=== PATIENT | female | born 1995 | race Caucasian/White ===

== ENCOUNTER → 2022-10-20 | Outpatient (CLI) | payer OTHER, SELFPAY ==
--- NOTE | 2022-10-20 07:47 | MRI_ITS ---
STUDY: EXAMINATION - MRV BRAIN WITHOUT CONTRAST REASON FOR EXAM: Female, 27 years old. VISUAL FIELD DEFECT TECHNIQUE: 3D uwzk-to-unevwz (TOF) imaging was performed in a sonny MRI scanner. COMPARISON: None. FINDINGS: Normal flow within the superior sagittal sinus. Normal flow within the superficial cortical veins. Normal flow within the paired internal cerebral veins, vein of [place] and straight sinus. Normal flow within the bilateral transverse and sigmoid sinuses. The left transverse sinus is markedly hypoplastic. Normal flow within the bilateral jugular bulbs. MRI/MRV Head Without Contrast IMPRESSION: Normal unenhanced MRV of the brain with a markedly hypoplastic left transverse sinus. Electronically Signed: Anthony Zaidi MD at 14:01 EDT ,
--- NOTE | 2022-10-20 07:47 | MRI_ITS ---
EXAM: MR HEAD WITHOUT AND WITH INTRAVENOUS CONTRAST CLINICAL INDICATION: VISUAL FIELD LOSS TECHNIQUE: Multiplanar and multisequence MR images of the brain were obtained without and with intravenous contrast. CONTRAST: 20 mL of IV Clariscan. COMPARISON: No relevant prior studies available. FINDINGS: BRAIN AND EXTRA-AXIAL SPACES: Unremarkable. No intra- or extra-axial hemorrhage. No evidence of acute infarct. No intracranial mass or mass effect. There is preservation of the gómez/white matter interface. Posterior fossa structures are unremarkable. Ventricles are appropriate for age. No hydrocephalus. Basal cisterns are patent. ORBITS: Normal orbital globes, extraocular muscles, intraconal fat, bilateral optic nerve sheath complexes and lacrimal glands. SELLA: Unremarkable. Normal sella turcica, pituitary gland, infundibular stalk, optic chiasm and hypothalamus. AUDITORY SYSTEM: Unremarkable. The internal auditory canals are patent. BONES/JOINTS: Unremarkable. No discrete lytic or blastic abnormalities. SINUSES: Unremarkable as visualized. Clear. MASTOID AIR CELLS: Unremarkable as visualized. Clear. ORBITS: Unremarkable as visualized. Both globes, extraocular muscles, optic nerves and retrobulbar fat appear unremarkable. VASCULATURE: Unremarkable as visualized. Normal flow voids in the major intracranial circulation. MRI/Brain W/WO Contrast IMPRESSION: Negative MRI brain and orbits without and with intravenous contrast. Electronically Signed: Anthony Zaidi MD at 11:11 EDT ,
== END | disposition home or self-care (01) ==
PROVIDERS: Referring Provider Ophthalmology; Visit Provider Ophthalmology
DX: H47.10 Unspecified papilledema (principal); R51.9 Headache, unspecified; H54.7 Unspecified visual loss
CPT/HCPCS: 70544; 70553; A9575

== ENCOUNTER 2022-10-26 11:13 | Outpatient (CLI) | payer OTHER, SELFPAY ==
[2022-10-26 11:33] VITALS: BP 141/88; PULSE 89; RESP 18; TEMP 36.7; O2SAT 100; BMI 38.2
--- NOTE | 2022-10-26 11:45 | RAD_ITS ---
PROCEDURE: Fluoroscopic guided Lumbar Puncture. DATE: October 26, 2022. CLINICAL INDICATION: Papilledema. PHYSICIAN: Khang Hough M.D. MEDICATIONS: 1% lidocaine administered subcutaneously for local anesthesia. ACCESS SITE: Lower posterior back. NEEDLE: 22-gauge spinal needle. SPECIMEN: Approximately 14 mL clear]CSF fluid. FLUOROSCOPY TIME (if supplied): (1:08) minutes/seconds. 41.28 mGy COMPLICATIONS: None immediate. The risks, benefits, and alternatives to the procedure were explained to the patient. The specific risks of bleeding, infection, and neurovascular injury were detailed and accepted. Witnessed informed consent was obtained. The patient was placed on the fluoroscopic table in the prone position. The level for needle entry was determined and marked. The overlying skin was cleaned and prepped in the usual sterile fashion. 2% lidocaine was administered subcutaneously for local anesthesia. Under fluoroscopic guidance a 22-gauge spinal needle was advanced. The thecal sac was entered at the L2-L3 vertebral level. The inner stylet was removed. There was spontaneous flow of clear CSF fluid. Opening pressure was 15 mm of water. The patient was placed in a reversed Trendelenburg position. Approximately 14 mL of cerebrospinal fluid was collected using gravity. The specimen was collected and submitted to the laboratory for further evaluation. The needle was withdrawn,. Hemostasis was achieved and a sterile dressing placed. The patient tolerated the procedure well without any immediate complications. The patient was placed supine with head elevated and returned to the floor in stable condition. RAD/Dx Lumbar Puncture w/IMG Guide IMPRESSION: Successful fluoroscopic-guided lumbar puncture. Electronically Signed: Khang Hough MD at 12:50 EDT ,
[2022-10-26 12:24] VITALS: BP 119/43; PULSE 76; RESP 18; O2SAT 100
[2022-10-26] MEDS: Lidocaine 2% (5ml sdv) 5 ML VIAL.MPF INFILT (12:30)
[2022-10-26 13:22] LABS: Appearance CSF (character) CLEAR (Clear); CSF Color COLORLESS (Colorless); Tested Tube # 3
[2022-10-26 13:23] LABS: Body Fluid QC Type(s) BF2Q,BF3Q; RBC Count, Spinal Fluid 0 /mm-3 (None seen); White Count, CSF 0 /mm-3 (0 - 5)
[2022-10-26 13:40] VITALS: BP 136/84; PULSE 64; RESP 14; O2SAT 100
[2022-10-27 12:10] LABS: Pathologist Review Reviewed
== END 2022-10-26 23:59 | disposition home or self-care (01) ==
PROVIDERS: Referring Provider Ophthalmology; Visit Provider Ophthalmology
DX: H47.10 Unspecified papilledema (principal)
CPT/HCPCS: 62328; 87070; 87205; 89050; 89051

== ENCOUNTER 2022-10-29 06:42 | Emergency (ER) | payer OTHER, SELFPAY ==
[2022-10-29 06:43] VITALS: BP 132/109; PULSE 81; RESP 16; TEMP 36.2; O2SAT 99; BMI 39.2
--- NOTE | 2022-10-29 07:28 | EX.ED.VIS.HA ---
HPI History of Present Illness Chief Complaint: Headache Narrative Narrative: 27-year-old female presenting with headache. Patient states that she recently has been being worked up by her cake press operator because she has a loss of her peripheral vision. She states she had MRI and MRV performed of her brain which were normal. Patient states that on she had a diagnostic LP done by Dr. Hough. She states that she has been having mild headaches that she feels around her eyes bilaterally. She had this kind of headache on Sunday but this morning she woke up with a different headache which is more in the back of her head and radiates down her neck. She states he is not really lightheaded. She is been trying to drink caffeine but this is not helping. No fevers or chills. No nausea or vomiting. PFSH PFSH Home Medications ferrous sulfate 325 mg (65 mg iron) tablet (Iron (ferrous sulfate)) 325 mg PO QODAY 10/26/22 [History Last Taken Unknown] xipzdejxzb-jgvpldhfbyrzl-xmkzyiff 50 mg-300 mg-40 mg capsule (Fioricet) 1 cap PO Q8H PRN pain #12 caps 10/29/22 [Rx Last Taken Unknown] ondansetron 4 mg disintegrating tablet 4 mg PO Q8H PRN PRN Nausea #10 tabs 10/29/22 [Rx Last Taken Unknown] Allergy/AdvReac Type Severity Reaction Status Date / Time No Known Allergies Allergy Verified 10/29/22 06:46 Social History Smoking Status: Never smoker ROS ROS ED Constitutional Constitutional ED: Denies chills or fever(s) Eyes Eyes: Denies change in vision or diplopia ENT ENT ED: Denies rhinorrhea or sore throat Cardiovascular Cardiovascular: Denies chest pain or palpitations Respiratory/Chest Respiratory/Chest: Denies cough, dyspnea or dyspnea on exertion Gastrointestinal Gastrointestinal: Denies abdominal pain or constipation Genitourinary Genitourinary ED: Denies dysuria or hematuria Musculoskeletal Musculoskeletal: Denies arthralgias Integumentary Denies rash Neurologic Neurologic: Reports headache(s); Denies paresthesias or weakness Psychiatric Psychiatric: Denies anxiety or depression EXAM Physical Exam Const Vital Signs: 10/29/22 06:43 10/29/22 06:43 10/29/22 09:16 Temperature 97.1 F L 97.1 F L Temperature Source Temporal Temporal Pulse Rate 81 81 91 Respiratory Rate 16 16 14 Blood Pressure 132/109 H 132/109 H 106/62 Blood Pressure Mean 116 116 Pulse Ox 99 99 99 Oxygen Delivery Method Room Air Room Air Positive well nourished General Appearance ED: NAD CARLINE Reports normocephalic atraumatic Eyes PERRL and EOMs intact bilaterally Resp normal respiratory effort Effort and Inspection: Negative for retractions Cardio regular rate and regular rhythm Extremity normal to inspection Neuro oriented x3, CN's II-XII intact bilaterally and no sensory deficits noted Sensorium / Orientation: awake and alert Psych mental status grossly normal Skin Skin Narrative: LP site shows no erythema, tenderness, warmth. MDM MDM MDM Narrative Medical decision making narrative: 27-year-old female presenting with headache. I believe this is a spinal headache. She had a diagnostic LP performed by Dr. Hough on . IV line was established and she was given Reglan, Benadryl, Toradol a liter normal saline. I discussed the case with Dr. Naun Rawls who is the anesthesiologist on-call at 7:15 in the morning and she states she is going to be in cases all day and will not be able to perform blood patch at any time today. She also stated that since Dr. Hough did the LP he can do a blood patch tomorrow because he is not in house today due to it being a Sunday. I do not have a way to get a hold of Dr. Hough to set this up. I did discuss with the patient that they can try to return tomorrow to have this done. Impression: 1. Spinal headache Discharge Plan Triage Chief Complaint: Headache ED Provider: Armen Vargas Dx/Rx/DC Orders Instructions: ED Headache After Spinal Tap ... Prescriptions: New qnzjfwwmmf-sdqnvloulwcqi-hetf [Fioricet] 50-300-40 mg capsule 1 cap PO Q8H PRN (Reason: pain) Qty: 12 0RF ondansetron 4 mg tablet,disintegrating 4 mg PO Q8H PRN PRN (Reason: Nausea) Qty: 10 0RF No Action ferrous sulfate [Iron (ferrous sulfate)] 325 mg (65 mg iron) tablet 325 mg PO QODAY Primary Care Provider: Krysten Barrera Referrals: Krysten Barrera DO [Primary Care Provider] - Disposition Disposition: Home, Self Care Discharge Date/Time: 10/29/22 09:18
[2022-10-29] MEDS: DiphenhydrAMINE 50 MG/ML Syringe 25 MG IV (07:30)
[2022-10-29] MEDS: 0.9% Normal Saline 1,000 ML 999 ML IV (07:30)
[2022-10-29] MEDS: Metoclopramide 10 MG/2 ML Vial IV (07:32)
[2022-10-29] MEDS: Ketorolac 15 MG/ML Vial IV (07:32)
[2022-10-29 09:16] VITALS: BP 106/62; PULSE 91; RESP 14; O2SAT 99
== END 2022-10-29 09:18 | disposition home or self-care (01) ==
PROVIDERS: Emergency Provider Student in an Organized Health Care Education/Training Program; Visit Provider Student in an Organized Health Care Education/Training Program
DX: G97.1 Other reaction to spinal and lumbar puncture (principal)
CPT/HCPCS: 96361; 96374; 96375; 99283; J7030; A4216

== ENCOUNTER 2022-10-30 06:46 | Emergency (ER) | payer OTHER, SELFPAY ==
[2022-10-30 06:46] VITALS: BP 145/94; PULSE 75; RESP 14; TEMP 36.3; O2SAT 98; BMI 38.2
--- NOTE | 2022-10-30 08:25 | EX.ED.VIS.HA ---
HPI History of Present Illness Chief Complaint: Headache Informant: patient Narrative Narrative: Presenting with persistent post lumbar headache. Diagnostic LP 4 days ago in radiology department Dr. Hough, symptomatic the following day. Symptoms worse with sitting or standing. She is being worked up for idiopathic intracranial hypertension. Initially seen by ophthalmology. She had MRI studies 2 weeks ago. She was sent for diagnostic evaluation. She reported her pressures were normal. She was prescribed Diamox by her director inpatient headache program however has not started taking it. She was seen yesterday in the ED over the weekend. She is given migraine cocktail. She was given prescription for Fioricet. She took it yesterday 5 PM had transient relief. She returns for persistent symptoms. This was her first lumbar puncture. Denies fevers. Denies photophobia or phonophobia. PFSH PFSH Home Medications ferrous sulfate 325 mg (65 mg iron) tablet (Iron (ferrous sulfate)) 325 mg PO QODAY 10/26/22 [History Last Taken Unknown] kfoftfnpmf-kjfvgoypsmefn-nonkhssn 50 mg-300 mg-40 mg capsule (Fioricet) 1 cap PO Q8H PRN pain #12 caps 10/29/22 [Rx Last Taken Unknown] ondansetron 4 mg disintegrating tablet 4 mg PO Q8H PRN PRN Nausea #10 tabs 10/29/22 [Rx Last Taken Unknown] Allergy/AdvReac Type Severity Reaction Status Date / Time No Known Allergies Allergy Verified 10/30/22 06:53 Social History Smoking Status: Never smoker ROS ROS ED Constitutional Constitutional ED: Denies chills, fever(s) or sweats Eyes Eyes: Denies change in vision ENT ENT ED: Denies dysphagia or sore throat Cardiovascular Cardiovascular: Denies chest pain, leg edema, palpitations or racing heartbeat Respiratory/Chest Respiratory/Chest: Denies cough, dyspnea or dyspnea on exertion Gastrointestinal Gastrointestinal: Denies abdominal pain, diarrhea, nausea or vomiting Genitourinary Genitourinary ED: Denies dysuria, hematuria or urinary frequency Musculoskeletal Musculoskeletal: Denies back pain, extremity pain or neck pain Integumentary Denies rash or wounds Neurologic Neurologic: Reports headache(s); Denies paresthesias or weakness EXAM Physical Exam Const Vital Signs: 10/30/22 06:46 Temperature 97.3 F L Temperature Source Temporal Pulse Rate 75 Respiratory Rate 14 Blood Pressure 145/94 H Blood Pressure Mean 111 Pulse Ox 98 Oxygen Delivery Method Room Air Positive well nourished and well developed General Appearance ED: well developed and NAD HEENT Reports moist mucous membranes normocephalic and atraumatic Eyes PERRL, EOMs intact bilaterally and conjunctivae normal General Eye ED: Yes normal appearance of both eyes Neck no lymphadenopathy, supple and no meningeal signs General: Negative for tenderness Chest Wall Chest: Negative for tenderness Resp normal respiratory effort and normal air movement Effort and Inspection: symmetric chest movement; Negative for respiratory distress Cardio regular rate, regular rhythm and no murmurs Peripheral Pulses: pulses 2+ throughout GI normal to inspection, nondistended, normoactive bowel sounds and non-tender Palpation: Negative for guarding or rebound tenderness present Back/Spine no CVA tenderness and no thoracic nor lumbar tenderness Back/Spine Narrative: Previous marking L2-L3 region from lumbar puncture site. There is no erythema or drainage. Extremity normal to inspection General Extremety ED: Negative for edema or tenderness General Extremity: Negative for edema Neuro oriented x3, CN's II-XII intact bilaterally and no sensory deficits noted Sensorium / Orientation: awake and alert Skin no rashes or lesions noted and no wounds MDM MDM MDM Narrative Medical decision making narrative: Interventions / MDM: Differential diagnosis: Post lumbar headache Diagnosis considered but do not suspect: Meningitis, no clinical presentation of this. My EKG interpretation: N/A Imaging independently reviewed and interpreted by myself: N/A External documents reviewed: N/A Test considered but not ordered:N/A ED course: Patient vital stable nontoxic. Presenting post lumbar headache with classic symptoms. I did reach out to anesthesia, however reported radiology department is contracted with pain management group. I reached out spoke with Dr. Maria, states this can be performed directly in his office. Therefore patient will be discharged to go to his office for the procedure. This was discussed with patient and mother who understands and agrees with plan. She is able to ambulate in the department in no distress. Re-evaluation: stable Disposition discussed with patient/family/significant other: Case discussed with consulting clinician: Anesthesia Dr. Lopez, pain managment Dr. Maria This note was generated with [employer] dictation software. It may contain incorrect words, spelling, and punctuation that were not noted in checking the note before signing. Discharge Plan Triage Chief Complaint: Headache ED Provider: Fausto Alfaro Dx/Rx/DC Orders Clinical Impression: Headache, post-lumbar puncture Instructions: ED Headache After Spinal Tap ... Prescriptions: No Action ferrous sulfate [Iron (ferrous sulfate)] 325 mg (65 mg iron) tablet 325 mg PO QODAY gbgbygrimu-utnxnolcjcsud-ovgo [Fioricet] 50-300-40 mg capsule 1 cap PO Q8H PRN (Reason: pain) Qty: 12 0RF ondansetron 4 mg tablet,disintegrating 4 mg PO Q8H PRN PRN (Reason: Nausea) Qty: 10 0RF Primary Care Provider: Krysten Barrera Referrals: Vera Maria MD [Med Staff - Active Staff] - As soon as possible Krysten Barrera, [Primary Care Provider] - Activity Restrictions/Additional Instructions: Discussed with Dr. Maria, go to his office 9 AM for planned blood patch in the office. Disposition Disposition: Home, Self Care
== END 2022-10-30 08:47 | disposition home or self-care (01) ==
PROVIDERS: Emergency Provider Emergency Medicine; Visit Provider Emergency Medicine
DX: G97.1 Other reaction to spinal and lumbar puncture (principal)
CPT/HCPCS: 99282

== ENCOUNTER 2023-11-22 06:55 | Day surgery (SDC) | payer OTHER, SELFPAY ==
--- NOTE | 2023-11-14 13:12 | PCM.HP.BLA ---
History and Physical Date of Admission: 11/22/23 HPI: The patient is a 28 year old female presenting for pre-operative visit. She is scheduled for hsyteroscopy D&C with polyp resection, for AUB on 11/22/23. Procedure discussed along with risks, benefits and complications. Other alternatives discussed for management. Consent form signed? No. PAST MEDICAL HISTORY PAST MEDICAL HISTORY No date: IIH (idiopathic intracranial hypertension) No date: Iron deficiency anemia PAST SURGICAL HISTORY PAST SURGICAL HISTORY 10/2022: BLOOD PATCH 10/2022: SPINAL TAP PROCEDURE 2012: TONSILLECTOMY & ADENOIDECTOMY <AGE 10 CURRENT MEDICATIONS Current Outpatient Medications Medication Sig Dispense Refill ? acetaZOLAMIDE (DIAMOX) 250 mg tablet ? ferrous sulfate (IRON ORAL) Take by mouth. No current facility-administered medications for this visit. ALLERGIES: Patient has no known allergies. PERSONAL HISTORY: SOCIAL HISTORY Social History Tobacco Use ? Smoking status: Never ? Smokeless tobacco: Never Vaping Use ? Vaping status: Never Used Substance Use Topics ? Alcohol use: Yes Comment: seldom ? Drug use: Never FAMILY HISTORY: FAMILY HISTORY FAMILY HISTORY Problem Relation Age of Onset ? Diabetes Mother borderline ? Diabetes Father ? Hypertension Father ? Colon Cancer Father over 45 ? Breast Cancer Paternal Grandmother REVIEW OF SYMPTOMS: GENERAL: denies fevers or chills ENDOCRINOLOGY: has not been on steroids Cardiology : denies palpitations or chest pain Respiratory: denies SOB or cough Hematology: denies history of prolonged bleeding or easy bruising or VTE Allergy: Denies history of personal or family history of allergy to anesthesia PHYSICAL EXAMINATION: VITALS: Last menstrual period 09/01/2023. GENERAL: The patient is well nourished, well hydrated in no acute distress. , The patient is oriented to time, place, and person. PELVIC US 10/23/23: Indication Abnormal uterine bleeding, spotting between cycles Impression The uterus is anteverted and measures 80 mm x 44 mm x 46 mm. The myometrium is heterogenous. The endometrium is heterogenous, contains small cystic areas and measures 16 mm. There are two echogenic areas within the endometrial cavity that are suspicious for endometrial polyps. 1. 12 mm x 16 mm x 11 mm. Anterior 2. 20 mm x 14 mm x 6 mm. Posterior The right ovary measures 45 mm x 24 mm x 22 mm and contains a corpus luteum cyst. The left ovary measures 30 mm x 29 mm x 17 mm. There is a small amount of free fluid visualized. Technique: Three dimensional imaging was created on a dedicated stand-alone 3D workstation with images created and archived, and supervised and reviewed by the interpreting physician utilizing images from a US Scan performed on 10/23/23. Recommendations Consider SIS for further evaluation of endometrial cavity if clinically indicated. Menstrual History LMP on 09/30/2023 IMPRESSION: AUB, endometrial polyps PLAN: The risks/benefits/alternatives and personal involved for the planned hysteroscopy D&C with polyp resection were reviewed with the patient. Her questions were answered to her satisfaction and she desires to proceed. I reviewed with her postop instructions and expectations. I have reviewed and updated past medical and surgical history, medications and allergies Assessment & Plan Assessment/Plan (1) Abnormal uterine bleeding (AUB): (2) Endometrial polyp:
[2023-11-22] MEDS: Lidocaine 1% /Epi 1:100 (20ml) 20 ML Vial (06:55)
--- NOTE | 2023-11-22 07:07 | PRE.ANES_ITS ---
ASA Classification* ASA Classification ASA Classification: 2 Assessment & Plan Anesthesia* Anesthesia Assessment Anesthesia Assessment: Discussed sedation and/or anesthesia options, risks, benefits, and alternatives with patient/parents/legal guardian/POA. Questions invited. The patient/parents/legal guardian/POA seems to understand and agrees to proceed with anesthesia plan. Reviewed the physical assessment, medical history, allergy history and patient home medications list prior to surgery/procedure/anesthetic and documented any changes. Performed airway and anesthesia risk assessments. Anesthesia Type Anesthesia Type: MAC Anesthesia Focused Assessment* Airway Assessment Mouth opens: >3 cm Mallampati Score: II Focused Labs Anesthesia Preop lab: CBC CHEMISTRY COAG Pre-Assessment Diagnosis/Proposed Procedure Planned Operative Procedure(s): HYSTEROSCOPY D&C Anesthesia History Anesthesia History - advanced manufacturing associate: Anesthesia History - advanced manufacturing associate Hx Hospitalization No 11/12/23 11:10 Any Problems With Anesthesia No 11/12/23 11:10 Cholinesterase deficiency No 11/12/23 11:10 You/Your Family Experience No 11/12/23 11:10 fever (hyperthermia) with Relationship Recent Exposure to Contagious Disease Does patient have nerve No 11/12/23 11:10 stimulator Patient instructed to have device shut off --Does patient have Pacemaker or ICD? When Was Last Pacemaker Check QUESTION #4 FULL TEXT: You/Your Family Experience fever (hyperthermia) with Anesthesia Last Oral Intake Last Oral intake: Last Oral Intake NPO since Meds taken in AM with sips of water? Meds patient instructed to take am of surgery PONV PONV - advanced manufacturing associate: PONV - advanced manufacturing associate Female Yes 11/12/23 11:10 HX of Motion Sickness No 11/12/23 11:10 HX of N/V After Surgery No 11/12/23 11:10 Non-Smoker Yes 11/12/23 11:10 Duration of Surgery greater No 11/12/23 11:10 than 60 minutes Number of Risk Factors 2 11/12/23 11:10 PONV Score Moderate Risk 11/12/23 11:10 Height & Weight Height & Weight: Anesthesia: Height & Weight Height 5 ft 5 in 10/30/22 06:46 Respiratory Assessment Respiratory Assessment - advanced manufacturing associate: Respiratory Tract Infection Hx - advanced manufacturing associate Hx Respiratory Tract Infection No 11/12/23 11:10 STOP Sleep Apnea STOP Sleep Apnea - advanced manufacturing associate: STOP Sleep Apnea - advanced manufacturing associate Hx Hypertension No 11/12/23 11:10 Hx Sleep Apnea No 11/12/23 11:10 CPAP No 11/12/23 11:10 BIPAP Do you snore loudly (louder No 11/12/23 11:10 than talking or can be heard Do you often feel tired/ No 11/12/23 11:10 fatigued/ sleepy during daytime? Has anyone observed you stop No 11/12/23 11:10 breathing during sleep? STOP Results Negative 11/12/23 11:10 QUESTION #5 FULL TEXT : Do you snore loudly (louder than talking or can be heard through closed doors)? Tobacco Use History Tobacco Use History - advanced manufacturing associate: Tobacco Use History - advanced manufacturing associate Tobacco Use Smoking Status Never smoker 11/12/23 11:10 Hx Tobacco Use No 11/12/23 11:10 Years Smoking Packs Smoked per Day Smoking Cessation Date was within the last 15 years Hx Smoking Cessation Date Hx Smoking Cessation Counseling Hematologic Medial History Hematologic Hx - advanced manufacturing associate: Hematologic Medical Hx - cray fishing hand Hx of Blood Transfusion No 11/12/23 11:10 Hx of Transfusion in last 3 No 11/12/23 11:10 Months Date of Last Transfusion (if within last 3 months) Ever experience any problems No 11/12/23 11:10 with transfusion(s)? Specify any problems Hx of Preganancy in last 3 No 11/12/23 11:10 Months Nurse Filling Out Transfusion DSCHRIBER 11/12/23 11:10 & Questions: Date: 11/12/23 11/12/23 11:10 Time: 11:11 11/12/23 11:10 Patient unable to answer at this time (ie. confused, unrespo /Reproduction History /Reproductive History - advanced manufacturing associate: /Reproductive Hx- advanced manufacturing associate Hx Now No 11/12/23 11:10 Gestational Age (in weeks): EDC: Hx Hx Para Hx Section SAB No 11/12/23 11:10 Active Medications Active Medications: Current Medications Generic Name Dose Route Start Last Admin Trade Name Freq PRN Reason Stop Dose Admin Acetaminophen 1,000 mg 11/22/23 08:30 Acetaminophen 500 Mg Tablet PO 11/22/23 08:31 PREOP ONE Lactated Ringer's 1,000 mls @ 15 mls/hr 11/22/23 07:15 IV .Q48H BENNY Ketorolac Tromethamine 30 mg 11/22/23 08:30 Ketorolac 30 Mg/Ml Syringe IV 11/22/23 08:31 PREOP ONE PFSH Medical History Diabetes Low iron Back pain Migraine headache Non-smoker Home Medications ?Medication ?Instructions ?Recorded ?Last Taken ?Type ferrous sulfate 325 mg (65 mg 325 mg PO MOWEFR 10/26/22 Unknown History iron) tablet (Iron (ferrous sulfate)) acetazolamide 250 mg tablet 250 mg PO DAILY 11/12/23 Unknown History vits,calcium no.78-iron 1 tab PO DAILY 11/12/23 Unknown History fumarate-folic acid 29 mg-1 mg tablet (Prenatabs FA) Allergy/AdvReac Type Severity Reaction Status Date / Time No Known Allergies Allergy Verified 11/12/23 11:08 Surgical History Hx of tonsillectomy Social History Smoking Status: Never smoker Review of Systems (Anesthesia) ROS Narrative System reviewed and no additional complaints, except as documented.
[2023-11-22 07:19] VITALS: BP 136/87; PULSE 90; RESP 16; TEMP 36.2; O2SAT 100; BMI 35.7
[2023-11-22] MEDS: Ketorolac 30 MG/ML Syringe IV (07:33)
[2023-11-22] MEDS: Lactated Ringers 1,000 ML 15 ML IV (07:33)
[2023-11-22] MEDS: Acetaminophen 500 MG Tablet 1000 MG PO (07:33)
[2023-11-22 07:38] LABS: Internal QC Validated? YES +Cl - CLEAR BKGD; Pregnancy, Urine Negative Negative
[2023-11-22 07:54] LABS: Hematocrit 45.3 % (37-47); Hemoglobin 15.2 g/dL (12.0-15.0); Mean Corp Hgb Conc 33.6 g/dL (32-36); Mean Corpuscular Hgb 29.4 pg (27.0-32.0); Mean Corpuscular Volume 87.6 fL (81-99); Mean Platelet Vol. 9.9 fl (6.2-12.0); Platelet Count 313 K/mm3 (150-450); RBC Distribution Width CV 12.1 % (11.6-14.6); Red Blood Count 5.17 M/mm3 (4.2-5.4); White Blood Count 8.7 K/mm3 (4.4-11.0)
--- NOTE | 2023-11-22 08:30 | EMB_PTH ---
PATIENT: FERNANDO POLK LOC: [facility] [place] U#:[id number] AGE/SX: 28/F ROOM: RE11/22/[address]: Dr. Rima Whitaker MD : 1995 BED: DIS: 11/22/2023 SPEC #: [id number] RECD: 11/22/23 14:26 STATUS: OZZY SARAH #: [id number] TODD: 11/22/23 08:[address]: Rima Whitaker DEPT: SURGICAL PATHOLOGY RECD BY: Eloisa Padgett Tissues: Endometrium, NOS Procedures: Surgery Specimen Level IV HEADER OPERATION: Hysteroscopy, D&C, polyp resection PRE-OP DIAGNOSIS: Abnormal uterine bleeding, endometrial polyp TISSUE SUBMITTED: Endometrial curettings and polyp MICROSCOPIC DIAGNOSIS Endometrial curettings and polyp: Polypoid fragments of secretory endometrium. AM. 11/27/2023 MICROSCOPIC DESCRIPTION Slides are reviewed. GROSS DESCRIPTION Received in fixative is one container labeled with the patient's name and designated Endometrial curettings and polyp. The specimen consists of multiple irregular fragments of jenkins soft tissue that in aggregate measure 7.5 x 3.0 x 0.3 cm. The specimen is totally submitted in three cassettes. 11/23/2023 TC:5 CPT:84310
--- NOTE | 2023-11-22 08:40 | PCM.DC ---
Discharge Instructions Diet Discharge Diet: No restrictions Activity Return to work on:: 11/23/23 May shower in (days): 1 May resume sexual activity in: 1 week Lifting Restrictions: none Dressing / Incision Call your doctor if your incision/area has: Sudden Increased Bleeding and Foul Smelling Discharge Call your doctor if you observe: Fever of 101 or Higher and Using more than 1 pad per hour (for 2 hrs in a row) Follow Up Care Please Follow Up With: Rima Whitaker MD When: You do not need a postoperative appointment. Dr. Whitaker will contact you by [employer] with your pathology results. Call [phone] send a [employer] message with any concerns or questions. Test Results: Test results from this visit will be discussed in further detail at your follow-up appointment, if applicable. Discharge Plan Admission Primary Reason for Your Visit: hysteroscopy D&C with polyp resection Attending Provider: Rmia Whitaker Primary Care Provider: LANE YOU Instructions Print Language: Romansh Discharge Orders/Prescriptions Prescriptions: No Action ferrous sulfate [Iron (ferrous sulfate)] 325 mg (65 mg iron) tablet 325 mg PO MOWEFR acetazolamide 250 mg tablet 250 mg PO DAILY Prenatabs FA 29-1 mg tablet 1 tab PO DAILY Referrals / Follow Up: Krysten Barrera DO [Non-Staff] - Disposition Disposition (needs filled in before D/C Order can be placed): Home, Self Care
--- NOTE | 2023-11-22 08:41 | OP.PCM_ITS ---
Problems Associated Problem List Diagnoses (1) Endometrial polyp: (2) Abnormal uterine bleeding (AUB): Report of Operation Date of Procedure: 11/22/23 Pre-Operative Diagnosis: aub, endometrial polyp Post-Operative Diagnosis: same Surgery/Procedure Performed:: Hysteroscopy D&C with polyp resection Description of Surgical Findings:: Normal cervix and vagina, lush endometrium, polypoid lesion off the mid anterior uterine wall and off the right fundal area Surgeon: Rima Whitaker outdoor advertising leasing agent: Manuela Bal Type of Anesthesia: MAC/Supplemental/Local Anesthesiologist: eNry Barone Special Medications: none Specimen's removed: endometrial curettings Drains: none Estimated Blood Loss (mL): 10 Fluids Replaced: 700 Description of Procedure: The patient was taken to the OR where she was prepped and draped in dorsal lithotomy position. The weighted speculum was placed in the vagina and the anterior lip of the cervix was grasped with a single-tooth tenaculum. A paracervical block was administered with [1% lidocaine with 1-100,000 epinephrine solution]. The cervix was dilated serially with Hegar dilators. The [5mm] hysteroscope was placed into the uterine cavity and the above findings were noted. Bilateral tubal ostia [were] identified. The symphion resector was inserted and a visual polyp resection was performed of the 2 polyps and then a gentle curettage of the anterior and posterior endometrial cavity.. The instruments were removed from the vagina. The specimen was handed off and sent to pathology. All sponge and needle counts were correct. Vaginal sweep was performed by me. The patient was awakened and taken to the recovery room in stable condition. Hysteroscopic fluid deficit calculated to be 550 cc of normal saline Grafts/Implants Used: none Procedure Start Time: 08:48 Procedure Stop Time: 08:58 Complications none Admit VTE Documentation VTE Present on Admission: No VTE Mechan Device Prophylaxis: SCD's VTE Pharm Prophylaxis ordered?: No Reason prophylaxis not ordered:: Procedure Not Indicated
[2023-11-22 09:10] VITALS: BP 105/76; BP 136/87; PULSE 114; RESP 16; TEMP 36.6; O2SAT 97
--- NOTE | 2023-11-22 09:14 | PCM.POST.ANE ---
Anesthesia: Postop Eval I Current Vital Signs Temperature: 97.9 F Pulse Rate: 113 Blood Pressure: 105/76 Respiratory Rate: 18 Pulse Ox: 97 Oxygen Delivery Method: Room Air Assessment Airway patent: Yes Spontaneous unlabored respirations: Yes Mental status: Awake and Calm nausea: No Vomiting: No Anesthesia Complication: No Fluid Hydration Crystalloid volume administer (ml): 700 Total IV fluid infused: 700 Progress Note Anesthesia document: Postop Eval 1 completed: Yes
[2023-11-22 09:15] VITALS: BP 105/76; BP 118/64; BP 136/87; PULSE 102; PULSE 113; RESP 16; RESP 18; TEMP 36.6; O2SAT 97; O2SAT 98
[2023-11-22 09:20] VITALS: BP 118/69; BP 136/87; PULSE 104; RESP 16; O2SAT 97
[2023-11-22 09:25] VITALS: BP 122/56; BP 136/87; PULSE 81; RESP 16; TEMP 36.2; O2SAT 97
[2023-11-22 09:50] VITALS: BP 136/87
--- NOTE | 2023-11-22 14:03 | POSTOPAN2_ITS ---
Anesthesia Postop Eval I Sum Postop Eval Completion status Anesthesia document: Postop Eval 1 completed: Yes Anesthesia Postop Eval I Summary Anesthesia Postop Eval I Summary: Anesthesia Postop Eval I: Assessment Summary Airway patent Yes 11/22/23 09:15 CLINICAL RN [email or web address] Spontaneous unlabored Yes 11/22/23 09:15 CLINICAL RN [email or web address] respirations Mental status Awake,Calm 11/22/23 09:15 CLINICAL RN [email or web address] nausea No 11/22/23 09:15 CLINICAL RN [email or web address] Vomiting No 11/22/23 09:15 [email or web address] Anesthesia Postop Eval I: Fluid Summary Crystalloid volume administer 700 11/22/23 09:15 CLINICAL RN [email or web address] (ml) Colloids volume administered ( ml) Blood Product volume administered (ml) Total IV fluid infused 700 11/22/23 09:15 CLINICAL RN [email or web address] Anesthesia Postop Eval I: Summary Notes Anesthesia Complication No 11/22/23 09:15 CLINICAL RN [email or web address] Anesthesia Complication Comment: Post-operative progress note Anesthesia: Postop Eval II Evaluation Mental status: Awake and Calm Pain Level: 1 nausea: No Vomiting: No Complications Anesthesia Complication: No
--- NOTE | 2023-11-22 14:03 | PCM.POSTANE2 ---
Anesthesia Postop Eval I Sum Postop Eval Completion status Anesthesia document: Postop Eval 1 completed: Yes Anesthesia Postop Eval I Summary Anesthesia Postop Eval I Summary: Anesthesia Postop Eval I: Assessment Summary Airway patent Yes 11/22/23 09:15 [email or web address] [email or web address] Spontaneous unlabored Yes 11/22/23 09:15 TELEPHONE [email or web address] respirations Mental status Awake,Calm 11/22/23 09:15 [email or web address] [email or web address] nausea No 11/22/23 09:15 TELEPHONE [email or web address] Vomiting No 11/22/23 09:15 [facility] [email or web address] Anesthesia Postop Eval I: Fluid Summary Crystalloid volume administer 700 11/22/23 09:15 [email or web address] [email or web address] (ml) Colloids volume administered ( ml) Blood Product volume administered (ml) Total IV fluid infused 700 11/22/23 09:15 TELEPHONE [email or web address] Anesthesia Postop Eval I: Summary Notes Anesthesia Complication No 11/22/23 09:15 TELEPHONE [email or web address].[email or web address] Anesthesia Complication Comment: Post-operative progress note Anesthesia: Postop Eval II Evaluation Mental status: Awake and Calm Pain Level: 1 nausea: No Vomiting: No Complications Anesthesia Complication: No
== END 2023-11-22 10:07 | disposition home or self-care (01) ==
LOC: SDC 07:04 → AC 07:04
PROVIDERS: Anesthesiology; Referring Provider Obstetrics & Gynecology; Visit Provider Obstetrics & Gynecology
PROC: 0UB98ZZ Excision of Uterus, Via Natural or Artificial Opening Endoscopic (ICD-10-PCS; CPT 58558; principal; 2023-11-22 08:15)
DX: N93.9 Abnormal uterine and vaginal bleeding, unspecified (principal); N83.11 Corpus luteum cyst of right ovary; N84.0 Polyp of corpus uteri; E61.1 Iron deficiency
CPT/HCPCS: 58558; 00952; 81025; 85027; 88305; J7120; J2405

== ENCOUNTER 2024-11-20 11:33 | Inpatient (IN) | payer OTHER, SELFPAY ==
[2024-11-20] VITALS (86 sets, daily range): BP systolic 109–166; BP diastolic 56–116; PULSE 65–93; RESP 16–18; TEMP 36.3–37.5; O2SAT 89–100; BMI 39.1
--- NOTE | 2024-11-20 09:33 | PCM.HP.OB ---
HPI - General General Date of Admission: 11/20/24 Date of Service: 11/20/24 Chief Complaint: Possible ROM HPI Narrative FERNANDO POLK, is a 29 F who presents with possible ROM and contractions. Not SROM. But 5 cm with mild range pressures. Admitted for labor Maternal Data Information Final RED: 11/26/24 Gestational age: 39+1 PFSH PFS Medical History Diabetes Low iron Back pain Migraine headache Non-smoker Home Medications ?Medication ?Instructions ?Recorded ?Last Taken ?Type ferrous sulfate 325 mg (65 mg 325 mg PO MOWEFR 10/26/22 11/17/24 History iron) tablet (Iron (ferrous sulfate)) vits,calcium no.78-iron 1 tab PO DAILY 11/12/23 11/20/24 History fumarate-folic acid 29 mg-1 mg tablet (Prenatabs FA) aspirin 81 mg capsule 81 mg PO DAILY 11/20/24 Unknown History Allergy/AdvReac Type Severity Reaction Status Date / Time No Known Allergies Allergy Verified 11/20/24 09:16 Surgical History Hx of tonsillectomy Social History Smoking Status: Never smoker History 1 Elective abortions Hx Para 0 Spontaneous abortions Hx # Term Pregnancies Ectopic pregnancies Hx # Pregnancies Multiple births # of living children NST FHR Rate Baby A Variability:: Moderate Decelerations:: None NST Reactive:: Yes Vital Signs Vital Signs Vital Signs: 11/20/24 09:23 11/20/24 09:23 Pulse Rate 83 Blood Pressure 144/88 H BP Systolic 144 BP Diastolic 88 Weight Weight: 106.7 kg Body Mass Index (BMI) 39.1 Labs Labs Labs: Blood Type A POSITIVE Antibody Screen NEGATIVE Hct 39.9 % (37-47) Hgb 13.8 g/dL (12.0-15.0) Syphilis Total Ab Nonreactive (Nonreactive)
[2024-11-20 09:52] LABS: ROM Internal Control Test YES-OK TO RESULT pt. (Internal QC); ROM Patient Test Negative (Negative); Record Kit Lot#, ROM+ K3358
[2024-11-20] MEDS: 0.9% Saline Lock 10 ML Syringe IV (10:47)
[2024-11-20 10:56] LABS: Hematocrit 39.9 % (37-47); Hemoglobin 13.8 g/dL (12.0-15.0); Mean Corp Hgb Conc 34.6 g/dL (32-36); Mean Corpuscular Volume 87.9 fL (81-99); Mean Platelet Vol. 10.6 fl (6.2-12.0); Platelet Count 249 K/mm3 (150-450); RBC Distribution Width CV 13.6 % (11.6-14.6); RBC Distribution Width SD 43.9 fl (35.1-43.9); Red Blood Count 4.54 M/mm3 (4.2-5.4); White Blood Count 10.7 K/mm3 (4.4-11.0)
[2024-11-20 11:42] LABS: Creatinine, Urine (random) 104.00 mg/dL (28.00-217.00); Protein, Urine (Random) 16.0 mg/dL (0.0-12.0); Protein:Creat Ratio 154 mg/g CRE (0-200)
[2024-11-20 11:45] LABS: AST(SGOT) 25 U/L (<=31); Alanine Aminotransfer ALT/SGPT 17 U/L (<=34); Estimated Creatinine Clearance 201.90 ml/min (50-250)
[2024-11-20 11:50] LABS: Syphilis Antibodies Nonreactive (Nonreactive)
[2024-11-20 12:09] LABS: Uric Acid 4.6 mg/dL (2.6-6.0)
[2024-11-20] MEDS: Lactated Ringers 1,000 ML 999 ML IV (12:25)
[2024-11-20] MEDS: fentaNYL-bupivacaine (epidural) 100 ML BAG EPIDURAL ×2 (13:17→17:31)
[2024-11-20] MEDS: Lactated Ringers 1,000 ML 200 ML IV ×2 (13:26→18:24)
[2024-11-20] MEDS: LACTATED RINGERS 500 ML 999 ML IV (16:30)
--- OUTSIDE RECORDS SUMMARY | 2024-11-20 17:44 | XMS RPT_ITS | CCD ---
Author Organization [facility] Care Team Providers Care Knowledge Management Advisor Name Role Phone GREGORY BARRERA Unavailable Unavailable GREGORY BARRERA Unavailable Unavailable GREGORY BARRERA Unavailable Unavailable MARIUSZ SUPPLY CHAIN COORDINATORCEDRICK, LANE Primary Care Physician BALSAVANA SUPPLY CHAIN COORDINATOR-CINDY, LANE Attending Unavailabl e BALTES SUPPLY CHAIN COORDINATOR-GAME TRAPPER, LANE Primary Care Unavailabl e BALTES SUPPLY CHAIN COORDINATOR-GAME TRAPPER, LANE Attending Unavailabl e BALTES SUPPLY CHAIN COORDINATOR-GAME TRAPPER, LANE Primary Care Unavailabl e BALTES SUPPLY CHAIN COORDINATOR-GAME TRAPPER, LANE Attending Unavailabl e BALTES SUPPLY CHAIN COORDINATOR-GAME TRAPPER, LANE Primary Care Unavailabl e Unavailable Primary Care Provider Unavailcarlos e Clint Vasques Referring Unavailable Clint Vasques Attending Unavailable OFELIA JEAN BAPTISTE Primary Care Unavailable BALTES SUPPLY CHAIN COORDINATOR-GAME TRAPPER, LANE Attending Unavailabl e BALTES SUPPLY CHAIN COORDINATOR-GAME TRAPPER, LANE Primary Care Unavailabl e BALTES SUPPLY CHAIN COORDINATOR-GAME TRAPPER, LANE Attending Unavailabl e BALTES SUPPLY CHAIN COORDINATOR-GAME TRAPPER, LANE Primary Care Unavailabl e NICHOLE CORTES Attending Unavailable ZULLY, MELISSA Referring Unavailable ZULLY, MELISSA Referring Unavailable CLINT VASQUES Attending Unavailable BENITA CONN Referring Unavailable ZULLYMELISSA Ortega Attending Unavailable ZULLY, MELISSA Referring Unavailable DENICE SALES Attending Unavail able CLINT VASQUES Attending Unavailable BENITA CONN Referring Unavailable CLINT VASQUES Attending Unavailable CLINT VASQUES Referring Unavailable CLINT VASQUES Referring Unavailable BENITA CONN Attending Unavailable GISELL HOPE Attending Unavailable NICHOLE CORTES Referring Unavailable NICHOLE CORTES Attending Unavailable NICHOLE CORTES Referring Unavailable CLINT VASQUES Attending Unavailable CLINT VASQUES Attending Unavailable CLINT VASQUES Attending Unavailable CLINT VASQUES Attending Unavailable Medications Current Medications Medication Drug Class(es) Dates Sig (Normalized) Sig (Original) acetaminophen 300 mg / butalbital 50 mg / caffeine 40 mg oral capsule (1 source) Barbiturate, Central Nervous System Stimulant, Methylxanthine Start: 10-29-2022 take 1 capsule by mouth every eight hours Butalbital-Aceta minophen-Caff (Fioricet) 50-300-40 mg capsule Active 1 CAP PO Q8H October 29, 2022 12:00am aspirin 81 mg delayed release oral tablet (20 sources) Platelet Aggregation Inhibitor, Nonsteroidal Anti-inflammatory Drug Start: 04-18-2024 take 1 tablet by mouth once daily aspirin, enteric coated (ECOTRIN LOW STRENGTH) 81 mg EC tablet Take 1 tablet by mouth once daily. 90 tablet 3 04/18/2024 Active ferrous sulfate 325 mg oral tablet (16 sources) Start: 01-17-2023 IRON (ferrous sulfate 325 mg) 65 mg oral tablet Dose : 325 mg = 1 tab(s), Oral, Mon/Wed/Fri, Take with food., 3 Refill(s) Start Date: 01/17/23 Status: Ordered Repeat number: 1 Start: 10-26-2022 take 1 tablet by rusty th every other day Ferrous Sulfate (Iron (Ferrous Sulfate)) 325 mg (65 mg iron) tablet Active 325 MG PO EVERY OTHER DAY October 26, 2022 12:00am End: 10-08-2024 ferrous sulfate (IRON ORAL) Take by mouth. 10/08/2024 Discontinued End: 04-18-2024 ferrous sulfate (IRON ORAL) Take by mouth. 04/18/2024 Discontinued ferrous sulfate (IRON ORAL) Take by mouth. Active ferrous sulfate (IRON ORAL) Take by mouth. 0 Active ibuprofen 200 mg oral tablet (4 sources) Nonsteroidal Anti-inflammatory Drug Start: 10-11-2022 ibuprofen 200 mg oral tablet Dose : 400 mg = 2 tab(s), Oral, q6hr, PRN pain or fever, 0 Refill(s) Start Date: 10/11/22 Status: Ordered Repeat number: 1 Multivitamin preparation (4 sources) Start: 10-11-2022 take 1 tablet by mouth once daily Multivitamin Dose = 1 tab(s), Oral, Daily, 0 Refill(s) Start Date: 10/11/22 Status: Ordered Repeat number: 1 Start: 10-11-2022 take 1 tablet by [facility] once daily Multivitamin Dose = 1 tab(s), Oral, Daily, 0 Refill(s) Start Date: 10/11/22 Status: Ordered ondansetron 4 mg disintegrating oral tablet (1 source) Serotonin-3 Receptor Antagonist Start: 10-29-2022 take 4 mg by mouth every eight hours as needed Ondansetron Active 4 MG PO EVERY 8 HOURS NEEDED October 29, 2022 12:00am vits62/FA/om3/dha/epa ( GUMMY ORAL) (20 sources) vits62/FA/om3/dha /epa ( GUMMY ORAL) Take 2 Pieces by mouth once daily. Active Completed/Discontinued Medications Medication Drug Class(es) Dates Sig (Normalized) Sig (Original) acetaZOLAMIDE 250 mg oral tablet (11 sources) Carbonic Anhydrase Inhibitor Start: 08-18-2023 End: 04-18-2024 acetaZOLAMIDE (DIAMOX) 250 mg tablet 08/18/2023 04/18/2024 Discontinued Start: 11-15-2022 take 1 dose by mouth twice ava ly Diamox Dose : 500 mg =, Oral, BID, 0 Refill(s) Start Date: 11/15/22 Status: Ordered Problems Active Problems Problem Classification Problem Date Documented Date Episodic/Chronic Blindness and vision defects (4 sources) Blurring of visual image 10-11-2022 Episodic Complications of surgical procedures or medical care (1 source) Headache following lumbar puncture; Translations: [Other reaction to spinal and lumbar puncture] 10-30-2022 Episodic Diabetes mellitus without complication (9 sources) Hyperglycemia; Translations: [Prediabetes] 10-11-2022 Episodic Immunizations and screening for infectious disease (4 sources) Patient encounter status; Translations: [Encounter for screening for human papillomavirus (HPV)] 09-10-2023 Episodic Nutritional deficiencies (3 sources) Iron deficiency 11-15-2022 Episodic Other complications of (20 sources) Obesity; Translations: [Obesity complicating , unspecified trimester] Onset: 05-20-2024 05-20-2024 Chronic Other complications of (3 sources) Anemia of ; Translations: [Anemia complicating , third trimester] 09-24-2024 Chronic Other complications of (1 source) Obesity complicating , unspecified trimester; Translations: [Obesity in (HCC)] Onset: 05-20-2024 Chronic Other complications of (1 source) Anemia complicating , third trimester; Translations: [Anemia during in third trimester (HCC)] Onset: 11-11-2024 Chronic Other complications of (20 sources) High risk ; Translations: [Supervision of other high risk pregnancies, second trimester] Onset: 04-18-2024 05-20-2024 Episodic Other complications of (8 sources) Suspected macroscopic fetus; Translations: [Maternal care for excessive growth, third trimester, not applicable or unspecified] Onset: 11-07-2024 11-07-2024 Episodic Other complications of (1 source) Supervision of high risk , unspecified, third trimester; Translations: [Supervision of high risk in third trimester ([facility])] Onset: 10-08-2024 Episodic Other complications of (1 source) Supervision of other high risk pregnancies, second trimester; Translations: [Supervision of other high risk pregnancies, second trimester ([facility])] Onset: 10-08-2024 Episodic Other female genital disorders (4 sources) Abnormal uterine bleeding; Translations: [Abnormal uterine and vaginal bleeding, unspecified] 10-17-2023 Chronic Other female genital disorders (1 source) Abnormal uterine and vaginal bleeding, unspecified; Translations: [Abnormal uterine and vaginal bleeding, unspecified] Onset: 12-18-2023 Chronic Other nervous system disorders (20 sources) Benign intracranial hypertension; Translations: [Benign intracranial hypertension] 11-15-2022 Chronic Other nervous system disorders (1 source) Benign intracranial hypertension; Translations: [IIH (idiopathic intracranial hypertension)] Onset: 07-15-2024 Chronic Other nutritional; endocrine; and metabolic disorders (1 source) Severe obesity; Translations: [Morbid (severe) obesity due to excess calories] 09-10-2023 Chronic Residual codes; unclassified (4 sources) Family history of diabetes mellitus 10-11-2022 Episodic Residual codes; unclassified (1 source) Gestation period, 8 weeks; Translations: [8 weeks gestation of ] 04-18-2024 Episodic Residual codes; unclassified (1 source) Gestation period, 12 weeks; Translations: [12 weeks gestation of ] 05-20-2024 Episodic Residual codes; unclassified (1 source) Gestation period, 16 weeks; Translations: [16 weeks gestation of ] 06-17-2024 Episodic Residual codes; unclassified (1 source) Gestation period, 20 weeks; Translations: [20 weeks gestation of ] 07-15-2024 Episodic Residual codes; unclassified (1 source) Gestation period, 28 weeks; Translations: [28 weeks gestation of ] 09-03-2024 Episodic Residual codes; unclassified (2 sources) Gestation period, 33 weeks; Translations: [33 weeks gestation of ] 10-08-2024 Episodic Residual codes; unclassified (1 source) Gestation period, 35 weeks; Translations: [35 weeks gestation of ] 10-22-2024 Episodic Residual codes; unclassified (3 sources) Gestation period, 37 weeks; Translations: [37 weeks gestation of ] 11-05-2024 Episodic Residual codes; unclassified (1 source) Gestation period, 38 weeks; Translations: [38 weeks gestation of ] 11-14-2024 Episodic Residual codes; unclassified (1 source) 38 weeks gestation of ; Translations: [38 weeks gestation of (HCC)] Onset: 11-14-2024 Episodic Residual codes; unclassified (1 source) 37 weeks gestation of ; Translations: [37 weeks gestation of (HCC)] Onset: 11-11-2024 Episodic Residual codes; unclassified (1 source) 33 weeks gestation of ; Translations: [33 weeks gestation of (HCC)] Onset: 11-05-2024 Episodic Residual codes; unclassified (1 source) 35 weeks gestation of ; Translations: [35 weeks gestation of (HCC)] Onset: 10-22-2024 Episodic Residual codes; unclassified (1 source) 28 weeks gestation of ; Translations: [28 weeks gestation of (HCC)] Onset: 09-03-2024 Episodic Residual codes; unclassified (1 source) Gestation period, 39 weeks; Translations: [39 weeks gestation of ] 11-19-2024 Episodic Unclassified (1 source) Unknown / UNK(Unknown) Onset: 09-22-2016 Unclassified (20 sources) [facility] Education - COMMON Onset: 04-18-2024 04-18-2024 Unclassified (20 sources) Education - [place] Onset: 04-18-2024 5 Past or Other Problems Problem Classification Problem Date Documented Da te Episodic/Chronic Deficiency and other anemia (20 sources) Iron deficiency anemia; Translations: [Iron deficiency anemia, unspecified] Resolved: 10-08-2024 04-18-2024 Episodic Other complications of (1 source) Supervision of high risk , unspecified, second trimester; Translations: [Supervision of high risk in second trimester] Onset: 05-20-2024 Episodic Other female genital disorders (20 sources) Polyp of corpus uteri; Translations: [Polyp of corpus uteri] Onset: 10-23-2023 Resolved: 11-27-2023 10-23-2023 Episodic Other nutritional; endocrine; and metabolic disorders (20 sources) Body mass index 30+ - obesity; Translations: [Body mass index (BMI) 38.0-38.9, adult] Onset: 04-18-2024 Resolved: 05-20-2024 04-18-2024 Chronic Other and delivery including normal (6 sources) with uncertain dates; Translations: [Encounter for supervision of normal , unspecified, unspecified trimester] Onset: 04-18-2024 04-18-2024 Episodic Other screening for suspected conditions (not mental disorders or infectious disease) (20 sources) Cancer cervix screening status; Translations: [Encounter for screening for malignant neoplasm of cervix] Onset: 10-23-2023 Resolved: 11-27-2023 09-10-2023 Episodic Residual codes; unclassified (1 source) 25 weeks gestation of ; Translations: [25 weeks gestation of (HCC)] Onset: 08-13-2024 Episodic Residual codes; unclassified (1 source) 20 weeks gestation of ; Translations: [20 weeks gestation of (HCC)] Onset: 07-15-2024 Episodic Residual codes; unclassified (1 source) 8 weeks gestation of ; Translations: [8 weeks gestation of ] Onset: 05-20-2024 Episodic Unclassified (1 source) PIRIFORMIS SYNDROME RIGHT Onset: 09-22-2016 Results Test Name Value Interpretation Reference Range Facility URINE OB DIP B/Oon 5 Glucose Ql (U) Negative Neg mg/dL [facility] Protein.monoclonal (U) [Mass/Vol] trace Neg mg/dL [facility] URINE OB DIP B/Oon 08-22-202 5 Glucose Ql (U) Negative Neg mg/dL [facility] Protein.monoclonal (U) [Mass/Vol] Negative Neg mg/dL [facility] Examination level ultrasound on 11-07-2024 [facility] Examination level ultrasound on 11-05-2024 Radiology Study observation (narrative) [facility] ROUTINE, GROUP B ST REPTOCOCCUS BY PCRon 11-05-2024 ROUTINE, GROUP B STREPTOCOCCUS BY PCR Not detected Normal [facility] Comment on above: Performed By: #### G BPCR ####[facility] LABCLIA [id number] [place] [address] [place] URINE OB DIP B/Oon 5 Glucose Ql (U) Negative Neg mg/dL [facility] Interpretation and review of laboratory results Normal [facility] Protein.monoclonal (U) [Mass/Vol] Negative Neg mg/dL [facility] URINE OB DIP B/Oon 5 Glucose Ql (U) Negative Neg mg/dL [facility] Interpretation and review of laboratory results Normal [facility] Protein.monoclonal (U) [Mass/Vol] Negative Neg mg/dL [facility] Examination level ultrasound on 10-09-2024 [facility] Examination level ultrasound on 10-08-2024 Radiology Study observation (narrative) [facility] CBC W Auto Differential pane l (Bld)on 09-03-2024 Basophils (Bld) [#/Vol] 10*3/uL Normal <0.11 C [facility] Comment on above: Order Comment: Speci men Type: BLOOD SPECIMENOrdering Facility: [facility] Address: [address] [place] [address] Performed By: #### 5 7021-8 ####[facility] [id number] [address] [place] Basophils/100 WBC (Bld) 0.2 % Normal C [facility] Comment on above: Order Comment: Speci men Type: BLOOD SPECIMENOrdering Facility: [facility] Address: [address] [place] [address] Performed By: #### 5 7021-8 ####[facility] MILLWNCLIA [id number] [place] [address] [place] Differential cell count method Nom (Bld) Auto Normal [facility] Comment on above: Order Comment: Speci men Type: BLOOD SPECIMENOrdering Facility: [facility] Address: [address] [place] [address] Performed By: #### 5 7021-8 ####[facility] HOSPITALOSBALDOLIA [id number] [place] [address] [place] Eosinophils (Bld) [#/Vol] 0.05 10*3/uL Normal <0.46 [facility] Comment on above: Order Comment: Speci men Type: BLOOD SPECIMENOrdering Facility: [facility] Address: [address] [place] [address] Performed By: #### 5 7021-8 ####[facility] HOSPITALOSBALDOLIA [id number] [place] [address] [place] Eosinophils/100 WBC (Bld) 0.4 % Normal [facility] Comment on above: Order Comment: Speci men Type: BLOOD SPECIMENOrdering Facility: [facility] Address: [address] [place] [address] Performed By: #### 5 7021-8 ####[facility] HOSPITALOSBALDOLIA [id number] [place] [address] [place] Erythrocyte distribution width (RBC) [Ratio] 13.7 % Normal 11.5-15.0 [facility] Comment on above: Order Comment: Speci men Type: BLOOD SPECIMENOrdering Facility: [facility] Address: [address] [place] [address] Performed By: #### 5 7021-8 ####[facility] HOSPITALNCLIA [id number] [place] [address] [place] Hematocrit (Bld) [Volume fraction] 35.3 % Low 36.0-46.0 [facility] Comment on above: Order Comment: Speci men Type: BLOOD SPECIMENOrdering Facility: [facility] Address: [address] [place] [address] Performed By: #### 5 7021-8 ####[facility] HOSPITALNCJORDAN [facility] [id number] [place] [address] [place] Hemoglobin (Bld) [Mass/Vol] 12.0 g/dL Normal 11.5-15.5 [facility] Comment on above: Order Comment: Speci men Type: BLOOD SPECIMENOrdering Facility: [facility] Address: [address] [place] [address] Performed By: #### 5 7021-8 ####[facility] HOSPITALNCJORDAN [facility] [id number] [place] [address] [place] Immature granulocytes (Bld) [#/Vol] 0.04 10*3/uL Normal <0.10 [facility] Comment on above: Order Comment: Speci men Type: BLOOD SPECIMENOrdering Facility: [facility] Address: [address] [place] [address] Performed By: #### 5 7021-8 ####[facility] HOSPITALNCLIA [id number] [place] [address] [place] Immature granulocytes/100 WBC (Bld) 0.4 % Normal [facility] Comment on above: Order Comment: Speci men Type: BLOOD SPECIMENOrdering Facility: [facility] Address: [address] [place] [address] Performed By: #### 5 7021-8 ####[facility] HOSPITALNCLIA [id number] [place] [address] [place] Lymphocytes (Bld) [#/Vol] 1.14 10*3/uL Normal 1.00-4.00 [facility] Comment on above: Order Comment: Speci men Type: BLOOD SPECIMENOrdering Facility: [facility] Address: [address] [place] [address] Performed By: #### 5 7021-8 ####[facility] MAURIDENIA [id number] [place] [address] [place] Lymphocytes/100 WBC (Bld) 10.2 % Normal [facility] Comment on above: Order Comment: Speci men Type: BLOOD SPECIMENOrdering Facility: [facility] Address: [address] [place] [address] Performed By: #### 5 7021-8 ####[facility] HOSPITALNCARTI [id number] [place] [address] [place] MCH (RBC) [Entitic mass] 30.3 pg Normal 26.0-34.0 [facility] Comment on above: Order Comment: Speci men Type: BLOOD SPECIMENOrdering Facility: [facility] Address: [address] [place] [address] Performed By: #### 5 7021-8 ####[facility] HOSPITALManuela [id number] [place] [address] [place] MCHC (RBC) [Mass/Vol] 34.0 g/dL Normal 30.5-36.0 [facility] Comment on above: Order Comment: Speci men Type: BLOOD SPECIMENOrdering Facility: [facility] Address: [address] [place] [address] Performed By: #### 5 7021-8 ####[facility] HOSPITALNCLIA [id number] [place] [address] [place] MCV (RBC) [Entitic vol] 89.1 fL Normal 80.0-100.0 C [facility] Comment on above: Order Comment: Speci men Type: BLOOD SPECIMENOrdering Facility: [facility] Address: [address] [place] [address] Performed By: #### 5 7021-8 ####[facility] MILLTOWNCLIA [id number] [place] [address] [place] Monocytes (Bld) [#/Vol] 0.56 10*3/uL Normal <0.87 [facility] Comment on above: Order Comment: Speci men Type: BLOOD SPECIMENOrdering Facility: [facility] Address: [address] [place] [address] Performed By: #### 5 7021-8 ####[facility] CR[facility] HOSPITALLIA [id number] [place] [address] [place] Monocytes/100 WBC (Bld) 5.0 % Normal [facility] Comment on above: Order Comment: Speci men Type: BLOOD SPECIMENOrdering Facility: [facility] Address: [address] [place] [address] Performed By: #### 5 7021-8 ####[facility] CRIL[facility] HOSPITALLIA [id number] [place] [address] [place] Neutrophils (Bld) [#/Vol] 9.39 10*3/uL High 1.45-7.50 [facility] Comment on above: Order Comment: Speci men Type: BLOOD SPECIMENOrdering Facility: [facility] Address: [address] [place] [address] Performed By: #### 5 7021-8 ####[facility] GARDENWNCLIA [id number] [place] [address] [place] Neutrophils/100 WBC (Bld) 83.8 % Normal [facility] Comment on above: Order Comment: Speci men Type: BLOOD SPECIMENOrdering Facility: [facility] Address: [address] [place] [address] Performed By: #### 5 7021-8 ####[facility] HOSPITALNCLIA [id number] [place] [address] [place] Nucleated RBC (Bld) [#/Vol] 10*3/uL Normal <0.01 [facility] Comment on above: Order Comment: Speci men Type: BLOOD SPECIMENOrdering Facility: [facility] Address: [address] [place] [address] Performed By: #### 5 7021-8 ####[facility] HOSPITALNCA [id number] [place] [address] [place] Nucleated RBC/100 WBC (Bld) [Ratio] 0.0 /100 WBC Normal [facility] Comment on above: Order Comment: Speci men Type: BLOOD SPECIMENOrdering Facility: [facility] Address: [address] [place] [address] Performed By: #### 5 7021-8 ####[facility] HOSPITALNCJORDAN [facility] [id number] [place] [address] [place] Platelet mean volume (Bld) [Entitic vol] 10.0 fL Normal 9.0-12.7 [facility] Comment on above: Order Comment: Speci men Type: BLOOD SPECIMENOrdering Facility: [facility] Address: [address] [place] [address] Performed By: #### 5 7021-8 ####[facility] HOSPITALNCLIA [id number] [place] [address] [place] Platelets (Bld) [#/Vol] 236 10*3/uL Normal 150-400 [facility] Comment on above: Order Comment: Speci men Type: BLOOD SPECIMENOrdering Facility: [facility] Address: [address] [place] [address] Performed By: #### 5 7021-8 ####[facility] HOSPITALNCLIA [id number] [place] [address] [place] RBC (Bld) [#/Vol] 3.96 10*6/uL Normal 3.90-5.20 [facility] Comment on above: Order Comment: Speci men Type: BLOOD SPECIMENOrdering Facility: [facility] Address: [address] [place] [address] Performed By: #### 5 7021-8 ####[facility] HOSPITALNCLIA [id number] [place] [address] [place] WBC (Bld) [#/Vol] 11.20 10*3/uL High 3.70-11.00 [facility] Comment on above: Order Comment: Speci men Type: BLOOD SPECIMENOrdering Facility: [facility] Address: [address] [place] [address] Performed By: #### 5 7021-8 ####[facility] HOSPITALNCJORDAN [facility] [id number] [place] [address] [place] GESTATIONAL GLUCOSE SCREEN, 1-HOUR, 50 GRAM, NON-FASTINGon 09-03-2024 Glucose [Mass/Vol] 122 mg/dL Normal 74-134 [facility] Comment on above: Order Comment: Speci men Type: BLOOD SPECIMENOrdering Facility: [facility] Address: [address] [place] [address] Result Comment: [facility] Congress of Obstetricians and Gynecologists (Satnam/Michael) guidelines state a gestational diabetes mellitus positive screen is made, in women not previously diagnosed with overt diabetes, when the 1 hr plasma glucose level is equal to or above 140 mg/dL. The [facility] Community Health Educator and [facility] recommends a 135 mg/dL cutoff. Performed By: #### G LTGST ####[facility] HOSPITALNCA [id number] [place] [address] [place] Reagin and Treponema pallidu m IgG and IgM [Interp]on 09-03-2024 T. pallidum IgG+IgM IA Ql (S) Non-Reactive Normal Nonreactive [facility] Comment on above: Order Comment: Speci men Type: BLOOD SPECIMENOrdering Facility: [facility] Address: [address] [place], [place] [address] [id number] Performed By: #### 7 3752-8 ####[facility] LABCLIA [id number] [place] [address] [place] Reagin+T pallidum IgG+IgM Se rPl-Impon 09-03-2024 Reagin and Treponema pallidum IgG and IgM [Interp] Cannot exclude recent Treponemal infection if specimen collected within 7-10 days after appearance of suspect lesions or 2-3 weeks after an exposure. Clinical correlation is required. Normal [facility] Comment on above: Order Comment: Speci men Type: BLOOD SPECIMENOrdering Facility: [facility] Address: [address] [place] [address] Performed By: #### 7 3752-8 ####[facility] LABCLIA [id number] [place] [id number] [place] CNPTita 08-04-2024 CNPN Telephone (OBGYWM) ---- SOHEILA POLK ([id number]) 1995 F Date Time Provider Department 08/04/24 [facility] OBGYWM During your visit today, we recorded the following information about you: Halima Burt, NICANOR 08/04/2024 10:35 AM Signed Written order received from [facility] for breast pump. Placed in RR inbox for signature. NICANOR Meza Trisha, RN 08/04/2024 3:26 PM Signed Order signed and faxed. Aury Castillo RN Allergies As of Date: 08/04/2024 (No Known Allergies) Date Reviewed: 07/15/2024 Reviewed by: Junie Kowalski LPN - Fully Assessed Reason for Visit: breast pump [Other] Prescriptions as of 08/04/2024 - aspirin, enteric coated (ECOTRIN LOW STRENGTH) 81 mg EC tablet Take 1 tablet by mouth once daily. - vits62/FA/om3/dha/e pa ( GUMMY ORAL) Take 2 Pieces by mouth once daily. Problem List As Of Date 08/04/2024 Noted Resolved Abnormal endometrial ultrasound [R93.5] 10/23/2023 11/27/2023 Endometrial polyp [N84.0] 10/23/2023 11/27/2023 Supervision of other high risk pregnancies, sec*04/18/2024 BMI 38.0-38.9,adult [Z68.38] 04/18/2024 05/20/2024 IIH (idiopathic intracranial hypertension) [G93* Iron deficiency anemia [D50.9] Obesity in [O99.210] 05/20/2024 Encounter Status:Closed by AURY CASTILLO on 08/04/24 Normal [facility] .Auto Diffon 07-22-2024 Basophil, Absolute 0.0 10 3/mcL Normal 0.0-0.3 [facility] Comment on above: Performed By: #### C BC, A1C, ADIFF, FERR, ANEU #### [address] [address] Basophils/100 WBC (Bld) 0.2 % Normal 0.0-2.5 A [facility] Comment on above: Performed By: #### C BC, A1C, ADIFF, FERR, ANEU #### [place] [id number] [place], [place] [address] Eosinophil, Absolute 0.1 10 3/mcL Normal 0.0-0.7 [facility] Comment on above: Performed By: #### C BC, A1C, ADIFF, FERR, ANEU #### [address] [address] Eosinophils/100 WBC (Bld) 1.1 % Normal 0.0-6.0 [facility] Comment on above: Performed By: #### C BC, A1C, ADIFF, FERR, ANEU #### [place] [id number] [place], [place] [address] Lymphocyte, Absolute 1.6 10 3/mcL Normal 0.9-4.3 [facility] Comment on above: Performed By: #### C BC, A1C, ADIFF, FERR, ANEU #### [address] [address] Lymphocytes/100 WBC (Bld) 13.3 % Low 20.0-40.0 [facility] Comment on above: Performed By: #### C BC, A1C, ADIFF, FERR, ANEU #### [address] [address] Monocyte, Absolute 0.6 10 3/mcL Normal 0.1-1.4 [facility] Comment on above: Performed By: #### C BC, A1C, ADIFF, FERR, ANEU #### [address] [address] Monocytes/100 WBC (Bld) 4.7 % Normal 2.0-13.0 [facility] Comment on above: Performed By: #### C BC, A1C, ADIFF, FERR, ANEU #### [address] [address] Neutrophils/100 WBC (Bld) 80.7 % High 50.0-75.0 [facility] Comment on above: Performed By: #### C BC, A1C, ADIFF, FERR, ANEU #### [address] [address] .NEUABSon 07-22-2024 Neutrophil, Absolute 9.5 10 3/mcL High 2.3-8.1 [facility] Comment on above: Performed By: #### C BC, A1C, ADIFF, FERR, ANEU #### [address] [address] A1Con 07-22-2024 Glucose [Mass/Vol] 103 mg/dL Normal [facility] Comment on above: Result Comment: Amie mated Average Glucose calculated by equation ((28.7xA1C)-46.7) Estimated average glucose (eAG) is a calculated value from Hemoglobin A1C and is franchise sales representative of the average blood glucose level in the last 2-3 month period. Normal range: less than 114 mg/dL Performed By: #### C BC, A1C, ADIFF, FERR, ANEU #### [place] [address] HbA1c (Bld) [Mass fraction] 5.2 % Normal 4.3-6.4 [facility] Comment on above: Performed By: #### C BC, A1C, ADIFF, FERR, ANEU #### [place] [id number] CBCon 07-22-2024 Erythrocyte distribution width (RBC) [Ratio] 13.2 % Normal 11.5-15.5 [facility] Comment on above: Performed By: #### C BC, A1C, ADIFF, FERR, ANEU #### [place] [address] Hematocrit (Bld) [Volume fraction] 38.7 % Normal 34.0-46.0 [facility] Comment on above: Performed By: #### C BC, A1C, ADIFF, FERR, ANEU #### [place] [address] Hgb 13.0 G/dL Normal 12.0-16.0 [facility] Comment on above: Performed By: #### C BC, A1C, ADIFF, FERR, ANEU #### [place] [address] MCH (RBC) [Entitic mass] 30.2 pg Normal 27.0-33.0 [facility] Comment on above: Performed By: #### C BC, A1C, ADIFF, FERR, ANEU #### [place] [address] MCHC 33.7 G/dL Normal 32.0-36.0 [facility] Comment on above: Performed By: #### C BC, A1C, ADIFF, FERR, ANEU #### [place] [address] MCV (RBC) [Entitic vol] 89.5 fL Normal 80.0-99.0 [facility] Comment on above: Performed By: #### C BC, A1C, ADIFF, FERR, ANEU #### [address] [address] Platelet 269 10 3/mcL Normal 150-450 [facility] Comment on above: Performed By: #### C BC, A1C, ADIFF, FERR, ANEU #### [place] [address] Platelet mean volume (Bld) [Entitic vol] 8.6 fL Normal 6.6-10.5 [facility] Comment on above: Performed By: #### C BC, A1C, ADIFF, FERR, ANEU #### [place] [address] RBC 4.32 10 6/mcL Normal 4.10-5.30 [facility] Comment on above: Performed By: #### C BC, A1C, ADIFF, FERR, ANEU #### [place] [address] WBC 11.8 10 3/mcL High 4.5-10.8 [facility] Comment on above: Performed By: #### C BC, A1C, ADIFF, FERR, ANEU #### [place] [address] Brigid 07-22-2024 Ferritin [Mass/Vol] 10.0 ng/mL Normal 8.0-252.0 [facility] Comment on above: Performed By: #### C BC, A1C, ADIFF, FERR, ANEU #### [place] [address] LABORATORYOrdered By: SYSTEM SYSTEM on 07-22-2024 Basophils (Bld) [#/Vol] 0.0 103/mcL Normal 0.0 - 0.3 10^3/mcL AO Workflow SS Basophils/100 WBC (Bld) 0.2 % Normal 0.0 - 2.5 % AO Workflow SS Eosinophil, Absolute 0.1 103/mcL Normal 0.0 - 0 .7 10^3/mcL AO Workflow SS Eosinophils/100 WBC (Bld) 1.1 % Normal 0.0 - 6.0 % AO Workflow SS Erythrocyte distribution width (RBC) [Ratio] 13.2 % Normal 11.5 - 15.5 % AO Workflow SS Ferritin [Mass/Vol] 10.0 ng/mL Normal 8.0 - 25 2.0 ng/mL AO ADM SS Glucose [Mass/Vol] 103 mg/dL Invalid Interpretation Code AO Chemistry S Comment on above: Interpretive Data: E stimated average glucose (eAG) is a calculated value from Hemoglobin A1C and is franchise sales representative of the average blood glucose level in the last 2-3 month period. Normal range: less than 114 mg/dL HbA1c (Bld) [Mass fraction] 5.2 % Normal 4.3 - 6.4 % AO ADM SS Hematocrit (Bld) [Volume fraction] 38.7 % Normal 34.0 - 46.0 % AO Workflow SS Hemoglobin (Bld) [Mass/Vol] 13.0 G/dL Normal 12.0 - 16.0 G/dL AO Workflow SS Lymphocytes (Bld) [#/Vol] 1.6 103/mcL Normal 0.9 - 4.3 10^3/mcL AO Workflow SS Lymphocytes/100 WBC (Bld) 13.3 % Low 20.0 - 40.0 % AO Workflow SS MCH (RBC) [Entitic mass] 30.2 pg Normal 27. 0 - 33.0 pg AO Workflow SS MCHC 33.7 G/dL Normal 32.0 - 36.0 G/dL AO Workflow SS MCV (RBC) [Entitic vol] 89.5 fL Normal 80.0 - 99.0 fL AO Workflow SS Monocytes (Bld) [#/Vol] 0.6 103/mcL Normal 0.1 - 1.4 10^3/mcL AO Workflow SS Monocytes/100 WBC (Bld) 4.7 % Normal 2.0 - 13.0 % AO Workflow SS Neutrophils (Bld) [#/Vol] 9.5 103/mcL High 2.3 - 8.1 10^3/mcL AO Workflow SS Neutrophils/100 WBC (Bld) 80.7 % High 50.0 - 75.0 % AO Workflow SS Platelet mean volume (Bld) [Entitic vol] 8.6 fL Normal 6.6 - 10.5 fL AO Workflow SS Platelets (Bld) [#/Vol] 269 103/mcL Normal 150 - 450 10^3/mcL AO Workflow SS RBC (Bld) [#/Vol] 4.32 106/mcL Normal 4.10 - 5.3 0 10^6/mcL AO Workflow SS WBC (Bld) [#/Vol] 11.8 103/mcL High 4.5 - 10.8 10^3/mcL AO Workflow SS Examination level ultrasound on 07-15-2024 Indication Detailed anatomic survey Maternal obesity, BMI >35 Impression The patient is referred for a detailed anatomic survey. - Single, live, intrauterine . - biometry is consistent with the established gestational age. - No malformations were visualized on a complete detailed anatomic survey. - The amniotic fluid volume is normal amount. - The placenta is anterior, fundal. - The Transabdominal cervical length measures 32.2 mm with no evidence of funneling or other dynamic changes. - Not all structural malformations can be detected by ultrasound examination. Recommendations Additional follow-up as clinically indicated. Maternal Assessment Height 165 cm Height (ft) 5 ft Height (in) 5 in Physical Exam Initial weight (lb) 230 lb Initial BMI 38.27 kg/m Maternal assessment other: 1 Para 0 REMOTE READ Method Transabdominal ultrasound examination. View: Suboptimal view: limited by position Leon . Number of fetuses: 1 Dating LMP on: 02/20/2024 GA by LMP 20 w + 6 d RED by LMP: 11/26/2024 GA by prior assessment 20 w + 6 d RED by prior assessment: 11/26/2024 Ultrasound examination on: 07/15/2024 GA by U/S based upon: AC, BPD, Femur, HC GA by U/S 21 w + 4 d RED by U/S: 11/21/2024 Assigned: based on the LMP, selected on 04/18/2024 Assigned GA 20 w + 6 d Assigned RED: 11/26/2024 General Evaluation Cardiac activity present. FHR 146 bpm. movements: present. Presentation: cephalic Placenta: Placental site: anterior, fundal Umbilical cord: Cord vessels: 3 vessel cord Amniotic fluid: Amount of AF: normal amount. MVP 5.6 cm Growth Overview Exam date GA BPD (mm) HC (mm) AC (mm) FL (mm) HL (mm) EFW (g) 07/15/2024 20w 6d 50.5 67% 191.6 67% 171.6 82% 35 71% 31.3 30% 436 82% Biometry Standard BPD 50.5 mm 21w 2d 67% Hadlock OFD 68.8 mm 21w 3d 93% Nicolaides HC 191.6 mm 21w 3d 67% Gucci Cerebellum tr 22.5 mm 21w 0d 70% Hill Nuchal fold 5.4 mm AC 171.6 mm 22w 1d 82% Hadlock Femur 35.0 mm 21w 2d 71% Gucci Humerus 31.3 mm 20w 3d 30% Gucci EFW 436 g 21w 3d 82% Hadlock EFW (lb) 0 lb EFW (oz) 15 oz EFW by: Hadlock (HC-AC-FL) Extended Fisher Trot Line 6.6 mm CM 4.5 mm 29% Nicolaides Extremities / Bony Struc FL / HC 0.18 13% Hadlock Other Structures FHR 146 bpm Anatomy Cranium: normal Lateral ventricles: normal Choroid plexus: normal Midline falx: normal Cavum septi pellucidi: normal Cerebellum: normal Cisterna magna: normal Head / Neck Vermis: normal Neck: normal Nuchal fold: normal Lips: normal Profile: normal Nose: normal Face Maxilla: normal Mandible: normal Orbits: normal Lens: normal 4-chamber view: normal RVOT view: normal LVOT view: normal 3-vessel view: normal [id number] view: normal Heart / Thorax Situs: situs solitus (normal) Aortic arch view: normal SVC: normal IVC: normal Cardiac axis: normal Rt lung: normal Lt lung: normal Diaphragm: normal Cord insertion: normal Stomach: normal Kidneys: normal Bladder: normal Genitals: normal Abdomen Abdom. wall: normal Cervical spine: normal Thoracic spine: normal Lumbar spine: normal Sacral spine: normal Arms: normal Legs: normal Rt upper arm: normal Rt forearm: normal Rt hand: normal Rt fingers: normal Lt upper arm: normal Lt forearm: normal Lt hand: normal Lt fingers: normal Rt upper leg: normal Rt lower leg: normal Rt foot: normal Lt upper leg: normal Lt lower leg: normal Lt foot: normal sex: male Wants to know sex: yes Maternal Structures Uterus / Cervix Uterus: Visualized Cervix: Visualized Approach: Transabdominal Cervical length 32.2 mm Other: Patient declined transvaginal ultrasound for cervical length. Ovaries / Tubes / Adnexa Rt ovary: Visualized Lt ovary: Visualized Performed By: Adela Larson RDMS, RVT Read By: Arelis Kebede M.D. MATERNAL MEDICINE [facility] Radiology Study observation (narrative) Michel gal[facility] CBC W Auto Differential pane l (Bld)on 05-20-2024 Basophils (Bld) [#/Vol] 10*3/uL Normal <0.11 C [facility] Comment on above: Order Comment: Speci men Type: BLOOD SPECIMENOrdering Facility: [facility] Address: [address] [place] [address] Performed By: #### 5 7021-8 ####[facility] MILLWNCLIA [id number] [place] [address] [place] Basophils/100 WBC (Bld) 0.2 % Normal C [facility] Comment on above: Order Comment: Speci men Type: BLOOD SPECIMENOrdering Facility: [facility] Address: [address] [place] [address] Performed By: #### 5 7021-8 ####[facility]ITALLIA [id number] [place] [address] [place] Differential cell count method Nom (Bld) Auto Normal [facility] Comment on above: Order Comment: Speci men Type: BLOOD SPECIMENOrdering Facility: [facility] Address: [address] [place] [address] Performed By: #### 5 7021-8 ####[facility] MILLTOWNCLIA [id number] [place] [address] [place] Eosinophils (Bld) [#/Vol] 0.03 10*3/uL Normal <0.46 [facility] Comment on above: Order Comment: Speci men Type: BLOOD SPECIMENOrdering Facility: [facility] Address: [address] [place] [address] Performed By: #### 5 7021-8 ####[facility] MILLWNCLIA [id number] [place] [address] [place] Eosinophils/100 WBC (Bld) 0.3 % Normal [facility] Comment on above: Order Comment: Speci men Type: BLOOD SPECIMENOrdering Facility: [facility] Address: [address] [place] [address] Performed By: #### 5 7021-8 ####[facility]ITALNCJORD[facility] [id number] [place] [address] [place] Hematocrit (Bld) [Volume fraction] 39.7 % Normal 36.0-46.0 [facility] Comment on above: Order Comment: Speci men Type: BLOOD SPECIMENOrdering Facility: [facility] Address: [address] [place] [address] Performed By: #### 5 7021-8 ####[facility]ITALNCJORD[facility] [id number] [place] [address] [place] Hemoglobin (Bld) [Mass/Vol] 13.9 g/dL Normal 11.5-15.5 [facility] Comment on above: Order Comment: Speci men Type: BLOOD SPECIMENOrdering Facility: [facility] Address: [address] [place] [address] Performed By: #### 5 7021-8 ####[facility] HOSPITALNCLIA [id number] [place] [address] [place] Immature granulocytes (Bld) [#/Vol] 0.04 10*3/uL Normal <0.10 [facility] Comment on above: Order Comment: Speci men Type: BLOOD SPECIMENOrdering Facility: [facility] Address: [address] [place] [address] Performed By: #### 5 7021-8 ####[facility] HOSPITALNCLIA [id number] [place] [address] [place] Immature granulocytes/100 WBC (Bld) 0.4 % Normal [facility] Comment on above: Order Comment: Speci men Type: BLOOD SPECIMENOrdering Facility: [facility] Address: [address] [place] [address] Performed By: #### 5 7021-8 ####[facility] MAURIBLACKSTONEHESHAMA [id number] [place] [address] [place] Lymphocytes (Bld) [#/Vol] 1.36 10*3/uL Normal 1.00-4.00 [facility] Comment on above: Order Comment: Speci men Type: BLOOD SPECIMENOrdering Facility: [facility] Address: [address] [place] [address] Performed By: #### 5 7021-8 ####[facility] HOSPITALOSBALDOA [id number] [place] [address] [place] Lymphocytes/100 WBC (Bld) 13.1 % Normal [facility] Comment on above: Order Comment: Speci men Type: BLOOD SPECIMENOrdering Facility: [facility] Address: [address] [place] [address] Performed By: #### 5 7021-8 ####[facility] HOSPITALA [id number] [place] [address] [place] MCH (RBC) [Entitic mass] 30.2 pg Normal 26.0-34.0 [facility] Comment on above: Order Comment: Speci men Type: BLOOD SPECIMENOrdering Facility: [facility] Address: [address] [place] [address] Performed By: #### 5 7021-8 ####[facility] HOSPITALNCLIA [id number] [place] [address] [place] MCHC (RBC) [Mass/Vol] 35.0 g/dL Normal 30.5-36.0 [facility] Comment on above: Order Comment: Speci men Type: BLOOD SPECIMENOrdering Facility: [facility] Address: [address] [place] [address] Performed By: #### 5 7021-8 ####[facility] MAURIWNCLIA [id number] [place] [address] [place] MCV (RBC) [Entitic vol] 86.1 fL Normal 80.0-100.0 C [facility] Comment on above: Order Comment: Speci men Type: BLOOD SPECIMENOrdering Facility: [facility] Address: [address] [place] [address] Performed By: #### 5 7021-8 ####[facility]OSPITALLIA [id number] [place] [address] [place] Monocytes (Bld) [#/Vol] 0.52 10*3/uL Normal <0.87 [facility] Comment on above: Order Comment: Speci men Type: BLOOD SPECIMENOrdering Facility: [facility] Address: [address] [place] [address] Performed By: #### 5 7021-8 ####[facility] HOSPITALA [id number] [place] [address] [place] Monocytes/100 WBC (Bld) 5.0 % Normal C [facility] Comment on above: Order Comment: Speci men Type: BLOOD SPECIMENOrdering Facility: [facility] Address: [address] [place] [address] Performed By: #### 5 7021-8 ####[facility] HOSPITALOSBALDOLIA [id number] [place] [address] [place] Neutrophils (Bld) [#/Vol] 8.45 10*3/uL High 1.45-7.50 [facility] Comment on above: Order Comment: Speci men Type: BLOOD SPECIMENOrdering Facility: [facility] Address: [address] [place] [address] Performed By: #### 5 7021-8 ####[facility] HOSPITALLIA [id number] [place] [address] [place] Neutrophils/100 WBC (Bld) 81.0 % Normal [facility] Comment on above: Order Comment: Speci men Type: BLOOD SPECIMENOrdering Facility: [facility] Address: [address] [place] [address] Performed By: #### 5 7021-8 ####[facility] [id number] [place] [address] [place] Nucleated RBC (Bld) [#/Vol] 10*3/uL Normal <0.01 [facility] Comment on above: Order Comment: Speci men Type: BLOOD SPECIMENOrdering Facility: [facility] Address: [address] [place] [address] Performed By: #### 5 7021-8 ####[facility]OSPITALNCJORDAN [facility] [id number] [place] [address] [place] Nucleated RBC/100 WBC (Bld) [Ratio] 0.0 /100 WBC Normal [facility] Comment on above: Order Comment: Speci men Type: BLOOD SPECIMENOrdering Facility: [facility] Address: [address] [place] [address] Performed By: #### 5 7021-8 ####[facility]ITALNCJORD[facility] [id number] [place] [address] [place] Platelet mean volume (Bld) [Entitic vol] 9.6 fL Normal 9.0-12.7 [facility] Comment on above: Order Comment: Speci men Type: BLOOD SPECIMENOrdering Facility: [facility] Address: [address] [place] [address] Performed By: #### 5 7021-8 ####[facility]ITALNCJORD[facility] [id number] [place] [address] [place] Platelets (Bld) [#/Vol] 262 10*3/uL Normal 150-400 [facility] Comment on above: Order Comment: Speci men Type: BLOOD SPECIMENOrdering Facility: [facility] Address: [address] [place] [address] Performed By: #### 5 7021-8 ####[facility] FRANSICO MENDIOLA [id number] [place] [address] [place] RBC (Bld) [#/Vol] 4.61 10*6/uL Normal 3.90-5.20 [facility] Comment on above: Order Comment: Speci men Type: BLOOD SPECIMENOrdering Facility: [facility] Address: [address] [place], [place] [id number] Performed By: #### 5 7021-8 ####[facility] ISACCNCLIManuela [id number] [place] [address] [place] WBC (Bld) [#/Vol] 10.42 10*3/uL Normal 3.70-11.00 [facility] Comment on above: Order Comment: Speci men Type: BLOOD SPECIMENOrdering Facility: [facility] Address: [address] [place], [place] [id number] Performed By: #### 5 7021-8 ####[facility] FRANSICO ISACCOSBALDOLIA [id number] [place] [address] [place] [facility] Examination level ultrasound on 05-20-2024 Indication First trimester anatomic survey. Maternal obesity, BMI >30 Impression REMOTE READ The patient is referred for a first trimester anatomy scan including nuchal translucency measurement as clinically indicated. - Single, live, intrauterine . - [place] rump length measurement is consistent with the established gestational age. - No malformations visualized on a complete first trimester anatomic assessment. - The nuchal translucency measurement is 2.4 mm. - Not all structural malformations can be detected by ultrasound examination. Recommendations - A standard anatomic survey at 16 weeks and a detailed exam at 20 weeks is recommended for increased risk. Maternal Assessment Height 165 cm Height (ft) 5 ft Height (in) 5 in Physical Exam Initial weight (lb) 230 lb Initial BMI 38.27 kg/m Method Transabdominal ultrasound examination Leon . Number of fetuses: 1 Dating LMP on: 02/20/2024 GA by LMP 12 w + 6 d RED by LMP: 11/26/2024 Ultrasound examination on: 05/20/2024 GA by U/S based upon: CRL GA by U/S 13 w + 1 d RED by U/S: 11/24/2024 Assigned: based on the LMP, selected on 04/18/2024 Assigned GA 12 w + 6 d Assigned RED: 11/26/2024 General Evaluation Cardiac activity present Placenta: anterior Cord vessels: 3 vessel cord Amniotic fluid: normal amount Biometry Standard FHR 157 bpm CRL 68.8 mm 13w 1d 62% Hadlock NT 2.40 mm First Trimester Anatomy Calvarium: normal Falx cerebri: normal Choroid plexus: normal Profile: normal Nasal bone: normal Retronasal triangle: normal Maxilla: normal Mandible: normal Nuchal translucency: Unremarkable Situs: normal Cardiac position: normal Cardiac axis: normal 4-chamber view: normal 4-chamber view with color: normal 3-qnsyse-nqyurzl view: normal Abdominal cord insertion: normal Stomach: normal Kidneys: normal Color doppler of renal vessels: normal Bladder: normal Color doppler of perivesical umbilical arteries: normal Vertebral alignment: normal Arms: normal Hands: normal Legs: normal Feet: normal Maternal Structures Uterus / Cervix Uterus: Visualized Ovaries / Tubes / Adnexa Rt ovary: Visualized Lt ovary: Visualized Lt ovarian corpus luteum: hemorrhagic Lt ovarian corpus luteum D1 29.0 mm Lt ovarian corpus luteum D2 27.0 mm Lt ovarian corpus luteum D3 25.0 mm Performed By: Marla Billingsley RDMS Read By: Arelis Kebede M.D. MATERNAL MEDICINE [facility] Radiology Study observation (narrative) [facility] HBV surface Ag Ser Qlon 04-27 HBV surface Ag Ql (S) Negative Normal Negative [facility] Comment on above: Order Comment: Speci men Type: BLOOD SPECIMENOrdering Facility: [facility] Address: [address] [place] [address] Performed By: #### 3 1201-7, 02723-1, 5195-3 ####[facility] LABCLIA [id number] [address] [place] HCV Ab Ser Qlon 05-20-2024 HCV Ab Ql (S) Negative Normal Negative [facility] Comment on above: Order Comment: Speci men Type: BLOOD SPECIMENOrdering Facility: [facility] Address: [address] [place] [address] Result Comment: The result suggests no evidence of active infection with Hepatitis C virus. Should recent infection be suspected, repeat testing may be considered 4-6 weeks after this draw. Performed By: #### 1 6128-1 ####[facility] LABCLIA [id number] [place] [address] [place] HGB ELECTROPHORESIS FOR EVAL (LAB ORDER)on 05-20-2024 Hemoglobin A (Bld) [Mass fraction] 97.2 % Normal 96.2-98.0 [facility] Comment on above: Order Comment: Speci men Type: BLOOD SPECIMENOrdering Facility: [facility] Address: [address] [place] [address] Performed By: #### L [id number], HGBELEV ####[facility] LABCLIA [id number] [place] [address] [place] Hemoglobin A2 (Bld) [Mass fraction] 2.8 % Normal 2.0-3.1 [facility] Comment on above: Order Comment: Speci men Type: BLOOD SPECIMENOrdering Facility: [facility] Address: [address] [place] [address] Performed By: #### L [id number], HGBELEV ####[facility] LABCLIA [id number] [place] [id number] [place] Hemoglobin Unsp Elph (Bld) [Mass fraction] No abnormal hemoglobin identified. Normal No abnormal hemoglobin identified. [facility] Comment on above: Order Comment: Preciousi men Type: BLOOD SPECIMENOrdering Facility: [facility] Address: [address] [place] [address] Performed By: #### L [id number], HGBELEV ####[facility] LABCLIA [id number] [place] [address] [place] HGB EVALUATION CASCADE INTER Jose 05-20-2024 Hemoglobin pattern (Bld) [Interp] Reviewed by Reji Juarez MD Normal [facility] Comment on above: Order Comment: Speci men Type: BLOOD SPECIMENOrdering Facility: [facility] Address: [address] [place] [address] Performed By: #### L [id number], HGBELEV ####[facility] LABIA [id number] [place] [address] [place] INTERPRETATION (HGB EVAL) Normal [facility] Comment on above: Order Comment: Speci men Type: BLOOD SPECIMENOrdering Facility: [facility] Address: [address] [place] [address] Result Comment: Hemo globins were analyzed by capillary electrophoresis and CBC red cell parameters were reviewed. No abnormal hemoglobin is identified. There is a normal hemoglobin capillary electrophoresis pattern. Performed By: #### L [id number], HGBELEV ####[facility] [id number] [place] [address] [place] HIV 1+2 Ab IA Qlon HIV 1 and 2 Ab IA.rapid Nom (S/P/Bld) Normal [facility] Comment on above: Order Comment: Speci men Type: BLOOD SPECIMENOrdering Facility: [facility] Address: [address] [place] [address] Result Comment: Test not indicated. Performed By: #### 3 1201-7, 31327-6, 5195-3 ####[facility] LABIA [id number] [place] [address] [place] HIV 1+2 Ab+HIV1 p24 Ag IA Ql Non-Reactive Normal Nonreactive [facility] Comment on above: Order Comment: Speci men Type: BLOOD SPECIMENOrdering Facility: [facility] Address: [address] [place] [address] Performed By: #### 3 1201-7, 44604-7, 5195-3 ####[facility] LABIA [id number] [place] [address] [place] HIV immunoassay testing algorithm interpretation (S/P/Bld) [Interp] Normal [facility] Comment on above: Order Comment: Speci men Type: BLOOD SPECIMENOrdering Facility: [facility] Address: [address] [place] [address] Result Comment: No e vidence of HIV-1 or HIV-2 infection. Should recent infection be suspected, repeat testing may be considered 2-3 weeks after this draw. [place] Rev. Code 3701.243(E): This information has been disclosed to you from confidential records protected from disclosure by state law. ???You shall make no further disclosure of this information without the specific, written, and informed release of the individual to whom it pertains or as otherwise permitted by state law. A general authorization for the release of medical or other information is not sufficient for the purpose of the release of HIV test results or diagnoses. Performed By: #### 3 1201-7, 71612-9, 5195-3 ####[facility] [id number] [place] [address] [place] HbA1c (Bld)on 05-20-2024 Average glucose Estimated from glycated hemoglobin (Bld) [Mass/Vol] 97 mg/dL Normal [facility] Comment on above: Order Comment: Speci men Type: BLOOD SPECIMENOrdering Facility: [facility] Address: [address] [place] [address] Result Comment: eAG: (Estimated average glucose) is a calculated value from HgbA1c and is franchise sales representative of the average blood glucose level in the last 2-3 month period. Performed By: #### 5 5454-3 ####[facility] LABIA [id number] [place] [address] [place] HbA1c (Bld) [Mass fraction] 5.0 % Normal 4.3-5.6 [facility] Comment on above: Order Comment: Speci men Type: BLOOD SPECIMENOrdering Facility: [facility] Address: [address] [place] [address] Result Comment: Amer ican Diabetes Association guidelines indicate that patients with HgbA1c in the range 5.7-6.4% are at increased risk for development of diabetes, and intervention by lifestyle modification may be beneficial. HgbA1c greater or equal to 6.5% is considered diagnostic of diabetes. Performed By: #### 5 5454-3 ####[facility] LABCLIA [id number] [place] [address] [place] RBC PARAMETERS FOR HB IDon 0 05-20-2024 Erythrocyte distribution width (RBC) [Ratio] 12.7 % Normal 11.5-15.0 [facility] Comment on above: Order Comment: Tam men Type: BLOOD SPECIMENOrdering Facility: [facility] Address: [address] [place] [address] Performed By: #### L [id number] ####[facility] LABCLIA [id number] [address] [place] Performed By: #### 5 7021-8 ####[facility] [id number] [place], [place] [id number] [place] [address] [place] Hematocrit (Bld) [Volume fraction] 40.1 % Normal 36.0-46.0 [facility] Comment on above: Order Comment: Preciousi men Type: BLOOD SPECIMENOrdering Facility: [facility] Address: [address] [place] [address] Performed By: #### L [id number] ####[facility] LABIA [id number] [place] [address] [place] Hemoglobin (Bld) [Mass/Vol] 13.6 g/dL Normal 11.5-15.5 [facility] Comment on above: Order Comment: Speci men Type: BLOOD SPECIMENOrdering Facility: [facility] Address: [address] [place] [address] Performed By: #### L [id number] ####[facility] LABIA [id number] [place] [address] [place] MCH (RBC) [Entitic mass] 30.0 pg Normal 26.0-34.0 [facility] Comment on above: Order Comment: Speci men Type: BLOOD SPECIMENOrdering Facility: [facility] Address: [address] [place] [address] Performed By: #### L [id number] ####[facility] LABIA [id number] [place] [address] [place] MCHC (RBC) [Mass/Vol] 33.9 g/dL Normal 30.5-36.0 [facility] Comment on above: Order Comment: Speci men Type: BLOOD SPECIMENOrdering Facility: [facility] Address: [address] [place] [address] Performed By: #### L [id number] ####[facility] [id number] [place] [address] [place] MCV (RBC) [Entitic vol] 88.3 fL Normal 80.0-100.0 [facility] Comment on above: Order Comment: Speci men Type: BLOOD SPECIMENOrdering Facility: [facility] Address: [address] [place] [address] Performed By: #### L [id number] ####[facility] LABIA [id number] [place] [address] [place] RBC (Bld) [#/Vol] 4.54 10*6/uL Normal 3.90-5.20 [facility] Comment on above: Order Comment: Speci men Type: BLOOD SPECIMENOrdering Facility: [facility] Address: [address] [place] [address] Performed By: #### L [id number] ####[facility] [id number] [address] [place] RUBELLA IGG ANTIBODYon 05-20 RUBELLA IGG AB, QUAL Positive Normal Positive [facility] Comment on above: Order Comment: Speci men Type: BLOOD SPECIMENOrdering Facility: [facility] Address: [address] [place] [address] Result Comment: The result suggests recent or past exposure to Rubella virus or history of Rubella vaccination. Positive result may also be seen due to presence of passively-transferred antibodies. Please correlate with patient's history. Performed By: #### R [id number] ####[facility] LABCLIA [id number] [place] [address] [place] Reagin and Treponema pallidu m IgG and IgM [Interp]on 05-20-2024 T. pallidum IgG+IgM IA Ql (S) Non-Reactive Normal Nonreactive [facility] Comment on above: Order Comment: Speci men Type: BLOOD SPECIMENOrdering Facility: [facility] Address: [address] [place] [address] Performed By: #### 3 1201-7, 57237-6, 5195-3 ####[facility] LABIA [id number] [place] [address] [place] Reagin+T pallidum IgG+IgM Se rPl-Impon 05-20-2024 Reagin and Treponema pallidum IgG and IgM [Interp] Cannot exclude recent Treponemal infection if specimen collected within 7-10 days after appearance of suspect lesions or 2-3 weeks after an exposure. Clinical correlation is required. Normal [facility] Comment on above: Order Comment: Speci men Type: BLOOD SPECIMENOrdering Facility: [facility] Address: [address] [place] [address] Performed By: #### 3 1201-7, 76709-0, 5195-3 ####[facility] LABIA [id number] [place] [id number] [place] TYPE + SCREEN PRENATALon ABO A Normal [facility] Comment on above: Order Comment: Speci men Type: BLOOD SPECIMENOrdering Facility: [facility] Address: [address] [place] [address] Performed By: #### T SPN ####[facility] BLOOD BANKCLIA [id number] [place] [address] [place] Rh Nom (Bld) Positive Normal [facility] Comment on above: Order Comment: Speci men Type: BLOOD SPECIMENOrdering Facility: [facility] Address: [address] [place] [address] Performed By: #### T SPN ####[facility] BLOOD BANKIA [id number] [address] OF [facility] TYPE AND SCREEN EXPIRATION 05/23/2024 23:59 Normal [facility] Comment on above: Order Comment: Speci men Type: BLOOD SPECIMENOrdering Facility: [facility] Address: [address] [place] [address] Performed By: #### T SPN ####[facility] BLOOD BANKCLIA [id number] [place] [address] [place] Bacteria Ur Culton Bacteria identified Cx Nom (U) ORGANISM ID: 1 10,000 -<50,000 CFU/ml Normal urogenital everette Normal [facility] Comment on above: Performed By: #### 6 30-4 ####[facility] LABCLIA [id number] [address] [place] C. trachomatis+N. gonorrhoea e DNA CULLEN+probe Ql (Unsp spec)on 04-18-2024 C. trachomatis rRNA CULLEN+probe Ql (Unsp spec) Not detected Normal Not detected [facility] Comment on above: Order Comment: Speci men Type: SWABOrdering Facility: [facility] Address: [address] [place] [address] Performed By: #### 3 6902-5 ####[facility] LABCLIA [id number] [address] [place] N. 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 Confirmation of cardiac activity. Estimation of gestational age Impression cardiac activity is visualized, CRL is appropriate for clinical dates, corresponding to RED 11/26/24 Recommendations Additional follow-up as clinically indicated. Method Transvaginal ultrasound examination. View: Adequate visualization Leon . Number of embryos: 1 Dating LMP on: 02/20/2024 GA by LMP 8 w + 2 d RED by LMP: 11/26/2024 Ultrasound examination on: 04/18/2024 GA by U/S based upon: CRL GA by U/S 8 w + 4 d RED by U/S: 11/24/2024 Assigned: based on the LMP, selected on 04/18/2024 Assigned GA 8 w + 2 d Assigned RED: 11/26/2024 Biometry Standard FHR 169 bpm CRL 20.4 mm 8w 4d 99% [place] Assessment Gestational sac: visualized Location: intrauterine Yolk sac: visualized Embryo: visualized CRL 20.4 mm 8w 4d 99% [place] Cardiac activity: present FHR 169 bpm Maternal Structures BMI 38 General Evaluation Cardiac activity present. FHR 169 bpm Performed By: Melissa Andrea CNP Read By: Melissa Andrea CNP MATERNAL MEDICINE [facility] Radiology Study observation (narrative) Michel [facility] .Auto Diffon 01-15-2024 Basophil, Absolute 0.0 10 3/mcL Normal 0.0-0.2 [facility] Comment on above: Performed By: #### A SISSY, LIPID, ADIFF, TSH, GFR, CBC, CMP #### [address] [address] Basophils/100 WBC (Bld) 0.3 % Normal 0.0-2.5 [facility] Comment on above: Performed By: #### A SISSY, LIPID, ADIFF, TSH, GFR, CBC, CMP #### [address] [address] Eosinophil, Absolute 0.1 10 3/mcL Normal 0.0-0.7 [facility] Comment on above: Performed By: #### A SISSY, LIPID, ADIFF, TSH, GFR, CBC, CMP #### [address] [address] Eosinophils/100 WBC (Bld) 1.3 % Normal 0.0-7.0 [facility] Comment on above: Performed By: #### A SISSY, LIPID, ADIFF, TSH, GFR, CBC, CMP #### [address] [address] Lymphocyte, Absolute 2.0 10 3/mcL Normal 0.9-4.3 [facility] Comment on above: Performed By: #### A SISSY, LIPID, ADIFF, TSH, GFR, CBC, CMP #### [address] [address] Lymphocytes/100 WBC (Bld) 25.7 % Normal 20.0-40.0 [facility] Comment on above: Performed By: #### A SISSY, LIPID, ADIFF, TSH, GFR, CBC, CMP #### [address] [address] Monocyte, Absolute 0.5 10 3/mcL Normal 0.1-1.4 [facility] Comment on above: Performed By: #### A SISSY, LIPID, ADIFF, TSH, GFR, CBC, CMP #### [address] [address] Monocytes/100 WBC (Bld) 6.9 % Normal 2.0-13.0 [facility] Comment on above: Performed By: #### A SISSY, LIPID, ADIFF, TSH, GFR, CBC, CMP #### [address] [address] Neutrophils/100 WBC (Bld) 65.8 % Normal 50.0-75.0 [facility] Comment on above: Performed By: #### A SISSY, LIPID, ADIFF, TSH, GFR, CBC, CMP #### [address] [address] .GFRon 01-15-2024 GFR 94 ml/min/1.73sqm Normal [facility] Comment on above: Result Comment: GFR Population mean for , Non- Americans Ages 20-29 = 116 mL/min/1.73 sq.m. Ages 30-39 = 107 mL/min/1.73 sq.m. Ages 40-49 = 99 mL/min/1.73 sq.m. Ages 50-59 = 93 mL/min/1.73 sq.m. Ages 60-69 = 85 mL/min/1.73 sq.m. Ages 70+ = 75 mL/min/1.73 sq.m. Chronic Kidney Disease: Less than 60 mL/min/1.73 square meters End Stage Renal Disease: Less than 15 mL/min/1.73 square meters Performed By: #### C BC, A1C, ADIFF, FERR, ANEU #### [address] [address] GFR Non- 77 ml/min/1.73sqm Normal [facility] Comment on above: Result Comment: GFR Population mean for , Non- Americans Ages 20-29 = 116 mL/min/1.73 sq.m. Ages 30-39 = 107 mL/min/1.73 sq.m. Ages 40-49 = 99 mL/min/1.73 sq.m. Ages 50-59 = 93 mL/min/1.73 sq.m. Ages 60-69 = 85 mL/min/1.73 sq.m. Ages 70+ = 75 mL/min/1.73 sq.m. Chronic Kidney Disease: Less than 60 mL/min/1.73 square meters End Stage Renal Disease: Less than 15 mL/min/1.73 square meters Performed By: #### C BC, A1C, ADIFF, FERR, ANEU #### [address] [address] .NEUABSon 01-15-2024 Neutrophil, Absolute 5.2 10 3/mcL Normal 2.3-8.1 [facility] Comment on above: Performed By: #### A SISSY, LIPID, ADIFF, TSH, GFR, CBC, CMP #### [address] [address] CBCon 01-15-2024 Erythrocyte distribution width (RBC) [Ratio] 12.5 % Normal 11.5-15.5 [facility] Comment on above: Performed By: #### A SISSY, LIPID, ADIFF, TSH, GFR, CBC, CMP #### [place] [address] Hematocrit (Bld) [Volume fraction] 44.8 % Normal 34.0-46.0 [facility] Comment on above: Performed By: #### A SISSY, LIPID, ADIFF, TSH, GFR, CBC, CMP #### [place] [address] Hgb 15.2 G/dL Normal 12.0-16.0 [facility] Comment on above: Performed By: #### A SISSY, LIPID, ADIFF, TSH, GFR, CBC, CMP #### [place] [address] MCH (RBC) [Entitic mass] 30.7 pg Normal 27.0-33.0 [facility] Comment on above: Performed By: #### A SISSY, LIPID, ADIFF, TSH, GFR, CBC, CMP #### [address] [address] MCHC 33.9 G/dL Normal 32.0-36.0 [facility] Comment on above: Performed By: #### A SISSY, LIPID, ADIFF, TSH, GFR, CBC, CMP #### [place] [id number] MCV (RBC) [Entitic vol] 90.5 fL Normal 80.0-99.0 [facility] Comment on above: Performed By: #### A SISSY, LIPID, ADIFF, TSH, GFR, CBC, CMP #### [address] [address] Platelet 267 10 3/mcL Normal 150-450 [facility] Comment on above: Performed By: #### A SISSY, LIPID, ADIFF, TSH, GFR, CBC, CMP #### [address] [address] Platelet mean volume (Bld) [Entitic vol] 8.5 fL Normal 6.6-10.5 [facility] Comment on above: Performed By: #### A SISSY, LIPID, ADIFF, TSH, GFR, CBC, CMP #### [address] [address] RBC 4.95 10 6/mcL Normal 4.10-5.30 [facility] Comment on above: Performed By: #### A SISSY, LIPID, ADIFF, TSH, GFR, CBC, CMP #### [address] [address] WBC 8.0 10 3/mcL Normal 4.5-10.8 [facility] Comment on above: Performed By: #### A SISSY, LIPID, ADIFF, TSH, GFR, CBC, CMP #### [address] [address] CMPon 01-15-2024 Albumin Level 3.8 G/dL Normal 3.5-5.0 [facility] Comment on above: Performed By: #### A SISSY, LIPID, ADIFF, TSH, GFR, CBC, CMP #### [address] [address] Albumin/Globulin [Mass ratio] 1.2 {ratio} Normal 1.1-2.5 [facility] Comment on above: Performed By: #### A SISSY, LIPID, ADIFF, TSH, GFR, CBC, CMP #### [address] [address] ALP [Catalytic activity/Vol] 84 U/L Normal 40-135 [facility] Comment on above: Performed By: #### A SISSY, LIPID, ADIFF, TSH, GFR, CBC, CMP #### [address] [address] ALT [Catalytic activity/Vol] 25 U/L Normal 14-59 [facility] Comment on above: Performed By: #### A SISSY, LIPID, ADIFF, TSH, GFR, CBC, CMP #### [address] [address] AST [Catalytic activity/Vol] 16 U/L Normal 10-40 [facility] Comment on above: Performed By: #### A SISSY, LIPID, ADIFF, TSH, GFR, CBC, CMP #### [address] [address] Bili Total 0.6 mg/dL Normal 0.2-1.0 [facility] Comment on above: Result Comment: Use of this assay is not recommended for patients undergoing treatment with eltrombopag due to the potential for falsely elevated results. Performed By: #### A SISSY, LIPID, ADIFF, TSH, GFR, CBC, CMP #### [address] [address] BUN/Creatinine Ratio 12 ratio Normal 7-27 [facility] Comment on above: Performed By: #### A SISSY, LIPID, ADIFF, TSH, GFR, CBC, CMP #### [address] [address] Calcium [Mass/Vol] 8.8 mg/dL Normal 8.4-10.2 [facility] Comment on above: Performed By: #### A SISSY, LIPID, ADIFF, TSH, GFR, CBC, CMP #### [address] [address] Chloride [Moles/Vol] 103 mmol/L Normal 98-107 [facility] Comment on above: Performed By: #### A SISSY, LIPID, ADIFF, TSH, GFR, CBC, CMP #### [address] [address] CO2 [Moles/Vol] 28 mmol/L Normal 22-29 [facility] Comment on above: Performed By: #### A SISSY, LIPID, ADIFF, TSH, GFR, CBC, CMP #### [address] [address] Creatinine [Mass/Vol] 0.86 mg/dL Normal 0.55-1.02 [facility] Comment on above: Result Comment: Test ing performed on Siemens Dimension EXL analyzer using a modified kinetic Sb technique. Performed By: #### A SISSY, LIPID, ADIFF, TSH, GFR, CBC, CMP #### [address] [address] Electrolyte Balance 8.0 mEq/L Normal 4.0-15.0 [facility] Comment on above: Performed By: #### A SISSY, LIPID, ADIFF, TSH, GFR, CBC, CMP #### [address] [address] Globulin 3.3 G/dL Normal [facility] Comment on above: Performed By: #### A SISSY, LIPID, ADIFF, TSH, GFR, CBC, CMP #### [address] [address] Glucose [Mass/Vol] 102 mg/dL Normal 70-105 [facility] Comment on above: Performed By: #### A SISSY, LIPID, ADIFF, TSH, GFR, CBC, CMP #### [address] [address] Potassium [Moles/Vol] 4.5 mmol/L Normal 3.5-5.1 [facility] Comment on above: Performed By: #### A SISSY, LIPID, ADIFF, TSH, GFR, CBC, CMP #### [address] [address] Sodium [Moles/Vol] 139 mmol/L Normal 136-145 [facility] Comment on above: Performed By: #### A SISSY, LIPID, ADIFF, TSH, GFR, CBC, CMP #### [address] [address] Total Protein 7.1 G/dL Normal 6.4-8.2 [facility] Comment on above: Performed By: #### A SISSY, LIPID, ADIFF, TSH, GFR, CBC, CMP #### [place] [id number] [place], [place] [address] Urea nitrogen [Mass/Vol] 10 mg/dL Normal 7-18 [facility] Comment on above: Performed By: #### A SISSY, LIPID, ADIFF, TSH, GFR, CBC, CMP #### [place] [id number] [place], [place] [address] LABORATORYOrdered By: SYSTEM SYSTEM on 01-15-2024 Albumin BCP dye [Mass/Vol] 3.8 G/dL Normal 3.5 - 5.0 G/dL AO ADM SS Albumin/Globulin [Mass ratio] 1.2 {ratio} Normal 1.1 - 2.5 ratio AO ADM SS ALP [Catalytic activity/Vol] 84 U/L Normal 40 - 135 U/L AO ADM SS ALT With P-5'-P [Catalytic activity/Vol] 25 U/L Normal 14 - 59 U/L AO ADM SS AST With P-5'-P [Catalytic activity/Vol] 16 U/L Normal 10 - 40 U/L AO ADM SS Basophils (Bld) [#/Vol] 0.0 103/mcL Normal 0.0 - 0.2 10^3/mcL AO Workflow SS Basophils/100 WBC (Bld) 0.3 % Normal 0.0 - 2.5 % AO Workflow SS Bilirubin [Mass/Vol] 0.6 mg/dL Normal 0.2 - 1 .0 mg/dL AO ADM SS Comment on above: Interpretive Data: U se of this assay is not recommended for patients undergoing treatment with eltrombopag due to the potential for falsely elevated results. Calcium [Mass/Vol] 8.8 mg/dL Normal 8.4 - 10. 2 mg/dL AO ADM SS Chloride [Moles/Vol] 103 mmol/L Normal 98 - 10 7 mmol/L AO ADM SS CO2 [Moles/Vol] 28 mmol/L Normal 22 - 29 mmol/L AO ADM SS Creatinine [Mass/Vol] 0.86 mg/dL Normal 0.55 - 1.02 mg/dL AO ADM SS Comment on above: Interpretive Data: T esting performed on Siemens Dimension EXL analyzer using a modified kinetic Sb technique. Electrolyte Balance 8.0 mEq/L Normal 4.0 - 15 .0 mEq/L AO ADM SS Eosinophil, Absolute 0.1 103/mcL Normal 0.0 - 0 .7 10^3/mcL AO Workflow SS Eosinophils/100 WBC (Bld) 1.3 % Normal 0.0 - 7.0 % AO Workflow SS Erythrocyte distribution width (RBC) [Ratio] 12.5 % Normal 11.5 - 15.5 % AO Workflow SS GFR/1.73 sq M.predicted among blacks MDRD (S/P/Bld) [Vol rate/Area] 94 ml/min/1.73sqm Invalid Interpretation Code AO Chemistry S Comment on above: Interpretive Data: GFR Population mean for , Non- Americans Ages 20-29 = 116 mL/min/1.73 sq.m. Ages 30-39 = 107 mL/min/1.73 sq.m. Ages 40-49 = 99 mL/min/1.73 sq.m. Ages 50-59 = 93 mL/min/1.73 sq.m. Ages 60-69 = 85 mL/min/1.73 sq.m. Ages 70+ = 75 mL/min/1.73 sq.m. Chronic Kidney Disease: Less than 60 mL/min/1.73 square meters End Stage Renal Disease: Less than 15 mL/min/1.73 square meters GFR/1.73 sq M.predicted among non-blacks MDRD (S/P/Bld) [Vol rate/Area] 77 ml/min/1.73sqm Invalid Interpretation Code AO Chemistry S Comment on above: Interpretive Data: GFR Population mean for , Non- Americans Ages 20-29 = 116 mL/min/1.73 sq.m. Ages 30-39 = 107 mL/min/1.73 sq.m. Ages 40-49 = 99 mL/min/1.73 sq.m. Ages 50-59 = 93 mL/min/1.73 sq.m. Ages 60-69 = 85 mL/min/1.73 sq.m. Ages 70+ = 75 mL/min/1.73 sq.m. Chronic Kidney Disease: Less than 60 mL/min/1.73 square meters End Stage Renal Disease: Less than 15 mL/min/1.73 square meters Globulin 3.3 G/dL Invalid Interpretation Code AO ADM SS Glucose [Mass/Vol] 102 mg/dL Normal 70 - 105 mg/dL AO ADM SS Hematocrit (Bld) [Volume fraction] 44.8 % Normal 34.0 - 46.0 % AO Workflow SS Hemoglobin (Bld) [Mass/Vol] 15.2 G/dL Normal 12.0 - 16.0 G/dL AO Workflow SS Lymphocytes (Bld) [#/Vol] 2.0 103/mcL Normal 0.9 - 4.3 10^3/mcL AO Workflow SS Lymphocytes/100 WBC (Bld) 25.7 % Normal 20.0 - 40.0 % AO Workflow SS MCH (RBC) [Entitic mass] 30.7 pg Normal 27. 0 - 33.0 pg AO Workflow SS MCHC 33.9 G/dL Normal 32.0 - 36.0 G/dL AO Workflow SS MCV (RBC) [Entitic vol] 90.5 fL Normal 80.0 - 99.0 fL AO Workflow SS Monocytes (Bld) [#/Vol] 0.5 103/mcL Normal 0.1 - 1.4 10^3/mcL AO Workflow SS Monocytes/100 WBC (Bld) 6.9 % Normal 2.0 - 13.0 % AO Workflow SS Neutrophils (Bld) [#/Vol] 5.2 103/mcL Normal 2.3 - 8.1 10^3/mcL AO Workflow SS Neutrophils/100 WBC (Bld) 65.8 % Normal 50.0 - 75.0 % AO Workflow SS Platelet mean volume (Bld) [Entitic vol] 8.5 fL Normal 6.6 - 10.5 fL AO Workflow SS Platelets (Bld) [#/Vol] 267 103/mcL Normal 150 - 450 10^3/mcL AO Workflow SS Potassium [Moles/Vol] 4.5 mmol/L Normal 3.5 - 5.1 mmol/L AO ADM SS Protein [Mass/Vol] 7.1 G/dL Normal 6.4 - 8.2 G/dL AO ADM SS RBC (Bld) [#/Vol] 4.95 106/mcL Normal 4.10 - 5.3 0 10^6/mcL AO Workflow SS Sodium [Moles/Vol] 139 mmol/L Normal 136 - 145 mmol/L AO ADM SS TSH Qn 1.80 m[IU]/L Normal 0.36 - 3.74 mcIU/mL AO ADM SS Urea nitrogen [Mass/Vol] 10 mg/dL Normal 7 - 18 mg/d L AO ADM SS Urea nitrogen/Creatinine [Mass ratio] 12 ratio Normal 7 - 27 ratio AO ADM SS WBC (Bld) [#/Vol] 8.0 103/mcL Normal 4.5 - 10.8 10^3/mcL AO Workflow SS LABORATORYOrdered By: Bernard Guallpa on 01-15-2024 Cholesterol [Mass/Vol] 169 mg/dL Normal 0 - 200 mg/dL AO ADM SS Comment on above: Interpretive Data: C holesterol Reference Interval: Less than 200 Desirable 200-239 Borderline high risk 240 and above High risk Cholesterol in HDL [Mass/Vol] 38 mg/dL Low 40 - 60 mg/dL AO ADM SS Cholesterol in LDL [Mass/Vol] 111 mg/dL Normal 0 - 130 mg/dL AO ADM SS Triglyceride [Mass/Vol] 101 mg/dL Normal 0 - 150 mg/d L AO ADM SS Comment on above: Interpretive Data: T riglyceride Reference Interval: Less than 150 Normal 150-199 Borderline high risk 200-499 High risk 500 or higher Very high risk LIPIDon 01-15-2024 Cholesterol [Mass/Vol] 169 mg/dL Normal 0-200 [facility] Comment on above: Result Comment: Chol esterol Reference Interval: Less than 200 Desirable 200-239 Borderline high risk 240 and above High risk Performed By: #### C BC, A1C, ADIFF, FERR, ANEU #### [address] [address] Cholesterol in HDL [Mass/Vol] 38 mg/dL Low 40-60 [facility] Comment on above: Performed By: #### C BC, A1C, ADIFF, FERR, ANEU #### [address] [address] Cholesterol in LDL [Mass/Vol] 111 mg/dL Normal 0-130 [facility] Comment on above: Performed By: #### C BC, A1C, ADIFF, FERR, ANEU #### [address] [address] Triglyceride [Mass/Vol] 101 mg/dL Normal 0-150 [facility] Comment on above: Result Comment: Trig lyceride Reference Interval: Less than 150 Normal 150-199 Borderline high risk 200-499 High risk 500 or higher Very high risk Performed By: #### C BC, A1C, ADIFF, FERR, ANEU #### [id number] [place], [place] [address] TSHon 01-15-2024 TSH Qn 1.80 m[IU]/L Normal 0.36-3.74 [facility] Comment on above: Performed By: #### A SISSY, LIPID, ADIFF, TSH, GFR, CBC, CMP #### [id number] [place], [place] [address] CBC-Complete Blood Cnt No Di ffon 11-22-2023 Erythrocyte distribution width (RBC) [Ratio] 12.1 % Normal 11.6-14.6 [facility] Comment on above: Performed By: #### L 100.0500 #### [facility] [address] [place], [address] Hematocrit (Bld) [Volume fraction] 45.3 % Normal 37-47 [facility] Comment on above: Performed By: #### L 100.0500 #### [facility] [address] [place], [address] Hemoglobin (Bld) [Mass/Vol] 15.2 g/dL High 12.0-15.0 [facility] Comment on above: Performed By: #### L 100.0500 #### [facility] [address] [place], [address] MCH (RBC) [Entitic mass] 29.4 pg Normal 27.0-32.0 [facility] Comment on above: Performed By: #### L 100.0500 #### [facility] [address] [place], [address] MCHC (RBC) [Mass/Vol] 33.6 g/dL Normal 32-36 [facility] Comment on above: Performed By: #### L 100.0500 #### [facility] [address] [place], [address] MCV (RBC) [Entitic vol] 87.6 fL Normal 81-99 [facility] Comment on above: Performed By: #### L 100.0500 #### [facility] [address] [place], [address] Platelet mean volume (Bld) [Entitic vol] 9.9 fL Normal 6.2-12.0 [facility] Comment on above: Performed By: #### L 100.0500 #### [facility] [address] [place], [address] Platelets (Bld) [#/Vol] 313 10*3/uL Normal 150-450 [facility] Comment on above: Performed By: #### L 100.0500 #### [facility] [address] [place], [address] RBC (Bld) [#/Vol] 5.17 10*6/uL Normal 4.2-5.4 [facility] Comment on above: Performed By: #### L 100.0500 #### [facility] [address] [place], [address] RDW SD 39.0 fl Normal 35.1-43.9 [facility] Comment on above: Performed By: #### L 100.0500 #### [facility] [address] [place], [address] WBC (Bld) [#/Vol] 8.7 10*3/uL Normal 4.4-11.0 [facility] Comment on above: Performed By: #### L 100.0500 #### [facility] [address] [place], [address] CNOPon 11-22-2023 CNOP Operative Note (Enc) (OBGYWM) ---- Encounter Status:Closed by CLINT VASQUES on 11/22/23 Normal [facility] Discharge Instructionon 10-25 Discharge Instruction [facility] Medical Records Department [address] [place] [address] Instructions for Home/Discharge Instructions 11/22/23 0840 MR#: [id number] Acct: [id number] Name: SOHEILA POLK Rep #: [id number] : 1995 28 From: Clint Vasques MD PCP: LANE YOU [place] Discharge Instructions Diet Discharge Diet: No restrictions Activity Return to work on:: 11/23/23July shower in (days): 24 July resume sexual activity in: 1 week Lifting Restrictions: none Dressing / Incision Call your doctor if your incision/area has: Sudden Increased Bleeding and Foul Smelling Discharge Call your doctor if you observe: Fever of 101 or Higher and Using more than 1 pad per hour (for 2 hrs in a row) Follow Up Care Please Follow Up With: Clint Vasques MD When: You do not need a postoperative appointment. Dr. Vasques will contact you by [employer] with your pathology results. Call [phone] send a [employer] message with any concerns or questions. Test Results: Test results from this visit will be discussed in further detail at your follow-up appointment, if applicable. Discharge Plan Admission Primary Reason for Your Visit: hysteroscopy D C with polyp resection Attending Provider: Clint Vasques Primary Care Provider: LANE YOU Instructions Print Language: Georgian Discharge Orders/Prescription s Prescriptions: No Action ferrous sulfate [Iron (ferrous sulfate)] 325 mg (65 mg iron) tablet 325 mg PO MOWEFR acetazolamide 250 mg tablet 250 mg PO DAILY Prenatabs FA 29-1 mg tablet 1 tab PO DAILY Referrals / Follow Up: Gregory Barrera DO [Non-Staff] - Disposition Disposition (needs filled in before D/C Order can be placed): Home, Self Care 11/22/23920 Clint Vasques MD CC: LANE YOU Signed [facility] MR/POSTOP.ANEon 11-22-2023 MR/POSTOP.[facility] Medical Records Department [address] [place] [address] Anesthesia Postop Eval I 11/22/23 0914 MR#: [id number] Acct: [id number] Name: SOHEILA POLKE Rep #: [id number] : 1995 28 From: Lakisha Chau CRNA PCP: LANE YOU Status:[facility] Y Race: C Location: [place] [address] Anesthesia: Postop Eval I Current Vital Signs Temperature: 97.9 F Pulse Rate: 113 Blood Pressure: 105/76 Respiratory Rate: 18 Pulse Ox: 97 Oxygen Delivery Method: Room Air Assessment Airway patent: Yes Spontaneous unlabored respirations: Yes Mental status: Awake and Calm nausea: No Vomiting: No Anesthesia Complication: No Fluid Hydration Crystalloid volume administer (ml): 700 Total IV fluid infused: 700 Progress Note Anesthesia document: Postop Eval 1 completed: Yes 11/22/23914 Date Lakisha Chau CRNA Cosigner Signature: Date CC: Signed [facility] MR/[id number] 11-22-2023 MR/POSTOPAN2 [facility] Medical Records Department [address] [place] [address] Anesthesia Postop Eval II 11/22/23 1403 MR#: [id number] Acct: [id number] Name: LYNDADANASOHEILA Rep #: [id number] : 1995 28 From: Fidel Yusuf MD PCP: LANE YOU Status:DEP KALIE Y Race: C [place] [facility] [place]esthesia Postop Eval I Sum Postop Eval Completion status Anesthesia document: Postop Eval 1 completed: Yes Anesthesia Postop Eval I Summary Anesthesia Postop Eval I Summary: Anesthesia Postop Eval I: Assessment Summary Airway patent Yes 11/22/23 09:15 ACADEMIC [email or web address] Spontaneous unlabored Yes 11/22/23 09:15 ACADEMIC [email or web address].SCHR respirations Mental status Awake,Calm 11/22/23 09:15 ACADEMIC [email or web address].SCHR nausea No 11/22/23 09:15 ACADEMIC PHYSICIAN.SCHR Vomiting No 11/22/23 09:15 ACADEMIC PHYSICIAN.SCHR Anesthesia Postop Eval I: Fluid Summary Crystalloid volume administer 700 11/22/23 09:15 ACADEMIC [email or web address].SCHR (ml) Colloids volume administered ( ml) Blood Product volume administered (ml) Total IV fluid infused 700 11/22/23 09:15 ACADEMIC PHYSICIAN.SCHR Anesthesia Postop Eval I: Summary Notes Anesthesia Complication No 11/22/23 09:15 ACADEMIC [email or web address].SCHR Anesthesia Complication Comment: Post-operative progress note Anesthesia: Postop Eval II Evaluation Mental status: Awake and Calm Pain Level: 1 nausea: No Vomiting: No Complications Anesthesia Complication: No 11/22/23 1404 Date Fidel Gordonignbilly Signature: Date CC: Signed Normal [facility] Operative Reporton 4 Operative Report [facility] Medical Records Department [address] [place] [address] Operative Report 11/22/23 0841 MR#: [id number] Acct: [id number] Name: SOHEILA POLK Rep #: [id number] : 1995 28 From: Clint Vasques MD PCP: LANE YOU Status:[facility] Location: [place] [address] Problems Associated Problem List Diagnoses (1) Endometrial polyp: (2) Abnormal uterine bleeding (AUB): Report of Operation Date of Procedure: 11/22/23 Pre-Operative Diagnosis: aub, endometrial polyp Post-Operative Diagnosis: same Surgery/Procedure Performed:: Hysteroscopy D C with polyp resection Description of Surgical Findings:: Normal cervix and vagina, lush endometrium, polypoid lesion off the mid anterior uterine wall and off the right fundal area Surgeon: Clint Vasques grease renderer: Manuela Bal MS3 Type of Anesthesia: MAC/Supplemental/Lo nhan Anesthesiologist: Nery Barone Special Medications: none Specimen's removed: endometrial curettings Drains: none Estimated Blood Loss (mL): 10 Fluids Replaced: 700 Description of Procedure: The patient was taken to the OR where she was prepped and draped in dorsal lithotomy position. The weighted speculum was placed in the vagina and the anterior lip of the cervix was grasped with a single-tooth tenaculum. A paracervical block was administered with [1% lidocaine with 1-100,000 epinephrine solution]. The cervix was dilated serially with Hegar dilators. The [5mm] hysteroscope was placed into the uterine cavity and the above findings were noted. Bilateral tubal ostia [were] identified. The symphion resector was inserted and a visual polyp resection was performed of the 2 polyps and then a gentle curettage of the anterior and posterior endometrial cavity.. The instruments were removed from the vagina. The specimen was handed off and sent to pathology. All sponge and needle counts were correct. Vaginal sweep was performed by me. The patient was awakened and taken to the recovery room in stable condition. Hysteroscopic fluid deficit calculated to be 550 cc of normal saline Grafts/Implants Used: none Procedure Start Time: 08:48 Procedure Stop Time: 08:58 Complications none Admit VTE Documentation VTE Present on Admission: No VTE Mechan Device Prophylaxis: SCD's VTE Pharm Prophylaxis ordered?: No Reason prophylaxis not ordered:: Procedure Not Indicated 11/22/23 0930 Cosigner Signature (if applicable): CC: Dr. Clint Vasques MD; LANE YOU Signed Normal [facility] ,Urineon 11-22-2023 Beta HCG ( test) Ql (U) Negative [facility] Comment on above: Result Comment: Very dilute urine specimens, as indicated by a low specific gravity, may not contain franchise sales representative levels of hCG. If is still suspected, a first morning urine specimen should be collected 48 hours later and tested. Performed By: #### L 400.7600 #### [facility] [place], [address] Surgery Specimen Level Scott 11-22-2023 Surgery Specimen Level IV Patient Age/Sex Location Account Attending Physician SOHEILA POLK 28/ [facility] [id number] Dr. Clint Vasques MD Specimen: [id number] Received: 11/22/23 Status: OZZY Fallon Num: [id number] Spec Type: LUIS BX/C Rigo Dr: Dr. Clint Vasques MD HEADER OPERATION: Hysteroscopy, D C, polyp resection PRE-OP DIAGNOSIS: Abnormal uterine bleeding, endometrial polyp TISSUE SUBMITTED: Endometrial curettings and polyp MICROSCOPIC DIAGNOSIS Endometrial curettings and polyp: Polypoid fragments of secretory endometrium. AM. 11/27/2023 MICROSCOPIC DESCRIPTION Slides are reviewed. GROSS DESCRIPTION Received in fixative is one container labeled with the patient's name and designated Endometrial curettings and polyp. The specimen consists of multiple irregular fragments of jenkins soft tissue that in aggregate measure 7.5 x 3.0 x 0.3 cm. The specimen is totally submitted in three cassettes. SJ. 11/23/2023 TC:5 CPT:30660 Patient Age/Sex Location Account Attending Physician SOHEILA POLK / [facility] [id number] Dr. Clint Vasques MD Signed (signatur e on file) Dr. Ty Mcmillan DO 11/27/23 1127 Normal [facility] Comment on above: Performed By: #### P SUACACIA #### [facility] [address] [place], [address] US Pelvison 10-23-2023 Indication Abnormal uterine bleeding, spotting between cycles Impression The uterus is anteverted and measures 80 mm x 44 mm x 46 mm. The myometrium is heterogenous. The endometrium is heterogenous, contains small cystic areas and measures 16 mm. There are two echogenic areas within the endometrial cavity that are suspicious for endometrial polyps. 1. 12 mm x 16 mm x 11 mm. Anterior 2. 20 mm x 14 mm x 6 mm. Posterior The right ovary measures 45 mm x 24 mm x 22 mm and contains a corpus luteum cyst. The left ovary measures 30 mm x 29 mm x 17 mm. There is a small amount of free fluid visualized. Technique: Three dimensional imaging was created on a dedicated stand-alone 3D workstation with images created and archived, and supervised and reviewed by the interpreting physician utilizing images from a US Scan performed on 10/23/23. Recommendations Consider SIS for further evaluation of endometrial cavity if clinically indicated. Menstrual History LMP on 09/30/2023 Method Transabdominal, transvaginal, 3D ultrasound examination, Color Doppler examination. View: Adequate visualization Uterus Uterus: Visualized Uterus position: anteverted Description of uterine malformations: none Myometrium: heterogeneous Endometrium: inhomogeneous, prominent slightly echogenic area- possible polyps vs thickened endometrial tissue noted Cervix details: normal Uterus length 80 mm Uterus width 46 mm Uterus height 44 mm Uterus Vol 84.6 cm Endometrial thickness, total 16.0 mm Fibroids: No fibroids identified Polyps: Polyps identified Uterine polyp D1 12 mm Uterine polyp D2 16 mm Uterine polyp D3 11 mm Uterine polyp mean 13.0 mm Uterine polyp findings: Anterior Uterine polyp D1 20 mm Uterine polyp D2 14 mm Uterine polyp D3 6 mm Uterine polyp mean 13.3 mm Uterine polyp findings: Posterior Right Ovary Rt ovary: Visualized Rt ovary D1 45 mm Rt ovary D2 24 mm Rt ovary D3 22 mm Rt ovary Vol 12.4 cm Rt ovarian corpus luteum: cystic with fine diffuse internal echoes Rt ovarian corpus luteum D1 23.0 mm Rt ovarian corpus luteum D2 14.7 mm Rt ovarian corpus luteum D3 18.2 mm Left Ovary Lt ovary: Visualized Lt ovary morphology: premenopausal with dominant follicle Lt ovary D1 30 mm Lt ovary D2 29 mm Lt ovary D3 17 mm Lt ovary Vol 7.7 cm Lt ovarian follicle(s): Follicles identified Lt ovarian follicle D1 15.1 mm Lt ovarian follicle D2 17.2 mm Lt ovarian follicle mean 16.2 mm Lt ovarian follicle vol 2.064 cm Cul de Sac Visualized. free fluid visualized: small amount trace free fluid within the left adnexa Procedure To characterize the endometrial polyps and endometrium, three dimensional imaging was created on a dedicated stand-alone 3D workstation with images created and archived, and supervised and reviewed by the interpreting physician utilizing images from an ultrasound scan performed today. Performed By: Arianna Mishra RDMS Read By: Jud Santacruz M.D. MATERNAL MEDICINE [facility] Radiology Study observation (narrative) [facility] .Auto Diffon 07-25-2023 Basophil, Absolute 0.0 10 3/mcL Normal 0.0-0.2 [facility] ([place]) Comment on above: Performed By: #### A VESNA SHEEHAN ADIFF, CBC #### [address] [address] Basophils/100 WBC (Bld) 0.4 % Normal 0.0-2.5 [facility] ([place]) Comment on above: Performed By: #### A SISSY FERR ADIFF, CBC #### [address] [address] Eosinophil, Absolute 0.1 10 3/mcL Normal 0.0-0.4 [facility] ([place]) Comment on above: Performed By: #### A SISSY FERR ADIFF, CBC #### [place] [id number] [place], [place] [address] Eosinophils/100 WBC (Bld) 1.1 % Normal 0.0-7.0 [facility] ([place]) Comment on above: Performed By: #### A SISSYVESNA, ADIFF, CBC #### [address] [address] Lymphocyte, Absolute 1.6 10 3/mcL Normal 0.8-3.9 [facility] ([place]) Comment on above: Performed By: #### A SISSY FERR, ADIFF, CBC #### [address] [address] Lymphocytes/100 WBC (Bld) 21.6 % Normal 10.0-50.0 [facility] ([place]) Comment on above: Performed By: #### A SISSY FERR ADIFF, CBC #### [address] [address] Monocyte, Absolute 0.6 10 3/mcL Normal 0.2-1.0 [facility] ([place]) Comment on above: Performed By: #### A SISSY FERR, ADIFF, CBC #### [address] [address] Monocytes/100 WBC (Bld) 8.1 % Normal 1.7-13.0 [facility] ([place]) Comment on above: Performed By: #### A SISSY FERR, ADIFF, CBC #### [address] [address] Neutrophils/100 WBC (Bld) 68.8 % Normal 37.0-80.0 [facility] ([place]) Comment on above: Performed By: #### A SISSY FERR, ADIFF, CBC #### [address] [address] .NEUABSon 07-25-2023 Neutrophil, Absolute 5.2 10 3/mcL Normal 2.9-6.2 [facility] ([place]) Comment on above: Performed By: #### A SISSY, FERR, ADIFF, CBC #### [address] [address] CBCon 07-25-2023 Erythrocyte distribution width (RBC) [Ratio] 13.0 % Normal 11.5-14.5 [facility] ([place]) Comment on above: Performed By: #### A VESNA SHEEHAN ADIFF, CBC #### [address] [address] Hematocrit (Bld) [Volume fraction] 41.6 % Normal 37.0-47.0 [facility] ([place]) Comment on above: Performed By: #### A VESNA SHEEHAN ADIFF, CBC #### [address] [address] Hgb 14.4 G/dL Normal 12.0-16.0 [facility] ([place]) Comment on above: Performed By: #### A VESNA SHEEHAN ADIFF, CBC #### [address] [address] MCH (RBC) [Entitic mass] 30.8 pg Normal 27.0-31.2 [facility] ([place]) Comment on above: Performed By: #### A VESNA SHEEHAN ADIFF, CBC #### [address] [address] MCHC 34.7 G/dL Normal 33.0-37.0 [facility] ([place]) Comment on above: Performed By: #### A VESNA SHEEHAN ADIFF, CBC #### [address] [address] MCV (RBC) [Entitic vol] 88.8 fL Normal 80.0-94.0 [facility] ([place]) Comment on above: Performed By: #### A VESNA SHEEHAN ADIFF, CBC #### [address] [address] Platelet 304 10 3/mcL Normal 130-400 [facility] ([place]) Comment on above: Performed By: #### A VESNA SHEEHAN ADIFF, CBC #### [address] [address] Platelet mean volume (Bld) [Entitic vol] 8.4 fL Normal 7.4-10.4 [facility] ([place]) Comment on above: Performed By: #### A VESNA SHEEHAN ADIFF, CBC #### [address] [address] RBC 4.69 10 6/mcL Normal 4.20-5.40 [facility] ([place]) Comment on above: Performed By: #### A VESNA SHEEHAN ADIFF, CBC #### [address] [address] WBC 7.6 10 3/mcL Normal 4.6-10.8 [facility] ([place]) Comment on above: Performed By: #### A SISSY FERR ADIFF, CBC #### [address] [address] Brigid 07-25-2023 Ferritin [Mass/Vol] 30.0 ng/mL Normal 8.0-252.0 [facility] ([place]) Comment on above: Performed By: #### A VESNA SHEEHAN ADIFF, CBC #### [address] [address] LABORATORYOrdered By: SYSTEM SYSTEM on 07-25-2023 Basophil, Absolute 0.0 103/mcL Normal 0.0 - 0.2 10^3/mcL AO Workflow SS Basophils/100 WBC (Bld) 0.4 % Normal 0.0 - 2.5 % AO Workflow SS Eosinophil, Absolute 0.1 103/mcL Normal 0.0 - 0 .4 10^3/mcL AO Workflow SS Eosinophils/100 WBC (Bld) 1.1 % Normal 0.0 - 7.0 % AO Workflow SS Erythrocyte distribution width (RBC) [Ratio] 13.0 % Normal 11.5 - 14.5 % AO Workflow SS Ferritin [Mass/Vol] 30.0 ng/mL Normal 8.0 - 25 2.0 ng/mL AO ADM SS Hematocrit (Bld) [Volume fraction] 41.6 % Normal 37.0 - 47.0 % AO Workflow SS Hemoglobin (Bld) [Mass/Vol] 14.4 G/dL Normal 12.0 - 16.0 G/dL AO Workflow SS Lymphocyte, Absolute 1.6 103/mcL Normal 0.8 - 3 .9 10^3/mcL AO Workflow SS Lymphocytes/100 WBC (Bld) 21.6 % Normal 10.0 - 50.0 % AO Workflow SS MCH (RBC) [Entitic mass] 30.8 pg Normal 27. 0 - 31.2 pg AO Workflow SS MCHC 34.7 G/dL Normal 33.0 - 37.0 G/dL AO Workflow SS MCV (RBC) [Entitic vol] 88.8 fL Normal 80.0 - 94.0 fL AO Workflow SS Monocyte, Absolute 0.6 103/mcL Normal 0.2 - 1.0 10^3/mcL AO Workflow SS Monocytes/100 WBC (Bld) 8.1 % Normal 1.7 - 13.0 % AO Workflow SS Neutrophil, Absolute 5.2 103/mcL Normal 2.9 - 6 .2 10^3/mcL AO Workflow SS Neutrophils/100 WBC (Bld) 68.8 % Normal 37.0 - 80.0 % AO Workflow SS Platelet mean volume (Bld) [Entitic vol] 8.4 fL Normal 7.4 - 10.4 fL AO Workflow SS Platelets (Bld) [#/Vol] 304 103/mcL Normal 130 - 400 10^3/mcL AO Workflow SS RBC (Bld) [#/Vol] 4.69 106/mcL Normal 4.20 - 5.4 0 10^6/mcL AO Workflow SS WBC (Bld) [#/Vol] 7.6 103/mcL Normal 4.6 - 10.8 10^3/mcL AO Workflow SS .Auto Diffon 01-17-2023 Basophil, Absolute 0.0 10 3/mcL Normal 0.0-0.2 [facility] ([place]) Comment on above: Performed By: #### A VESNA SHEEHAN ADIFF, CBC #### [address] [address] Basophils/100 WBC (Bld) 0.3 % Normal 0.0-2.5 [facility] ([place]) Comment on above: Performed By: #### A VESNA SHEEHAN ADIFF, CBC #### [address] [address] Eosinophil, Absolute 0.1 10 3/mcL Normal 0.0-0.4 [facility] ([place]) Comment on above: Performed By: #### A VESNA SHEEHAN ADIFF, CBC #### [address] [address] Eosinophils/100 WBC (Bld) 1.5 % Normal 0.0-7.0 [facility] ([place]) Comment on above: Performed By: #### A SISSY FERR, ADIFF, CBC #### [address] [address] Lymphocyte, Absolute 1.7 10 3/mcL Normal 0.8-3.9 [facility] ([place]) Comment on above: Performed By: #### A SISSY, FERR, ADIFF, CBC #### [address] [address] Lymphocytes/100 WBC (Bld) 22.1 % Normal 10.0-50.0 [facility] ([place]) Comment on above: Performed By: #### A SISSY FERR, ADIFF, CBC #### [address] [address] Monocyte, Absolute 0.5 10 3/mcL Normal 0.2-1.0 [facility] ([place]) Comment on above: Performed By: #### A SISSY, FERR, ADIFF, CBC #### [address] [address] Monocytes/100 WBC (Bld) 6.9 % Normal 1.7-13.0 [facility] ([place]) Comment on above: Performed By: #### A SISSY, FERR, ADIFF, CBC #### [address] [address] Neutrophils/100 WBC (Bld) 69.2 % Normal 37.0-80.0 [facility] ([place]) Comment on above: Performed By: #### A SISSY, FERR, ADIFF, CBC #### [address] [address] .NEUABSon 01-17-2023 Neutrophil, Absolute 5.4 10 3/mcL Normal 2.9-6.2 [facility] ([place]) Comment on above: Performed By: #### A SISSY, FERR, ADIFF, CBC #### [address] [address] CBCon 01-17-2023 Erythrocyte distribution width (RBC) [Ratio] 17.6 % High 11.5-14.5 [facility] ([place]) Comment on above: Performed By: #### A VESNA SHEEHAN ADIFF, CBC #### [address] [address] Hematocrit (Bld) [Volume fraction] 43.7 % Normal 37.0-47.0 [facility] ([place]) Comment on above: Performed By: #### A VESNA SHEEHAN ADIFF, CBC #### [address] [address] Hgb 14.0 G/dL Normal 12.0-16.0 [facility] ([place]) Comment on above: Performed By: #### A VESNA SHEEHAN ADIFF, CBC #### [address] [address] MCH (RBC) [Entitic mass] 26.5 pg Low 27.0-31.2 [facility] ([place]) Comment on above: Performed By: #### A VESNA SHEEHAN ADIFF, CBC #### [address] [address] MCHC 32.0 G/dL Low 33.0-37.0 [facility] ([place]) Comment on above: Performed By: #### A VESNA SHEEHAN ADIFF, CBC #### [address] [address] MCV (RBC) [Entitic vol] 82.8 fL Normal 80.0-94.0 [facility] ([place] Comment on above: Performed By: #### A VESNA SHEEHAN ADIFF, CBC #### [address] [address] Platelet 319 10 3/mcL Normal 130-400 [facility] ([place]) Comment on above: Performed By: #### A VESNA SHEEHAN ADIFF, CBC #### [address] [address] Platelet mean volume (Bld) [Entitic vol] 8.4 fL Normal 7.4-10.4 [facility] ([place]) Comment on above: Performed By: #### A VESNA SHEEHAN ADIFF, CBC #### [place] [address] RBC 5.27 10 6/mcL Normal 4.20-5.40 [facility] ([place]) Comment on above: Performed By: #### A VESNA SHEEHAN ADIFF, CBC #### [place] [address] WBC 7.8 10 3/mcL Normal 4.6-10.8 [facility] ([place]) Comment on above: Performed By: #### A VESNA SHEEHAN ADIFF, CBC #### [place] [address] FEon 01-17-2023 Iron [Mass/Vol] 95 ug/dL Normal 50-170 [facility] ([place]) Comment on above: Performed By: #### A VESNA SHEEHAN ADIFF, CBC #### [place] [address] Brigid 01-17-2023 Ferritin [Mass/Vol] 16.0 ng/mL Normal 8.0-252.0 [facility] ([place]) Comment on above: Performed By: #### A VESNA SHEEHAN ADIFF, CBC #### [address] [address] Bacterial cerebrospinal flui d cultureOrdered By: Parker Andrade on 10-26-2022 Bacteria identified Cx Nom (CSF) No growth in 72 hours. [facility] Cerebrospinal fluid appearan ce descriptionOrdered By: Parker Andrade on 10-26-2022 Appearance (CSF) CLEAR Clear [facility] Cerebrospinal fluid cell cou ntOrdered By: Parker Andrade on 10-26-2022 Cell count panel (CSF) TNP [facility] Comment on above: Test not performed Cerebrospinal fluid color id entificationOrdered By: Parker Andrade on 10-26-2022 Color (CSF) COLORLESS Colorless [facility] Cerebrospinal fluid white bl ood cell countOrdered By: Parker Andrade on 10-26-2022 WBC (CSF) [#/Vol] 0 /mm-3 0-5 [facility] Gram stain for investigation of transfusion reactionOrdered By: Parker Andrade on 10-26-2022 Microscopic observation Gram stain Nom (Unsp spec) [facility] Laboratory - Specimen inform ationOrdered By: Parker Andrade on 10-26-2022 Tube number Nom (CSF) [ID] 3 [facility] No Panel InformationOrdered By: Parker Andrade on 10-26-2022 CSF RBC 0 /mm-3 None seen [facility] Review by pathologistOrdered By: Parker Andrade on 10-26-2022 Pathologist review Francis (Unsp spec) [Interp] Reviewed [facility] Comment on above: Previous reported re sult: May follow Edited by: RGOKARMEN on 10/27/22:1209Negative for malignant cells.Rare lymphocytes and RBCs are noted.Piter Cortez M.D. 10/27/22 AMENDED REPORT 10/27/22 1209 PATH REV previously reported as: May follow .Auto DiffOrdered By: SYSTEM SYSTEM on 10-12-2022 Basophil, Absolute 0.0 103/mcL Normal 0.0-0.2 AO Wo rkflow SS Comment on above: Performed By: #### A DIFF, CMP, CBC, ANEU, LIPID, TSH, GFR #### [place] [address] [address] Basophils/100 WBC (Bld) 0.3 % Normal 0.0-2.5 A O Workflow SS Comment on above: Performed By: #### A DIFF, CMP, CBC, ANEU, LIPID, TSH, GFR #### Tam[address] [address] Eosinophil, Absolute 0.0 103/mcL Normal 0.0-0.4 AO Workflow SS Comment on above: Performed By: #### A DIFF, CMP, CBC, ANEU, LIPID, TSH, GFR #### Tam[place] [address] [address] Eosinophils/100 WBC (Bld) 0.4 % Normal 0.0-7.0 AO Workflow SS Comment on above: Performed By: #### A DIFF, CMP, CBC, ANEU, LIPID, TSH, GFR #### [address] [address] Lymphocyte, Absolute 1.8 103/mcL Normal 0.8-3.9 AO Workflow SS Comment on above: Performed By: #### A DIFF, CMP, CBC, ANEU, LIPID, TSH, GFR #### [address] [address] Lymphocytes/100 WBC (Bld) 20.4 % Normal 10.0-50.0 AO Workflow SS Comment on above: Performed By: #### A DIFF, CMP, CBC, ANEU, LIPID, TSH, GFR #### [address] [address] Monocyte, Absolute 0.4 103/mcL Normal 0.2-1.0 AO Wo rkflow SS Comment on above: Performed By: #### A DIFF, CMP, CBC, ANEU, LIPID, TSH, GFR #### [address] [address] Monocytes/100 WBC (Bld) 5.0 % Normal 1.7-13.0 A O Workflow SS Comment on above: Performed By: #### A DIFF, CMP, CBC, ANEU, LIPID, TSH, GFR #### [address] [address] Neutrophils/100 WBC (Bld) 73.9 % Normal 37.0-80.0 AO Workflow SS Comment on above: Performed By: #### A DIFF, CMP, CBC, ANEU, LIPID, TSH, GFR #### [address] [address] .GFRon 10-12-2022 GFR 89 ml/min/1.73sqm Normal [facility] ([place]) Comment on above: Result Comment: GFR Population mean for , Non- Americans Ages 20-29 = 116 mL/min/1.73 sq.m. Ages 30-39 = 107 mL/min/1.73 sq.m. Ages 40-49 = 99 mL/min/1.73 sq.m. Ages 50-59 = 93 mL/min/1.73 sq.m. Ages 60-69 = 85 mL/min/1.73 sq.m. Ages 70+ = 75 mL/min/1.73 sq.m. Chronic Kidney Disease: Less than 60 mL/min/1.73 square meters End Stage Renal Disease: Less than 15 mL/min/1.73 square meters Performed By: #### A DIFF, CMP, CBC, ANEU, LIPID, TSH, GFR #### [address] [address] GFR Non- 73 ml/min/1.73sqm Normal [facility] ([place]) Comment on above: Result Comment: GFR Population mean for , Non- Americans Ages 20-29 = 116 mL/min/1.73 sq.m. Ages 30-39 = 107 mL/min/1.73 sq.m. Ages 40-49 = 99 mL/min/1.73 sq.m. Ages 50-59 = 93 mL/min/1.73 sq.m. Ages 60-69 = 85 mL/min/1.73 sq.m. Ages 70+ = 75 mL/min/1.73 sq.m. Chronic Kidney Disease: Less than 60 mL/min/1.73 square meters End Stage Renal Disease: Less than 15 mL/min/1.73 square meters Performed By: #### A DIFF, CMP, CBC, ANEU, LIPID, TSH, GFR #### [address] [address] .NEUABSOrdered By: SYSTEM SY STEM on 10-12-2022 Neutrophil, Absolute 6.4 103/mcL High 2.9-6.2 AO Workflow SS Comment on above: Performed By: #### A DIFF, CMP, CBC, ANEU, LIPID, TSH, GFR #### [address] [address] CBCOrdered By: SYSTEM SYSTEM on 10-12-2022 Erythrocyte distribution width (RBC) [Ratio] 16.4 % High 11.5-14.5 AO Workflow SS Comment on above: Performed By: #### A DIFF, CMP, CBC, ANEU, LIPID, TSH, GFR #### [address] [address] Hematocrit (Bld) [Volume fraction] 37.1 % Normal 37.0-47.0 AO Workflow SS Comment on above: Performed By: #### A DIFF, CMP, CBC, ANEU, LIPID, TSH, GFR #### [address] [address] MCH (RBC) [Entitic mass] 23.8 pg Low 27.0-31.2 AO Workflow SS Comment on above: Performed By: #### A DIFF, CMP, CBC, ANEU, LIPID, TSH, GFR #### [address] [address] MCHC 32.4 G/dL Low 33.0-37.0 AO Workflow SS Comment on above: Performed By: #### A DIFF, CMP, CBC, ANEU, LIPID, TSH, GFR #### [address] [address] MCV (RBC) [Entitic vol] 73.6 fL Low 80.0-94.0 A O Workflow SS Comment on above: Performed By: #### A DIFF, CMP, CBC, ANEU, LIPID, TSH, GFR #### [address] [address] Platelet mean volume (Bld) [Entitic vol] 8.0 fL Normal 7.4-10.4 AO Workflow SS Comment on above: Performed By: #### A DIFF, CMP, CBC, ANEU, LIPID, TSH, GFR #### [address] [address] CBCon 10-12-2022 Hgb 12.0 G/dL Normal 12.0-16.0 [facility] ([place]) Comment on above: Performed By: #### A DIFF, CMP, CBC, ANEU, LIPID, TSH, GFR #### [address] [address] Platelet 355 10 3/mcL Normal 130-400 [facility] ([place]) Comment on above: Performed By: #### A DIFF, CMP, CBC, ANEU, LIPID, TSH, GFR #### [address] [address] RBC 5.04 10 6/mcL Normal 4.20-5.40 [facility] ([place]) Comment on above: Performed By: #### A DIFF, CMP, CBC, ANEU, LIPID, TSH, GFR #### [address] [address] WBC 8.6 10 3/mcL Normal 4.6-10.8 [facility] ([place]) Comment on above: Performed By: #### A DIFF, CMP, CBC, ANEU, LIPID, TSH, GFR #### [address] [address] CMPon 10-12-2022 Albumin Level 3.8 G/dL Normal 3.5-5.0 [facility] ([place]) Comment on above: Performed By: #### A DIFF, CMP, CBC, ANEU, LIPID, TSH, GFR #### [address] [address] ALT [Catalytic activity/Vol] 14 U/L Normal 14-59 [facility] ([place]) Comment on above: Performed By: #### A DIFF, CMP, CBC, ANEU, LIPID, TSH, GFR #### [address] [address] AST [Catalytic activity/Vol] 11 U/L Normal 10-40 [facility] ([place]) Comment on above: Performed By: #### A DIFF, CMP, CBC, ANEU, LIPID, TSH, GFR #### [address] [address] Bili Total 0.4 mg/dL Normal 0.2-1.0 [facility] ([place]) Comment on above: Result Comment: Use of this assay is not recommended for patients undergoing treatment with eltrombopag due to the potential for falsely elevated results. Performed By: #### A DIFF, CMP, CBC, ANEU, LIPID, TSH, GFR #### [address] [address] BUN/Creatinine Ratio 12 ratio Normal 7-27 [facility] ([place]) Comment on above: Performed By: #### A DIFF, CMP, CBC, ANEU, LIPID, TSH, GFR #### [address] [address] Total Protein 7.7 G/dL Normal 6.4-8.2 [facility] ([place]) Comment on above: Performed By: #### A DIFF, CMP, CBC, ANEU, LIPID, TSH, GFR #### [address] [address] CMPOrdered By: SYSTEM SYSTEM on 10-12-2022 Albumin/Globulin [Mass ratio] 1.0 {ratio} Low 1.1-2.5 AO ADM SS Comment on above: Performed By: #### A DIFF, CMP, CBC, ANEU, LIPID, TSH, GFR #### [address] [address] ALP [Catalytic activity/Vol] 81 U/L Normal 40-135 AO ADM SS Comment on above: Performed By: #### A DIFF, CMP, CBC, ANEU, LIPID, TSH, GFR #### [address] [address] Calcium [Mass/Vol] 9.1 mg/dL Normal 8.4-10.2 AO ADM SS Comment on above: Performed By: #### A DIFF, CMP, CBC, ANEU, LIPID, TSH, GFR #### [address] [address] Chloride [Moles/Vol] 103 mmol/L Normal 98-107 AO A DM SS Comment on above: Performed By: #### A DIFF, CMP, CBC, ANEU, LIPID, TSH, GFR #### [address] [address] CO2 [Moles/Vol] 26 mmol/L Normal 22-29 AO ADM SS Comment on above: Performed By: #### A DIFF, CMP, CBC, ANEU, LIPID, TSH, GFR #### [address] [address] Creatinine [Mass/Vol] 0.91 mg/dL Normal 0.55-1.02 AO ADM SS Comment on above: Performed By: #### A DIFF, CMP, CBC, ANEU, LIPID, TSH, GFR #### [address] [address] Electrolyte Balance 11.0 mEq/L Normal 4.0-15.0 AO AD M SS Comment on above: Performed By: #### A DIFF, CMP, CBC, ANEU, LIPID, TSH, GFR #### [place] [address] Globulin 3.9 G/dL Normal AO ADM SS Comment on above: Performed By: #### A DIFF, CMP, CBC, ANEU, LIPID, TSH, GFR #### [address] [place] [address] Glucose [Mass/Vol] 106 mg/dL High 70-105 AO ADM SS Comment on above: Performed By: #### A DIFF, CMP, CBC, ANEU, LIPID, TSH, GFR #### [place] [address] Potassium [Moles/Vol] 4.2 mmol/L Normal 3.5-5.1 AO ADM SS Comment on above: Performed By: #### A DIFF, CMP, CBC, ANEU, LIPID, TSH, GFR #### [place] [address] Sodium [Moles/Vol] 140 mmol/L Normal 136-145 AO ADM SS Comment on above: Performed By: #### A DIFF, CMP, CBC, ANEU, LIPID, TSH, GFR #### [place] [address] Urea nitrogen [Mass/Vol] 11 mg/dL Normal 7-18 AO ADM SS Comment on above: Performed By: #### A DIFF, CMP, CBC, ANEU, LIPID, TSH, GFR #### [place] [address] FEOrdered By: SYSTEM SYSTEM on 10-12-2022 Iron [Mass/Vol] 21 ug/dL Low 50-170 AO ADM SS Comment on above: Performed By: #### A SISSY, FERR, ADIFF, CBC #### [place] [address] FERROrdered By: SYSTEM SYSTE M on 10-12-2022 Ferritin [Mass/Vol] 7.0 ng/mL Low 8.0-252.0 AO AD M SS Comment on above: Performed By: #### A SISSY, FERR, ADIFF, CBC #### [place] [id number] LABORATORYOrdered By: SYSTEM SYSTEM on 10-12-2022 Albumin BCP dye [Mass/Vol] 3.8 G/dL Invalid Interpretation Code 3.5 - 5.0 G/dL AO ADM SS ALT With P-5'-P [Catalytic activity/Vol] 14 U/L Invalid Interpretation Code 14 - 59 U/L AO ADM SS AST With P-5'-P [Catalytic activity/Vol] 11 U/L Invalid Interpretation Code 10 - 40 U/L AO ADM SS Bilirubin [Mass/Vol] 0.4 mg/dL Invalid Interpretation Code 0.2 - 1.0 mg/dL AO ADM SS Comment on above: Interpretive Data: U se of this assay is not recommended for patients undergoing treatment with eltrombopag due to the potential for falsely elevated results. GFR/1.73 sq M.predicted among blacks MDRD (S/P/Bld) [Vol rate/Area] 89 ml/min/1.73sqm Invalid Interpretation Code AO Chemistry S Comment on above: Interpretive Data: GFR Population mean for , Non- Americans Ages 20-29 = 116 mL/min/1.73 sq.m. Ages 30-39 = 107 mL/min/1.73 sq.m. Ages 40-49 = 99 mL/min/1.73 sq.m. Ages 50-59 = 93 mL/min/1.73 sq.m. Ages 60-69 = 85 mL/min/1.73 sq.m. Ages 70+ = 75 mL/min/1.73 sq.m. Chronic Kidney Disease: Less than 60 mL/min/1.73 square meters End Stage Renal Disease: Less than 15 mL/min/1.73 square meters GFR/1.73 sq M.predicted among non-blacks MDRD (S/P/Bld) [Vol rate/Area] 73 ml/min/1.73sqm Invalid Interpretation Code AO Chemistry S Comment on above: Interpretive Data: GFR Population mean for , Non- Americans Ages 20-29 = 116 mL/min/1.73 sq.m. Ages 30-39 = 107 mL/min/1.73 sq.m. Ages 40-49 = 99 mL/min/1.73 sq.m. Ages 50-59 = 93 mL/min/1.73 sq.m. Ages 60-69 = 85 mL/min/1.73 sq.m. Ages 70+ = 75 mL/min/1.73 sq.m. Chronic Kidney Disease: Less than 60 mL/min/1.73 square meters End Stage Renal Disease: Less than 15 mL/min/1.73 square meters Hemoglobin (Bld) [Mass/Vol] 12.0 G/dL Invalid Interpretation Code 12.0 - 16.0 G/dL AO Workflow SS Platelets (Bld) [#/Vol] 355 103/mcL Invalid Interpretation Code 130 - 400 10^3/mcL AO Workflow SS Protein [Mass/Vol] 7.7 G/dL Invalid Interpretation Code 6.4 - 8.2 G/dL AO ADM SS RBC (Bld) [#/Vol] 5.04 106/mcL Invalid Interpretation Code 4.20 - 5.40 10^6/mcL AO Workflow SS Urea nitrogen/Creatinine [Mass ratio] 12 ratio Invalid Interpretation Code 7 - 27 ratio AO ADM SS WBC (Bld) [#/Vol] 8.6 103/mcL Invalid Interpretation Code 4.6 - 10.8 10^3/mcL AO Workflow SS LIPIDOrdered By: Edie devine on 10-12-2022 Cholesterol [Mass/Vol] 161 mg/dL Normal 0-200 AO ADM SS Comment on above: Interpretive Data: C holesterol Reference Interval: Less than 200 Desirable 200-239 Borderline high risk 240 and above High risk Result Comment: Chol esterol Reference Interval: Less than 200 Desirable 200-239 Borderline high risk 240 and above High risk Performed By: #### A VESNA SHEEHAN ADIFF, CBC #### [place] [address] Cholesterol in HDL [Mass/Vol] 33 mg/dL Low 40-60 AO ADM SS Comment on above: Performed By: #### A VESNA SHEEHAN ADIFF, CBC #### [address] [place] [id number] [place], [place] [address] Cholesterol in LDL [Mass/Vol] 112 mg/dL Normal 0-130 AO ADM SS Comment on above: Performed By: #### A VESNA SHEEHAN ADIFF, CBC #### [place] [address] Triglyceride [Mass/Vol] 78 mg/dL Normal 0-150 A O ADM SS Comment on above: Interpretive Data: T riglyceride Reference Interval: Less than 150 Normal 150-199 Borderline high risk 200-499 High risk 500 or higher Very high risk Result Comment: Trig lyceride Reference Interval: Less than 150 Normal 150-199 Borderline high risk 200-499 High risk 500 or higher Very high risk Performed By: #### A SISSY, FERR, ADIFF, CBC #### [address] [place], [place] [address] TSHOrdered By: SYSTEM SYSTEM on 10-12-2022 TSH Qn 1.88 m[IU]/L Normal 0.36-3.74 AO ADM SS Comment on above: Performed By: #### A DIFF, CMP, CBC, ANEU, LIPID, TSH, GFR #### [place] [id number] [place], [place] [address] Vital Signs Date Time Vital Sign Value Performing Clinician Facility 11-19-2024 14:19-0400 Body mass index (BMI) [Ratio] 39.11 kg/m2 Clint Vasques MD Work Phone: [facility] 11-19-2024 14:19-0400 Body weight 106.59 kg Clint Vasques MD Work Phone: [facility] 11-19-2024 14:19-0400 Diastolic blood pressure 90 mm[Hg] Clint Vasques MD Work Phone: [facility] Comment on above: 138/85: 139/85: 129/85: 125/87: 135/88 11-19-2024 14:19-0400 Systolic blood pressure 133 mm[Hg] Clint Vasques MD Work Phone: [facility] Comment on above: 138/85: 139/85: 129/85: 125/87: 135/88 11-14-2024 14:48-0400 Body mass index (BMI) [Ratio] 38.44 kg/m2 Denice Dash MD Work Phone: [facility] 11-14-2024 14:48-0400 Body weight 104.78 kg Denice Dash MD Work Phone: [facility] 11-14-2024 14:48-0400 Diastolic blood pressure 76 mm[Hg] Denice Dash MD Work Phone: [facility] 11-14-2024 14:48-0400 Systolic blood pressure 122 mm[Hg] Denice Dash MD Work Phone: [facility] 11-11-2024 14:31-0400 Body mass index (BMI) [Ratio] 39.27 kg/m2 Clint Vasques MD Work Phone: [facility] 11-11-2024 14:31-0400 Body weight 107.05 kg Clint Vasques MD Work Phone: [facility] 11-11-2024 14:31-0400 Diastolic blood pressure 85 mm[Hg] Clint Vasques MD Work Phone: [facility] 11-11-2024 14:31-0400 Systolic blood pressure 129 mm[Hg] Clint Vasques MD Work Phone: [facility] 11-05-2024 15:01-0400 Body mass index (BMI) [Ratio] 39.17 kg/m2 Clint Vasques MD Work Phone: [facility] 11-05-2024 15:01-0400 Body weight 106.78 kg Clint Vasques MD Work Phone: [facility] 11-05-2024 15:01-0400 Diastolic blood pressure 68 mm[Hg] Clint Vasques MD Work Phone: [facility] 11-05-2024 15:01-0400 Systolic blood pressure 124 mm[Hg] Clint Vasques MD Work Phone: [facility] 10-22-2024 14:30-0400 Body mass index (BMI) [Ratio] 38.64 kg/m2 Clint Vasques MD Work Phone: [facility] 10-22-2024 14:30-0400 Body weight 105.33 kg Clint Vasques MD Work Phone: [facility] 10-22-2024 14:30-0400 Diastolic blood pressure 83 mm[Hg] Clint Vasques MD Work Phone: [facility] 10-22-2024 14:30-0400 Systolic blood pressure 126 mm[Hg] Clint Vasques MD Work Phone: [facility] 10-08-2024 15:02-0400 Body mass index (BMI) [Ratio] 39.11 kg/m2 Benita Haury SUPPLY CHAIN COORDINATOR.GAME TRAPPER Work Phone: [facility] 10-08-2024 15:02-0400 Body weight 106.59 kg Benita Haury SUPPLY CHAIN COORDINATOR.GAME TRAPPER Work Phone: [facility] 10-08-2024 15:02-0400 Diastolic blood pressure 70 mm[Hg] Benita Haury SUPPLY CHAIN COORDINATOR.GAME TRAPPER Work Phone: [facility] 10-08-2024 15:02-0400 Systolic blood pressure 124 mm[Hg] Bneita Haury SUPPLY CHAIN COORDINATOR.GAME TRAPPER Work Phone: [facility] 09-24-2024 16:01-0400 Body mass index (BMI) [Ratio] 38.77 kg/m2 Clint Vasques MD Work Phone: [facility] 09-24-2024 16:01-0400 Body weight 105.69 kg Clint Vasques MD Work Phone: [facility] 09-24-2024 16:01-0400 Diastolic blood pressure 74 mm[Hg] Clint Vasques MD Work Phone: [facility] 09-24-2024 16:01-0400 Systolic blood pressure 122 mm[Hg] Clint Vasques MD Work Phone: [facility] 09-03-2024 13:50-0400 Body mass index (BMI) [Ratio] 39.27 kg/m2 Gisell Hope MD Work Phone: [facility] 09-03-2024 13:50-0400 Body weight 107.05 kg Gisell Hope MD Work Phone: [facility] 09-03-2024 13:50-0400 Diastolic blood pressure 84 mm[Hg] Gisell Hope MD Work Phone: [facility] 09-03-2024 13:50-0400 Systolic blood pressure 132 mm[Hg] Gisell Hope MD Work Phone: [facility] 06-17-2024 15:33-0400 Body mass index (BMI) [Ratio] 38.31 kg/m2 Clint Vasques MD Work Phone: [facility] 06-17-2024 15:33-0400 Body weight 104.42 kg Clint Vasques MD Work Phone: [facility] 06-17-2024 15:33-0400 Diastolic blood pressure 84 mm[Hg] Clint Vasques MD Work Phone: [facility] 06-17-2024 15:33-0400 Systolic blood pressure 128 mm[Hg] Clint Vasques MD Work Phone: [facility] 05-20-2024 10:07-0500 Body mass index (BMI) [Ratio] 38.27 kg/m2 Nichole Sebastian SUPPLY CHAIN COORDINATOR.CNM Work Phone: [facility] 05-20-2024 10:07-0500 Body weight 104.33 kg Nichole Cortes SUPPLY CHAIN COORDINATOR.CNM Work Phone: [facility] 05-20-2024 10:07-0500 Diastolic blood pressure 74 mm[Hg] Nichole Cortes SUPPLY CHAIN COORDINATOR.CNM Work Phone: [facility] 05-20-2024 10:07-0500 Systolic blood pressure 124 mm[Hg] Nichole Cortes SUPPLY CHAIN COORDINATOR.CNM Work Phone: [facility] 04-18-2024 08:19-0500 Body height 165.1 cm Melissa Blum SUPPLY CHAIN COORDINATOR.GAME TRAPPER Work Phone: [facility] 04-18-2024 08:19-0500 Body mass index (BMI) [Ratio] 38.27 kg/m2 Melissa Zully SUPPLY CHAIN COORDINATOR.GAME TRAPPER Work Phone: [facility] 04-18-2024 08:19-0500 Body weight 104.33 kg Melissa Zully SUPPLY CHAIN COORDINATOR.GAME TRAPPER Work Phone: [facility] 04-18-2024 08:19-0500 Diastolic blood pressure 76 mm[Hg] Melissa Zully SUPPLY CHAIN COORDINATOR.GAME TRAPPER Work Phone: [facility] 04-18-2024 08:19-0500 Systolic blood pressure 122 mm[Hg] Melissa Blum SUPPLY CHAIN COORDINATOR.GAME TRAPPER Work Phone: [facility] 09-10-2023 09:47-0400 Body height 165.7 cm Clint Vasques MD Work Phone: [facility] 09-10-2023 09:47-0400 Body mass index (BMI) [Ratio] 35.83 kg/m2 Clint Vasques MD Work Phone: [facility] 09-10-2023 09:47-0400 Body weight 98.43 kg Clint Vasques MD Work Phone: [facility] 09-10-2023 09:47-0400 Diastolic blood pressure 82 mm[Hg] Clint Vasques MD Work Phone: [facility] 09-10-2023 09:47-0400 Systolic blood pressure 124 mm[Hg] Clint Vasques MD Work Phone: [facility] 10-30-2022 06:46-0400 Body height 165.1 cm [facility] 10-30-2022 06:46-0400 Body mass index (BMI) [Ratio] 38.2 kg/m2 [facility] 10-30-2022 06:46-0400 Body temperature 97.3 [degF] [facility] 10-30-2022 06:46-0400 Body weight 104.32 kg [facility] 10-30-2022 06:46-0400 Diastolic blood pressure 94 mm[Hg] [facility] 10-30-2022 06:46-0400 Heart rate 75 /min [facility] 10-30-2022 06:46-0400 Respiratory rate 14 /min [facility] 10-30-2022 06:46-0400 SaO2% (BldA) [Mass fraction] 98 % [facility] 10-30-2022 06:46-0400 Systolic blood pressure 145 mm[Hg] [facility] 10-29-2022 09:16-0400 Diastolic blood pressure 62 mm[Hg] [facility] 10-29-2022 09:16-0400 Heart rate 91 /min [facility] 10-29-2022 09:16-0400 Respiratory rate 14 /min [facility] 10-29-2022 09:16-0400 SaO2% (BldA) [Mass fraction] 99 % [facility] 10-29-2022 09:16-0400 Systolic blood pressure 106 mm[Hg] [facility] 10-29-2022 06:43-0400 Body mass index (BMI) [Ratio] 39.2 kg/m2 [facility] 10-29-2022 06:43-0400 Body temperature 97.1 [degF] [facility] 10-29-2022 06:43-0400 Body weight 107 kg [facility] 10-26-2022 13:40-0400 Diastolic blood pressure 84 mm[Hg] [facility] 10-26-2022 13:40-0400 Heart rate 64 /min [facility] 10-26-2022 13:40-0400 Respiratory rate 14 /min [facility] 10-26-2022 13:40-0400 SaO2% (BldA) [Mass fraction] 100 % [facility] 10-26-2022 13:40-0400 Systolic blood pressure 136 mm[Hg] [facility] 10-26-2022 11:33-0400 Body mass index (BMI) [Ratio] 38.2 kg/m2 [facility] 10-26-2022 11:33-0400 Body temperature 98.1 [degF] [facility] 10-26-2022 11:33-0400 Body weight 104.32 kg [facility] Encounters Encounter Date Encounter Type Care Provider Facility Start: 11-19-2024 End: 11-19-2024 Patient encounter procedure Clint Vasques MD Work Phone: OB/Gynecology Comment on above: Supervision of high risk in third trimester (HCC) (Primary Dx); Obesity in (HCC); 39 weeks gestation of (HCC) Start: 11-14-2024 End: 11-14-2024 Patient encounter procedure Denice Dash MD Work Phone: OB/Gynecology Comment on above: Supervision of high risk in third trimester (HCC) (Primary Dx); Obesity in (HCC); IIH (idiopathic intracranial hypertension); Anemia during in third trimester (HCC); 38 weeks gestation of (HCC) Start: 11-14-2024 End: 11-14-2024 ambulatory DENICE DASH Facility:[facility] Start: 11-13-2024 End: 11-13-[facility] [place] Start: 11-13-2024 End: 11-13-2024 Patient encounter procedure Marissa Sanjay [facility] Comment on above: Population Health Na vigation Outreach (Ob/peds) Start: 11-11-2024 End: 11-11-2024 Patient encounter procedure Clint Vasques MD Work Phone: OB/Gynecology Comment on above: Supervision of high risk in third trimester (HCC) (Primary Dx); 37 weeks gestation of (HCC); Obesity in (HCC); IIH (idiopathic intracranial hypertension); Anemia during in third trimester (HCC) Start: 11-11-2024 End: 11-11-2024 ambulatory CLINT VASQUES Facility:[facility] Start: 11-06-2024 End: 11-07-2024 ambulatory Clint Vasques MD Work Phone: OB/Gynecology Comment on above: Asprin Start: 11-05-2024 End: 11-05-2024 Patient encounter procedure Clint Vasques MD Work Phone: OB/Gynecology Comment on above: 37 weeks gestation o f (HCC) (Primary Dx); Supervision of high risk in third trimester (HCC) macrosomia dur ing in third trimester, single or unspecified fetus (HCC) (Primary Dx); Supervision of high risk in third trimester (HCC); 37 weeks gestation of (HCC); Obesity in (HCC) Start: 11-05-2024 End: 11-05-2024 ambulatory CLINT VASQUES Facility:[facility] Start: 10-28-2024 End: 10-28-2024 ambulatory CLINT VASQUES Facility:[facility] Start: 10-22-2024 End: 10-22-2024 Patient encounter procedure Clint Vasques MD Work Phone: OB/Gynecology Comment on above: 35 weeks gestation o f (HCC) (Primary Dx); Supervision of high risk in third trimester (HCC); Obesity in (HCC); IIH (idiopathic intracranial hypertension) Start: 10-22-2024 End: 10-22-2024 ambulatory CLINT VASQUES Facility:[facility] Start: 10-08-2024 End: 10-08-2024 Patient encounter procedure Benita Conn APRN.CNP Work Phone: OB/Gynecology Comment on above: Supervision of high risk in third trimester (HCC) (Primary Dx); 33 weeks gestation of (HCC); Obesity in (HCC); IIH (idiopathic intracranial hypertension) Supervision of other high risk pregnancies, second trimester (HCC); Obesity in (HCC) Start: 10-08-2024 End: 10-08-2024 ambulatory CLINT VASQUES Facility:[facility] Start: 09-24-2024 End: 09-24-2024 Patient encounter procedure Clint Vasques MD Work Phone: OB/Gynecology Comment on above: Obesity in (HCC) (Primary Dx); Supervision of high risk in third trimester (HCC); IIH (idiopathic intracranial hypertension); Anemia during in third trimester (HCC) Start: 09-24-2024 End: 09-24-2024 ambulatory CLINT VASQUES Facility:[facility] Start: 09-08-2024 End: 11-08-2024 Follow-up encounter Clint Vasques MD Work Phone: [place] Provider Adult Start: 09-03-2024 End: 09-03-2024 Patient encounter procedure Gisell Hope MD Work Phone: OB/Gynecology Comment on above: Obesity in (HCC) (Primary Dx); Supervision of high risk in third trimester (HCC); 28 weeks gestation of (HCC) Start: 09-03-2024 End: 09-03-2024 ambulatory GISELL HOPE Facility:[facility] Start: 08-13-2024 End: 08-13-2024 ambulatory CLINT VASQUES Facility:[facility] Start: 08-04-2024 End: 08-04-2024 Telephone encounter Clint Vasques MD Work Phone: OB/Gynecology Comment on above: breast pump Start: 07-25-2024 End: 07-25-2024 ambulatory Clint Vasques MD Work Phone: OB/Gynecology Comment on above: Iron Start: 07-22-2024 End: 07-22-[address] VEE SUPPLY CHAIN COORDINATOR-GAME TRAPPER Facility:[facility] Start: 07-22-2024 End: 07-22-[address] VEE SUPPLY CHAIN COORDINATOR-GAME TRAPPER [facility] Start: 07-16-2024 End: 09-15-2024 Follow-up encounter Nichole Cortes APRN.CNM Work Phone: OB/Gynecology Start: 07-15-2024 End: 07-15-2024 Patient encounter procedure Whi Tech 1 Film Projector Operator [employer] Maternal Medicine Comment on above: Encounter for anatomic survey (HCC) (Primary Dx); Obesity in (HCC); 20 weeks gestation of (HCC) Start: 07-15-2024 End: 07-15-2024 ambulatory NICHOLE CORTES Facility:[facility] Start: 06-17-2024 End: 06-17-2024 ambulatory CLINT VASQUES Facility:[facility] Start: 06-17-2024 End: 06-17-2024 Patient encounter procedure Clint Vasques MD Work Phone: OB/Gynecology Comment on above: 16 weeks gestation o f (Primary Dx); Supervision of high risk in second trimester; Obesity in Start: 05-20-2024 End: 05-20-2024 ambulatory [facility] Facility:[facility] Start: 05-20-2024 End: 05-20-2024 Patient encounter procedure 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 Tech 1 Film Projector Operator [facility] [facility] Maternal Medicine Comment on above: Encounter for antena dwayne screening for malformation using ultrasound (Primary Dx); 12 weeks gestation of Supervision of high risk in second trimester (Primary Dx); Obesity in ; IIH (idiopathic intracranial hypertension) Start: 04-22-2024 End: 04-22-2024 ambulatory Melissa Blum SUPPLY CHAIN COORDINATOR.GAME TRAPPER Work Phone: OB/Gynecology Comment on above: Asprin Start: 04-18-2024 End: 04-18-2024 ambulatory MELISSA ZULLY Facility:[facility] Start: 04-18-2024 End: 04-18-2024 Patient encounter procedure Melissa Zully SUPPLY CHAIN COORDINATOR.GAME TRAPPER Work Phone: OB/Gynecology Comment on above: with uncer tain dates, unspecified trimester (Primary Dx); 8 weeks gestation of ; Encounter for supervision of normal in multigravida; BMI 38.0-38.9,adult; IIH (idiopathic intracranial hypertension) Start: 01-15-2024 End: 01-15-[address] VEE SUPPLY CHAIN COORDINATOR-GAME TRAPPER Facility:[facility] Start: 01-15-2024 End: 01-15-[address] VEE APRN-GAME TRAPPER [facility] Start: 11-27-2023 End: 11-27-2023 ambulatory Clint Vasques MD Work Phone: OB/Gynecology Comment on above: Pathology Start: 11-27-2023 End: 11-27-2023 E-mail encounter from caregiver Clint Vasques MD Work Phone: OB/Gynecology Start: 11-22-2023 End: 11-22-2023 Patient encounter procedure Clint Vasques MD Work Phone: OB/Gynecology Start: 11-22-2023 End: 11-22-2023 ambulatory Clint Vasques MD Work Phone: OB/Gynecology Comment on above: Endometrial polyp (P rimary Dx); Abnormal uterine bleeding (AUB) Start: 11-14-2023 End: 11-14-2023 ambulatory Clint Vasques MD Work Phone: OB/Gynecology Comment on above: Abnormal uterine ble eding (AUB) (Primary Dx); Endometrial polyp Start: 11-14-2023 End: 11-14-2023 Telemedicine consultation with patient Clint Vasques MD Work Phone: OB/Gynecology Start: 10-24-2023 ambulatory Clint fink MD Work Phone: OB/Gynecology Comment on above: Test result Start: 10-24-2023 Telephone encounter Clint Vasques MD Work Phone: OB/Gynecology Comment on above: Appointment Start: 10-23-2023 End: 10-23-2023 ambulatory Whi Mob OB/Gynecology Start: 10-23-2023 End: 10-23-2023 Patient encounter procedure Whi Tech 1 Film Projector Operator Wstr Mob OB/Gynecology Start: 10-17-2023 ambulatory Clint fink MD Work Phone: OB/Gynecology Comment on above: Period Start: 09-10-2023 End: 09-10-2023 Patient encounter procedure Clint Vasques MD Work Phone: OB/Gynecology Comment on above: Encounter for gyneco logical examination (general) (routine) without abnormal findings (Primary Dx); Screening for cervical cancer; Encounter for screening for human papillomavirus (HPV); IIH (idiopathic intracranial hypertension); Class 2 severe obesity due to excess calories with serious comorbidity and body mass index (BMI) of 35.0 to 35.9 in adult (HCC); Encounter for preconception consultation Start: 09-10-2023 End: 09-10-2023 Patient encounter status Clint Vasques MD Work Phone: [facility] Start: 07-25-2023 End: 07-26-[address] VEE APRN-GAME TRAPPER Facility:[facility] Start: 07-25-2023 End: 07-25-[address] VEE SUPPLY CHAIN COORDINATOR-GAME TRAPPER [facility] Start: 01-17-2023 End: 01-18-[address] VEE SUPPLY CHAIN COORDINATOR-GAME TRAPPER Facility:[facility] Start: 10-30-2022 End: 10-30-2022 Emergency department patient visit [facility] Work Phone: Start: 10-29-2022 End: 10-29-2022 Emergency department patient visit [facility] Work Phone: Start: 10-26-2022 Patient encounter procedure [facility]-Radiology, [facility] Work Phone: Start: 10-20-2022 End: 10-20-2022 ambulatory [facility] Work Phone: Start: 10-20-2022 End: 10-20-2022 Patient encounter procedure [facility]-MRI - [facility] Work Phone: Start: 10-12-2022 End: 10-13-[address] VEE SUPPLY CHAIN COORDINATOR-GAME TRAPPER Facility:[facility] Start: 10-12-2022 End: 10-12-[address] VEE SUPPLY CHAIN COORDINATOR-GAME TRAPPER [facility] Start: 09-22-2016 Ambulatory GREGORY BARRERA Facility: [facility] Procedures Date Procedure Procedure Detail Performing Clinician Start: 11-19-2024 Urnls dip stick/tabl et rgnt non-auto w/o micrscp Clint Vasques MD Work Phone: Start: 11-14-2024 Urnls dip stick/tabl et rgnt non-auto w/o micrscp Denice Dash MD Work Phone: Start: 11-05-2024 Urnls dip stick/tabl et rgnt non-auto w/o micrscp Clint Vasques MD Work Phone: Start: 11-05-2024 Us preg uterus after 1st trimest 03/26 gestation Benita Conn SUPPLY CHAIN COORDINATOR.GAME TRAPPER Work Phone: Start: 10-22-2024 Urnls dip stick/tabl et rgnt non-auto w/o micrscp Clint Vasques MD Work Phone: Start: 10-08-2024 Us preg uterus after 1st trimest 03/26 gestation Clint Vasques MD Work Phone: Start: 07-15-2024 Us preg uterus after 1st trimest 03/26 gestation Nichole Cortes SUPPLY CHAIN COORDINATOR.CNM Work Phone: Start: 05-20-2024 Antibody screen NICHOLE CORTES Comment on above: Order Comment: Speci men Type: BLOOD SPECIMENOrdering Facility: [facility] Address: [address] [place] [address] Performed By: #### T SPN ####CC [facility] BLOOD BANKCLDC [id number] [place] [address] [place] Start: 05-20-2024 Us preg uterus after 1st trimest 03/26 gestation Melissa Andrea SUPPLY CHAIN COORDINATOR.GAME TRAPPER Work Phone: Start: 04-18-2024 Us uterus l imited fetuses Melissa Andrea SUPPLY CHAIN COORDINATOR.GAME TRAPPER Work Phone: Start: 10-25-[address] L[address] VEE SUPPLY CHAIN COORDINATOR-GAME TRAPPER Start: 10-23-2023 Us pelvic nonobstetr ic real-time image complete Clint Vasques MD Work Phone: Start: 10-26-2022 Bacterial culture Start: 10-26-2022 Investigation of tra nsfusion reaction Start: 10-26-2022 Diagnostic lumbar puncture Start: 10-20-2022 MRI of brain with contrast Start: 10-20-2022 MRI of head Structure of wisdom tooth (body structure) LANE VEE SUPPLY CHAIN COORDINATOR-GAME TRAPPER Tonsillectomy LANE VEE AP RN-GAME TRAPPER Plan of Treatment Date Care Activity Detail Author Start: 09-09-2028 Screening for malign ant neoplasm of cervix Cervical Cancer Screening [facility] Start: 06-09-2027 Urine microalbumin profile DTaP,Tdap,Td Vaccine (8 - Td or Tdap) [facility] Start: 01-05-2025 End: 01-05-2025 Patient encounter procedure 01/05/2025 10:10 AM EDT Office Visit OB/Gynecology [address] [place], [place] [id number] Clint Vasques MD [address] [place], [place] [id number] Post 6 week OB/Gynecology Comment on above: Post 6 week Start: 12-01-2024 End: 12-01-2024 Patient encounter procedure 12/01/2024 10:50 AM EDT Office Visit OB/Gynecology [address] [place] [address] Clint Vasques MD [address] [place] [id number] 1 week post OB/Gynecology Comment on above: 1 week post Start: 11-24-2024 Influenza vaccination [facility] Start: 11-19-2024 End: 11-19-2024 Patient encounter procedure OB/Gynecology Comment on above: OB NST Start: 11-11-2024 End: 11-11-2024 Patient encounter procedure OB/Gynecology Comment on above: OB NST Start: 11-05-2024 End: 11-05-2024 Patient encounter procedure 11/05/2024 2:30 PM EDT Routine Office Visit OB/Gynecology [address] [place] [address] Clint Vasques MD [address] [place], [place] [id number] OB OB/Gynecology Comment on above: OB Start: 11-05-2024 End: 11-05-2024 Patient encounter procedure OB/Gynecology Comment on above: OB Growth Start: 10-28-2024 End: 10-28-2024 Patient encounter procedure OB/Gynecology Comment on above: NSt/OB Start: 10-22-2024 End: 10-22-2024 Patient encounter procedure OB/Gynecology Comment on above: OB NST/OB Start: 10-08-2024 End: 10-08-2024 Patient encounter procedure Maternal Medicine Comment on above: Growth Ob Start: 10-08-2024 End: 10-08-2025 OBSTETRIC ULTRASOUND WHI OBSTETRIC ULTRASOUND [facility]I Anc Imaging Routine Supervision of high risk in third trimester (HCC) 33 weeks gestation of (HCC) Obesity in (HCC) Expected: 10/08/2024, Expires: 10/08/2025 [facility] Comment on above: Expected: 10/08/2024 , Expires: 10/08/2025 Start: 09-24-2024 End: 09-24-2024 Patient encounter procedure 09/24/2024 3:50 PM EDT Routine Office Visit OB/Gynecology [address] [place] [address] Clint Vasques MD [address] [place], [place] [id number] Ob OB/Gynecology Comment on above: Ob Start: 09-09-2024 End: 09-09-2024 Patient encounter procedure 09/09/2024 9:00 AM EDT Office Visit OB/Gynecology [address] [place] [address] Clint Vasques MD [address] [place] [address] Annual OB/Gynecology Comment on above: Annual Start: 08-13-2024 End: 08-13-2024 Patient encounter procedure 08/13/2024 3:10 PM EDT Routine Office Visit OB/Gynecology [address] [place] [address] Clint Vasques MD [address] [place] [address] OB OB/Gynecology Comment on above: OB Start: 07-15-2024 End: 07-15-2024 Patient encounter procedure Maternal Medicine Comment on above: Anatomy/OB Start: 06-17-2024 End: 06-17-2024 Patient encounter procedure 06/17/2024 3:40 PM EDT Routine Office Visit OB/Gynecology [address] [place] [address] Clint Vasques MD [address] [place] [address] OB OB/Gynecology Comment on above: OB Start: 05-20-2024 End: 08-19-2024 HEMOGLOBIN EVALUATION CASCADE [facility] Comment on above: Expected: 05/20/2024 , Expires: 08/19/2024 Start: 05-20-2024 End: 05-20-2024 Patient encounter procedure Maternal Medicine Comment on above: Nuchal Nuchal / Est New OB Start: 04-18-2024 End: 07-18-2024 ANEMIA REFLEX PANEL ANEMIA REFLEX PANEL Lab Routine with uncertain dates, unspecified trimester 8 weeks gestation of Encounter for supervision of normal in multigravida Expected: 04/18/2024, Expires: 07/18/2024 [facility] [employer] Work Phone: Comment on above: Expected: 04/18/2024 , Expires: 07/18/2024 Start: 04-18-2024 End: 07-18-2024 Hemoglobin A1c in Blood HEMOGLOBIN A1C Lab Routine with uncertain dates, unspecified trimester 8 weeks gestation of Encounter for supervision of normal in multigravida Expected: 04/18/2024, Expires: 07/18/2024 [facility] Comment on above: Expected: 04/18/2024 , Expires: 07/18/2024 Start: 04-18-2024 End: 07-18-2024 Hepatitis B virus surface Ag [Presence] in Serum HEPATITIS B SURFACE ANTIGEN Lab Routine with uncertain dates, unspecified trimester 8 weeks gestation of Encounter for supervision of normal in multigravida Expected: 04/18/2024, Expires: 07/18/2024 [facility] Comment on above: Expected: 04/18/2024 , Expires: 07/18/2024 Start: 04-18-2024 End: 07-18-2024 Hepatitis C virus Ab [Presence] in Serum HEPATITIS C ANTIBODY IA WITH CONFIRMATION Lab Routine with uncertain dates, unspecified trimester Encounter for supervision of normal in multigravida Expected: 04/18/2024, Expires: 07/18/2024 [facility] Comment on above: Expected: 04/18/2024 , Expires: 07/18/2024 Start: 04-18-2024 End: 07-18-2024 HIV 1+2 Ab [Presence] in Serum or Plasma by Immunoassay HIV 1/2 COMBO WITH REFLEX TO DIFFERENTIATION Lab Routine with uncertain dates, unspecified trimester 8 weeks gestation of Encounter for supervision of normal in multigravida Expected: 04/18/2024, Expires: 07/18/2024 [facility] Comment on above: Expected: 04/18/2024 , Expires: 07/18/2024 Start: 04-18-2024 End: 04-18-2025 OBSTETRIC ULTRASOUND WHI OBSTETRIC ULTRASOUND [facility]I Anc Imaging Routine with uncertain dates, unspecified trimester 8 weeks gestation of Encounter for supervision of normal in multigravida Expected: 04/18/2024, Expires: 04/18/2025 [facility] Comment on above: Expected: 04/18/2024 , Expires: 04/18/2025 Start: 04-18-2024 End: 07-18-2024 RUBELLA IGG ANTIBODY RUBELLA IGG ANTIBODY Lab Routine with uncertain dates, unspecified trimester 8 weeks gestation of Encounter for supervision of normal in multigravida Expected: 04/18/2024, Expires: 07/18/2024 [facility] Comment on above: Expected: 04/18/2024 , Expires: 07/18/2024 Start: 04-18-2024 End: 07-18-2024 SYPHILIS TREPONEMAL W/REFLEX SYPHILIS TREPONEMAL W/REFLEX Lab Routine with uncertain dates, unspecified trimester 8 weeks gestation of Encounter for supervision of normal in multigravida Expected: 04/18/2024, Expires: 07/18/2024 [facility] Comment on above: Expected: 04/18/2024 , Expires: 07/18/2024 Start: 04-18-2024 End: 07-18-2024 TYPE + SCREEN TYPE + SCREEN Blood Bank Routine 8 weeks gestation of Expected: 04/18/2024, Expires: 07/18/2024 [facility] Comment on above: Expected: 04/18/2024 , Expires: 07/18/2024 Start: 11-25-2023 Covid-19 Vaccine ( season) Covid-19 Vaccine () [facility] Start: 11-25-2023 Covid-19 Vaccine () Covid-19 Vaccine () [facility] Start: 11-25-2023 Influenza vaccination [facility] Start: 11-14-2023 End: 11-14-2023 ambulatory 11/14/2023 1:00 PM EDT [facility] OB/Gynecology [address] [place], [place] [id number] Clint Vasques MD [address] [place], [place] [id number] Pre op for 11/22/23 OB/Gynecology Comment on above: Pre op for 11/22/23 Start: 10-17-2023 End: 10-16-2024 US Pelvis PELVIC US WHI Anc Imaging Routine Abnormal uterine bleeding (AUB) Expected: 10/17/2023, Expires: 10/16/[address] [facility] Work Phone: Comment on above: Expected: 10/17/2023 , Expires: 10/16/2024 Start: 09-10-2023 End: 12-10-2023 CARRIER SCREEN, STANDARD CARRIER SCREEN, STANDARD Lab Routine Encounter for preconception consultation Expected: 09/10/2023, Expires: 12/10/2023 [facility] Comment on above: Expected: 09/10/2023 , Expires: 12/10/2023 Start: 09-10-2023 End: 12-10-2023 RUBELLA IGG ANTIBODY RUBELLA IGG ANTIBODY Lab Routine Encounter for preconception consultation Expected: 09/10/2023, Expires: 12/10/[address] [facility] Work Phone: Comment on above: Expected: 09/10/2023 , Expires: 12/10/2023 Start: 03-26-2023 Behavioral Health Screening Behavioral Health Screening [facility] Start: 11-24-2022 Covid-19 Vaccine () Covid-19 Vaccine () [facility] Start: 2020 HPV Vaccine (1 - 3-d ose SCDM series) HPV Vaccine (1 - 3-dose SCDM series) [facility] Start: 2014 Screening for malign ant neoplasm of cervix Cervical Cancer Screening [facility] Start: 2011 Anxiety Screening Anxiety Screening [facility] Start: 2011 Depression Screening Depression Scre ening [facility] Start: 2011 Hepatitis C screening Hepatitis C Sc reening [facility] Start: 2011 HIV screening HIV Screening [facility] Bacteria identified in Urine by Culture BACTERIAL CULTURE, URINE Microbiology Routine with uncertain dates, unspecified trimester 8 weeks gestation of Encounter for supervision of normal in multigravida 04/18/2024 9:38 AM [facility] Chlamydia trachomatis+Neisseria gonorrhoeae DNA [Presence] in Unspecified specimen by CULLEN with probe detection GONORRHEA/CHLAMYDIA NAAT Lab Routine with uncertain dates, unspecified trimester 8 weeks gestation of Encounter for supervision of normal in multigravida 04/18/2024 9:38 AM [facility] nonstress test NON-S TRESS TEST Procedures Routine Obesity in (HCC) Ordered: 10/08/[address] [facility] Work Phone: Comment on above: Ordered: 10/08/2024 OBSTETRIC ULTRASOUND WHI OBSTETRIC ULTRASOUND [facility] Anc Imaging Routine Obesity in 1 Occurrences starting 05/20/[address] [facility] Work Phone: Comment on above: 1 Occurrences starti ng 05/20/2024 PAP TEST PAP TEST Lab Chana childers Encounter for gynecological examination (general) (routine) without abnormal findings Screening for cervical cancer Encounter for screening for human papillomavirus (HPV) 09/10/2023 10:36 AM EDT [facility] Patient Education [facility] Work Phone: Patient referral [facility] Work Phone: ROUTINE, GR OUP B STREPTOCOCCUS BY PCR ROUTINE, GROUP B STREPTOCOCCUS BY PCR Microbiology Routine 37 weeks gestation of ([facility]) Supervision of high risk in third trimester ([facility]) 11/05/2024 3:23 PM EDT [facility] Work Phone: URINE OB DIP B/O URINE OB DIP B/ O Lab Routine 37 weeks gestation of ([facility]) Supervision of high risk in third trimester ([facility]) Obesity in ([facility]) IIH (idiopathic intracranial hypertension) Anemia during in third trimester ([facility]) Ordered: 11/11/[address] [facility] Work Phone: Comment on above: Ordered: 11/11/2024 Immunizations Immunization Date Immunization Notes Care Provider Sary bullock 06-08-2017 tetanus toxoid, redu becky diphtheria toxoid, and acellular pertussis vaccine, adsorbed LANE VEE SUPPLY CHAIN COORDINATOR-GAME TRAPPER [facility] 01-05-2006 meningococcal polysaccharide (groups A, C, Y and W-135) diphtheria toxoid conjugate vaccine (MCV4P) LANE VEE SUPPLY CHAIN COORDINATOR-GAME TRAPPER [facility] 01-05-2006 tetanus toxoid, redu becky diphtheria toxoid, and acellular pertussis vaccine, adsorbed LANE VEE SUPPLY CHAIN COORDINATOR-GAME TRAPPER [facility] 07-13-1998 diphtheria, tetanus toxoids and acellular pertussis vaccine, unspecified formulation Clint Vasques MD Work Phone: [facility] 07-13-1998 measles, mumps and rubella virus vaccine Clint Vasques MD Work Phone: [facility] 07-13-1998 measles/mumps/rubell a virus vaccine LANE VEE SUPPLY CHAIN COORDINATOR-GAME TRAPPER [facility] 07-13-1998 poliovirus vaccine, unspecified formulation Clint Vasques MD Work Phone: [facility] 06-15-1994 diphtheria, tetanus toxoids and acellular pertussis vaccine, unspecified formulation Clint Vasques MD Work Phone: [facility] 06-15-1994 haemophilus influenz ae type b vaccine, conjugate unspecified formulation Clint Vasques MD Work Phone: [facility] 04-06-1994 measles, mumps and rubella virus vaccine Clint Vasques MD Work Phone: [facility] 04-06-1994 measles/mumps/rubell a virus vaccine LANE VEE SUPPLY CHAIN COORDINATOR-GAME TRAPPER [facility] 1993 hepatitis B pediatri c vaccine L[address] VEE SUPPLY CHAIN COORDINATOR-GAME TRAPPER [facility] 1993 hepatitis B vaccine, pediatric or pediatric/adolescent dosage Clint Vasques MD Work Phone: [facility] 1993 diphtheria, tetanus toxoids and acellular pertussis vaccine, unspecified formulation Clint Vasques MD Work Phone: [facility] 1993 haemophilus influenz ae type b vaccine, conjugate unspecified formulation Clint Vasques MD Work Phone: [facility] 1993 poliovirus vaccine, unspecified formulation Clint Vasques MD Work Phone: [facility] 1993 diphtheria, tetanus toxoids and acellular pertussis vaccine, unspecified formulation Clint Vasques MD Work Phone: [facility] 1993 haemophilus influenz ae type b vaccine, conjugate unspecified formulation Clint Vasques MD Work Phone: [facility] 1993 poliovirus vaccine, unspecified formulation Clint Vasques MD Work Phone: [facility] 1993 hepatitis B pediatri c vaccine L[address] VEE SUPPLY CHAIN COORDINATOR-GAME TRAPPER [facility] 1993 hepatitis B vaccine, pediatric or pediatric/adolescent dosage Clint Vasques MD Work Phone: [facility] 1993 diphtheria, tetanus toxoids and acellular pertussis vaccine, unspecified formulation Clint Vasques MD Work Phone: [facility] 1993 haemophilus influenz ae type b vaccine, conjugate unspecified formulation Clint Vasques MD Work Phone: [facility] 1993 hepatitis B pediatri c vaccine L[address] VEE SUPPLY CHAIN COORDINATOR-GAME TRAPPER [facility] 1993 hepatitis B vaccine, pediatric or pediatric/adolescent dosage Clint Vasques MD Work Phone: [facility] 1993 poliovirus vaccine, unspecified formulation Clint Vasques MD Work Phone: [facility] Payers Date Payer Category Payer Self-pay 2023 Private Health Insurance [id number] 2022 Private Health Insurance [id number] 2016 Unknown [id number] 1993 Unknown [id number] 1993 Unknown [id number] 1993 Unknown [id number] 1993 Unknown [id number] 1993 Unknown [id number] Unknown [facility] P[facility]AGE PLAN [id number] Unknown [id number] Social History Date Type Detail Facility Start: 10-11-2022 End: 09-10-2023 Tobacco smoking status Never smoked tobacco (finding) [facility] Start: 1995 Sex Assigned At Female [facility] Start: 10-30-2022 Tobacco smoking stat [facility] Unknown if ever smoked [facility] Start: 09-10-2023 Tobacco use and exposure Smokeless tobacco non-user [facility] Start: 09-10-2023 End: 11-27-2023 Alcohol intake Current drinker of alcohol (finding) [facility] Start: 09-10-2023 End: 09-03-2024 History of Social function [facility] Start: 09-10-2023 End: 09-03-2024 Tobacco use panel [facility] Start: 02-11-2021 National Score (1-100), lower number is lower risk 48 [facility] Start: 09-10-2023 Alcohol Comment seldom [facility] Start: 1995 Sex Assigned At Not on file [facility] Start: 04-18-2024 End: 11-19-2024 Alcoholic beverage intake Ex-drinker (finding) [facility] Start: 04-14-2024 Education 13 [facility] Start: 03-05-2024 [facility] Start: 04-14-2024 Gender identity Identifies as female gender (finding) [facility] Sexual Orientation Tamiko meyers [facility] Start: 09-18-2018 Sex Female (finding) [facility] NEGATED: Highlighted row [facility] Goals Date Patient Goal Desired Activity /State Personal health goal Mental Status Date Assessment Result Facility 10-30-2022 Cognitive function Level Of Cons ciousness Awake;Alert;Appropriate;Follow s Commands [facility] Work Phone: 10-29-2022 Cognitive function Level Of Cons ciousness Awake;Alert;Appropriate [facility] Work Phone: 10-26-2022 Cognitive function Awake;Alert;Appropriat e [facility] Work Phone: Clinical Notes 09-10-2023 to 11-19-2024 Clint Vasques MD - 11/19/2024 2:35 PM EDTPrenatal Quick Notes - Clint Vasques MD - 11/19/2024 2:34 PM EDTPrenatal Quick Notes - Clint Vasques MD - 11/19/2024 2:34 PM EDT Note Date & Type Note Facility 11-19-2024 History of Presen t illness Narrative NST SUMMARY PROVIDER ASSESSMENT AND INTERPRETATION Soheila Polk is a 29 year old female, , who is at 39w0d with an RED of 11/26/2024, by Last Menstrual Period dating method. Indications for NST: Obesity Baseline: 140 Variability: Moderate Accelerations: Present 15 X 15 Decelerations: None Contractions: TOCO: None Interpretation: Reactive SIGNATURE: Clint Vasques MD documented in this encounter [facility] 11-19-2024 Progress note Formatting of t his note might be different from the original. RR- VB No. LOF No. CTXS few, irreg. Movement: present. Other c/o: denies FOREMAN or visual changes Medication list reviewed. SENSITIVE EXAM: Sensitive exam not performed. Physical Exam See Flow Sheet Abd: soft, nontender, gravid Ext: edema: Trace, symetrical: Yes, DTRS: 2+, clonus: Absent A/P 39w0d Estimated Date of Delivery: 11/26/24 ASSESSMENT/PLAN: 1. Supervision of high risk in third trimester ([facility]) - ICD9: V23.9, ICD10: O09.93 (primary diagnosis) - URINE OB DIP B/O 2. Obesity in ([facility]) - ICD9: 649.10, ICD10: O99.210 nsttoday recommend induction at 39 weeks, scheduled 11/21 kick counts - URINE OB DIP B/O 3. 39 weeks gestation of ([facility]) - ICD9: V22.2, ICD10: Z3A.39 call/return for signs/symptoms of preeclampsia - URINE OB DIP B/O Clint Vasques MD [facility] 11-19-2024 Miscellaneous Notes Formattin g of this note might be different from the original. RR- VB No. LOF No. CTXS few, irreg. Movement: present. Other c/o: denies FOREMAN or visual changes Medication list reviewed. SENSITIVE EXAM: Sensitive exam not performed. Physical Exam See Flow Sheet Abd: soft, nontender, gravid Ext: edema: Trace, symetrical: Yes, DTRS: 2+, clonus: Absent A/P 39w0d Estimated Date of Delivery: 11/26/24 ASSESSMENT/PLAN: 1. Supervision of high risk in third trimester ([facility]) - ICD9: V23.9, ICD10: O09.93 (primary diagnosis) - URINE OB DIP B/O 2. Obesity in ([facility]) - ICD9: 649.10, ICD10: O99.210 nsttodaalona recommend induction at 39 weeks, scheduled 11/21 kick counts - URINE OB DIP B/O 3. 39 weeks gestation of ([facility]) - ICD9: V22.2, ICD10: Z3A.39 call/return for signs/symptoms of preeclampsia - URINE OB DIP B/O Clint Vasques MD documented in this encounter [facility] 11-19-2024 Instructions Daphne Angel MA - 11/19/2024 2:18 PM EDT SEQUENTIAL SCREENINGS The [facility] offers sequential screenings for women who are interested in screenings for chromosomal abnormalities and certain defects during a . The sequential screen combines ultrasound and blood tests to determine the risk of chromosomal abnormalities, including Down's Syndrome (Trisomy 21) and Trisomy 18, as well as open neural tube defects including spina bifida. Ultrasound examination is performed between 11 weeks and 13 weeks gestational age. Blood tests are drawn after the ultrasound and again later in the between 15 and 21 weeks gestational age. Please let your physician know if you are interested in this testing. It will require an appointment with our boiler/chiller technician. This is not an ultrasound performed by a physician in our office during a routine visit. SIGNS AND SYMPTOMS OF LABOR 1. Contractions every 10 minutes or more often 2. Clear, pink, or brownish fluid (water) leaking from vagina 3. Feeling that baby is pushing down, pressure 4. Low, dull backache 5. Cramps that feel like a period 6. Cramps with or without diarrhea If you notice any of the above symptoms, contact our office at [phone] and ask to speak with a nurse. After hours, you can call doctors registry at [phone] OR call [facility] at [phone] and ask to have the doctor partition assembler paged. If you consider this an emergency, dial 2-8-8 or go to your nearest emergency department. NEED HELP? Are you dealing with a violent or abusive relationship? Are you a victim of rape or sexual assult? Call [facility] ([place]) 24 hour Crisis Hotline: 271.815.9416 or 848-301-1748. MANUAL Your Guide to a Healthy manual is now on-line. Visit [email or web address] to download your free copy documented in this encounter [facility] 11-14-2024 Note HNO ID: [id number] Author: DENICE SALES MD Service: ? Author Type: Physician Type: Progress Notes Filed: 11/14/2024 15:00 Note Text: DM-Pt doing well. Denies vaginal Bleeding, Leaking fluid, or regular Contractions. Pt reports good movement Physical Exam: Gen: female in no apparent distress Abd: soft, Gravid. Non tender to palpation. See flow sheet Participation of a fellow, resident, medical student, or advanced practice provider student in performing the sensitive examination was discussed with the patient or authorized franchise sales representative. The patient or authorized franchise sales representative has agreed to proceed with the sensitive examination. @ 38.2 weeks Assessment AND Plan Supervision of high risk in third trimester (HCC) Orders: URINE OB DIP B/O Obesity in (HCC) Orders: URINE OB DIP B/O IIH (idiopathic intracranial hypertension) Orders: URINE OB DIP B/O Anemia during in third trimester ([facility]) Orders: URINE OB DIP B/O 38 weeks gestation of ([facility]) Kick counts and labor reviewed Membranes swept per patient request RTO one week Orders: URINE OB DIP B/O Denice Bethea MD [facility] 11-14-2024 History of Presen t illness Narrative DM-Pt doing well. Denies vaginal Bleeding, Leaking fluid, or regular Contractions. Pt reports good movement Physical Exam: Gen: female in no apparent distress Abd: soft, Gravid. Non tender to palpation. See flow sheet Participation of a fellow, resident, medical student, or advanced practice provider student in performing the sensitive examination was discussed with the patient or authorized franchise sales representative. The patient or authorized franchise sales representative has agreed to proceed with the sensitive examination. @ 38.2 weeks Assessment & Plan Supervision of high risk in third trimester ([facility]) Orders: URINE OB DIP B/O Obesity in ([facility]) Orders: URINE OB DIP B/O IIH (idiopathic intracranial hypertension) Orders: URINE OB DIP B/O Anemia during in third trimester ([facility]) Orders: URINE OB DIP B/O 38 weeks gestation of ([facility]) Kick counts and labor reviewed Membranes swept per patient request RTO one week Orders: URINE OB DIP B/O Denice Bethea MD documented in this encounter [facility] 11-14-2024 Instructions Daphne Angel MA - 11/14/2024 2:42 PM EDT SEQUENTIAL SCREENINGS The [facility] offers sequential screenings for women who are interested in screenings for chromosomal abnormalities and certain defects during a . The sequential screen combines ultrasound and blood tests to determine the risk of chromosomal abnormalities, including Down's Syndrome (Trisomy 21) and Trisomy 18, as well as open neural tube defects including spina bifida. Ultrasound examination is performed between 11 weeks and 13 weeks gestational age. Blood tests are drawn after the ultrasound and again later in the between 15 and 21 weeks gestational age. Please let your physician know if you are interested in this testing. It will require an appointment with our boiler/chiller technician. This is not an ultrasound performed by a physician in our office during a routine visit. SIGNS AND SYMPTOMS OF LABOR 1. Contractions every 10 minutes or more often 2. Clear, pink, or brownish fluid (water) leaking from vagina 3. Feeling that baby is pushing down, pressure 4. Low, dull backache 5. Cramps that feel like a period 6. Cramps with or without diarrhea If you notice any of the above symptoms, contact our office at [phone] and ask to speak with a nurse. After hours, you can call doctors registry at [phone] OR call [facility] at [phone] and ask to have the doctor partition assembler paged. If you consider this an emergency, dial 9-1-7 or go to your nearest emergency department. NEED HELP? Are you dealing with a violent or abusive relationship? Are you a victim of rape or sexual assult? Call [facility] ([place]) 24 hour Crisis Hotline: 608.355.1599 or 639-828-7935. MANUAL Your Guide to a Healthy manual is now on-line. Visit [email or web address] to download your free copy documented in this encounter [facility] 11-14-2024 Note HNO ID: [id number] Author: MEENA HENDRICKS MA Service: ? Author Type: Cleaning Professional Type: Progress Notes Filed: 11/14/2024 08:43 Note Text: POPULATION HEALTH NAVIGATION OUTREACH Action/FYI Called and spoke with pt and states she will outreach back via . Reason for Outreach Medicaid OB/Peds Care Gaps due: N/A Patient Contacted: Spoke to patient/parent/or legal guardian Patient identified by name and : No Navigation Signature: Meena Ayala MA November 14, 2024 8:42 AM [facility] 11-13-2024 Note HNO ID: [id number] Author: MEENA HENDRICKS MA Service: ? Author Type: Cleaning Professional Type: Progress Notes Filed: 11/13/2024 13:07 Note Text: POPULATION HEALTH NAVIGATION OUTREACH Action/ attempt: 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 MC message sent. 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 MC message sent. Reason for Outreach Medicaid OB/Peds Care Gaps due: N/A Patient Contacted: Unable or unnecessary to reach patient: Unable to reach patient Left message [employer] message sent Navigation Signature: Meena Ayala MA November 13, 2024 1:07 PM documented in this encounter [facility] 11-13-2024 Note Patient Outreach (NE TNAV) SOHEILA POLK ([id number]) 1995 F Date Time Provider Department 11/13/24 MEENA HENDRICKS During your visit today, we recorded the following information about you: Meena Hendricks MA 11/13/2024 1:07 PM Signed POPULATION HEALTH NAVIGATION OUTREACH Action/ attempt: 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 MC message sent. Reason for Outreach Medicaid OB/Peds Care Gaps due: N/A Patient Contacted: Unable or unnecessary to reach patient: Unable to reach patient Left message [employer] message sent Navigation Signature: Meena Ayala MA November 13, 2024 1:07 PM Meena Hendricks MA 11/14/2024 8:43 AM Signed POPULATION HEALTH NAVIGATION OUTREACH Action/FYI Called and spoke with pt and states she will outreach back via . Reason for Outreach Medicaid OB/Peds Care Gaps due: N/A Patient Contacted: Spoke to patient/parent/or legal guardian Patient identified by name and : No Navigation Signature: Meena Ayala MA November 14, 2024 8:42 AM Allergies As of Date: 11/13/2024 (No Known Allergies) Date Reviewed: 11/11/2024 Reviewed by: Clint Vasques MD - Fully Assessed Reason for Visit: Population Health Navigation Outreach [3910] Cmt: Ob/peds Prescriptions as of 11/14/2024 - aspirin, enteric coated (ECOTRIN LOW STRENGTH) 81 mg EC tablet Take 1 tablet by mouth once daily. - vits62/FA/om3/dha/epa ( GUMMY ORAL) Take 2 Pieces by mouth once daily. Problem List As Of Date 11/13/2024 Noted Resolved Abnormal endometrial ultrasound [R93.5] 10/23/2023 11/27/2023 Endometrial polyp [N84.0] 10/23/2023 11/27/2023 Supervision of high risk in third tri*04/18/2024 BMI 38.0-38.9,adult [Z68.38] 04/18/2024 05/20/2024 IIH (idiopathic intracranial hypertension) [G93* Iron deficiency anemia [D50.9] 10/08/2024 Obesity in [O99.210] 05/20/2024 macrosomia during in third trim*11/07/2024 Encounter Status:Closed by MEENA HENDRICKS on 11/13/24 [facility] 11-11-2024 Progress note Formatting of t his note might be different from the original. RR- VB No. LOF No. CTXS No. Movement: present. Other c/o: No. Denies FOREMAN or visual changes Medication list reviewed. SENSITIVE EXAM: The sensitive examination was discussed with the Patient or Patient's Authorized Print Journalist. As applicable, any other physician, advance practice provider, medical student, or other health professional student that will be observing or involved in the sensitive examination for educational or training purposes was discussed with the Patient or Authorized Print Journalist. The Patient or Authorized Print Journalist has agreed to proceed with the sensitive examination. (Sensitive examination includes inspection and/or palpation of the breasts, pelvis, prostate and anorectal regions). Physical Exam See Flow Sheet Abd: soft, nontender, gravid Ext: edema: 1+ , 2+ Dtrs, no clonus A/P 37w6d Estimated Date of Delivery: 11/26/24 ASSESSMENT/PLAN: 1. Supervision of high risk in third trimester ([facility]) - ICD9: V23.9, ICD10: O09.93 (primary diagnosis) - URINE OB DIP B/O 2. 37 weeks gestation of ([facility]) - ICD9: V22.2, ICD10: Z3A.37 - URINE OB DIP B/O 3. Obesity in ([facility]) - ICD9: 649.10, ICD10: O99.210 NST today r/b/a to induction at 39 weeks reviewed, desires to proceed. Membrane sweep after verbal consent today - URINE OB DIP B/O 4. IIH (idiopathic intracranial hypertension) - ICD9: 348.2, ICD10: G93.2 - URINE OB DIP B/O 5. Anemia during in third trimester ([facility]) - ICD9: 648.23, ICD10: O99.013 cont. PNV and fe - URINE OB DIP B/O Clint Vasques MD [facility] 11-11-2024 Miscellaneous Notes Formattin g of this note might be different from the original. RR- VB No. LOF No. CTXS No. Movement: present. Other c/o: No. Denies FOREMAN or visual changes Medication list reviewed. SENSITIVE EXAM: The sensitive examination was discussed with the Patient or Patient's Authorized Print Journalist. As applicable, any other physician, advance practice provider, medical student, or other health professional student that will be observing or involved in the sensitive examination for educational or training purposes was discussed with the Patient or Authorized Print Journalist. The Patient or Authorized Print Journalist has agreed to proceed with the sensitive examination. (Sensitive examination includes inspection and/or palpation of the breasts, pelvis, prostate and anorectal regions). Physical Exam See Flow Sheet Abd: soft, nontender, gravid Ext: edema: 1+ , 2+ Dtrs, no clonus A/P 37w6d Estimated Date of Delivery: 11/26/24 ASSESSMENT/PLAN: 1. Supervision of high risk in third trimester ([facility]) - ICD9: V23.9, ICD10: O09.93 (primary diagnosis) - URINE OB DIP B/O 2. 37 weeks gestation of ([facility]) - ICD9: V22.2, ICD10: Z3A.37 - URINE OB DIP B/O 3. Obesity in ([facility]) - ICD9: 649.10, ICD10: O99.210 NST today r/b/a to induction at 39 weeks reviewed, desires to proceed. Membrane sweep after verbal consent today - URINE OB DIP B/O 4. IIH (idiopathic intracranial hypertension) - ICD9: 348.2, ICD10: G93.2 - URINE OB DIP B/O 5. Anemia during in third trimester ([facility]) - ICD9: 648.23, ICD10: O99.013 cont. PNV and fe - URINE OB DIP B/O Clint Vasques MD documented in this encounter [facility] 11-11-2024 Note HNO ID: [id number] Author: CLINT VASQUES MD Service: ? Author Type: Physician Type: Progress Notes Filed: 11/11/2024 15:24 Note Text: NST SUMMARY PROVIDER ASSESSMENT AND INTERPRETATION Soheila Polk is a 29 year old female, , who is at 37w6d with an RED of 11/26/2024, by Last Menstrual Period dating method. Indications for NST: Obesity Baseline: 140 Variability: Moderate Accelerations: Present 15 X 15 Decelerations: None Contractions: TOCO: None Interpretation: Reactive SIGNATURE: Clint Vasques MD [facility] 11-11-2024 History of Presen t illness Narrative NST SUMMARY PROVIDER ASSESSMENT AND INTERPRETATION Soheila Polk is a 29 year old female, , who is at 37w6d with an RED of 11/26/2024, by Last Menstrual Period dating method. Indications for NST: Obesity Baseline: 140 Variability: Moderate Accelerations: Present 15 X 15 Decelerations: None Contractions: TOCO: None Interpretation: Reactive SIGNATURE: Clint Vasques MD documented in this encounter [facility] 11-11-2024 Instructions Meera Linton MA - 11/11/2024 2:33 PM EDT SEQUENTIAL SCREENINGS The [facility] offers sequential screenings for women who are interested in screenings for chromosomal abnormalities and certain defects during a . The sequential screen combines ultrasound and blood tests to determine the risk of chromosomal abnormalities, including Down's Syndrome (Trisomy 21) and Trisomy 18, as well as open neural tube defects including spina bifida. Ultrasound examination is performed between 11 weeks and 13 weeks gestational age. Blood tests are drawn after the ultrasound and again later in the between 15 and 21 weeks gestational age. Please let your physician know if you are interested in this testing. It will require an appointment with our boiler/chiller technician. This is not an ultrasound performed by a physician in our office during a routine visit. SIGNS AND SYMPTOMS OF LABOR 1. Contractions every 10 minutes or more often 2. Clear, pink, or brownish fluid (water) leaking from vagina 3. Feeling that baby is pushing down, pressure 4. Low, dull backache 5. Cramps that feel like a period 6. Cramps with or without diarrhea If you notice any of the above symptoms, contact our office at [phone] and ask to speak with a nurse. After hours, you can call doctors registry at [phone] OR call [facility] at [phone] and ask to have the doctor partition assembler paged. If you consider this an emergency, dial [phone] or go to your nearest emergency department. NEED HELP? Are you dealing with a violent or abusive relationship? Are you a victim of rape or sexual assult? Call [facility] ([facility] 24 hour Crisis Hotline: 405.504.8130 or 357-434-4439. MANUAL Your Guide to a Healthy manual is now on-line. Visit the [email or web address] to download your free copy documented in this encounter [facility] 11-07-2024 Note Indication Evaluation of growth, Evaluation of well-being Maternal obesity, BMI >35 Impression - Single, live, intrauterine . - presentation is cephalic. - The biometry is consistent with the assigned gestational dating. - The EFW is 3575 g, at the 91%. AC is at the >99%. This is consistent with macrosomia. She had a normal glucose test. - Amniotic fluid volume is normal amount with an MVP of 7.4 cm and KELLEN of 17.2 cm. - The placenta is anterior, fundal. - No malformations visualized on a limited survey as detailed below. - BPP 10/31 Recommendations Weekly testing. Additional follow-up as clinically indicated. Maternal Assessment Height 165 cm Height (ft) 5 ft Height (in) 5 in Physical Exam Initial weight (lb) 230 lb Initial BMI 38.27 kg/m Maternal assessment other: 1 Para 0 REMOTE READ Method Transabdominal ultrasound examination Leon . Number of fetuses: 1 Dating LMP on: 02/20/2024 GA by LMP 37 w + 0 d RED by LMP: 11/26/2024 GA by prior assessment 37 w + 0 d RED by prior assessment: 11/26/2024 Ultrasound examination on: 11/05/2024 GA by U/S based upon: AC, BPD, Femur GA by U/S 37 w + 5 d RED by U/S: 11/21/2024 Assigned: based on stated RED, selected on 11/05/2024 Assigned GA 37 w + 0 d Assigned RED: 11/26/2024 General Evaluation Cardiac activity present. FHR 138 bpm. movements: present. Presentation: cephalic Placenta: Placental site: anterior, fundal Umbilical cord: Cord vessels: 3 vessel cord Amniotic fluid: Amount of AF: normal amount. MVP 7.4 cm. KELLEN 17.2 cm. Q1 3.8 cm, Q2 7.4 cm, Q3 3.1 cm, Q4 2.9 cm Biophysical Profile 2: breathing movements 2: Gross body movements 2: tone 2: Amniotic fluid volume 10/31 Biophysical profile score Growth Overview Exam date GA BPD (mm) HC (mm) AC (mm) FL (mm) HL (mm) EFW (g) 07/15/2024 20w 6d 50.5 67% 191.6 67% 171.6 82% 35 71% 31.3 30% 436 82% 10/08/2024 33w 0d 89.9 >99% 327.5 94% 312 95% 61.2 28% 2440 83% 11/05/2024 37w 0d 95.9 98% 345.4 84% 366.2 >99% 65.7 8% 3575 91% Biometry Standard BPD 95.9 mm 39w 1d 98% Hadlock OFD 121.1 mm -/- 85% Nicolaides HC 345.4 mm -/- 84% Gucci AC 366.2 mm 40w 4d >99% Hadlock Femur 65.7 mm 33w 4d 8% Gucci EFW 3,575 g 39w 5d 91% Hadlock EFW (lb) 7 lb EFW (oz) 14 oz EFW by: Hadlock (HC-AC-FL) Extended Fisher Trot Line 6.3 mm Extremities / Bony Struc FL / HC 0.19 Other Structures FHR 138 bpm Anatomy Lateral ventricles: normal Cavum septi pellucidi: normal Cerebellum: normal Cisterna magna: normal 4-chamber view: normal RVOT view: normal LVOT view: normal 3-vessel view: normal Heart / Thorax Situs: situs solitus (normal) Diaphragm: normal Stomach: normal Kidneys: normal Bladder: normal sex: male Wants to know sex: yes Performed By: Adela Larson RDMS, RVT Read By: Alejandra Ballesteros M.D. [facility] 11-05-2024 Progress note Formatting of t his note might be different from the original. RR- VB No. LOF No. CTXS No. Movement: present. Other c/o: denies FOREMAN or visual changes Medication list reviewed. SENSITIVE EXAM: The sensitive examination was discussed with the Patient or Patient's Authorized Print Journalist. As applicable, any other physician, advance practice provider, medical student, or other health professional student that will be observing or involved in the sensitive examination for educational or training purposes was discussed with the Patient or Authorized Print Journalist. The Patient or Authorized Print Journalist has agreed to proceed with the sensitive examination. (Sensitive examination includes inspection and/or palpation of the breasts, pelvis, prostate and anorectal regions). Physical Exam See Flow Sheet Abd: soft, nontender, gravid Ext: edema: Trace A/P 37w0d Estimated Date of Delivery: 11/26/24 ASSESSMENT/PLAN: 1. 37 weeks gestation of ([facility]) - ICD9: V22.2, ICD10: Z3A.37 (primary diagnosis) - URINE OB DIP B/O - ROUTINE, GROUP B STREPTOCOCCUS BY PCR 2. Supervision of high risk in third trimester ([facility]) - ICD9: V23.9, ICD10: O09.93 d/w her and partner r/b/a to induction at 39 + weeks and she would like to consider. Schedule next week. - URINE OB DIP B/O - ROUTINE, GROUP B STREPTOCOCCUS BY PCR Clint Vasques MD [facility] 11-05-2024 Miscellaneous Notes Formattin g of this note might be different from the original. RR- VB No. LOF No. CTXS No. Movement: present. Other c/o: denies FOREMAN or visual changes Medication list reviewed. SENSITIVE EXAM: The sensitive examination was discussed with the Patient or Patient's Authorized Print Journalist. As applicable, any other physician, advance practice provider, medical student, or other health professional student that will be observing or involved in the sensitive examination for educational or training purposes was discussed with the Patient or Authorized Print Journalist. The Patient or Authorized Print Journalist has agreed to proceed with the sensitive examination. (Sensitive examination includes inspection and/or palpation of the breasts, pelvis, prostate and anorectal regions). Physical Exam See Flow Sheet Abd: soft, nontender, gravid Ext: edema: Trace A/P 37w0d Estimated Date of Delivery: 11/26/24 ASSESSMENT/PLAN: 1. 37 weeks gestation of ([facility]) - ICD9: V22.2, ICD10: Z3A.37 (primary diagnosis) - URINE OB DIP B/O - ROUTINE, GROUP B STREPTOCOCCUS BY PCR 2. Supervision of high risk in third trimester ([facility]) - ICD9: V23.9, ICD10: O09.93 d/w her and partner r/b/a to induction at 39 + weeks and she would like to consider. Schedule next week. - URINE OB DIP B/O - ROUTINE, GROUP B STREPTOCOCCUS BY PCR Clint Vasques MD documented in this encounter [facility] 11-05-2024 Instructions Junie Kowalski LPN - 11/05/2024 2:55 PM EDT SEQUENTIAL SCREENINGS The [facility] offers sequential screenings for women who are interested in screenings for chromosomal abnormalities and certain defects during a . The sequential screen combines ultrasound and blood tests to determine the risk of chromosomal abnormalities, including Down's Syndrome (Trisomy 21) and Trisomy 18, as well as open neural tube defects including spina bifida. Ultrasound examination is performed between 11 weeks and 13 weeks gestational age. Blood tests are drawn after the ultrasound and again later in the between 15 and 21 weeks gestational age. Please let your physician know if you are interested in this testing. It will require an appointment with our boiler/chiller technician. This is not an ultrasound performed by a physician in our office during a routine visit. SIGNS AND SYMPTOMS OF LABOR 1. Contractions every 10 minutes or more often 2. Clear, pink, or brownish fluid (water) leaking from vagina 3. Feeling that baby is pushing down, pressure 4. Low, dull backache 5. Cramps that feel like a period 6. Cramps with or without diarrhea If you notice any of the above symptoms, contact our office at [phone] and ask to speak with a nurse. After hours, you can call doctors registry at [phone] OR call [facility] at [phone] and ask to have the doctor partition assembler paged. If you consider this an emergency, dial 9-1-1 or go to your nearest emergency department. NEED HELP? Are you dealing with a violent or abusive relationship? Are you a victim of rape or sexual assult? Call [facility] ([place]) 24 hour Crisis Hotline: 964.608.3458 or 183-025-7047. MANUAL Your Guide to a Healthy manual is now on-line. Visit the [email or web address] to download your free copy documented in this encounter [facility] 10-28-2024 Note HNO ID: [id number] Author: CLINT VASQUES MD Service: ? Author Type: Physician Type: Progress Notes Filed: 10/28/2024 15:06 Note Text: NST SUMMARY PROVIDER ASSESSMENT AND INTERPRETATION Soheila Polk is a 29 year old female, , who is at 35w6d with an RED of 11/26/2024, by Last Menstrual Period dating method. Indications for NST: Obesity Baseline: 140 Variability: Moderate Accelerations: Present 15 X 15 Decelerations: None Contractions: TOCO: Irregular Interpretation: Reactive SIGNATURE: Clint Vasques MD [facility] 10-22-2024 Note HNO ID: [id number] Author: CLINT VASQUES MD Service: ? Author Type: Physician Type: Progress Notes Filed: 10/22/2024 15:01 Note Text: NST SUMMARY PROVIDER ASSESSMENT AND INTERPRETATION Soheila Polk is a 29 year old female, , who is at 35w0d with an RED of 11/26/2024, by Last Menstrual Period dating method. Indications for NST: Obesity Baseline: 130 Variability: Moderate Accelerations: Present 15 X 15 Decelerations: None Contractions: TOCO: None Interpretation: Reactive SIGNATURE: Clint Vasques MD [facility] 10-22-2024 Progress note Formatting of t his note might be different from the original. RR- VB No. LOF No. CTXS No. Movement: present. Other c/o: No. Medication list reviewed. SENSITIVE EXAM: Sensitive exam not performed. Physical Exam See Flow Sheet Abd: soft, nontender, gravid Ext: edema: Trace A/P 35w0d Estimated Date of Delivery: 11/26/24 Assessment & Plan 35 weeks gestation of ([facility]) Orders: URINE OB DIP B/O Supervision of high risk in third trimester ([facility]) Orders: URINE OB DIP B/O Obesity in (HCC) Orders: URINE OB DIP B/O IIH (idiopathic intracranial hypertension) Orders: URINE OB DIP B/O NST reactive today kick counts f/u in 1 week or prn Clint Vasques M.D. [facility] 10-22-2024 History of Presen t illness Narrative NST SUMMARY PROVIDER ASSESSMENT AND INTERPRETATION Soheila Polk is a 29 year old female, , who is at 35w0d with an RED of 11/26/2024, by Last Menstrual Period dating method. Indications for NST: Obesity Baseline: 130 Variability: Moderate Accelerations: Present 15 X 15 Decelerations: None Contractions: TOCO: None Interpretation: Reactive SIGNATURE: Clint Vasques MD documented in this encounter [facility] 10-22-2024 Miscellaneous Notes Formattin g of this note might be different from the original. RR- VB No. LOF No. CTXS No. Movement: present. Other c/o: No. Medication list reviewed. SENSITIVE EXAM: Sensitive exam not performed. Physical Exam See Flow Sheet Abd: soft, nontender, gravid Ext: edema: Trace A/P 35w0d Estimated Date of Delivery: 11/26/24 Assessment & Plan 35 weeks gestation of ([facility]) Orders: URINE OB DIP B/O Supervision of high risk in third trimester ([facility]CC) Orders: URINE OB DIP B/O Obesity in (HCC) Orders: URINE OB DIP B/O IIH (idiopathic intracranial hypertension) Orders: URINE OB DIP B/O NST reactive today kick counts f/u in 1 week or prn Clint Vasques M.D. documented in this encounter [facility] 10-22-2024 Instructions Meena Willson MA - 10/22/2024 2:30 PM EDT SEQUENTIAL SCREENINGS The [facility] offers sequential screenings for women who are interested in screenings for chromosomal abnormalities and certain defects during a . The sequential screen combines ultrasound and blood tests to determine the risk of chromosomal abnormalities, including Down's Syndrome (Trisomy 21) and Trisomy 18, as well as open neural tube defects including spina bifida. Ultrasound examination is performed between 11 weeks and 13 weeks gestational age. Blood tests are drawn after the ultrasound and again later in the between 15 and 21 weeks gestational age. Please let your physician know if you are interested in this testing. It will require an appointment with our boiler/chiller technician. This is not an ultrasound performed by a physician in our office during a routine visit. SIGNS AND SYMPTOMS OF LABOR 1. Contractions every 10 minutes or more often 2. Clear, pink, or brownish fluid (water) leaking from vagina 3. Feeling that baby is pushing down, pressure 4. Low, dull backache 5. Cramps that feel like a period 6. Cramps with or without diarrhea If you notice any of the above symptoms, contact our office at [phone] and ask to speak with a nurse. After hours, you can call doctors registry at [phone] OR call [facility] at [phone] and ask to have the doctor partition assembler paged. If you consider this an emergency, dial 9-2-5 or go to your nearest emergency department. NEED HELP? Are you dealing with a violent or abusive relationship? Are you a victim of rape or sexual assult? Call [facility] ([place]) 24 hour Crisis Hotline: 714.392.6195 or 277-124-4683. MANUAL Your Guide to a Healthy manual is now on-line. Visit [email or web address] to download your free copy documented in this encounter [facility] 10-09-2024 Note Indication Evaluation of growth Maternal obesity, BMI >30 Impression - Single, live, intrauterine . - presentation is cephalic. - The biometry is consistent with the assigned gestational dating. - The EFW is 2440 g, at the 83%. AC is at the 95%. - Amniotic fluid volume is normal amount with an MVP of 5.7 cm and KELLEN of 21 cm. - The placenta is anterior, fundal. - No malformations visualized on a limited survey as detailed below. Recommendations - growth scan every 4 weeks - Additional follow up as clinically indicated. Maternal Assessment Height 165 cm Height (ft) 5 ft Height (in) 5 in Physical Exam Initial weight (lb) 230 lb Initial BMI 38.27 kg/m Maternal assessment other: 1 Para 0 REMOTE READ Method Transabdominal ultrasound examination. View: Suboptimal view: limited by position Leon . Number of fetuses: 1 Dating LMP on: 02/20/2024 GA by LMP 33 w + 0 d RED by LMP: 11/26/2024 GA by prior assessment 33 w + 0 d RED by prior assessment: 11/26/2024 Ultrasound examination on: 10/08/2024 GA by U/S based upon: AC, BPD, Femur, HC GA by U/S 35 w + 0 d RED by U/S: 11/12/2024 Assigned: based on stated RED, selected on 10/08/2024 Assigned GA 33 w + 0 d Assigned RED: 11/26/2024 General Evaluation Cardiac activity present. FHR 150 bpm. movements: present. Presentation: cephalic Placenta: Placental site: anterior, fundal Umbilical cord: Cord vessels: 3 vessel cord Amniotic fluid: Amount of AF: normal amount. MVP 5.7 cm. KELLEN 21.0 cm. Q1 5.7 cm, Q2 5.4 cm, Q3 5.1 cm, Q4 4.8 cm Growth Overview Exam date GA BPD (mm) HC (mm) AC (mm) FL (mm) HL (mm) EFW (g) 07/15/2024 20w 6d 50.5 67% 191.6 67% 171.6 82% 35 71% 31.3 30% 436 82% 10/08/2024 33w 0d 89.9 >99% 327.5 94% 312 95% 61.2 28% 2440 83% Biometry Standard BPD 89.9 mm 36w 3d >99% Hadlock OFD 115.9 mm 36w 6d 91% Nicolaides HC 327.5 mm 36w 4d 94% Gucci AC 312.0 mm 35w 1d 95% Hadlock Femur 61.2 mm 31w 5d 28% Gucci EFW 2,440 g 34w 2d 83% Hadlock EFW (lb) 5 lb EFW (oz) 6 oz EFW by: Hadlock (HC-AC-FL) Extended Fisher Trot Line 5.2 mm Extremities / Bony Struc FL / HC 0.19 Other Structures FHR 150 bpm Anatomy Lateral ventricles: normal Cavum septi pellucidi: normal Cerebellum: normal Cisterna magna: normal 4-chamber view: normal RVOT view: suboptimally visualized LVOT view: suboptimally visualized 3-vessel view: suboptimally visualized Heart / Thorax Situs: situs solitus (normal) Diaphragm: normal Stomach: normal Kidneys: normal Bladder: normal sex: male Wants to know sex: yes Performed By: Adela Larson RDMS, RVT Read By: Patience Nelson M.D. [facility] 10-08-2024 Note HNO ID: [id number] Author: BENITA CONN APRN.GAME TRAPPER Service: ? Author Type: Nurse Practitioner Type: Progress Notes Filed: 10/08/2024 15:16 Note Text: EH - S: Soheila is a 29 year old female who presents at 33w0d for a routine visit. Feeling movement. Denies headache, visual changes, chest pain, shortness of breath, vaginal bleeding, leakage of fluid, or dysuria. Feeling well, no complaints. O: See flow sheet Gen: No apparent distress Abd: Gravid, nontender 5 lb TWG ASSESSMENT/PLAN: 1. Supervision of high risk in third trimester ([facility]) - ICD9: V23.9, ICD10: O09.93 (primary diagnosis) - Continue PNV and LDA 2. 33 weeks gestation of ([facility]) - ICD9: V22.2, ICD10: Z3A.33 - Planning to breastfeed and has pump 3. Obesity in ([facility]) - ICD9: 649.10, ICD10: O99.210 - Growth today, report pending. Plan for q 4 weeks. -Pre BMI 38 - Weekly NSTs at 36 weeks. 4. IIH (idiopathic intracranial hypertension) - ICD9: 348.2, ICD10: G93.2 - Denies headaches or pain, not on any meds - Following with Dr. Castanon out of [facility] PTL precautions and kick counts reviewed. RTO in 2 weeks or sooner as needed. Benita Conn APRN.GAME TRAPPER [facility] 10-08-2024 History of Presen t illness Narrative EH - S: Soheila is a 29 year old female who presents at 33w0d for a routine visit. Feeling movement. Denies headache, visual changes, chest pain, shortness of breath, vaginal bleeding, leakage of fluid, or dysuria. Feeling well, no complaints. O: See flow sheet Gen: No apparent distress Abd: Gravid, nontender 5 lb TWG ASSESSMENT/PLAN: 1. Supervision of high risk in third trimester ([facility]) - ICD9: V23.9, ICD10: O09.93 (primary diagnosis) - Continue PNV and LDA 2. 33 weeks gestation of ([facility]) - ICD9: V22.2, ICD10: Z3A.33 - Planning to breastfeed and has pump 3. Obesity in ([facility]) - ICD9: 649.10, ICD10: O99.210 - Growth today, report pending. Plan for q 4 weeks. -Pre BMI 38 - Weekly NSTs at 36 weeks. 4. IIH (idiopathic intracranial hypertension) - ICD9: 348.2, ICD10: G93.2 - Denies headaches or pain, not on any meds - Following with Dr. Castanon out of [facility] PTL precautions and kick counts reviewed. RTO in 2 weeks or sooner as needed. Benita Conn APRN.GAME TRAPPER documented in this encounter [facility] 10-08-2024 Instructions Tala Mendoza MA - 10/08/2024 2:58 PM EDT SEQUENTIAL SCREENINGS The [facility] offers sequential screenings for women who are interested in screenings for chromosomal abnormalities and certain defects during a . The sequential screen combines ultrasound and blood tests to determine the risk of chromosomal abnormalities, including Down's Syndrome (Trisomy 21) and Trisomy 18, as well as open neural tube defects including spina bifida. Ultrasound examination is performed between 11 weeks and 13 weeks gestational age. Blood tests are drawn after the ultrasound and again later in the between 15 and 21 weeks gestational age. Please let your physician know if you are interested in this testing. It will require an appointment with our boiler/chiller technician. This is not an ultrasound performed by a physician in our office during a routine visit. SIGNS AND SYMPTOMS OF LABOR 1. Contractions every 10 minutes or more often 2. Clear, pink, or brownish fluid (water) leaking from vagina 3. Feeling that baby is pushing down, pressure 4. Low, dull backache 5. Cramps that feel like a period 6. Cramps with or without diarrhea If you notice any of the above symptoms, contact our office at [phone] and ask to speak with a nurse. After hours, you can call doctors registry at [phone] OR call [facility] at [phone] and ask to have the doctor partition assembler paged. If you consider this an emergency, dial 7-3-3 or go to your nearest emergency department. NEED HELP? Are you dealing with a violent or abusive relationship? Are you a victim of rape or sexual assult? Call [facility] ([place]) 24 hour Crisis Hotline: 111.864.3530 or 333-216-3234. MANUAL Your Guide to a Healthy manual is now on-line. Visit the [email or web address] to download your free copy documented in this encounter [facility] 09-24-2024 Progress note Formatting of t his note might be different from the original. S: Soheila denies LOF, contractions or vaginal bleeding O: 31w0d, see flow sheet +FM SENSITIVE EXAM: Sensitive exam not performed. A/P: Assessment & Plan Obesity in (HCC) -next US on 10/08/24 -BMI 38 Supervision of high risk in third trimester ([facility]) IIH (idiopathic intracranial hypertension) -no headaches for the past several months -no meds Anemia during in third trimester ([facility]) -Resolved, last Hgb 12.0 (09/03/24) Jennifer Tay, MS4 TEACHING PHYSICIAN NOTE OF PERSONAL INVOLVEMENT IN CARE: I have personally seen and examined the patient and performed the medical decision-making components. I have reviewed the medical student documentation and verified the findings in the note as written. Any additions or changes are noted in bold/italics. abd- soft, gravid fundal ht 31 US for growth scheduled Signature: Clint Vasques Date: 09/24/2024 Time: 4:44 PM [facility] 09-24-2024 Miscellaneous Notes Formattin g of this note might be different from the original. S: Soheila denies LOF, contractions or vaginal bleeding O: 31w0d, see flow sheet +FM SENSITIVE EXAM: Sensitive exam not performed. A/P: Assessment & Plan Obesity in (HCC) -next US on 10/08/24 -BMI 38 Supervision of high risk in third trimester ([facility]) IIH (idiopathic intracranial hypertension) -no headaches for the past several months -no meds Anemia during in third trimester ([facility]) -Resolved, last Hgb 12.0 (09/03/24) Jennifer Tay, MS4 TEACHING PHYSICIAN NOTE OF PERSONAL INVOLVEMENT IN CARE: I have personally seen and examined the patient and performed the medical decision-making components. I have reviewed the medical student documentation and verified the findings in the note as written. Any additions or changes are noted in bold/italics. abd- soft, gravid fundal ht 31 US for growth scheduled Signature: Clint Vasques Date: 09/24/2024 Time: 4:44 PM documented in this encounter [facility] 09-24-2024 Instructions Meera Linton MA - 09/24/2024 4:01 PM EDT SEQUENTIAL SCREENINGS The [facility] offers sequential screenings for women who are interested in screenings for chromosomal abnormalities and certain defects during a . The sequential screen combines ultrasound and blood tests to determine the risk of chromosomal abnormalities, including Down's Syndrome (Trisomy 21) and Trisomy 18, as well as open neural tube defects including spina bifida. Ultrasound examination is performed between 11 weeks and 13 weeks gestational age. Blood tests are drawn after the ultrasound and again later in the between 15 and 21 weeks gestational age. Please let your physician know if you are interested in this testing. It will require an appointment with our boiler/chiller technician. This is not an ultrasound performed by a physician in our office during a routine visit. SIGNS AND SYMPTOMS OF LABOR 1. Contractions every 10 minutes or more often 2. Clear, pink, or brownish fluid (water) leaking from vagina 3. Feeling that baby is pushing down, pressure 4. Low, dull backache 5. Cramps that feel like a period 6. Cramps with or without diarrhea If you notice any of the above symptoms, contact our office at [phone] and ask to speak with a nurse. After hours, you can call doctors registry at [phone] OR call [facility] at [phone] and ask to have the doctor partition assembler paged. If you consider this an emergency, dial or go to your nearest emergency department. NEED HELP? Are you dealing with a violent or abusive relationship? Are you a victim of rape or sexual assult? Call [facility] ([place]) 24 hour Crisis Hotline: 155.656.7785 or 463-550-8734. MANUAL Your Guide to a Healthy manual is now on-line. Visit the [email or web address] to download your free copy documented in this encounter [facility] 09-03-2024 Progress note Formatting of t his note might be different from the original. S: Soheila Polk is a 29 year old female who presents at 11/26/2024, by Last Menstrual Period for a routine visit. Denies headache, visual changes, chest pain, shortness of breath, vaginal bleeding, leakage of fluid, or dysuria. Feeling well, no complaints. Good movement, No contractions O: See flow sheet Gen: No apparent distress Abd: Gravid, nontender GCT today TDAP declined LARC declined plan reviewed ASSESSMENT/PLAN: 1. Obesity in ([facility]) - ICD9: 649.10, ICD10: O99.210 (primary diagnosis) Growth q 4 weeks 2. Supervision of high risk in third trimester ([facility]) - ICD9: V23.9, ICD10: O09.93 3. 28 weeks gestation of ([facility]) - ICD9: V22.2, ICD10: Z3A.28 PTL precautions Gisell Hope MD [facility] 09-03-2024 Miscellaneous Notes Formattin g of this note might be different from the original. S: Soheila Polk is a 29 year old female who presents at 11/26/2024, by Last Menstrual Period for a routine visit. Denies headache, visual changes, chest pain, shortness of breath, vaginal bleeding, leakage of fluid, or dysuria. Feeling well, no complaints. Good movement, No contractions O: See flow sheet Gen: No apparent distress Abd: Gravid, nontender GCT today TDAP declined LARC declined plan reviewed ASSESSMENT/PLAN: 1. Obesity in ([facility]) - ICD9: 649.10, ICD10: O99.210 (primary diagnosis) Growth q 4 weeks 2. Supervision of high risk in third trimester ([facility]) - ICD9: V23.9, ICD10: O09.93 3. 28 weeks gestation of ([facility]) - ICD9: V22.2, ICD10: Z3A.28 PTL precautions Gisell Hope MD documented in this encounter [facility] 09-03-2024 Instructions Brandon Aguirre MA - 09/03/2024 1:37 PM EDT SEQUENTIAL SCREENINGS The [facility] offers sequential screenings for women who are interested in screenings for chromosomal abnormalities and certain defects during a . The sequential screen combines ultrasound and blood tests to determine the risk of chromosomal abnormalities, including Down's Syndrome (Trisomy 21) and Trisomy 18, as well as open neural tube defects including spina bifida. Ultrasound examination is performed between 11 weeks and 13 weeks gestational age. Blood tests are drawn after the ultrasound and again later in the between 15 and 21 weeks gestational age. Please let your physician know if you are interested in this testing. It will require an appointment with our boiler/chiller technician. This is not an ultrasound performed by a physician in our office during a routine visit. SIGNS AND SYMPTOMS OF LABOR 1. Contractions every 10 minutes or more often 2. Clear, pink, or brownish fluid (water) leaking from vagina 3. Feeling that baby is pushing down, pressure 4. Low, dull backache 5. Cramps that feel like a period 6. Cramps with or without diarrhea If you notice any of the above symptoms, contact our office at [phone] and ask to speak with a nurse. After hours, you can call doctors registry at [phone] OR call [facility] at [phone] and ask to have the doctor partition assembler paged. If you consider this an emergency, dial 9--7 or go to your nearest emergency department. NEED HELP? Are you dealing with a violent or abusive relationship? Are you a victim of rape or sexual assult? Call [facility] ([place]) 24 hour Crisis Hotline: 345.132.2286 or 124-222-1314. MANUAL Your Guide to a Healthy manual is now on-line. Visit [email or web address] to download your free copy documented in this encounter [facility] 08-04-2024 Telephone encount er Note Order signed and faxed. Aury Castillo RN [facility] 08-04-2024 Miscellaneous Notes Formattin g of this note might be different from the original. Order signed and faxed. Aury Castillo RN Written order received from [employer] for breast pump. Placed in RR inbox for signature. Halima Burt RN documented in this encounter [facility] 08-04-2024 Telephone encount er Note Written order received from [employer] for breast pump. Placed in RR inbox for signature. Halima Burt RN [facility] 07-25-2024 Telephone encount er Note 22w2d Next OB visit on 08/13 Hemoglobin (g/dL) Date Value 05/20/2024 13.9 [facility] 07-25-2024 Miscellaneous Notes Formattin g of this note might be different from the original. 22w2d Next OB visit on 08/13 Hemoglobin (g/dL) Date Value 05/20/2024 13.9 documented in this encounter [facility] 07-15-2024 Note HNO ID: [id number] Author: NICHOLE CORTES APRN.CNM Service: ? Author Type: Script Developer Type: Progress Notes Filed: 07/18/2024 12:10 Note Text: ESTELA-S: Soheila Polk is a 29 year old female who presents at 20w6d with RED:11/26/2024, by Last Menstrual Period for a routine visit. Denies headache, visual changes, chest pain, shortness of breath, vaginal bleeding, leakage of fluid, or dysuria. Feeling well, no complaints. O: See flow sheet Gen: No apparent distress Abd: Gravid, nontender ASSESSMENT/PLAN: 1. Supervision of other high risk pregnancies, second trimester -Continue PNV and ASA -Anatomy US today 2. IIH (idiopathic intracranial hypertension -Asymptomatic, seeing eye doctor for management, next appointment 09/17. -Consulted [facility], no consultation or evaluation needed. 3. 20 weeks gestation of 4. Obesity in -Pregravid BMI 38 -Growth US every 4wk at 32 wk -NST weekly at 36wk PTL precautions reviewed and when to call RTO in 4 weeks Nichole Cortes APRN.CNM [facility] 06-17-2024 Progress note Formatting of t his note might be different from the original. RR- VB No. LOF No. CTXS No. Movement: present. Other c/o: No. Medication list reviewed. SENSITIVE EXAM: Sensitive exam not performed. Physical Exam See Flow Sheet Abd: soft, nontender, gravid A/P 16w6d Estimated Date of Delivery: 11/26/24 Assessment & Plan 16 weeks gestation of Supervision of high risk in second trimester declines aneuploidy screening cont pnv and asa prophylaxis f/u in 4 weeks for anatomy scan and ob visit Clint Vasques M.D. [facility] 06-17-2024 Miscellaneous Notes Formattin g of this note might be different from the original. RR- VB No. LOF No. CTXS No. Movement: present. Other c/o: No. Medication list reviewed. SENSITIVE EXAM: Sensitive exam not performed. Physical Exam See Flow Sheet Abd: soft, nontender, gravid A/P 16w6d Estimated Date of Delivery: 11/26/24 Assessment & Plan 16 weeks gestation of Supervision of high risk in second trimester declines aneuploidy screening cont pnv and asa prophylaxis f/u in 4 weeks for anatomy scan and ob visit Clint Vasques M.D. documented in this encounter [facility] 06-17-2024 Instructions Meena Willson MA - 06/17/2024 3:32 PM EDT SEQUENTIAL SCREENINGS The [facility] offers sequential screenings for women who are interested in screenings for chromosomal abnormalities and certain defects during a . The sequential screen combines ultrasound and blood tests to determine the risk of chromosomal abnormalities, including Down's Syndrome (Trisomy 21) and Trisomy 18, as well as open neural tube defects including spina bifida. Ultrasound examination is performed between 11 weeks and 13 weeks gestational age. Blood tests are drawn after the ultrasound and again later in the between 15 and 21 weeks gestational age. Please let your physician know if you are interested in this testing. It will require an appointment with our boiler/chiller technician. This is not an ultrasound performed by a physician in our office during a routine visit. SIGNS AND SYMPTOMS OF LABOR 1. Contractions every 10 minutes or more often 2. Clear, pink, or brownish fluid (water) leaking from vagina 3. Feeling that baby is pushing down, pressure 4. Low, dull backache 5. Cramps that feel like a period 6. Cramps with or without diarrhea If you notice any of the above symptoms, contact our office at [phone] and ask to speak with a nurse. After hours, you can call doctors registry at [phone] OR call [facility] at [phone] and ask to have the doctor partition assembler paged. If you consider this an emergency, dial 9--7 or go to your nearest emergency department. NEED HELP? Are you dealing with a violent or abusive relationship? Are you a victim of rape or sexual assult? Call [facility] ([place]) 24 hour Crisis Hotline: 733.809.2202 or 200-237-0047. MANUAL Your Guide to a Healthy manual is now on-line. Visit [email or web address] to download your free copy documented in this encounter [facility] 05-20-2024 Progress note Formatting of t his note might be different from the original. ESTELA-S: Soheila Polk is a 29 year old female who presents at 12w6d with RED:11/26/2024, by Last Menstrual Period for a routine visit. Denies headache, visual changes, chest pain, shortness of breath, vaginal bleeding, leakage of fluid, or dysuria. Feeling well, no complaints. O: See flow sheet Gen: No apparent distress Abd: Gravid, nontender ASSESSMENT/PLAN: 1. Supervision of high risk in second trimester -PN labs today -Declines NIPT, info given on Carrier Screening -Continue PNV, started ASA -Anatomy US at 20 wk 2. Obesity in -Offered 16wk US, declines Pregravid BMI 38 Growth US at 32 wk then every 4wk NSTs weekly at 36 wk 3. IIH (idiopathic intracranial hypertension) 1) PTL precautions reviewed and when to call 2) RTO in 4 weeks Nichole Cortes APRN.CNM [facility] 05-20-2024 Miscellaneous Notes Formattin g of this note might be different from the original. ESTELA-S: Soheila Polk is a 29 year old female who presents at 12w6d with RED:11/26/2024, by Last Menstrual Period for a routine visit. Denies headache, visual changes, chest pain, shortness of breath, vaginal bleeding, leakage of fluid, or dysuria. Feeling well, no complaints. O: See flow sheet Gen: No apparent distress Abd: Gravid, nontender ASSESSMENT/PLAN: 1. Supervision of high risk in second trimester -PN labs today -Declines NIPT, info given on Carrier Screening -Continue PNV, started ASA -Anatomy US at 20 wk 2. Obesity in -Offered 16wk US, declines Pregravid BMI 38 Growth US at 32 wk then every 4wk NSTs weekly at 36 wk 3. IIH (idiopathic intracranial hypertension) 1) PTL precautions reviewed and when to call 2) RTO in 4 weeks Nichole Cortes APRN.CNM documented in this encounter [facility] 05-20-2024 Instructions Tala Mendoza MA - 05/20/2024 9:53 AM EST SEQUENTIAL SCREENINGS The [facility] offers sequential screenings for women who are interested in screenings for chromosomal abnormalities and certain defects during a . The sequential screen combines ultrasound and blood tests to determine the risk of chromosomal abnormalities, including Down's Syndrome (Trisomy 21) and Trisomy 18, as well as open neural tube defects including spina bifida. Ultrasound examination is performed between 11 weeks and 13 weeks gestational age. Blood tests are drawn after the ultrasound and again later in the between 15 and 21 weeks gestational age. Please let your physician know if you are interested in this testing. It will require an appointment with our boiler/chiller technician. This is not an ultrasound performed by a physician in our office during a routine visit. SIGNS AND SYMPTOMS OF LABOR 1. Contractions every 10 minutes or more often 2. Clear, pink, or brownish fluid (water) leaking from vagina 3. Feeling that baby is pushing down, pressure 4. Low, dull backache 5. Cramps that feel like a period 6. Cramps with or without diarrhea If you notice any of the above symptoms, contact our office at [phone] and ask to speak with a nurse. After hours, you can call doctors registry at [phone] OR call [facility] at [phone] and ask to have the doctor partition assembler paged. If you consider this an emergency, dial 9-1-1 or go to your nearest emergency department. NEED HELP? Are you dealing with a violent or abusive relationship? Are you a victim of rape or sexual assult? Call [facility] ([place]) 24 hour Crisis Hotline: 407.735.9405 or 364-756-4586. MANUAL Your Guide to a Healthy manual is now on-line. Visit [email or web address] to download your free copy documented in this encounter [facility] 04-14-2024 Note HNO ID: [id number] Author: MELISSA ANDREA APRN.GAME TRAPPER Service: ? 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 INITIAL OB ASSESSMENT HPI: Soheila is a 29 year old White Female here to establish Obstetrical Care. Patient's last menstrual period was 02/20/2024. from OB Dating Form. was planned Complaints: No OB History T0 L0 SAB0 IAB0 Ectopic0 Multiple0 Live Births0 Previous history: Prior : never History of 4th degree laceration: Perineal Laceration, 3rd or 4th degree Unanswered History of shoulder dystocia: History of Hypertensive disorders including pre-eclampsia or gestational hypertension: History of gestational diabetes: Diabetes in Patient's Risk Screening for delivery: Have you had a prior leon between 20w and 36w6d? No How many pregnancies have you had before? 0 Did you have a previous baby with a GBS Infection? No Please select all that apply for any prior : N/A MEDICAL/PSYCHOSOCIAL HISTORY: Severe bleeding with delivery Thyroid Disease Diabetes in U No results found for: ABORHD BMI 38.27 kg/(m2) Last Pap: 09/19/2023 History of abnormal pap: no Prior treatment for cervical dysplasia: hysterectomy. Last HPV: 09/19/2023 History of STDs: N/A Partner History of STDs: None Did you have a partner with Herpes? No Tobacco use: No E-Cigarette/Vaping Use: No Caffeine use: Yes Drug use: No Alcohol use: No Multivitamin with Folic acid: Yes Would refuse blood transfusion if medically necessary: No Social Needs: How often does this describe you? I don't have enough money to pay my bills: Never Within the past 12 months, have you worried that your food would run out before you had money to buy more? Never In the past 12 months, has lack of reliable transportation kept you from going to medical appointments or work, or from getting things needed for daily living? Never In the past 12 months, have you had any concerns about having a place to live, or about the condition or quality of your housing? Never Would you like more information on any of the following (please check all that apply)? Not interested Social History: Do you have any history of depression, anxiety, PTSD, or other mood problems? No Do you have a history of abuse or trauma that may impact your experience? No Are you currently employed? Yes Depression/Anxiety Screening: denies symptoms of depression. OB Depression and Anxiety Screening- This Encounter (since 04/17/2024) None Genetic Screening: Partner present: No Patient verbalized knowledge of partner family health history: Yes Do you or your partner have any personal or family history of defects not previously discussed: No Do you have history of a complicated by anomaly, genetic condition, or demise: No Preeclampsia Risk Screening: Screening for prevention of preeclampsia: High risk factors: None Moderate risk ractors: Nulliparity and Obesity (body mass index greater than 30) OB Risk Screening: Completed, no positive findings documented. Marital Status: Partner: Name: Andrew Age: 32 Occupation: [employer] Gender: Male PAST MEDICAL HISTORY Diagnosis Date Endometrial polyp 10/23/2023 IIH (idiopathic intracranial hypertension) Iron deficiency anemia PAST SURGICAL HISTORY Procedure Laterality Date BLOOD PATCH 10/2022 HYSTEROSCOPY BX ENDOMETRIUMAND/POLYPC W/WO DANDC 11/22/2023 polyp x 2 resecte HYSTEROSCOPY, DIAGNOSTIC (SEPARATE 11/22/2023 Hysteroscopy DANTN, Polyp resection at [facility]-Dr. Vasques SPINAL TAP PROCEDURE 10/2022 TONSILLECTOMY AND ADENOIDECTOMY Current Outpatient Medications Medication Sig Dispense Refill vits62/FA/om3/dha/epa ( GUMMY ORAL) Take 2 Pieces by mouth once daily. aspirin, enteric coated (ECOTRIN LOW STRENGTH) 81 mg EC tablet Take 1 tablet by mouth once daily. 90 tablet 3 No current facility-administered medications for this visit. Allergies As of Date: 04/18/2024 (No Known Allergies) Fully Assessed 04/18/2024 Does patient have penicillin allergy: No REVIEW OF SYSTEMS: GENERAL: Negative for: Fever or Chills HEENT: Negative for: Headache, Impaired Vision, Ringing in Ears, Nosebleeds NECK: Negative for: Swelling, Pain, Stiffness RESPIRATORY: Negative for: Cough, Shortness of breath, Wheezing GASTROINTESTINAL: Positive for: Nausea MUSCULOSKELETAL: Negative for: Muscle or joint pain, stiffness, Joint swelling NEUROLOGIC/PSYCHIATRIC: Negative for: Weakness, Paralysis, Numbness, Tingling, Tremor, Anxiety, Depression, Memory loss SKIN: Negative for: Rash, Itching GENITOURINARY: Negative for: vaginal itching, vaginal discharge, hematuria or dysuria SENSITIVE EXAM: The sensitive examination was discussed with the (more content not included)... 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 INITIAL OB ASSESSMENT HPI: Soheila is a 29 year old White Female here to establish Obstetrical Care. Patient's last menstrual period was 02/20/2024. from OB Dating Form. was planned Complaints: No OB History T0 L0 SAB0 IAB0 Ectopic0 Multiple0 Live Births0 Previous history: Prior : never History of 4th degree laceration: Perineal Laceration, 3rd or 4th degree Unanswered History of shoulder dystocia: History of Hypertensive disorders including pre-eclampsia or gestational hypertension: History of gestational diabetes: Diabetes in Patient's Risk Screening for delivery: Have you had a prior leon between 20w and 36w6d? No How many pregnancies have you had before? 0 Did you have a previous baby with a GBS Infection? No Please select all that apply for any prior : N/A MEDICAL/PSYCHOSOCIAL HISTORY: Severe bleeding with delivery Thyroid Disease Diabetes in U No results found for: ABORHD BMI 38.27 kg/(m^2) Last Pap: 09/19/2023 History of abnormal pap: no Prior treatment for cervical dysplasia: hysterectomy. Last HPV: 09/19/2023 History of STDs: N/A Partner History of STDs: None Did you have a partner with Herpes? No Tobacco use: No E-Cigarette/Vaping Use: No Caffeine use: Yes Drug use: No Alcohol use: No Multivitamin with Folic acid: Yes Would refuse blood transfusion if medically necessary: No Social Needs: How often does this describe you? I don't have enough money to pay my bills: Never Within the past 12 months, have you worried that your food would run out before you had money to buy more? Never In the past 12 months, has lack of reliable transportation kept you from going to medical appointments or work, or from getting things needed for daily living? Never In the past 12 months, have you had any concerns about having a place to live, or about the condition or quality of your housing? Never Would you like more information on any of the following (please check all that apply)? Not interested Social History: Do you have any history of depression, anxiety, PTSD, or other mood problems? No Do you have a history of abuse or trauma that may impact your experience? No Are you currently employed? Yes Depression/Anxiety Screening: denies symptoms of depression. OB Depression and Anxiety Screening- This Encounter (since 04/17/2024) None Genetic Screening: Partner present: No Patient verbalized knowledge of partner family health history: Yes Do you or your partner have any personal or family history of defects not previously discussed: No Do you have history of a complicated by anomaly, genetic condition, or demise: No Preeclampsia Risk Screening: Screening for prevention of preeclampsia: High risk factors: None Moderate risk ractors: Nulliparity and Obesity (body mass index greater than 30) OB Risk Screening: Completed, no positive findings documented. Marital Status: Partner: Name: Andrew Age: 32 Occupation: [employer] Gender: Male PAST MEDICAL HISTORY Diagnosis Date Endometrial polyp 10/23/2023 IIH (idiopathic intracranial hypertension) Iron deficiency anemia PAST SURGICAL HISTORY Procedure Laterality Date BLOOD PATCH 10/2022 HYSTEROSCOPY BX ENDOMETRIUM&/POLYPC W/WO D&C 11/22/2023 polyp x 2 resecte HYSTEROSCOPY, DIAGNOSTIC (SEPARATE 11/22/2023 Hysteroscopy D&C, Polyp resection at [facility]-Dr. Vasques SPINAL TAP PROCEDURE 10/2022 TONSILLECTOMY & ADENOIDECTOMY <AGE 12 2011 Current Outpatient Medications Medication Sig Dispense Refill vits62/FA/om3/dha/epa ( GUMMY ORAL) Take 2 Pieces by mouth once daily. aspirin, enteric coated (ECOTRIN LOW STRENGTH) 81 mg EC tablet Take 1 tablet by mouth once daily. 90 tablet 3 No current facility-administered medications for this visit. Allergies As of Date: 04/18/2024 (No Known Allergies) Fully Assessed 04/18/2024 Does patient have penicillin allergy: No REVIEW OF SYSTEMS: GENERAL: Negative for: Fever or Chills HEENT: Negative for: Headache, Impaired Vision, Ringing in Ears, Nosebleeds NECK: Negative for: Swelling, Pain, Stiffness RESPIRATORY: Negative for: Cough, Shortness of breath, Wheezing GASTROINTESTINAL: Positive for: Nausea MUSCULOSKELETAL: Negative for: Muscle or joint pain, stiffness, Joint swelling NEUROLOGIC/PSYCHIATRIC: Negative for: Weakness, Paralysis, Numbness, Tingling, Tremor, Anxiety, Depression, Memory loss SKIN: Negative for: Rash, Itching GENITOURINARY: Negative for: vaginal itching, vaginal discharge, hematuria or dysuria SENSITIVE EXAM: The sensitive examination was discussed with the Patient or Patient's Authorized Print Journalist. As applicable, any other physician, advance practice provider, medical student, or other health professional student that will be observing or involved in the sensitive examination for educational or training purposes was discussed with the Patient or Authorized Print Journalist. The Patient or Authorized Print Journalist has agreed to proceed with the sensitive examination. (Sensitive examination includes inspection and/or palpation of the breasts, pelvis, prostate and anorectal regions). PHYSICAL EXAM: BP 122/76 Ht 5' 5 (1.65m) Wt 230 lb (104.3kg) LMP 02/20/2024 BMI 38.27 kg/(m^2). GENERAL: pleasant in no apparent distress DERMATOLOGY: Normal, without lesions, non-icteric, and non-hirsute NECK: Supple, full range of motion, no adenopathy, and thyroid normal CHEST: Normal inspiratory effort BREAST: soft, non-tender, symmetric, no dominant mass, normal nipple-areolar complex, no lymphadenopathy, and no nipple discharge ABDOMEN: soft, non-tender, and no masses NEURO: alert and oriented x3,exam grossly non-focal PELVIS: External genitalia normal without lesions. Perineal body intact. No vaginal or cervical lesions. Cervix closed. No adnexal masses or tenderness. Clinical Pelvimetry: Pelvimetry clinically assessed as adequate Limited OB ultrasound exam: single intrauterine , positive cardiac activity, and POCUS performed. +cardiac activity, CRL consistent with LMP. Melissa Andrea APRN.CNP ASSESSMENT: 29 year old at 8w2d wks gestational age PLAN: 1) Patient oriented to practice. Patient given new OB orientation folder. Discussed nutrition, folic acid supplementation, dietary guidelines, exercise, smoking, alcohol, caffeine, and drug use. Discussed gestational weight gain guidelines. Discussed routine OB labs including STD/HIV. Discussed how to access Your guide to a health and the [employer]. Reviewed midwifery and snag grinder services that are available. 2) Screening: Hemoglobin A1C: ordered Baby Aspirin: The patient has been counseled about the potential benefits of low dose aspirin in and our recommendation that this be offered to all patients, regardless of whether they meet the high risk criteria specified above. She Accepts Aneuploidy Screening: Discussed aneuploidy screening, nuchal translucency/first trimester early anatomy ultrasound and NIPT. The risks/benefits and limitations of NIPT/aneuploidy screening were reviewed including the potential for false negative and false positive results. The availability of genetic counseling was reviewed. Information on aneuploidy screening was provided. The patient chooses to proceed with First trimester early anatomy ultrasound (12-13w6d) Myriad Carrier Screening: Discussed myriad carrier screening. We discussed the availability of professional-society guided carrier screening and reviewed the conditions screened and limitations of screening. The availability of genetic counseling was reviewed. Information on carrier screening was provided. The patient Declines 3) Patient offered option of Virtual Visits. Patient unsure. May consider in future. 4) Obesity (BMI >30), will order early glucose screen or Hemoglobin A1C. Follow up in 4 weeks or sooner prn. Melissa Andrea APRN.CNP documented in this encounter [facility] 04-14-2024 Instructions Junie Kowalski LPN - 04/14/2024 3:24 PM EST Please select the following link to access the [facility] Your Guide to a Healthy . [email or web address] Please select the following link to access the [facility] Your Guide to a Healthy . [email or web address] documented in this encounter [facility] 11-22-2023 Note HNO ID: [id number] Author: CLINT VASQUES MD Service: ? Author Type: Physician Type: Progress Notes Filed: 11/22/2023 13:28 Note Text: Patient underwent hysteroscopy DANDC for polyp resection on 11/22/2023 at [facility] without complication. She did have 2 small polyps in the uterus. Pathology is pending. Patient tolerated the procedure well. Clint Vasques MD [facility] 11-22-2023 History of Presen t illness Narrative Patient underwent hysteroscopy D&C for polyp resection on 11/22/2023 at [facility] without complication. She did have 2 small polyps in the uterus. Pathology is pending. Patient tolerated the procedure well. Clint Vasques MD documented in this encounter [facility] 11-14-2023 Note [facility] Medical Records Department [address] [place] [address] History Physical Exam 11/14/23 1312 MR#: [id number] Acct: [id number] Name: SOHEILA POLK Rep #: [id number] : 1995 28 From: Clint Vasques MD PCP: [facility] Status[place] [place]: [place] [address] History and Physical Date of Admission: 11/22/23 HPI: The patient is a 28 year old female presenting for pre-operative visit. She is scheduled for hsyteroscopy D C with polyp resection, for AUB on 11/22/23. Procedure discussed along with risks, benefits and complications. Other alternatives discussed for management. Consent form signed? No. PAST MEDICAL HISTORY PAST MEDICAL HISTORY No date: IIH (idiopathic intracranial hypertension) No date: Iron deficiency anemia PAST SURGICAL HISTORY PAST SURGICAL HISTORY 10/2022: BLOOD PATCH 10/2022: SPINAL TAP PROCEDURE 2012: TONSILLECTOMY ADENOIDECTOMY CURRENT MEDICATIONS Current Outpatient Medications Medication Sig Dispense Refill ??? acetaZOLAMIDE (DIAMOX) 250 mg tablet ??? ferrous sulfate (IRON ORAL) Take by mouth. No current facility-administered medications for this visit. ALLERGIES: Patient has no known allergies. PERSONAL HISTORY: SOCIAL HISTORY Social History Tobacco Use ??? Smoking status: Never ??? Smokeless tobacco: Never Vaping Use ??? Vaping status: Never Used Substance Use Topics ??? Alcohol use: Yes Comment: seldom ??? Drug use: Never FAMILY HISTORY: FAMILY HISTORY FAMILY HISTORY Problem Relation Age of Onset ??? Diabetes Mother borderline ??? Diabetes Father ??? Hypertension Father ??? Colon Cancer Father over 45 ??? Breast Cancer Paternal Grandmother REVIEW OF SYMPTOMS: GENERAL: denies fevers or chills ENDOCRINOLOGY: has not been on steroids Cardiology : denies palpitations or chest pain Respiratory: denies SOB or cough Hematology: denies history of prolonged bleeding or easy bruising or VTE Allergy: Denies history of personal or family history of allergy to anesthesia PHYSICAL EXAMINATION: VITALS: Last menstrual period 09/01/2023. GENERAL: The patient is well nourished, well hydrated in no acute distress. , The patient is oriented to time, place, and person. PELVIC US 10/23/23: Indication Abnormal uterine bleeding, spotting between cycles Impression The uterus is anteverted and measures 80 mm x 44 mm x 46 mm. The myometrium is heterogenous. The endometrium is heterogenous, contains small cystic areas and measures 16 mm. There are two echogenic areas within the endometrial cavity that are suspicious for endometrial polyps. 1. 12 mm x 16 mm x 11 mm. Anterior 2. 20 mm x 14 mm x 6 mm. Posterior The right ovary measures 45 mm x 24 mm x 22 mm and contains a corpus luteum cyst. The left ovary measures 30 mm x 29 mm x 17 mm. There is a small amount of free fluid visualized. Technique: Three dimensional imaging was created on a dedicated stand-alone 3D workstation with images created and archived, and supervised and reviewed by the interpreting physician utilizing images from a US Scan performed on 10/23/23. Recommendations Consider SIS for further evaluation of endometrial cavity if clinically indicated. Menstrual History LMP on 09/30/2023 IMPRESSION: AUB, endometrial polyps PLAN: The risks/benefits/alternatives and personal involved for the planned hysteroscopy D C with polyp resection were reviewed with the patient. Her questions were answered to her satisfaction and she desires to proceed. I reviewed with her postop instructions and expectations. I have reviewed and updated past medical and surgical history, medications and allergies Assessment Plan Assessment/Plan (1) Abnormal uterine bleeding (AUB): (2) Endometrial polyp: 11/14/23 1314 Cosigner Signature (if applicable): CC: Dr. Clint Vasques MD; [facility] Signed ADDENDUM by Dr. Clint Vasques MD on 11/22/23 at 0733 Addendum UPDATE- I have seen the patient and performed any clinically relevant updates to the history and physical exam. 11/22/23 0733 Cosigner Signature (if applicable): cc: Dr. Clint Vasques MD; [facility] * Signed [facility] 11-14-2023 History and physical note Pre-Op History and Physical HPI: The patient is a 28 year old female presenting for pre-operative visit. She is scheduled for hsyteroscopy D&C with polyp resection, for AUB on 11/22/23. Procedure discussed along with risks, benefits and complications. Other alternatives discussed for management. Consent form signed? No. PAST MEDICAL HISTORY No date: IIH (idiopathic intracranial hypertension) No date: Iron deficiency anemia PAST SURGICAL HISTORY 10/2022: BLOOD PATCH 10/2022: SPINAL TAP PROCEDURE 2012: TONSILLECTOMY & ADENOIDECTOMY Current Outpatient Medications Medication Sig Dispense Refill acetaZOLAMIDE (DIAMOX) 250 mg tablet ferrous sulfate (IRON ORAL) Take by mouth. No current facility-administered medications for this visit. ALLERGIES: Patient has no known allergies. PERSONAL HISTORY: Social History Tobacco Use Smoking status: Never Smokeless tobacco: Never Vaping Use Vaping status: Never Used Substance Use Topics Alcohol use: Yes Comment: seldom Drug use: Never FAMILY HISTORY: FAMILY HISTORY Problem Relation Age of Onset Diabetes Mother borderline Diabetes Father Hypertension Father Colon Cancer Father over 45 Breast Cancer Paternal Grandmother REVIEW OF SYMPTOMS: GENERAL: denies fevers or chills ENDOCRINOLOGY: has not been on steroids Cardiology : denies palpitations or chest pain Respiratory: denies SOB or cough Hematology: denies history of prolonged bleeding or easy bruising or VTE Allergy: Denies history of personal or family history of allergy to anesthesia PHYSICAL EXAMINATION: VITALS: Last menstrual period 09/01/2023. GENERAL: The patient is well nourished, well hydrated in no acute distress. , The patient is oriented to time, place, and person. PELVIC US 10/23/23: Indication Abnormal uterine bleeding, spotting between cycles Impression The uterus is anteverted and measures 80 mm x 44 mm x 46 mm. The myometrium is heterogenous. The endometrium is heterogenous, contains small cystic areas and measures 16 mm. There are two echogenic areas within the endometrial cavity that are suspicious for endometrial polyps. 1. 12 mm x 16 mm x 11 mm. Anterior 2. 20 mm x 14 mm x 6 mm. Posterior The right ovary measures 45 mm x 24 mm x 22 mm and contains a corpus luteum cyst. The left ovary measures 30 mm x 29 mm x 17 mm. There is a small amount of free fluid visualized. Technique: Three dimensional imaging was created on a dedicated stand-alone 3D workstation with images created and archived, and supervised and reviewed by the interpreting physician utilizing images from a US Scan performed on 10/23/23. Recommendations Consider SIS for further evaluation of endometrial cavity if clinically indicated. Menstrual History LMP on 09/30/2023 IMPRESSION: AUB, endometrial polyps PLAN: The risks/benefits/alternatives and personal involved for the planned hysteroscopy D&C with polyp resection were reviewed with the patient. Her questions were answered to her satisfaction and she desires to proceed. I reviewed with her postop instructions and expectations. I have reviewed and updated past medical and surgical history, medications and allergies Clint Vasques M.D. [facility] 11-14-2023 History and physical note Pre-Op History and Physical HPI: The patient is a 28 year old female presenting for pre-operative visit. She is scheduled for hsyteroscopy D&C with polyp resection, for AUB on 11/22/23. Procedure discussed along with risks, benefits and complications. Other alternatives discussed for management. Consent form signed? No. PAST MEDICAL HISTORY No date: IIH (idiopathic intracranial hypertension) No date: Iron deficiency anemia PAST SURGICAL HISTORY 10/2022: BLOOD PATCH 10/2022: SPINAL TAP PROCEDURE 2012: TONSILLECTOMY & ADENOIDECTOMY <AGE 10 Current Outpatient Medications Medication Sig Dispense Refill acetaZOLAMIDE (DIAMOX) 250 mg tablet ferrous sulfate (IRON ORAL) Take by mouth. No current facility-administered medications for this visit. ALLERGIES: Patient has no known allergies. PERSONAL HISTORY: Social History Tobacco Use Smoking status: Never Smokeless tobacco: Never Vaping Use Vaping status: Never Used Substance Use Topics Alcohol use: Yes Comment: seldom Drug use: Never FAMILY HISTORY: FAMILY HISTORY Problem Relation Age of Onset Diabetes Mother borderline Diabetes Father Hypertension Father Colon Cancer Father over 45 Breast Cancer Paternal Grandmother REVIEW OF SYMPTOMS: GENERAL: denies fevers or chills ENDOCRINOLOGY: has not been on steroids Cardiology : denies palpitations or chest pain Respiratory: denies SOB or cough Hematology: denies history of prolonged bleeding or easy bruising or VTE Allergy: Denies history of personal or family history of allergy to anesthesia PHYSICAL EXAMINATION: VITALS: Last menstrual period 09/01/2023. GENERAL: The patient is well nourished, well hydrated in no acute distress. , The patient is oriented to time, place, and person. PELVIC US 10/23/23: Indication Abnormal uterine bleeding, spotting between cycles Impression The uterus is anteverted and measures 80 mm x 44 mm x 46 mm. The myometrium is heterogenous. The endometrium is heterogenous, contains small cystic areas and measures 16 mm. There are two echogenic areas within the endometrial cavity that are suspicious for endometrial polyps. 1. 12 mm x 16 mm x 11 mm. Anterior 2. 20 mm x 14 mm x 6 mm. Posterior The right ovary measures 45 mm x 24 mm x 22 mm and contains a corpus luteum cyst. The left ovary measures 30 mm x 29 mm x 17 mm. There is a small amount of free fluid visualized. Technique: Three dimensional imaging was created on a dedicated stand-alone 3D workstation with images created and archived, and supervised and reviewed by the interpreting physician utilizing images from a US Scan performed on 10/23/23. Recommendations Consider SIS for further evaluation of endometrial cavity if clinically indicated. Menstrual History LMP on 09/30/2023 IMPRESSION: AUB, endometrial polyps PLAN: The risks/benefits/alternatives and personal involved for the planned hysteroscopy D&C with polyp resection were reviewed with the patient. Her questions were answered to her satisfaction and she desires to proceed. I reviewed with her postop instructions and expectations. I have reviewed and updated past medical and surgical history, medications and allergies Clint Vasques M.D. documented in this encounter [facility] 11-14-2023 History of Presen t illness Narrative VIRTUAL VISIT PROGRESS NOTE This is a virtual visit using [employer] Video Visit. It required patient-provider interaction for the medical decision making as documented below. I have communicated my name and active licensure. The patient's identity and physical location were verified at the time of this visit. Either the patient or their legal franchise sales representative has been informed of the risks and benefits of -- and alternatives to -- treatment through a remote evaluation and consents to proceed with the evaluation remotely. Soheila Polk is a 28 year old female seen for aub, f/u pelvic US. HISTORY REVIEWED (electronic chart updated): PAST MEDICAL HISTORY No date: IIH (idiopathic intracranial hypertension) No date: Iron deficiency anemia PAST SURGICAL HISTORY 10/2022: BLOOD PATCH 10/2022: SPINAL TAP PROCEDURE 2012: TONSILLECTOMY & ADENOIDECTOMY <AGE 10 FAMILY HISTORY Problem Relation Age of Onset Diabetes Mother borderline Diabetes Father Hypertension Father Colon Cancer Father over 45 Breast Cancer Paternal Grandmother Social History Tobacco Use Smoking status: Never Smokeless tobacco: Never Vaping Use Vaping status: Never Used Substance Use Topics Alcohol use: Yes Comment: seldom Drug use: Never Current Outpatient Medications Medication Sig acetaZOLAMIDE (DIAMOX) 250 mg tablet ferrous sulfate (IRON ORAL) Take by mouth. No current facility-administered medications for this visit. ALLERGIES No Known Allergies REVIEW OF SYSTEMS: GENERAL: feeling well without fatigue, no recent change in weight, no fever RESPIRATORY: no cough, no wheezing or shortness of breath CARDIOVASCULAR: no chest pain, no palpitations PHYSICAL EXAMINATION: VIDEO EXAM: (if completed, performed via video enabled technology) GENERAL: alert and appropriate, in no distress, well-hydrated, well nourished, and happy, smiling, interactive ASSESSMENT: AUB, endometrial polyp PLAN: decision for surgery today. R/b/a to surgery reviewed, questions answered will do consent day of surgery. There are no Patient Instructions on file for this visit. I spent a total of 17 minutes on the date of the service which included preparing to see the patient, [id number] patient care, completing clinical documentation, and communicating results to the patient/family/caregiver Clint Vasques MD documented in this encounter [facility] 10-30-2023 Telephone encount er Note Patient called the office. She was scheduled with JG instead of RR and it needed to be a virtual visit. Rescheduled. Gisell Bustillo RN [facility] 10-30-2023 Miscellaneous Notes Formattin g of this note might be different from the original. Patient called the office. She was scheduled with JG instead of RR and it needed to be a virtual visit. Rescheduled. Gisell Bustillo RN Left message for patient to call office. Halima Burt RN Left message for patient to call office. Halima Burt RN yes Patient asking if she can schedule a virtual pre-op appointment? Last office appointment was 09/10/2023, Surgery is scheduled 11/22/2023 at [facility]. Surgery sheet placed in Surgery schedulers mailbox. Halima Burt RN noted. Sheet filled out. Clint Vasques MD Pt notified. States she would like to do the consult and pre-op appt together. States she is on vacation next week and will return on 11/05/23. Advised Pt that our brazer resistance will be in contact with her regarding time and day of her pre-op appt as well as surgery date. Surgery sheet given to RR to sign. Halima Burt RN ----- Message from Clint Vasques MD sent at 10/24/2023 10:41 AM EDT ----- See if wants to have consult before preop or can do consult/preop together. Clint Vasques MD documented in this encounter [facility] 10-30-2023 Telephone encount er Note Left message for patient to call office. Halima Burt RN [facility] 10-29-2023 Telephone encount er Note Left message for patient to call office. Halima Burt RN [facility] 08-03-2024 Telephone encount er Note yes [facility] Work Phone: 10-25-2023 Telephone encount er Note Patient asking if she can schedule a virtual pre-op appointment? Last office appointment was 09/10/2023, Surgery is scheduled 11/22/2023 at [facility]. [facility] 10-24-2023 Telephone encount er Note Surgery sheet placed in Surgery schedulers mailbox. Halima Burt RN [facility] 10-24-2023 Telephone encount er Note noted. Sheet filled out. Clint Vasques MD [facility] 10-24-2023 Telephone encount er Note Pt notified. States she would like to do the consult and pre-op appt together. States she is on vacation next week and will return on 11/05/23. Advised Pt that our brazer resistance will be in contact with her regarding time and day of her pre-op appt as well as surgery date. Surgery sheet given to RR to sign. Halima Burt RN [facility] 10-24-2023 Telephone encount er Note ----- Message from Clint Vasques MD sent at 10/24/2023 10:41 AM EDT ----- See if wants to have consult before preop or can do consult/preop together. Clint Vasques MD [facility] 10-23-2023 History of Presen t illness Narrative The patient presents for requested ultrasound. Full report available in the Imaging tab in Epic. Jud Santacruz MD documented in this encounter [facility] 10-17-2023 Telephone encount er Note schedule US and f/u after w/ me or another provider. Clint Vasques MD [facility] 10-17-2023 Miscellaneous Notes Formattin g of this note might be different from the original. schedule US and f/u after w/ me or another provider. Clint Vasques MD Patient seen 09/10/23 for annual documented in this encounter [facility] 10-17-2023 Telephone encount er Note Patient seen 09/10/23 for annual [facility] 09-10-2023 History of Presen t illness Narrative Soheila is a 28 year old who presents for an annual gynecologic exam without complaints. Questions about IIH and has lost some weight b/c this will help w/ this. Thinking about and wondering about risks w/ this Menses: cycles every 28-30 days and 5 days of flow. 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 LMP: 09/01/2023, Having periods Age at Menarche: Age at First : Age at Menopause: Rpg Programmer Analyst History Comments: Sexual Activity: Yes; Male Contraception: Condom PAST MEDICAL HISTORY Diagnosis Date IIH (idiopathic intracranial hypertension) Iron deficiency anemia PAST SURGICAL HISTORY Procedure Laterality Date BLOOD PATCH 10/2022 SPINAL TAP PROCEDURE 10/2022 TONSILLECTOMY & ADENOIDECTOMY <AGE 10 2011 FAMILY HISTORY Problem Relation Age of Onset Diabetes Mother borderline Diabetes Father Hypertension Father Colon Cancer Father over 45 Breast Cancer Paternal Grandmother SOCIAL HISTORY Social History Tobacco Use Smoking status: Never Smokeless tobacco: Never Vaping Use Vaping Use: Never used Substance Use Topics Alcohol use: Yes Comment: seldom Drug use: Never REVIEW OF SYSTEMS Abdomen: No abdominal pain, nausea, vomiting, diarrhea, or constipation. No bloating, early satiety, indigestion, or increased flatulence. Bladder: No dysuria, gross hematuria, urinary frequency, urinary urgency, or incontinence. Breast: No breast lumps, nipple d/c, overlying skin changes, redness or skin retraction. Allergies and current medication updated:Yes EXAM: BP 124/82 Ht 5' 5.25 (1.66m) Wt 217 lb (98.4kg) LMP 09/01/2023 BMI 35.85 kg/(m^2). GENERAL: pleasant, female in no apparent distress HEENT: Normocephalic, atraumatic, mucus membranes moist, and no lesions NECK: Supple, full range of motion, no adenopathy, and thyroid normal DERMATOLOGY: Normal, without lesions, non-icteric, and non-hirsute BREAST: soft, non-tender, symmetric, no dominant mass, normal nipple-areolar complex, no lymphadenopathy, and no nipple discharge CHEST: Normal inspiratory effort ABDOMEN: soft, non-tender, and no masses PELVIC: external genitalia normal, normal Bartholin's glands, urethra, [place]'s glands, no vulvar lesions, no cervical lesions, good vaginal support, physiologic discharge present, normal appearing perineal body and perianal region BIMANUAL: uterus normal size, shape and consistency, no adnexal masses, and non-tender RECTOVAGINAL: deferred. NEURO: alert and oriented x3,exam grossly non-focal EXTREMITIES: normal ASSESSMENT/PLAN: 1) Health maintenance: Pap done with HPV. HPV vaccine: completed series 2) Contraception: condoms. Contraceptive options reviewed and information provided. 3) STD screening: Declined STD check. 4) Follow up one year or sooner as needed offered rubella and carrier panel, will consider, orders in d/ wher wt loss/diet and exercise- consult to wt management cont. diamox, contact us when for plan Clint Vasques MD documented in this encounter [facility] Discharge summary Note Date/Time October 30, 2022 8:34am [facility] Medical Records Department [address] [place] [address] Emergency Department Summary 10/30/22 MR#: [id number] Acct: [id number] Name: SOHEILA JUAN Rep #:[id number] : 1995 27 From: Fausto Egan PCP: Dr. Gregory Barrera, Status: REG ER Location: ED HPI History of Present Illness Chief Complaint: Headache Informant: patient Narrative Narrative: Presenting with persistent post lumbar headache. Diagnostic LP 4 days ago in radiology department Dr. Hough, symptomatic the following day. Symptoms worse with sitting or standing. She is being worked up for idiopathic intracranial hypertension. Initially seen by ophthalmology. She had MRI studies 2 weeks ago. She was sent for diagnostic evaluation. She reported her pressures were normal. She was prescribed Diamox by her cartography technician howeverhas not started taking it. She was seen yesterday in the ED over the weekend. She is given migraine cocktail. She was given prescription for Fioricet. She took it yesterday 5 PM had transient relief. She returns for persistent symptoms. This was her first lumbar puncture. Denies fevers. Denies photophobia or phonophobia. PFSH PFSH Home Medications ferrous sulfate 325 mg (65 mg iron) tablet (Iron (ferrous sulfate)) 325 mg PO QODAY 10/26/22 [History Last Taken Unknown] kmeqnqxmhm-czgmujzozfbjo-dsdyllaf 50 mg-300 mg-40 mg capsule (Fioricet) 1 cap POQ8H PRN pain #12 caps 10/29/22 [Rx Last Taken Unknown] ondansetron 4 mg disintegrating tablet 4 mg PO Q8H PRN PRN Nausea #10 tabs 10/29/22 [Rx Last Taken Unknown] Allergy/AdvReac Type Severity Reaction Status Date / Time No Known Allergies Allergy Verified 10/30/22 06:53 Social History Smoking Status: Never smoker ROS ROS ED Constitutional Constitutional ED: Denies chills, fever(s) or sweats Eyes Eyes: Denies change in vision ENT ENT ED: Denies dysphagia or sore throat Cardiovascular Cardiovascular: Denies chest pain, leg edema, palpitations or racing heartbeat Respiratory/Chest Respiratory/Chest: Denies cough, dyspnea or dyspnea on exertion Gastrointestinal Gastrointestinal: Denies abdominal pain, diarrhea, nausea or vomiting Genitourinary Genitourinary ED: Denies dysuria, hematuria or urinary frequency Musculoskeletal Musculoskeletal: Denies back pain, extremity pain or neck pain Integumentary Denies rash or wounds Neurologic Neurologic: Reports headache(s); Denies paresthesias or weakness EXAM Physical Exam Const Vital Signs: 10/30/22 06:46 Temperature 97.3 F L Temperature Source Temporal Pulse Rate 75 Respiratory Rate 14 Blood Pressure 145/94 H Blood Pressure Mean 111 Pulse Ox 98 Oxygen Delivery Method Room Air Positive well nourished and well developed General Appearance ED: well developed and NAD HEENT Reports moist mucous membranes normocephalic and atraumatic Eyes PERRL, EOMs intact bilaterally and conjunctivae normal General Eye ED: Yes normal appearance of both eyes Neck no lymphadenopathy, supple and no meningeal signs General: Negative for tenderness Chest Wall Chest: Negative for tenderness Resp normal respiratory effort and normal air movement Effort and Inspection: symmetric chest movement; Negative for respiratory distress Cardio regular rate, regular rhythm and no murmurs Peripheral Pulses: pulses 2+ throughout GI normal to inspection, nondistended, normoactive bowel sounds and non-tender Palpation: Negative for guarding or rebound tenderness present Back/Spine no CVA tenderness and no thoracic nor lumbar tenderness Back/Spine Narrative: Previous marking L2-L3 region from lumbar puncture site. There is no erythema or drainage. Extremity normal to inspection General Extremety ED: Negative for edema or tenderness General Extremity: Negative for edema Neuro oriented x3, CN's II-XII intact bilaterally and no sensory deficits noted Sensorium / Orientation: awake and alert Skin no rashes or lesions noted and no wounds MDM MDM MDM Narrative Medical decision making narrative: Interventions / MDM: Differential diagnosis: Post lumbar headache Diagnosis considered but do not suspect: Meningitis, no clinical presentation ofthis. My EKG interpretation: N/A Imaging independently reviewed and interpreted by myself: N/A External documents reviewed: N/A Test considered but not ordered:N/A ED course: Patient vital stable nontoxic. Presenting post lumbar headache with classic symptoms. I did reach out to anesthesia, however reported radiology department is contracted with pain management group. I reached out spoke with Dr. Maria, states this can be performed directly in his office. Therefore patient will be discharged to go to his office for the procedure. This was discussed with patient and mother who understands and agrees with plan. She is able to ambulate in the department in no distress. Re-evaluation: stable Disposition discussed with patient/family/significant other: Case discussed with consulting clinician: Anesthesia Dr. Lopez, pain managment Dr. Maria This note was generated with [employer] dictation software. It may contain incorrectwords, spelling, and punctuation that were not noted in checking the note beforesigning. Discharge Plan Triage Chief Complaint: Headache ED Provider: Fausto Alfaro Dx/Rx/DC Orders Clinical Impression: Headache, post-lumbar puncture Instructions: ED Headache After Spinal Tap ... Prescriptions: No Action ferrous sulfate [Iron (ferrous sulfate)] 325 mg (65 mg iron) tablet 325 mg PO QODAY [id number] [Fioricet] 50-300-40 mg capsule 1 cap PO Q8H PRN (Reason: pain) Qty: 12 0RF ondansetron 4 mg tablet,disintegrating 4 mg PO Q8H PRN PRN (Reason: Nausea) Qty: 10 0RF Primary Care Provider: Gregory Barrera Referrals: Vera Maria MD [Med Staff - Active Staff] - As soon as possible Gregory Barrera, [Primary Care Provider] - Activity Restrictions/Additional Instructions: Discussed with Dr. Maria, go to his office 9 AM for planned blood patch in the office. Disposition Disposition: Home, Self Care What to do if you have Problems For any increased pain, shortness of breath, bleeding, nausea or vomiting, chestpain, or any unexpected problems, contact your Primary Care Provider. Call [facility] ([phone]) or report to the closest Emergency Room. Call 911 if necessary. 10/30/22 0834 <Electronically signed by Fausto Egan> Cosigner Signature (if applicable): CC: Dr. Gregory Barrera DO ~ Signed [facility] Work Phone: Evaluation + Plan note No data available for this section [facility] Evaluation + Plan note Future Appointments Appointment Date:07/27/2023 07:00:00 AM Scheduled Provider:LANE VEE Location:[facility] Appointment Type:PC OV [facility] Evaluation + Plan note Future Appointments Appointment Date:01/25/2024 07:00:00 AM Scheduled Provider:LANE VEE Location:[facility] Appointment Type:PC Wellness Annual Future Scheduled Tests Laboratory* Complete Blood Count 11/06/23 * Lipid Profile 11/06/23 * Complete Metabolic Panel 11/06/23 [facility] Evaluation + Plan note Future Appointments Appointment Date:07/25/2024 07:00:00 AM Scheduled Provider:LANE VEE Location:[facility] Appointment Type:PC OV Future Scheduled Tests Laboratory* Complete Blood Count 11/06/23 * Lipid Profile 11/06/23 * Complete Metabolic Panel 11/06/23 [facility] Evaluation noteNo assessment information available [facility] Work Phone: Evaluation note* Diagnosis Encounter for gynecological examination (general) (routine) without abnormal findings- Primary Screening for cervical cancer Screening for malignant neoplasm of the cervix Encounter for screening for human papillomavirus (HPV) Special screening examination for human papillomavirus (HPV) IIH (idiopathic intracranial hypertension) Benign intracranial hypertension Class 2 severe obesity due to excess calories with serious comorbidity and body mass index (BMI) of 35.0 to 35.9 in adult (HCC) Encounter for preconception consultation Other procreative management counseling and advice [facility] Abnormal [facility] (AUB)- Primary [facility]* Diagnosis Abnormal uterine bleeding (AUB)- Primary Abnormal endometrial ultrasound Nonspecific (abnormal) findings on radiological and other examination of genitourinary organs Endometrial polyp Polyp of corpus uteri documented in this encounter [facility] note* Diagnosis Abnormal uterine bleeding (AUB)- Primary Endometrial polyp Polyp of corpus uteri documented in this encounter [facility] note* Diagnosis Endometrial polyp- Primary Polyp of corpus uteri Abnormal uterine bleeding (AUB) [facility]* Diagnosis with uncertain dates, unspecified trimester- Primary 8 weeks gestation of state, incidental Encounter for supervision of normal in multigravida BMI 38.0-38.9,adult Body Mass Index 38.0-38.9, adult IIH (idiopathic intracranial hypertension) Benign intracranial hypertension documented in this encounter [facility] note* Diagnosis Encounter for screening for malformation using ultrasound- Primary 12 weeks gestation of state, incidental documented in this encounter [facility] note* Diagnosis Supervision of high risk in second trimester- Primary Unspecified high-risk Obesity in Obesity complicating , childbirth, or the puerperium, unspecified as to episode of care or not applicable IIH (idiopathic intracranial hypertension) Benign intracranial hypertension documented in this encounter [facility] note* Diagnosis 16 weeks gestation of - Primary state, incidental Supervision of high risk in second trimester Unspecified high-risk Obesity in Obesity complicating , childbirth, or the puerperium, unspecified as to episode of care or not applicable documented in this encounter [facility] note* Diagnosis Encounter for anatomic survey (HCC)- Primary Encounter for anatomic survey Obesity in (HCC) Obesity complicating , childbirth, or the puerperium, unspecified as to episode of care or not applicable 20 weeks gestation of (HCC) state, incidental documented in this encounter [facility] note* Diagnosis Screening for diabetes mellitus- Primary Supervision of other high risk pregnancies, second trimester (HCC) Obesity in (HCC) Obesity complicating , childbirth, or the puerperium, unspecified as to episode of care or not applicable 25 weeks gestation of (HCC) state, incidental Obesity in (HCC)- Primary Obesity complicating , childbirth, or the puerperium, unspecified as to episode of care or not applicable Supervision of high risk in third trimester (HCC) Unspecified high-risk 28 weeks gestation of (HCC) state, incidental documented in this encounter [facility] note* Diagnosis Screening for diabetes mellitus- Primary Supervision of other high risk pregnancies, second trimester (HCC) Obesity in (HCC) Obesity complicating , childbirth, or the puerperium, unspecified as to episode of care or not applicable 25 weeks gestation of (HCC) state, incidental Obesity in (HCC)- Primary Obesity complicating , childbirth, or the puerperium, unspecified as to episode of care or not applicable Supervision of high risk in third trimester (HCC) Unspecified high-risk IIH (idiopathic intracranial hypertension) Benign intracranial hypertension Anemia during in third trimester ([facility]) * Assessment & Plan Note - Clint Vasques MD - 09/24/2024 4:30 PM EDT Associated Problem(s): Obesity in (HCC) -next US on 10/08/24 -BMI 38 * Assessment & Plan Note - Clint Vasques MD - 09/24/2024 4:30 PM EDT Associated Problem(s): IIH (idiopathic intracranial hypertension) -no headaches for the past several months -no meds documented in this encounter [facility] note* Diagnosis Screening for diabetes mellitus- Primary Supervision of other high risk pregnancies, second trimester (HCC) Obesity in (HCC) Obesity complicating , childbirth, or the puerperium, unspecified as to episode of care or not applicable 25 weeks gestation of ([facility]) state, incidental Obesity in ([facility])- Primary Obesity complicating , childbirth, or the puerperium, unspecified as to episode of care or not applicable Supervision of high risk in third trimester ([facility]) Unspecified high-risk IIH (idiopathic intracranial hypertension) Benign intracranial hypertension Anemia during in third trimester ([facility]) Supervision of high risk in third trimester ([facility])- Primary Unspecified high-risk 33 weeks gestation of ([facility]) state, incidental Obesity in ([facility]) Obesity complicating , childbirth, or the puerperium, unspecified as to episode of care or not applicable IIH (idiopathic intracranial hypertension) Benign intracranial hypertension [facility] Diagnosis Screening for diabetes mellitus- Primary Supervision of other high risk pregnancies, second trimester ([facility]) Obesity in ([facility]) Obesity complicating , childbirth, or the puerperium, unspecified as to episode of care or not applicable 25 weeks gestation of ([facility]) state, incidental Obesity in ([facility])- Primary Obesity complicating , childbirth, or the puerperium, unspecified as to episode of care or not applicable Supervision of high risk in third trimester ([facility]) Unspecified high-risk IIH (idiopathic intracranial hypertension) Benign intracranial hypertension Anemia during in third trimester ([facility]) Supervision of other high risk pregnancies, second trimester ([facility]) Obesity in ([facility]) Obesity complicating , childbirth, or the puerperium, unspecified as to episode of care or not applicable [facility]* Diagnosis Screening for diabetes mellitus- Primary Supervision of other high risk pregnancies, second trimester ([facility]) Obesity in ([facility]) Obesity complicating , childbirth, or the puerperium, unspecified as to episode of care or not applicable 25 weeks gestation of ([facility]) state, incidental Obesity in ([facility])- Primary Obesity complicating , childbirth, or the puerperium, unspecified as to episode of care or not applicable Supervision of high risk in third trimester ([facility]) Unspecified high-risk IIH (idiopathic intracranial hypertension) Benign intracranial hypertension Anemia during in third trimester ([facility]) 35 weeks gestation of ([facility])- Primary state, incidental Supervision of high risk in third trimester (HCC) Unspecified high-risk Obesity in (HCC) Obesity complicating , childbirth, or the puerperium, unspecified as to episode of care or not applicable IIH (idiopathic intracranial hypertension) Benign intracranial hypertension * Assessment & Plan Note - Clint Vasques MD - 10/22/2024 3:00 PM EDT Associated Problem(s): IIH (idiopathic intracranial hypertension) Orders: URINE OB DIP B/O * Assessment & Plan Note - Clint Vasques MD - 10/22/2024 3:00 PM EDT Associated Problem(s): Supervision of high risk in third trimester (HCC) Orders: URINE OB DIP B/O * Assessment & Plan Note - Clint Vasques MD - 10/22/2024 3:00 PM EDT Associated Problem(s): Obesity in (HCC) Orders: URINE OB DIP B/O [facility] Diagnosis Screening for diabetes mellitus- Primary Supervision of other high risk pregnancies, second trimester (HCC) Obesity in (HCC) Obesity complicating , childbirth, or the puerperium, unspecified as to episode of care or not applicable 25 weeks gestation of (HCC) state, incidental Obesity in (HCC)- Primary Obesity complicating , childbirth, or the puerperium, unspecified as to episode of care or not applicable Supervision of high risk in third trimester (HCC) Unspecified high-risk IIH (idiopathic intracranial hypertension) Benign intracranial hypertension Anemia during in third trimester (HCC) 35 weeks gestation of (HCC)- Primary state, incidental Supervision of high risk in third trimester (HCC) Unspecified high-risk Obesity in (HCC) Obesity complicating , childbirth, or the puerperium, unspecified as to episode of care or not applicable IIH (idiopathic intracranial hypertension) Benign intracranial hypertension 35 weeks gestation of ([facility])- Primary state, incidental Supervision of high risk in third trimester ([facility]) Unspecified high-risk Obesity in (HCC) Obesity complicating , childbirth, or the puerperium, unspecified as to episode of care or not applicable IIH (idiopathic intracranial hypertension) Benign intracranial hypertension 37 weeks gestation of ([facility])- Primary state, incidental Supervision of high risk in third trimester ([facility]) Unspecified high-risk [facility]* Diagnosis Screening for diabetes mellitus- Primary Supervision of other high risk pregnancies, second trimester ([facility]) Obesity in ([facility]) Obesity complicating , childbirth, or the puerperium, unspecified as to episode of care or not applicable 25 weeks gestation of ([facility]) state, incidental Obesity in ([facility])- Primary Obesity complicating , childbirth, or the puerperium, unspecified as to episode of care or not applicable Supervision of high risk in third trimester ([facility]) Unspecified high-risk IIH (idiopathic intracranial hypertension) Benign intracranial hypertension Anemia during in third trimester ([facility]) 35 weeks gestation of ([facility])- Primary state, incidental Supervision of high risk in third trimester ([facility]) Unspecified high-risk Obesity in ([facility]) Obesity complicating , childbirth, or the puerperium, unspecified as to episode of care or not applicable IIH (idiopathic intracranial hypertension) Benign intracranial hypertension 35 weeks gestation of ([facility])- Primary state, incidental Supervision of high risk in third trimester ([facility]) Unspecified high-risk Obesity in ([facility]) Obesity complicating , childbirth, or the puerperium, unspecified as to episode of care or not applicable IIH (idiopathic intracranial hypertension) Benign intracranial hypertension macrosomia during in third trimester, single or unspecified fetus ([facility])- Primary Supervision of high risk in third trimester ([facility]) Unspecified high-risk 37 weeks gestation of ([facility]) state, incidental Obesity in ([facility]) Obesity complicating , childbirth, or the puerperium, unspecified as to episode of care or not applicable [facility]* Diagnosis Screening for diabetes mellitus- Primary Supervision of other high risk pregnancies, second trimester ([facility]) Obesity in ([facility]) Obesity complicating , childbirth, or the puerperium, unspecified as to episode of care or not applicable 25 weeks gestation of ([facility]) state, incidental Obesity in ([facility])- Primary Obesity complicating , childbirth, or the puerperium, unspecified as to episode of care or not applicable Supervision of high risk in third trimester ([facility]) Unspecified high-risk IIH (idiopathic intracranial hypertension) Benign intracranial hypertension Anemia during in third trimester ([facility]) 35 weeks gestation of ([facility])- Primary state, incidental Supervision of high risk in third trimester ([facility]) Unspecified high-risk Obesity in ([facility]) Obesity complicating , childbirth, or the puerperium, unspecified as to episode of care or not applicable IIH (idiopathic intracranial hypertension) Benign intracranial hypertension 35 weeks gestation of ([facility])- Primary state, incidental Supervision of high risk in third trimester ([facility]) Unspecified high-risk Obesity in ([facility]) Obesity complicating , childbirth, or the puerperium, unspecified as to episode of care or not applicable IIH (idiopathic intracranial hypertension) Benign intracranial hypertension Supervision of high risk in third trimester ([facility])- Primary Unspecified high-risk 37 weeks gestation of ([facility]) state, incidental Obesity in ([facility]) Obesity complicating , childbirth, or the puerperium, unspecified as to episode of care or not applicable IIH (idiopathic intracranial hypertension) Benign intracranial hypertension Anemia during in third trimester ([facility]) [facility] Diagnosis Screening for diabetes mellitus- Primary Supervision of other high risk pregnancies, second trimester ([facility]) Obesity in ([facility]) Obesity complicating , childbirth, or the puerperium, unspecified as to episode of care or not applicable 25 weeks gestation of ([facility]) state, incidental Obesity in ([facility])- Primary Obesity complicating , childbirth, or the puerperium, unspecified as to episode of care or not applicable Supervision of high risk in third trimester ([facility]) Unspecified high-risk IIH (idiopathic intracranial hypertension) Benign intracranial hypertension Anemia during in third trimester (HCC) 35 weeks gestation of (HCC)- Primary state, incidental Supervision of high risk in third trimester (HCC) Unspecified high-risk Obesity in (HCC) Obesity complicating , childbirth, or the puerperium, unspecified as to episode of care or not applicable IIH (idiopathic intracranial hypertension) Benign intracranial hypertension 35 weeks gestation of (HCC)- Primary state, incidental Supervision of high risk in third trimester (HCC) Unspecified high-risk Obesity in (HCC) Obesity complicating , childbirth, or the puerperium, unspecified as to episode of care or not applicable IIH (idiopathic intracranial hypertension) Benign intracranial hypertension Supervision of high risk in third trimester (HCC)- Primary Unspecified high-risk Obesity in (HCC) Obesity complicating , childbirth, or the puerperium, unspecified as to episode of care or not applicable IIH (idiopathic intracranial hypertension) Benign intracranial hypertension Anemia during in third trimester (HCC) 38 weeks gestation of ([facility]) state, incidental * Assessment & Plan Note - Denice Sales MD - 11/14/2024 3:00 PM EDT Associated Problem(s): Supervision of high risk in third trimester (HCC) Orders: URINE OB DIP B/O * Assessment & Plan Note - Denice Sales MD - 11/14/2024 3:00 PM EDT Associated Problem(s): Obesity in (HCC) Orders: URINE OB DIP B/O * Assessment & Plan Note - Denice Sales MD - 11/14/2024 3:00 PM EDT Associated Problem(s): IIH (idiopathic intracranial hypertension) Orders: URINE OB DIP B/O [facility] Diagnosis Screening for diabetes mellitus- Primary Supervision of other high risk pregnancies, second trimester (HCC) Obesity in (HCC) Obesity complicating , childbirth, or the puerperium, unspecified as to episode of care or not applicable 25 weeks gestation of (HCC) state, incidental Obesity in (HCC)- Primary Obesity complicating , childbirth, or the puerperium, unspecified as to episode of care or not applicable Supervision of high risk in third trimester (HCC) Unspecified high-risk IIH (idiopathic intracranial hypertension) Benign intracranial hypertension Anemia during in third trimester (HCC) 35 weeks gestation of (HCC)- Primary state, incidental Supervision of high risk in third trimester (HCC) Unspecified high-risk Obesity in (HCC) Obesity complicating , childbirth, or the puerperium, unspecified as to episode of care or not applicable IIH (idiopathic intracranial hypertension) Benign intracranial hypertension 35 weeks gestation of (HCC)- Primary state, incidental Supervision of high risk in third trimester (HCC) Unspecified high-risk Obesity in (HCC) Obesity complicating , childbirth, or the puerperium, unspecified as to episode of care or not applicable IIH (idiopathic intracranial hypertension) Benign intracranial hypertension Supervision of high risk in third trimester (HCC)- Primary Unspecified high-risk Obesity in (HCC) Obesity complicating , childbirth, or the puerperium, unspecified as to episode of care or not applicable IIH (idiopathic intracranial hypertension) Benign intracranial hypertension Anemia during in third trimester (HCC) 38 weeks gestation of (HCC) state, incidental Supervision of high risk in third trimester (HCC)- Primary Unspecified high-risk Obesity in (HCC) Obesity complicating , childbirth, or the puerperium, unspecified as to episode of care or not applicable 39 weeks gestation of (HCC) state, incidental [facility] in this encounter [facility] No data available for this section [facility] Discharge instructions Additional Instructions Discussed with Dr. Basali, go to his office 9 AM for planned blood patch in the office.[facility] Work Phone: Progress note No data available for this section [facility] Reason for referral (narrative)* Diagnostic Procedure Only (Routine) - New Request Specialty Diagnoses / Procedures Referred By Contac t Referred To Contact [facility] Diagnoses Abnormal uterine bleeding (AUB) Procedures PELVIC US WHI US PELVIC NONOBSTETRIC REAL-TIME IMAGE COMPLETE Clint Vasques MD [address] [place] [address] [facility] [employer] [address] [place] [address] Referral ID Status Reason Start Date Expiration Date Visits Requested Visits Authorized [id number] New Request Auto-Generat ed Referral 10/17/2023 10/16/2024 1 1 [facility] for referral (narrative)* Diagnostic Procedure Only (Routine) - Authorized Specialty Diagnoses / Procedures Referred By Contac t Referred To Contact [facility] Diagnoses with uncertain dates, unspecified trimester 8 weeks gestation of Encounter for supervision of normal in multigravida Procedures OBSTETRIC ULTRASOUND WHI US PREG UTERUS AFTER 1ST TRIMEST GESTATION Melissa Andrea APRN.CNP [address] [place] [address] [facility] [address] [place] [address] Referral ID Status Reason Start Date Expiration Date Visits Requested Visits Authorized [id number] Authorized Auto-Generat ed Referral 04/18/2024 04/18/2025 1 1 [facility] for visit Narrative* Diagnostic Procedure Only (Routine) - Closed Specialty Diagnoses / Procedures Referred By Contac t Referred To Contact [facility] Diagnoses Abnormal uterine bleeding (AUB) Procedures PELVIC US WHI US PELVIC NONOBSTETRIC REAL-TIME IMAGE COMPLETE Clint Vasques MD [address] [place] [address] [facility] [address] [place] [address] Referral ID Status Reason Start Date Expiration Date V isits Requested Visits Authorized [id number] Closed Auto-Generate d Referral 10/17/2023 10/16/2024 1 1 [facility] Summary Purpose Family History No Family History Records Found No data available for this section No data available for this section No Family History Records FoundNo Family History Records Found No data available for this section No Family History Records Found No data available for this section No Family History Records Found Advance Directives Advance Directive Response Recorded Date/ Time Living Will No October 30, 2022 6:50am 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 of 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 Software 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 No October 30 6:50am Chief Complaint and Reason for Visit Chief Complaint HEADACHES VISION LOS S BILAT Chief Complaint HEADACHES VISION LOS S BILAT PAPILLEDEMA headache SPINAL HEADACHE Reason for Referral Specialty Diagnoses / Procedures Referred By Ronen t Referred To Contact Diagnoses IIH (idiopathic intracranial hypertension) Class 2 severe obesity due to excess calories with serious comorbidity and body mass index (BMI) of 35.0 to 35.9 in adult (HCC) Procedures CONSULT TO [facility] WEIGHT MANAGEMENT PROGRAM OFFICE/OUTPATIENT [facility] 60 MINUTES Clint Vasques MD [address] [place] [address] Referral ID Status Reason Start Date Expiration Date Visits Requested Visits Authorized [id number] Authorized PCP Requested Referral Auto-Generate d Referral 09/10/2023 09/09/2024 1 1 Additional Source Comments INFORMATION SOURCE (unrecogn ized section and content) DATE CREATED AUTHOR 09/19/2017 [email or web address] [facility] DATE CREATED AUTHOR AUTHOR'S ORGANIZ ATION 07/26/2023 [facility] ([place]) DATE CREATED AUTHOR AUTHOR'S ORGANIZ ATION 12/20/2023 [facility] DATE CREATED AUTHOR AUTHOR'S ORGANIZ ATION 07/24/2024 [facility] DATE CREATED AUTHOR AUTHOR'S ORGANIZ ATION 11/15/2024 [facility] Patient Care team informatio n (unrecognized section and content) Team Status: Active Member Role Status Dates Dr. Gregory Barrera , DO Primary Care Provider Activ e Team Status: Inactive Member Role Status Dates Dr. Gregory Barrera , DO Primary Care Provider Activ e Dr. Parker Andrade MD Attending Provider, Referring Pr ovider Active Team Status: Active Member Role Status Dates Dr. Gregory Barrera , DO Primary Care Provider Activ e Dr. Parker Andrade MD Attending Provider, Referring Pr ovider Active Team Status: Inactive Member Role Status Dates Dr. Gregory Barrera , DO Primary Care Provider Activ e Dr. Fausto Alfaro , DO Emergency Provider Active Team Status: Inactive Member Role Status Dates Dr. Gregory Barrera , DO Primary Care Provider Activ e Dr. Armen Vargas , DO Emergency Provider Active Goals (unrecognized section and content) Goals may be documented in a n alternate section Source Comments (unrecognize d section and content) In the event this informatio n is protected by the Federal Confidentiality of Alcohol and Drug Abuse Patient Records regulations: The Federal rules restrict any use of the information to criminally investigate or prosecute any alcohol or drug abuse patient.[facility] the event this information is protected by the Federal Confidentiality of Alcohol and Drug Abuse Patient Records regulations: The Federal rules restrict any use of the information to criminally investigate or prosecute any alcohol or drug abuse patient.[facility] the event this information is protected by the Federal Confidentiality of Alcohol and Drug Abuse Patient Records regulations: The Federal rules restrict any use of the information to criminally investigate or prosecute any alcohol or drug abuse patient.[facility] the event this information is protected by the Federal Confidentiality of Alcohol and Drug Abuse Patient Records regulations: The Federal rules restrict any use of the information to criminally investigate or prosecute any alcohol or drug abuse patient.[facility] the event this information is protected by the Federal Confidentiality of Alcohol and Drug Abuse Patient Records regulations: The Federal rules restrict any use of the information to criminally investigate or prosecute any alcohol or drug abuse patient.[facility] the event this information is protected by the Federal Confidentiality of Alcohol and Drug Abuse Patient Records regulations: The Federal rules restrict any use of the information to criminally investigate or prosecute any alcohol or drug abuse patient.[facility] Hospital[facility] the event this information is protected by the Federal Confidentiality of Alcohol and Drug Abuse Patient Records regulations: The Federal rules restrict any use of the information to criminally investigate or prosecute any alcohol or drug abuse patient.[facility] the event this information is protected by the Federal Confidentiality of Alcohol and Drug Abuse Patient Records regulations: The Federal rules restrict any use of the information to criminally investigate or prosecute any alcohol or drug abuse patient.[facility] the event this information is protected by the Federal Confidentiality of Alcohol and Drug Abuse Patient Records regulations: The Federal rules restrict any use of the information to criminally investigate or prosecute any alcohol or drug abuse patient.[facility] the event this information is protected by the Federal Confidentiality of Alcohol and Drug Abuse Patient Records regulations: The Federal rules restrict any use of the information to criminally investigate or prosecute any alcohol or drug abuse patient.[facility] the event this information is protected by the Federal Confidentiality of Alcohol and Drug Abuse Patient Records regulations: The Federal rules restrict any use of the information to criminally investigate or prosecute any alcohol or drug abuse patient.[facility] the event this information is protected by the Federal Confidentiality of Alcohol and Drug Abuse Patient Records regulations: The Federal rules restrict any use of the information to criminally investigate or prosecute any alcohol or drug abuse patient.[facility] the event this information is protected by the Federal Confidentiality of Alcohol and Drug Abuse Patient Records regulations: The Federal rules restrict any use of the information to criminally investigate or prosecute any alcohol or drug abuse patient.[facility] Hospital[facility] the event this information is protected by the Federal Confidentiality of Alcohol and Drug Abuse Patient Records regulations: The Federal rules restrict any use of the information to criminally investigate or prosecute any alcohol or drug abuse patient.[facility] the event this information is protected by the Federal Confidentiality of Alcohol and Drug Abuse Patient Records regulations: The Federal rules restrict any use of the information to criminally investigate or prosecute any alcohol or drug abuse patient.[facility] the event this information is protected by the Federal Confidentiality of Alcohol and Drug Abuse Patient Records regulations: The Federal rules restrict any use of the information to criminally investigate or prosecute any alcohol or drug abuse patient.[facility] Hospital[facility] the event this information is protected by the Federal Confidentiality of Alcohol and Drug Abuse Patient Records regulations: The Federal rules restrict any use of the information to criminally investigate or prosecute any alcohol or drug abuse patient.[facility] Hospital[facility] the event this information is protected by the Federal Confidentiality of Alcohol and Drug Abuse Patient Records regulations: The Federal rules restrict any use of the information to criminally investigate or prosecute any alcohol or drug abuse patient.[facility] Hospital[facility] the event this information is protected by the Federal Confidentiality of Alcohol and Drug Abuse Patient Records regulations: The Federal rules restrict any use of the information to criminally investigate or prosecute any alcohol or drug abuse patient.[facility] Hospital[facility] the event this information is protected by the Federal Confidentiality of Alcohol and Drug Abuse Patient Records regulations: The Federal rules restrict any use of the information to criminally investigate or prosecute any alcohol or drug abuse patient.[facility] Hospital[facility] the event this information is protected by the Federal Confidentiality of Alcohol and Drug Abuse Patient Records regulations: The Federal rules restrict any use of the information to criminally investigate or prosecute any alcohol or drug abuse patient.[facility] Hospital[facility] the event this information is protected by the Federal Confidentiality of Alcohol and Drug Abuse Patient Records regulations: The Federal rules restrict any use of the information to criminally investigate or prosecute any alcohol or drug abuse patient.[facility] Hospital[facility] the event this information is protected by the Federal Confidentiality of Alcohol and Drug Abuse Patient Records regulations: The Federal rules restrict any use of the information to criminally investigate or prosecute any alcohol or drug abuse patient.[facility] Hospital[facility] the event this information is protected by the Federal Confidentiality of Alcohol and Drug Abuse Patient Records regulations: The Federal rules restrict any use of the information to criminally investigate or prosecute any alcohol or drug abuse patient.[facility] Hospital[facility] the event this information is protected by the Federal Confidentiality of Alcohol and Drug Abuse Patient Records regulations: The Federal rules restrict any use of the information to criminally investigate or prosecute any alcohol or drug abuse patient.[facility] Hospital[facility] the event this information is protected by the Federal Confidentiality of Alcohol and Drug Abuse Patient Records regulations: The Federal rules restrict any use of the information to criminally investigate or prosecute any alcohol or drug abuse patient.[facility] Hospital[facility] the event this information is protected by the Federal Confidentiality of Alcohol and Drug Abuse Patient Records regulations: The Federal rules restrict any use of the information to criminally investigate or prosecute any alcohol or drug abuse patient.[facility] Hospital[facility] the event this information is protected by the Federal Confidentiality of Alcohol and Drug Abuse Patient Records regulations: The Federal rules restrict any use of the information to criminally investigate or prosecute any alcohol or drug abuse patient.[facility] HospitalIn the event this information is protected by the Federal Confidentiality of Alcohol and Drug Abuse Patient Records regulations: The Federal rules restrict any use of the information to criminally investigate or prosecute any alcohol or drug abuse patient.[facility] Hospital[facility] the event this information is protected by the Federal Confidentiality of Alcohol and Drug Abuse Patient Records regulations: The Federal rules restrict any use of the information to criminally investigate or prosecute any alcohol or drug abuse patient.[facility] Reason for Visit (unrecogniz ed section and content) Reason Comments Yearly Exam Reason Comments Appointment Reason Comments Menstrual Problem Reason Comments Initial OB Visit Reason Comments US Specialty Diagnoses / Procedures Referred By Contac t Referred To Contact [facility] Diagnoses with uncertain dates, unspecified trimester 8 weeks gestation of Encounter for supervision of normal in multigravida Procedures OBSTETRIC ULTRASOUND WHI US PREG UTERUS AFTER 1ST TRIMEST GESTATION Melissa Andrea SUPPLY CHAIN COORDINATOR.GAME TRAPPER [address] [place] [address] Phone: tel: fax: [address] [address] Referral ID Status Reason Start Date Expiration Date V isits Requested Visits Authorized [id number] Closed Auto-Generate d Referral 04/18/2024 04/18/2025 1 1 Reason Onset Date Comments Care 05/20/2024 Reason Onset Date Comments Care 06/17/2024 Specialty Diagnoses / Procedures Referred By Contac t Referred To Contact [facility] Diagnoses Obesity in (HCC) Procedures OBSTETRIC ULTRASOUND WHI US PREG UTERUS AFTER 1ST TRIMEST GESTATION Nichole Cortes, SUPPLY CHAIN COORDINATOR.CNM [address] [place] [address] Phone: tel: fax: [address] [phone] Referral ID Status Reason Start Date Expiration Date V isits Requested Visits Authorized [id number] Closed Auto-Generate d Referral 05/20/2024 05/20/2025 2 1 Reason Comments breast pump Reason Onset Date Comments Care 09/03/2024 Reason Onset Date Comments Care 09/24/2024 Reason Onset Date Comments Care 10/08/2024 Specialty Diagnoses / Procedures Referred By Contac t Referred To Contact [facility] Diagnoses Supervision of other high risk pregnancies, second trimester (HCC) Obesity in (HCC) Procedures OBSTETRIC ULTRASOUND WHI US PREG UTERUS AFTER 1ST TRIMEST GESTATION Clint Vasques MD [address] [place] [address] Phone: tel: fax: [address] [phone] Referral ID Status Reason Start Date Expiration Date V isits Requested Visits Authorized [id number] Closed Auto-Generate d Referral 08/13/2024 08/13/2025 1 1 Reason Onset Date Comments Care 10/22/2024 Reason Onset Date Comments Care 11/05/2024 Specialty Diagnoses / Procedures Referred By Contac t Referred To Contact [facility] Diagnoses Supervision of high risk in third trimester (HCC) 33 weeks gestation of (HCC) Obesity in (HCC) Procedures OBSTETRIC ULTRASOUND WHI US PREG UTERUS AFTER 1ST TRIMEST GESTATION Benita Conn APRN.CINDY [address] [place] [address] Phone: tel: fax: [address] [phone] Referral ID Status Reason Start Date Expiration Date V isits Requested Visits Authorized [id number] Closed Auto-Generate d Referral 10/08/2024 10/08/2025 1 1 Reason Onset Date Comments Care 11/11/2024 Reason Onset Date Comments Population Health Navigation Outreach 11/13/2024 Ob/peds Reason Onset Date Comments Care 11/14/2024 Reason Onset Date Comments Care 11/19/2024 FOR RECORDS PERTAINING TO PATIENTS WHO ARE OR HAVE BEEN ENROLLED IN A CHEMICAL DEPENDENCY/SUBSTANCEABUSE PROGRAM, SOME INFORMATION MAY BE OMITTED. This clinical summary was aggregated from multiple sources. Caution should be exercised in using it in the provision of clinical care. This summary normalizes information from multiple sources, and as a consequence, information in this document may materially change the coding, format and clinical context of patient data. In addition, data may be omitted in some cases. CLINICAL DECISIONS SHOULD BE BASED ON THE PRIMARY CLINICAL RECORDS. [facility]aking[facility]. provides no warranty or guarantee of the accuracy or completeness of information in this document.
[2024-11-20] MEDS: Oxytocin 15 Units/NS 250ml 15 UNITS/250 ML IV.SOLN 334 UNITS IV (19:23)
[2024-11-20] MEDS: Oxytocin 15 Units/NS 250ml 15 UNITS/250 ML IV.SOLN 83 UNITS IV (19:53)
--- NOTE | 2024-11-20 19:53 | OB.VAGDELI_ITS ---
Assessment & Plan (1) (spontaneous vaginal delivery): (2) Gestational hypertension: QUALIFIERS: Trimester: third trimester Qualified Code(s): O13.3 - Gestational [-induced] hypertension without significant proteinuria, third trimester (3) 39 weeks gestation of : Maternal Data Information Final RED: 11/26/24 Gestational age: 39+1 Vaginal Delivery Maternal Presentation Maternal Presentation: Active Labor Type of Induction: Amniotomy Medical Reason for Induction: Gestational Hypertension Vaginal Delivery Information Procedure Performed: Spontaneous Vaginal Delivery Surgeon/Practitioner: Gisell Hope Date of Procedure: 11/20/24 Pre-Procedure Diagnosis: Labor Post-Procedure Diagnosis: Type of anesthesia: Epidural Estimated Blood Loss: 150 cc Time of Delivery: 19:22 Findings Description of procedure: Progressed to complete with AROM only. Once complete pushed over and intact perineum. Delivered OA. The shoulders delivered easily followed but the rest of the body. The infant cried upon delivered and was placed on the maternal abdomen. The cord was clamped and cut at one minute. The placenta delivered spontaneously. A 1st degree laceration was repaired and a right labial laceration was repaired with 3-0 Vicryl. All sponge, instrument and needle counts were correct. Presentation: Vertex and CHELSEA Amniotic Membrane Rupture Type: Artificial Amniotic Fluid Description: Clear Placental Delivery Description: Spontaneous Placenta Disposition: [facility] Specimen collected: No Cord Vessel Description: 3 Vessels Cord Entanglement: None Infant A Gender: Male (1 minute): 9 (5 minute): 9 Delayed Cord Clamping: Yes Display Mechanic casting machine set up operator: No Post Vaginal Deli Medications given after delivery: IV Pitocin Episiotomy Description: None Laceration: Vaginal Extension/lac and 1st degree Complication Complications: No
--- NOTE | 2024-11-20 20:07 | PCM.HP.OB ---
HPI - General General Date of Admission: 11/20/24 Date of Service: 11/20/24 Chief Complaint: Possible ROM HPI Narrative FERNANDO POLK, is a 29 F who presents possible ROM and contractions. 5 cm. Mild range BP. Admit for labor Maternal Data Information Final RED: 11/26/24 Gestational age: 39+1 PFSH PFS Medical History Diabetes Low iron Back pain Migraine headache Non-smoker Home Medications ?Medication ?Instructions ?Recorded ?Last Taken ?Type ferrous sulfate 325 mg (65 mg 325 mg PO MOWEFR 10/26/22 11/17/24 History iron) tablet (Iron (ferrous sulfate)) vits,calcium no.78-iron 1 tab PO DAILY 11/12/23 11/20/24 History fumarate-folic acid 29 mg-1 mg tablet (Prenatabs FA) aspirin 81 mg capsule 81 mg PO DAILY 11/20/24 Unknown History Allergy/AdvReac Type Severity Reaction Status Date / Time No Known Allergies Allergy Verified 11/20/24 09:16 Surgical History Hx of tonsillectomy Social History Smoking Status: Never smoker History 1 Elective abortions Hx Para 0 Spontaneous abortions Hx # Term Pregnancies Ectopic pregnancies Hx # Pregnancies Multiple births # of living children NST FHR Rate Baby A Variability:: Moderate Accelerations:: 15 x 15 Decelerations:: None NST Reactive:: Yes ROS Constitutional Constitutional: Denies fatigue, fever(s) or malaise Eyes Eyes: Denies change in vision ENT HEENT: Denies dizziness or headache(s) Cardiovascular Cardiovascular: Denies chest pain, dyspnea or lightheadedness Respiratory/Chest Respiratory/Chest: Denies cough or dyspnea Gastrointestinal Gastrointestinal: Denies change in bowel habits Genitourinary Genitourinary: Denies burning urination or genital lesions Integumentary Integumentary: Denies rash Neurologic Neurologic: Denies confusion, dizziness, headache(s), numbness or weakness Vital Signs Vital Signs Vital Signs: 11/20/24 09:23 11/20/24 09:23 11/20/24 09:23 Temperature Temperature Source Temporal Pulse Rate 83 Respiratory Rate Blood Pressure 144/88 H BP Systolic 144 BP Diastolic 88 Pulse Ox 08/28/25 09:23 11/20/24 09:23 11/20/24 09:23 Temperature 99.0 F Temperature Source Pulse Rate Respiratory Rate 16 Blood Pressure BP Systolic BP Diastolic Pulse Ox 98 11/20/24 10:10 11/20/24 10:10 11/20/24 10:25 Temperature Temperature Source Pulse Rate 81 Respiratory Rate Blood Pressure 152/87 H 154/81 H BP Systolic 152 154 BP Diastolic 87 81 Pulse Ox 11/20/24 10:25 11/20/24 10:25 11/20/24 10:40 Temperature Temperature Source Pulse Rate 81 Respiratory Rate 16 Blood Pressure 153/84 H BP Systolic 153 BP Diastolic 84 Pulse Ox 11/20/24 10:40 11/20/24 10:55 11/20/24 10:55 Temperature Temperature Source Pulse Rate 77 77 Respiratory Rate Blood Pressure 146/79 H BP Systolic 146 BP Diastolic 79 Pulse Ox 11/20/24 11:10 11/20/24 11:10 11/20/24 11:25 Temperature Temperature Source Pulse Rate 80 Respiratory Rate Blood Pressure 142/80 H 143/71 H BP Systolic 142 143 BP Diastolic 80 71 Pulse Ox 11/20/24 11:25 11/20/24 11:40 11/20/24 11:40 Temperature Temperature Source Pulse Rate 83 81 Respiratory Rate Blood Pressure 146/85 H BP Systolic 146 BP Diastolic 85 Pulse Ox 11/20/24 11:55 11/20/24 11:55 11/20/24 12:10 Temperature Temperature Source Pulse Rate 84 Respiratory Rate Blood Pressure 147/87 H 152/93 H BP Systolic 147 152 BP Diastolic 87 93 Pulse Ox 11/20/24 12:10 11/20/24 13:00 11/20/24 13:00 Temperature Temperature Source Pulse Rate 87 87 Respiratory Rate Blood Pressure BP Systolic BP Diastolic Pulse Ox 99 11/20/24 13:05 11/20/24 13:05 11/20/24 13:10 Temperature Temperature Source Pulse Rate 84 Respiratory Rate Blood Pressure 158/81 H BP Systolic 158 BP Diastolic 81 Pulse Ox 100 11/20/24 13:10 11/20/24 13:10 11/20/24 13:10 Temperature Temperature Source Pulse Rate 80 Respiratory Rate 18 Blood Pressure BP Systolic BP Diastolic Pulse Ox 99 11/20/24 13:15 11/20/24 13:15 11/20/24 13:17 Temperature Temperature Source Pulse Rate 88 Respiratory Rate Blood Pressure 144/82 H BP Systolic 144 BP Diastolic 82 Pulse Ox 99 11/20/24 13:17 11/20/24 13:17 11/20/24 13:17 Temperature Temperature Source Pulse Rate 80 Respiratory Rate 16 Blood Pressure BP Systolic BP Diastolic Pulse Ox 100 11/20/24 13:20 11/20/24 13:20 11/20/24 13:20 Temperature Temperature Source Pulse Rate 83 82 Respiratory Rate Blood Pressure 145/79 H BP Systolic 145 BP Diastolic 79 Pulse Ox 11/20/24 13:20 11/20/24 13:20 11/20/24 13:20 Temperature Temperature Source Pulse Rate Respiratory Rate 17 Blood Pressure BP Systolic BP Diastolic Pulse Ox 100 99 11/20/24 13:25 11/20/24 13:25 11/20/24 13:25 Temperature Temperature Source Pulse Rate 77 83 Respiratory Rate Blood Pressure 144/79 H BP Systolic 144 BP Diastolic 79 Pulse Ox 11/20/24 13:25 11/20/24 13:25 11/20/24 13:30 Temperature Temperature Source Pulse Rate Respiratory Rate 16 Blood Pressure 144/80 H BP Systolic 144 BP Diastolic 80 Pulse Ox 100 11/20/24 13:30 11/20/24 13:30 11/20/24 13:30 Temperature Temperature Source Pulse Rate 78 81 Respiratory Rate Blood Pressure BP Systolic BP Diastolic Pulse Ox 100 11/20/24 13:31 11/20/24 13:31 11/20/24 13:31 Temperature 98.8 F Temperature Source Temporal Pulse Rate Respiratory Rate 16 Blood Pressure BP Systolic BP Diastolic Pulse Ox 11/20/24 13:35 11/20/24 13:35 11/20/24 13:37 Temperature Temperature Source Pulse Rate 83 Respiratory Rate Blood Pressure 150/116 H BP Systolic 150 BP Diastolic 116 Pulse Ox 99 11/20/24 13:37 11/20/24 13:37 11/20/24 13:38 Temperature Temperature Source Pulse Rate 82 Respiratory Rate 16 Blood Pressure 151/83 H BP Systolic 151 BP Diastolic 83 Pulse Ox 11/20/24 13:38 11/20/24 13:38 11/20/24 13:38 Temperature Temperature Source Pulse Rate 73 Respiratory Rate 17 Blood Pressure BP Systolic BP Diastolic Pulse Ox 99 11/20/24 13:40 11/20/24 13:40 11/20/24 13:40 Temperature Temperature Source Pulse Rate 77 Respiratory Rate Blood Pressure 142/75 H BP Systolic 142 BP Diastolic 75 Pulse Ox 100 11/20/24 13:45 11/20/24 13:45 11/20/24 13:45 Temperature Temperature Source Pulse Rate 79 79 Respiratory Rate Blood Pressure 141/74 H BP Systolic 141 BP Diastolic 74 Pulse Ox 11/20/24 13:45 11/20/24 13:50 11/20/24 13:50 Temperature Temperature Source Pulse Rate 84 Respiratory Rate Blood Pressure BP Systolic BP Diastolic Pulse Ox 100 100 11/20/24 13:55 11/20/24 13:55 11/20/24 14:00 Temperature Temperature Source Pulse Rate 80 82 Respiratory Rate Blood Pressure BP Systolic BP Diastolic Pulse Ox 100 11/20/24 14:00 11/20/24 14:05 11/20/24 14:05 Temperature Temperature Source Pulse Rate 81 Respiratory Rate Blood Pressure BP Systolic BP Diastolic Pulse Ox 98 99 11/20/24 14:10 11/20/24 14:10 11/20/24 14:11 Temperature Temperature Source Pulse Rate 85 93 Respiratory Rate Blood Pressure BP Systolic BP Diastolic Pulse Ox 99 11/20/24 14:11 11/20/24 14:15 11/20/24 14:15 Temperature Temperature Source Pulse Rate 80 Respiratory Rate Blood Pressure BP Systolic BP Diastolic Pulse Ox 92 99 11/20/24 14:17 11/20/24 14:17 11/20/24 14:17 Temperature Temperature Source Pulse Rate 84 Respiratory Rate 16 Blood Pressure 148/81 H BP Systolic 148 BP Diastolic 81 Pulse Ox 11/20/24 14:20 11/20/24 14:20 11/20/24 14:25 Temperature Temperature Source Pulse Rate 85 84 Respiratory Rate Blood Pressure BP Systolic BP Diastolic Pulse Ox 98 11/20/24 14:25 11/20/24 14:30 11/20/24 14:30 Temperature Temperature Source Pulse Rate 83 Respiratory Rate Blood Pressure BP Systolic BP Diastolic Pulse Ox 99 100 11/20/24 14:42 11/20/24 14:42 11/20/24 14:42 Temperature 98.8 F Temperature Source Temporal Pulse Rate Respiratory Rate 16 Blood Pressure BP Systolic BP Diastolic Pulse Ox 11/20/24 14:48 11/20/24 14:48 11/20/24 14:49 Temperature Temperature Source Pulse Rate 77 Respiratory Rate Blood Pressure 141/75 H BP Systolic 141 BP Diastolic 75 Pulse Ox 97 11/20/24 14:49 11/20/24 14:53 11/20/24 14:53 Temperature Temperature Source Pulse Rate 68 73 Respiratory Rate Blood Pressure BP Systolic BP Diastolic Pulse Ox 99 11/20/24 14:55 11/20/24 14:55 11/20/24 14:55 Temperature Temperature Source Pulse Rate 68 Respiratory Rate 18 Blood Pressure 145/81 H BP Systolic 145 BP Diastolic 81 Pulse Ox 11/20/24 14:55 11/20/24 14:58 11/20/24 14:58 Temperature Temperature Source Pulse Rate 92 Respiratory Rate Blood Pressure BP Systolic BP Diastolic Pulse Ox 99 100 11/20/24 15:00 11/20/24 15:00 11/20/24 15:03 Temperature Temperature Source Pulse Rate 70 76 Respiratory Rate Blood Pressure 156/84 H BP Systolic 156 BP Diastolic 84 Pulse Ox 11/20/24 15:03 11/20/24 15:05 11/20/24 15:05 Temperature Temperature Source Pulse Rate 77 Respiratory Rate Blood Pressure 155/74 H BP Systolic 155 BP Diastolic 74 Pulse Ox 99 11/20/24 15:13 11/20/24 15:13 11/20/24 15:16 Temperature Temperature Source Pulse Rate 77 Respiratory Rate Blood Pressure 145/85 H BP Systolic 145 BP Diastolic 85 Pulse Ox 99 11/20/24 15:16 11/20/24 15:18 11/20/24 15:18 Temperature Temperature Source Pulse Rate 72 74 Respiratory Rate Blood Pressure BP Systolic BP Diastolic Pulse Ox 100 11/20/24 15:20 11/20/24 15:20 11/20/24 15:23 Temperature Temperature Source Pulse Rate 73 87 Respiratory Rate Blood Pressure 156/85 H BP Systolic 156 BP Diastolic 85 Pulse Ox 11/20/24 15:23 11/20/24 15:25 11/20/24 15:25 Temperature Temperature Source Pulse Rate 81 Respiratory Rate Blood Pressure 166/86 H BP Systolic 166 BP Diastolic 86 Pulse Ox 100 11/20/24 15:28 11/20/24 15:28 11/20/24 15:33 Temperature Temperature Source Pulse Rate 77 85 Respiratory Rate Blood Pressure BP Systolic BP Diastolic Pulse Ox 100 11/20/24 15:33 11/20/24 15:38 11/20/24 15:38 Temperature Temperature Source Pulse Rate 79 Respiratory Rate Blood Pressure BP Systolic BP Diastolic Pulse Ox 100 92 11/20/24 15:43 11/20/24 15:43 11/20/24 15:45 Temperature Temperature Source Pulse Rate 75 Respiratory Rate Blood Pressure 163/86 H BP Systolic 163 BP Diastolic 86 Pulse Ox 99 11/20/24 15:45 11/20/24 15:48 11/20/24 15:48 Temperature Temperature Source Pulse Rate 75 78 Respiratory Rate Blood Pressure BP Systolic BP Diastolic Pulse Ox 99 11/20/24 15:50 11/20/24 15:50 11/20/24 15:50 Temperature Temperature Source Pulse Rate 74 Respiratory Rate 16 Blood Pressure 139/82 H BP Systolic 139 BP Diastolic 82 Pulse Ox 11/20/24 15:53 11/20/24 15:53 11/20/24 15:53 Temperature Temperature Source Pulse Rate 85 86 Respiratory Rate Blood Pressure BP Systolic BP Diastolic Pulse Ox 89 11/20/24 15:53 11/20/24 15:55 11/20/24 15:55 Temperature Temperature Source Pulse Rate 90 Respiratory Rate Blood Pressure 139/74 H BP Systolic 139 BP Diastolic 74 Pulse Ox 99 11/20/24 15:55 11/20/24 15:58 11/20/24 15:58 Temperature Temperature Source Pulse Rate 84 Respiratory Rate 16 Blood Pressure BP Systolic BP Diastolic Pulse Ox 100 11/20/24 16:00 11/20/24 16:00 11/20/24 16:00 Temperature Temperature Source Pulse Rate 85 Respiratory Rate 16 Blood Pressure 133/72 H BP Systolic 133 BP Diastolic 72 Pulse Ox 11/20/24 16:03 11/20/24 16:03 11/20/24 16:05 Temperature Temperature Source Pulse Rate 90 Respiratory Rate Blood Pressure 128/66 H BP Systolic 128 BP Diastolic 66 Pulse Ox 100 11/20/24 16:05 11/20/24 16:05 11/20/24 16:08 Temperature Temperature Source Pulse Rate 88 80 Respiratory Rate 16 Blood Pressure BP Systolic BP Diastolic Pulse Ox 11/20/24 16:08 11/20/24 16:11 11/20/24 16:11 Temperature Temperature Source Pulse Rate 84 Respiratory Rate Blood Pressure 141/71 H BP Systolic 141 BP Diastolic 71 Pulse Ox 100 11/20/24 16:11 11/20/24 16:13 11/20/24 16:13 Temperature Temperature Source Pulse Rate 83 Respiratory Rate Blood Pressure BP Systolic BP Diastolic Pulse Ox 93 99 11/20/24 16:16 11/20/24 16:16 11/20/24 16:18 Temperature Temperature Source Pulse Rate 83 84 Respiratory Rate Blood Pressure 143/83 H BP Systolic 143 BP Diastolic 83 Pulse Ox 11/20/24 16:18 11/20/24 16:20 11/20/24 16:20 Temperature Temperature Source Pulse Rate 79 Respiratory Rate Blood Pressure 139/68 H BP Systolic 139 BP Diastolic 68 Pulse Ox 99 11/20/24 16:58 11/20/24 16:58 11/20/24 16:59 Temperature Temperature Source Pulse Rate 86 Respiratory Rate Blood Pressure 142/66 H BP Systolic 142 BP Diastolic 66 Pulse Ox 98 11/20/24 16:59 11/20/24 17:20 11/20/24 17:20 Temperature Temperature Source Temporal Pulse Rate 81 Respiratory Rate 16 Blood Pressure BP Systolic BP Diastolic Pulse Ox 11/20/24 17:20 11/20/24 17:58 11/20/24 17:58 Temperature 98.8 F Temperature Source Temporal Pulse Rate Respiratory Rate 16 Blood Pressure BP Systolic BP Diastolic Pulse Ox 11/20/24 17:58 11/20/24 17:59 11/20/24 17:59 Temperature 99.5 F H Temperature Source Pulse Rate 65 Respiratory Rate Blood Pressure 135/59 H BP Systolic 135 BP Diastolic 59 Pulse Ox 11/20/24 19:03 11/20/24 19:03 11/20/24 19:04 Temperature Temperature Source Pulse Rate 75 Respiratory Rate Blood Pressure 127/59 H BP Systolic 127 BP Diastolic 59 Pulse Ox 99 11/20/24 19:04 11/20/24 19:37 11/20/24 19:37 Temperature Temperature Source Pulse Rate 73 76 Respiratory Rate Blood Pressure 122/56 H BP Systolic 122 BP Diastolic 56 Pulse Ox 11/20/24 19:37 11/20/24 19:37 11/20/24 19:37 Temperature Temperature Source Temporal Pulse Rate Respiratory Rate 16 Blood Pressure BP Systolic BP Diastolic Pulse Ox 99 11/20/24 19:37 11/20/24 19:57 11/20/24 19:57 Temperature 99.3 F H Temperature Source Pulse Rate 73 Respiratory Rate Blood Pressure 118/75 BP Systolic 118 BP Diastolic 75 Pulse Ox Weight Weight: 106.7 kg Body Mass Index (BMI) 39.1 Physical Exam Const alert and no apparent distress General Appearance: cooperative HEENT normocephalic Resp normal respiratory effort Cardio regular rate GI soft to palpation GI Narrative: gravid, nontender, appropriate for gestational age Extremity no calf tenderness General Extremity: edema Skin no wounds Rashes: No rashes noted Psych activity/motor behavior normal Labs Labs Labs: Blood Type A POSITIVE Antibody Screen NEGATIVE Hct 39.9 % (37-47) Hgb 13.8 g/dL (12.0-15.0) Syphilis Total Ab Nonreactive (Nonreactive) Assessment & Plan (1) 39 weeks gestation of : (2) Gestational hypertension: QUALIFIERS: Trimester: third trimester Qualified Code(s): O13.3 - Gestational [-induced] hypertension without significant proteinuria, third trimester (3) Active labor: PLAN: Plan Admit for labor and GHTN Epidural prn
[2024-11-21 04:00] VITALS: BP 116/61; PULSE 65; RESP 16; TEMP 36.8; O2SAT 99
--- NOTE | 2024-11-21 06:55 | PN.OBGYN_ITS ---
Subjective Subjective Doing well. Mild lochia. Breast feeding. Epidural wore off slowly has not been out bed yet. No voiding yet. Straight cath x 1 Objective Data Objective Data Vital Signs: Vital Signs Temp Pulse Resp BP Pulse Ox O2 Del Method 97.3 F L 80 16 111/59 L 98 Room Air 11/20/24 23:11 11/20/24 23:11 11/20/24 23:11 11/20/24 23:11 11/20/24 23:11 11/20/24 23:11 Oxygen Delivery Method Room Air Weight: 106.7 kg Body Mass Index (BMI) 39.1 Intake & Output: Intake and Output for Last 24 Hours 11/19/24 11/20/24 11/21/24 23:59 23:59 23:59 Intake Total 3193.66 / 3193.66 Output Total 600 / 600 Balance 2593.66 / 2593.66 Lab / Micro Data 11/20/24 10:40 11/20/24 10:40 Labs: Laboratory Results - last 24 hr 11/20/24 09:15: Vag Amniotic Fld Detect Negative 11/20/24 10:40: WBC 10.7, RBC 4.54, Hgb 13.8, Hct 39.9, MCV 87.9, MCH 30.4, MCHC 34.6, RDW Std Deviation 43.9, RDW Coeff of Tamara 13.6, Plt Count 249, MPV 10.6, C reatinine 0.49 L, Estim Creat Clear Calc 201.90, Est GFR (MDRD) Non-Af 129, Uric Acid 4.6, AST 25, ALT 17, U Random Total Protein 16.0 H, Urine Creatinine 104.00, Protein/Creatinin Ratio 154, Syphilis Total Ab Nonreactive, Blood Type A POSITIVE, Antibody Screen NEGATIVE ROS Constitutional Constitutional: Denies headache(s) Cardiovascular Cardiovascular: Denies chest pain or dyspnea Gastrointestinal Gastrointestinal: Denies nausea or vomiting Genitourinary Genitourinary: Denies dysuria Physical Exam Const alert, oriented x3 and no apparent distress General Appearance: cooperative and comfortable Eyes PERRL and EOMs intact bilaterally Resp normal respiratory effort GI soft to palpation and non-tender Uterus Palpation: uterus fundus firm ( below umbilicus) Extremity normal to inspection and full ROM Neuro oriented x3 and CN's II-XII intact bilaterally Psych mental status grossly normal Assessment & Plan (1) (spontaneous vaginal delivery): (2) Gestational hypertension: QUALIFIERS: Trimester: third trimester Qualified Code(s): O13.3 - Gestational [-induced] hypertension without significant proteinuria, third trimester PLAN: BP normal since delivery PLAN: Plan Ambulate this am Continued lacatation help
[2024-11-21 08:00] VITALS: BP 124/79; PULSE 68; RESP 16; TEMP 36.6; O2SAT 98
[2024-11-21 11:55] VITALS: BP 134/85; PULSE 71; RESP 16; TEMP 36.6; O2SAT 100
[2024-11-21 16:00] VITALS: BP 129/79; PULSE 70; RESP 14; TEMP 36.6; O2SAT 99
[2024-11-21 20:16] VITALS: BP 125/80; PULSE 88; RESP 16; TEMP 36.4; O2SAT 97
[2024-11-22] VITALS (7 sets, daily range): BP systolic 122–146; BP diastolic 78–97; PULSE 73–84; RESP 16–17; TEMP 36.3–36.6; O2SAT 97–99
[2024-11-22] MEDS: Senna/Docusate Sodium 1 Tablet PO (08:44)
--- NOTE | 2024-11-22 11:37 | PCM.PN.OB ---
Subjective Subjective Doing well per patient and nursing staff. Ambulating and taking PO without difficulty. Voiding and passing flatus. Pain controlled. , services for assistance. Denies headache, visual changes, chest pain, shortness of breath, leg pain or increased bleeding. Lochia normal. Objective Data Objective Data Vital Signs: Vital Signs Temp Pulse Resp BP Pulse Ox O2 Del Method 97.3 F L 73 16 122/78 H 99 Room Air 11/22/24 08:21 11/22/24 08:21 11/22/24 08:21 11/22/24 08:30 11/22/24 08:21 11/22/24 08:21 Oxygen Delivery Method Room Air Weight: 235 lb 3.732 oz Body Mass Index (BMI) 39.1 Intake & Output: Intake and Output for Last 24 Hours 11/20/24 11/21/24 11/22/24 23:59 23:59 23:59 Intake Total 3193.66 / 3193.66 Output Total 600 / 600 850 / 850 Balance 2593.66 / 2593.66 -850 / -850 Lab / Micro Data 11/20/24 10:40 11/20/24 10:40 ROS Constitutional Constitutional: Reports systems reviewed and no addt'l complaints, except as documented; Denies headache(s) Eyes Eyes: Denies acute decrease in peripheral vision, blurry vision or change in vision ENT HEENT: Reports systems reviewed and no addt'l complaints, except as documented Cardiovascular Cardiovascular: Denies chest pain or dizziness Respiratory/Chest Respiratory/Chest: Denies cough, dyspnea, dyspnea on exertion, shortness of breath at rest or shortness of breath with exertion Gastrointestinal Gastrointestinal: Denies abdominal pain, diarrhea, nausea or vomiting Genitourinary Genitourinary: Denies abdominal discomfort Musculoskeletal Musculoskeletal: Denies limited range of motion Integumentary Integumentary: Reports systems reviewed and no addt'l complaints, except as documented Neurologic Neurologic: Reports systems reviewed and no addt'l complaints, except as documented Psychiatric Psychiatric: Reports systems reviewed and no addt'l complaints, except as documented Endocrine Endocrinology: Reports systems reviewed and no addt'l complaints, except as documented Hematologic/Lymphatic Hematologic/Lymphatic: Reports systems reviewed and no addt'l complaints, except as documented Allergic/Immunologic Allergic/Immunologic: Reports systems reviewed and no addt'l complaints, except as documented Physical Exam Const alert and oriented x3 General Appearance: cooperative Orientation / Consciousness: awake, oriented to person, oriented to place and oriented to time Exam Limitations: no limitations HEENT normocephalic Head and Scalp: normal to inspection, normocephalic and atraumatic Face and Sinus: normal facial exam Eyes General Eye: normal appearance of both eyes Neck full ROM Chest Chest: symmetrical chest wall rise Resp normal respiratory effort and normal air movement Auscultation: clear to auscultation bilaterally Cardio regular rate, regular rhythm, S1 normal heart sound, S2 normal heart sound, no murmurs, no rub, no gallops and no clicks GI normal to inspection, nondistended, normoactive bowel sounds and non-tender GI Narrative: Fundus firm 2 below U appearance of the vagina normal Narrative: Normal lochia rubra Bladder / Kidney Exam: no CVA tenderness Back/Spine normal ROM Extremity normal to inspection and full ROM Skin no rashes or lesions noted Neuro oriented x3, CN's II-XII intact bilaterally and moves all extremities Sensorium / Orientation: awake, alert and oriented to person Motor Exam: clonus absent Deep Tendon Reflexes: Rt Patellar (L4): 2+ and Lt Patellar (L4): 2+ Assessment & Plan (1) (spontaneous vaginal delivery): (2) Gestational hypertension: QUALIFIERS: Trimester: third trimester Qualified Code(s): O13.3 - Gestational [-induced] hypertension without significant proteinuria, third trimester PLAN: Plan 1) Routine care, PPD #2 2) Vitals signs stable 3) Pain controlled 4) , services PRN 5) D/C home, follow up next week for BP check. Reviewed signs and symptoms 6) Follow up in 2 weeks and 6 weeks
--- NOTE | 2024-11-22 12:48 | PCM.DC.SUM ---
Providers Date of Admission: 11/20/24 Primary Care Physician: [facility] Reason For Visit: VAGINAL DELIVERY Diagnosis Discharge Diagnosis (1) (spontaneous vaginal delivery): Status: Acute Code(s): O80 - Encounter for full-term uncomplicated delivery (2) Gestational hypertension: Status: Acute Code(s): O13.9 - Gestational [-induced] hypertension without significant proteinuria, unspecified trimester Qualifiers: Trimester: third trimester Qualified Code(s): O13.3 - Gestational [-induced] hypertension without significant proteinuria, third trimester Plan 1) Routine care, PPD #2 2) Vitals signs stable 3) Pain controlled 4) , services PRN 5) D/C home, follow up next week for BP check. Reviewed signs and symptoms 6) Follow up in 2 weeks and 6 weeks Medications at Discharge Home Medications vits,calcium no.78-iron fumarate-folic acid 29 mg-1 mg tablet (Prenatabs FA) 1 tab PO DAILY 11/12/23 acetaminophen 500 mg tablet 1,000 mg (2 x 500 mg) PO Q6H PRN PRN Pain 1-10 Or Fever #0 tabs 11/22/24 ibuprofen 600 mg tablet 600 mg PO Q6H PRN PRN Pain Score 1-10 #0 tabs 11/22/24 Hospital Course Summary of Care Provided Minutes Spent on Discharge: 15 Physical Exam Const alert and oriented x3 General Appearance: cooperative Orientation / Consciousness: awake, oriented to person, oriented to place and oriented to time Exam Limitations: no limitations HEENT normocephalic Head and Scalp: normal to inspection, normocephalic and atraumatic Face and Sinus: normal facial exam Eyes General Eye: normal appearance of both eyes Neck full ROM Chest Chest: symmetrical chest wall rise Resp normal respiratory effort and normal air movement Auscultation: clear to auscultation bilaterally Cardio regular rate, regular rhythm, S1 normal heart sound, S2 normal heart sound, no murmurs, no rub, no gallops and no clicks GI normal to inspection, nondistended, normoactive bowel sounds and non-tender appearance of the vagina normal Bladder / Kidney Exam: no CVA tenderness Back/Spine normal ROM Extremity normal to inspection and full ROM Skin no rashes or lesions noted Neuro oriented x3, CN's II-XII intact bilaterally and moves all extremities Sensorium / Orientation: awake, alert and oriented to person Motor Exam: clonus absent Deep Tendon Reflexes: Rt Patellar (L4): 2+ and Lt Patellar (L4): 2+ Weight / BMI Weight Weight: 235 lb 3.732 oz Body Mass Index (BMI) 39.1 ABG / Lab / Microbiology Data 11/20/24 10:40 11/20/24 10:40 D/C Instructions DC O2, CPAP, BIPAP Needs Home O2 Discharge instructions: No Meaningful Use Info Meaningful Use Meaningful Use Diagnoses (Choose all that apply): None applicable Discharge Plan Admission Admit Date/Time: 11/20/24 11:33 Primary Reason for Your Visit: Vaginal Delivery Attending Provider: Gisell Hope Primary Care Provider: [facility] Discharge Orders/Prescriptions Prescriptions: New acetaminophen 500 mg Tablet 1,000 mg PO Q6H PRN PRN (Reason: Pain 1-10 Or Fever) Qty: 0 0RF ibuprofen 600 mg Tablet 600 mg PO Q6H PRN PRN (Reason: Pain Score 1-10) Qty: 0 0RF Continued Prenatabs FA 29-1 mg tablet 1 tab PO DAILY Discontinued ferrous sulfate [Iron (ferrous sulfate)] 325 mg (65 mg iron) tablet 325 mg PO MOWEFR aspirin 81 mg capsule 81 mg PO DAILY Referrals / Follow Up: [facility] [Other] Disposition Disposition (needs filled in before D/C Order can be placed): Home, Self Care
--- NOTE | 2024-11-28 13:41 | NURSING ---
F/up phone call performed-- pt. reports feeling well. States lochia is minimal, and denies s+s of complications. States is going okay overall, but sometimes infant struggles with latch. IBCLC visit offered, and family scheduled for Sunday at 1030. Encouragement and support given.
== END 2024-11-22 17:45 | disposition home or self-care (01) | DRG 807 ==
LOC: WPOUT 15:08 → WP 15:08
PROVIDERS: Admitting Provider Obstetrics & Gynecology; Referring Provider Obstetrics & Gynecology; Visit Provider Obstetrics & Gynecology
DX: O13.4 Gestational [pregnancy-induced] hypertension without significant proteinuria, complicating childbirth (principal); Z37.0 Single live birth; O70.0 First degree perineal laceration during delivery; Z3A.39 39 weeks gestation of pregnancy
CPT/HCPCS: 59025; 59050; 82565; 82570; 84112; 84156; 84450; 84460; 84550; 85027; 86780; 86850; 86900; 86901; 99221; A4216; G0378

== ENCOUNTER 2024-11-28 15:42 | Emergency (ER) | payer OTHER, SELFPAY ==
[2024-11-28 15:43] VITALS: BP 177/100; TEMP 36.8
--- NOTE | 2024-11-28 15:52 | ED.RN ---
SPOKE WITH DR. STEVEN IN REGARDS TO PATIENT BP BEING 177/100 AND BEING [facility]. SPOKE WITH L&D CHARGE NURSE. PATIENT SENT TO LABOR AND DELIVER. PATIENT WAS NOT SEEN IN THE ER.
== END 2024-11-28 15:50 | disposition left against medical advice (07) ==
LOC: ED 16:11
PROVIDERS: PCP Obstetrics & Gynecology
DX: I10 Essential (primary) hypertension (principal)

== ENCOUNTER 2024-11-28 15:55 | Outpatient (CLI) | payer OTHER, SELFPAY ==
[2024-11-28] VITALS (14 sets, daily range): BP systolic 132–152; BP diastolic 71–86; PULSE 56–75; RESP 18; O2SAT 98
[2024-11-28] MEDS: NIFEdipine 30 MG Tablet PO (18:31)
[2024-11-28 18:33] LABS: Hematocrit 40.9 % (37-47); Hemoglobin 14.1 g/dL (12.0-15.0); Mean Corp Hgb Conc 34.5 g/dL (32-36); Mean Corpuscular Volume 88.3 fL (81-99); Mean Platelet Vol. 9.4 fl (6.2-12.0); Platelet Count 369 K/mm3 (150-450); RBC Distribution Width CV 13.3 % (11.6-14.6); RBC Distribution Width SD 43.4 fl (35.1-43.9); Red Blood Count 4.63 M/mm3 (4.2-5.4); White Blood Count 9.7 K/mm3 (4.4-11.0)
[2024-11-28 19:16] LABS: Creatinine, Urine (random) 60.20 mg/dL (28.00-217.00); Protein, Urine (Random) 63.3 mg/dL (0.0-12.0); Protein:Creat Ratio 1051 mg/g CRE (0-200)
[2024-11-28 19:27] LABS: AST(SGOT) 23 U/L (<=31); Alanine Aminotransfer ALT/SGPT 31 U/L (<=34); Estimated Creatinine Clearance 146.01 ml/min (50-250); Uric Acid 6.0 mg/dL (2.6-6.0)
--- NOTE | 2024-11-28 19:49 | OB.TRI.NOTE ---
HPI - General General Chief Complaint: Elevated BP HPI Narrative FERNANDO POLK, is a 29 F who presents with elevated BP at home. She denies headache, blurry vision or RUQ pain. PFSH PFSH Medical History Diabetes Low iron Back pain Migraine headache Non-smoker Home Medications ?Medication ?Instructions ?Recorded ?Last Taken ?Type vits,calcium no.78-iron 1 tab PO DAILY 11/12/23 11/28/24 History fumarate-folic acid 29 mg-1 mg tablet (Prenatabs FA) acetaminophen 500 mg tablet 1,000 mg (2 x 500 mg) PO Q6H PRN 11/22/24 Unknown Rx PRN Pain 1-10 Or Fever #0 tabs ibuprofen 600 mg tablet 600 mg PO Q6H PRN PRN Pain Score 11/22/24 Unknown Rx 1-10 #0 tabs nifedipine 30 mg tablet,extended 30 mg PO DAILY #30 tabs 11/28/24 Unknown Rx release 24 hr (Procardia XL) Allergy/AdvReac Type Severity Reaction Status Date / Time No Known Allergies Allergy Verified 11/28/24 17:39 Surgical History Hx of tonsillectomy Social History Smoking Status: Never smoker History 1 Elective abortions Hx Para 0 Spontaneous abortions Hx # Term Pregnancies Ectopic pregnancies Hx # Pregnancies Multiple births # of living children Physical Exam Const alert, oriented x3 and no apparent distress Assessment & Plan (1) Gestational hypertension: QUALIFIERS: Trimester: third trimester Qualified Code(s): O13.3 - Gestational [-induced] hypertension without significant proteinuria, third trimester PLAN: Plan PreE labs normal BP's mild range Start Procardia XL 30mg Follow up Sunday in office Reviewed BP & preE precautions
--- OUTSIDE RECORDS SUMMARY | 2024-11-28 20:49 | XMS RPT_ITS | CCD ---
Author Organization [facility] Care Team Providers Care Manager Market Research Name Role Phone GREGORY BARRERA Unavailable Unavailable GREGORY BARRERA Unavailable Unavailable GREGORY BARRERA Unavailable Unavailable [employer] ADMIN-COMPLIANCE PROFESSIONAL, LANE Primary Care Physician [phone] [employer]-COMPLIANCE PROFESSIONAL, LANE Attending Unavailabl e [employer] ADMIN-COMPLIANCE PROFESSIONAL, LANE Primary Care Unavailabl e [employer] ADMIN-COMPLIANCE PROFESSIONAL, LANE Attending Unavailabl e [employer] ADMIN-COMPLIANCE PROFESSIONAL, LANE Primary Care Unavailabl e [employer] ADMIN-COMPLIANCE PROFESSIONAL, LANE Attending Unavailabl e [employer] ADMIN-COMPLIANCE PROFESSIONAL, LANE Primary Care Unavailabl e Unavailable Primary Care Provider Unavailabl e [employer] ADMIN-COMPLIANCE PROFESSIONAL, LANE Attending Unavailabl e [employer] ADMIN-COMPLIANCE PROFESSIONAL, LANE Primary Care Unavailabl e [employer] ADMIN-COMPLIANCE PROFESSIONAL, LANE Attending Unavailabl e [employer] ADMIN-COMPLIANCE PROFESSIONAL, LANE Primary Care Unavailabl e BALTIC, LANE Primary Care Provider Unavailabl e Jayy FLYNN, Dr. Jameson Admit Provider [phone] Dr. Gisell Hope MD Attending Provider Dr. Gisell Hope MD Referring Provider Gisell Hope Attending Unavailable Gisell Hope Referring Unavailable EUBANKS, LANE Primary Care Unavailable Gisell Hope Admitting Unavailable NICHOLE CORTES Attending Unavailable ZULLY, MELISSA Referring Unavailable ZULLY, MELISSA Referring Unavailable HAURY, BENITA Referring Unavailable HAEMANI, BENITA Referring Unavailable CLINT VASQUES Attending Unavailable ZULLY, MELISSA Attending Unavailable ZULLY, MELISSA Referring Unavailable CLINT VASQUES Attending Unavailable CLINT VASQUES Attending Unavailable DENICE SALES Attending Unavail able CLINT VASQUES Attending Unavailable GISELL HOPE Attending Unavailable CLINT VASQUES Attending Unavailable RONY TYLER Attending Unavailable SELF Referring Unavailable CLINT VASQUES Attending Unavailable NICHOLE CORTES Referring Unavailable NICHOLE CORTES Attending Unavailable NICHOLE CORTES Referring Unavailable CLINT VASQUES Attending Unavailable CLINT VASQUES Attending Unavailable CLINT VASQUES Referring Unavailable CLINT VASQUES Referring Unavailable BENITA CONN Attending Unavailable Sherman FLYNN, Dr. Abarca Primary Care Provider Provider, Ed Physician Emergency Provider Mark Vasques MD, Dr. Abarca Attending Provider Dr. Clint Vasques MD Referring Provider Medications Current Medications Medication Drug Class(es) Dates Sig (Normalized) Sig (Original) acetaminophen 500 mg oral tablet (3 sources) Start: 11-22-2024 take 1-10 tablets by mouth every six hours as needed for pain Acetaminophen 500 mg Tablet Active 1000 mg PO EVERY 6 HOURS NEEDED as needed for Pain 1-10 Or Fever 0 0 November 22, 2024 12:00am ibuprofen 600 mg oral tablet (7 sources) Nonsteroidal Anti-inflammatory Drug Start: 11-22-2024 take 1 tablet by mouth every six hours as needed for pain Ibuprofen 600 mg Tablet Active 600 mg PO EVERY 6 HOURS NEEDED as needed for Pain Score 1-10 0 0 November 22, 2024 12:00am Start: 10-11-2022 ibuprofen 200 mg oral tablet [...] 1 Start: 10-11-2022 take 1 tablet by rusty th once daily Multivitamin Dose = 1 tab(s), Oral, Daily, 0 Refill(s) Start Date: 10/11/22 Status: Ordered NIFEdipine 30 mg osmotic 24 hr extended release oral tablet (1 source) Dihydropyridine Calcium Channel Artur Start: 11-28-2024 take 1 tablet by mouth once daily Nifedipine (Procardia Xl) 30 mg tablet extended release 24hr Active 30 mg PO DAILY 30 0 November 28, 2024 12:00am Vit,Jem 41-Tfki-Xfexm (Prenatabs Fa) 29-1 mg tablet (3 sources) Start: 11-12-2023 Vit,C al 11-Xtdi-Jtajy (Prenatabs Fa) 29-1 mg tablet Active 1 {tbl} PO DAILY November 12, 2023 12:00am vits62/FA/om3/dha /epa ( GUMMY ORAL) (20 sources) vits62/FA/om3/dh a/epa ( GUMMY ORAL) Take 2 Pieces by mouth once daily. Active Completed/Discontinued Medications Medication Drug Class(es) Dates Sig (Normalized) Sig (Original) acetaminophen 300 mg / butalbital 50 mg / caffeine 40 mg oral capsule (4 sources) Barbiturate, Central Nervous System Stimulant, Methylxanthine Start: 10-29-2022 End: 11-12-2023 Butalbital-Acetami nophen-Caff (Fioricet) 50-300-40 mg capsule Discontinued 1 NMA PO Q8H as needed for pain 12 0 October 29, 2022 12:00am November 12, 2023 11:08am acetaZOLAMIDE 250 mg oral tablet (14 sources) Carbonic Anhydrase Inhibitor Start: 08-18-2023 End: 11-20-2024 take 1 tablet by mouth once daily Acetazolamide 250 mg tablet Discontinued 250 mg PO DAILY November 12, 2023 12:00am November 20, 2024 9:20am Start: 11-15-2022 take 1 dose by mouth twice ava ly Diamox Dose : 500 mg =, Oral, BID, 0 Refill(s) Start Date: 11/15/22 Status: Ordered aspirin 81 mg oral tablet (20 sources) Platelet Aggregation Inhibitor, Nonsteroidal Anti-inflammatory Drug Start: 11-20-2024 End: 11-22-2024 take 1 capsule by mouth once daily Aspirin 81 mg capsule Discontinued 81 mg PO DAILY November 20, 2024 12:00am November 22, 2024 12:51pm Start: 04-18-2024 End: 11-25-2024 take 1 tablet by mouth once daily aspirin, enteric coated (ECOTRIN LOW STRENGTH) 81 mg EC tablet Take 1 tablet by mouth once daily. 90 tablet 3 04/18/2024 11/25/2024 Discontinued ferrous sulfate 325 mg oral tablet (19 sources) Start: 10-26-2022 End: 11-22-2024 Ferrous Sulfate (Iron (Taina us Sulfate)) 325 mg (65 mg iron) tablet Discontinued 325 mg PO MOWEFR October 26, 2022 12:00am November 22, 2024 12:51pm End: 10-08-2024 ferrous sulfate (IRON ORAL) Take by mouth. 10/08/2024 Discontinued End: 04-18-2024 ferrous sulfate (IRON ORAL) Take by mouth. 04/18/2024 Discontinued ferrous sulfate (IRON ORAL) Take by mouth. Active ferrous sulfate (IRON ORAL) Take by mouth. 0 Active ondansetron 4 mg disintegrating oral tablet (4 sources) Serotonin-3 Receptor Antagonist Start: 10-29-2022 End: 11-12-2023 take 1 tablet by mouth every eight hours as needed for nausea Ondansetron 4 mg tablet,disintegrating Discontinued 4 mg PO EVERY 8 HOURS NEEDED as needed for Nausea 10 0 October 29, 2022 12:00am November 12, 2023 11:08am Problems Active Problems Problem Classification Problem Date Documented Date Episodic/Chronic Blindness and vision defects (4 sources) Blurring of visual image 10-11-2022 Episodic Complications of surgical procedures or medical care (4 sources) Headache following lumbar puncture; Translations: [Other reaction to spinal and lumbar puncture] 10-30-2022 Episodic Diabetes mellitus without complication (9 sources) Hyperglycemia; Translations: [Prediabetes] 10-11-2022 Episodic Hypertension complicating ; childbirth and the puerperium (7 sources) -induced hypertension; Translations: [Gestational [-induced] hypertension without significant proteinuria, unspecified trimester] Onset: 11-22-2024 11-20-2024 Episodic Immunizations and screening for infectious disease (5 sources) Patient encounter status; Translations: [Encounter for screening for human papillomavirus (HPV)] 09-10-2023 Episodic Nutritional deficiencies (3 sources) Iron deficiency 11-15-2022 Episodic Other complications of (3 sources) Anemia of ; Translations: [Anemia complicating , third trimester] 09-24-2024 Chronic Other complications of (1 source) Anemia complicating , third trimester; Translations: [Anemia during in third trimester (HCC)] Onset: 11-11-2024 Chronic Other complications of (1 source) Obesity complicating , unspecified trimester; Translations: [Obesity in ([facility])] Onset: 05-20-2024 Chronic Other complications of (1 source) Supervision of high risk , unspecified, third trimester; Translations: [Supervision of high risk in third trimester ([facility])] Onset: 10-08-2024 Episodic Other complications of (1 source) Supervision of other high risk pregnancies, second trimester; Translations: [Supervision of other high risk pregnancies, second trimester ([facility])] Onset: 10-08-2024 Episodic Other female genital disorders (7 sources) Abnormal uterine bleeding; Translations: [Abnormal uterine and vaginal bleeding, unspecified] 10-17-2023 Chronic Other female genital disorders (3 sources) Polyp of corpus uteri; Translations: [Polyp of corpus uteri] 11-14-2023 Episodic Other nervous system disorders (20 sources) Benign intracranial hypertension; Translations: [Benign intracranial hypertension] 11-15-2022 Chronic Other nervous system disorders (1 source) Benign intracranial hypertension; Translations: [IIH (idiopathic intracranial hypertension)] Onset: 07-15-2024 Chronic Other nutritional; endocrine; and metabolic disorders (1 source) Severe obesity; Translations: [Morbid (severe) obesity due to excess calories] 09-10-2023 Chronic Other and delivery including normal (14 sources) with uncertain dates; Translations: [Encounter for supervision of normal , unspecified, unspecified trimester] Onset: 04-18-2024 04-18-2024 Episodic Other screening for suspected conditions (not mental disorders or infectious disease) (20 sources) Cancer cervix screening status; Translations: [Encounter for screening for malignant neoplasm of cervix] Onset: 10-23-2023 Resolved: 11-27-2023 09-10-2023 Episodic Residual codes; unclassified (4 sources) Family history [...] of ] 11-14-2024 Episodic Residual codes; unclassified (7 sources) Gestation period, 39 weeks; Translations: [39 weeks gestation of ] 11-19-2024 Episodic Residual codes; unclassified (2 sources) 39 weeks gestation of ; Translations: [39 weeks gestation of ] Onset: 11-19-2024 Episodic Residual codes; unclassified (1 source) 38 [...] weeks gestation of (HCC)] Onset: 09-03-2024 Episodic Unclassified (1 source) Unknown / UNK(Unknown) Onset: 09-22-2016 Unclassified (20 sources) [facility] Education - COMMON Onset: 04-18-2024 04-18-2024 Unclassified (20 sources) Education - [place] Onset: 04-18-2024 04-18-2024 Unclassified (6 sources) Labor finding 11-20-2024 Past or Other Problems Problem Classification Problem Date Documented Da te Episodic/Chronic Deficiency and other anemia (20 sources) Iron deficiency anemia; Translations: [Iron deficiency anemia, unspecified] Resolved: 10-08-2024 04-18-2024 Episodic Other complications of (20 sources) Obesity; Translations: [Obesity complicating , unspecified trimester] Onset: 05-20-2024 Resolved: 11-25-2024 05-20-2024 Chronic Other complications of (20 sources) High risk ; Translations: [Supervision of other high risk pregnancies, second trimester] Onset: 04-18-2024 Resolved: 11-25-2024 05-20-2024 Episodic Other complications of (10 sources) Suspected macroscopic fetus; Translations: [Maternal care for excessive growth, third trimester, not applicable or unspecified] Onset: 11-07-2024 Resolved: 11-25-2024 11-07-2024 Episodic Other complications of (1 source) [...] adult] Onset: 04-18-2024 Resolved: 05-20-2024 04-18-2024 Chronic Residual codes; unclassified (1 source) 25 weeks [...] Test Name Value Interpretation Reference Range Facility Erythrocyte distribution wid th ratioOrdered By: Rony Tyler on 11-28-2024 Erythrocyte distribution width (RBC) [Ratio] 13.3 % 11.6-14.6 [facility] Erythrocyte distribution wid th standard deviationOrdered By: Rony Tyler on 11-28-2024 Erythrocyte distribution width (RBC) [Ratio] 43.4 fl 35.1-43.9 [facility] Glomerular filtration rate ( GFR) estimation/1.73 sq m using serum, plasma, or whole bOrdered By: Rony Tyler on 11-28-2024 GFR/1.73 sq M.predicted among non-blacks MDRD (S/P/Bld) [Vol rate/Area] 121 mL/min/{1.73_m2} >60 [facility] Comment on above: mL/min/1.73m2 CKD-EP I Creatinine Equation (2020) Hematocrit Auto (Bld) [Volum e fraction]Ordered By: Rony Tyler on 11-28-2024 Hematocrit (Bld) [Volume fraction] 40.9 % 37-47 [facility] Hemoglobin measurementOrdere d By: Rony Tyler on 11-28-2024 Hemoglobin (Bld) [Mass/Vol] 14.1 g/dL 12.0-15.0 [facility] Laboratory - Chemistry and C hemistry - challengeOrdered By: Rony Tyler on 11-28-2024 AST [Catalytic activity/Vol] 23 U/L <32 [facility] MCV (mean corpuscular volume ) determinationOrdered By: Rony Tyler on 11-28-2024 MCV (RBC) [Entitic vol] 88.3 fL 81-99 [facility] Mean corpuscular hemoglobin (MCH) determinationOrdered By: Rony Tyler on 11-28-2024 MCH (RBC) [Entitic mass] 30.5 pg 27.0-32.0 [facility] Mean corpuscular hemoglobin concentration (MCHC) determinationOrdered By: Rony Tyler on 11-28-2024 MCHC (RBC) [Mass/Vol] 34.5 g/dL 32-36 [facility] Mean platelet volume determi nationOrdered By: Rony Tyler on 11-28-2024 Platelet mean volume (Bld) [Entitic vol] 9.4 fL 6.2-12.0 [facility] Platelet countOrdered By: Bebeto Tyler on 11-28-2024 Platelets (Bld) [#/Vol] 369 10*3/uL 150-450 [facility] RBC Auto (Bld) [#/Vol]Ordere d By: Rony Tyler on 11-28-2024 RBC (Bld) [#/Vol] 4.63 10*6/uL 4.2-5.4 [facility] Random urine creatinine chris urement (mass/volume)Ordered By: Rony Tyler on 11-28-2024 Creatinine Unsp time (U) [Mass/Vol] 60.20 mg/dL 28.00-217.00 [facility] Serum creatinine measurement (mass/volume)Ordered By: Rony Tyler on 11-28-2024 Creatinine [Mass/Vol] 0.65 mg/dL Low 0.70-1.20 [facility] Serum or plasma alanine camarena otransferase (ALT) measurementOrdered By: Rony Tyler on 11-28-2024 ALT [Catalytic activity/Vol] 31 U/L <35 [facility] Serum or plasma uric acid me asurement (mass/volume)Ordered By: Rony Tyler on 11-28-2024 Urate [Mass/Vol] 6.0 mg/dL 2.6-6.0 [facility] Comment on above: The drugs N-Acetylcy steine and Metamizole may falsely depress this assay. Urine protein measurement (m ass/volume)Ordered By: Rony Tyler on 11-28-2024 Protein (U) [Mass/Vol] 63.3 mg/dL High 0.0-12.[address] [facility] Urine protein/creatinine mas s ratioOrdered By: Rony Tyler on 11-28-2024 Protein/Creatinine (U) [Mass ratio] 1051 mg/g CRE High 0-200 [facility] White blood cell (WBC) count Ordered By: Rony Tyler on 11-28-2024 WBC (Bld) [#/Vol] 9.7 10*3/uL 4.4-11.0 [facility] (ROM) Rupture Of Membraneson 11-20-2024 ROM Negative Normal Negative [facility] Comment on above: Result Comment: Amni otic fluid not present indicates No Rupture of Membranes at time of specimen collection. Performed By: #### L 205.1000 ####[facility] [address] [place], [address] AST(SGOT)on 11-20-2024 AST [Catalytic activity/Vol] 25 U/L Normal <=31 [facility] Comment on above: Performed By: #### L 100.0500, L501.1400, L501.4405, L501.1105, L501.4100, L501.0900 #### [facility] [address] [place], [address] Alanine Aminotransferas (SGP T)on 11-20-2024 ALT [Catalytic activity/Vol] 17 U/L Normal <=34 [facility] Comment on above: Performed By: #### L 100.0500, L501.1400, L501.4405, L501.1105, L501.4100, L501.0900 #### [facility] [address] [place], [address] CBC-Complete Blood Cnt No Di ffon 11-20-2024 Erythrocyte distribution width (RBC) [Ratio] 13.6 % Normal 11.6-14.6 [facility] Comment on above: Performed By: #### L 100.0500, L501.1400, L501.4405, L501.1105, L501.4100, L501.0900 #### [facility] [address] [place], [address] Hematocrit (Bld) [Volume fraction] 39.9 % Normal 37-47 [facility] Comment on above: Performed By: #### L 100.0500, L501.1400, L501.4405, L501.1105, L501.4100, L501.0900 #### [facility] [address] [place], [address] Hemoglobin (Bld) [Mass/Vol] 13.8 g/dL Normal 12.0-15.0 [facility] Comment on above: Performed By: #### L 100.0500, L501.1400, L501.4405, L501.1105, L501.4100, L501.0900 #### [facility] [address] [place], [address] MCH (RBC) [Entitic mass] 30.4 pg Normal 27.0-32.0 [facility] Comment on above: Performed By: #### L 100.0500, L501.1400, L501.4405, L501.1105, L501.4100, L501.0900 #### [facility] [address] [place], [address] MCHC (RBC) [Mass/Vol] 34.6 g/dL Normal 32-36 [facility] Comment on above: Performed By: #### L 100.0500, L501.1400, L501.4405, L501.1105, L501.4100, L501.0900 #### [facility] [address] [place], [address] MCV (RBC) [Entitic vol] 87.9 fL Normal 81-99 [facility] Comment on above: Performed By: #### L 100.0500, L501.1400, L501.4405, L501.1105, L501.4100, L501.0900 #### [facility] [address] [place], [address] Platelet mean volume (Bld) [Entitic vol] 10.6 fL Normal 6.2-12.0 [facility] Comment on above: Performed By: #### L 100.0500, L501.1400, L501.4405, L501.1105, L501.4100, L501.0900 #### [facility] [address] [place], [address] Platelets (Bld) [#/Vol] 249 10*3/uL Normal 150-450 [facility] Comment on above: Performed By: #### L 100.0500, L501.1400, L501.4405, L501.1105, L501.4100, L501.0900 #### [facility] [address] [place], [address] RBC (Bld) [#/Vol] 4.54 10*6/uL Normal 4.2-5.4 [facility] Comment on above: Performed By: #### L 100.0500, L501.1400, L501.4405, L501.1105, L501.4100, L501.0900 #### [facility] [address] [place], [address] RDW SD 43.9 fl Normal 35.1-43.9 [facility] Comment on above: Performed By: #### L 100.0500, L501.1400, L501.4405, L501.1105, L501.4100, L501.0900 #### [facility] [address] [place], [address] WBC (Bld) [#/Vol] 10.7 10*3/uL Normal 4.4-11.0 [facility] Comment on above: Performed By: #### L 100.0500, L501.1400, L501.4405, L501.1105, L501.4100, L501.0900 #### [facility] [address] [place], [address] Erythrocyte distribution wid th ratioOrdered By: Gisell Hope on 11-20-2024 Erythrocyte distribution width (RBC) [Ratio] 13.6 % 11.6-14.6 [facility] Erythrocyte distribution wid th standard deviationOrdered By: Gisell Hope on 11-20-2024 Erythrocyte distribution width (RBC) [Ratio] 43.9 fl 35.1-43.9 [facility] Glomerular filtration rate ( GFR) estimation/1.73 sq m using serum, plasma, or whole bOrdered By: Gisell Hope on 11-20-2024 GFR/1.73 sq M.predicted among non-blacks MDRD (S/P/Bld) [Vol rate/Area] 129 mL/min/{1.73_m2} >60 [facility] Comment on above: mL/min/1.73m2 CKD-EP I Creatinine Equation (2020) H AND P Exam - OB/GYNon 10-25 H&P Exam - [employer] [facility] Medical Records Department [address] [place] [address] H P Exam - [employer] 11/20/242006 MR#: [id number] Acct: [id number] Name: SOHEILA POLK Rep #: [id number] : 1995 29 From: Gisell Hope MD PCP: LANE [facility] Status:ADM IN Location: [id number] HPI - General General Date of Admission: 11/20/24 Date of Service: 11/20/24 Chief Complaint: Possible ROM HPI Narrative SOHEILA POLK, is a 29 F who presents possible ROM and contractions. 5 cm. Mild range BP. Admit for labor Maternal Data Information Final RED: 11/26/24 Gestational age: 39+1 PFSH PFSH Medical History Diabetes Low iron Back pain Migraine headache Non-smoker Home Medications ???Medication ???Instructions ???Recorded ???Last Taken ???Type ferrous sulfate 325 mg (65 mg 325 mg PO MOWEFR 10/26/22 11/17/24 History iron) tablet (Iron (ferrous sulfate)) vits,calcium no.78-iron 1 tab PO DAILY 11/12/23 11/20/24 H istory fumarate-folic acid 29 mg-1 mg tablet (Prenatabs FA) aspirin 81 mg capsule 81 mg PO DAILY 11/20/24 Unknown Hi story Allergy/AdvReac Type Severity Reaction Status Date / Time No Known Allergies Allergy Verified 11/20/24 09:16 Surgical History Hx of tonsillectomy Social History Smoking Status: Never smoker History 1 Elective abortions Hx Para 0 Spontaneous abortions Hx # Term Pregnancies Ectopic pregnancies Hx # Pregnancies Multiple births # of living children NST FHR Rate Baby A Variability:: Moderate Accelerations:: 15 x 15 Decelerations:: None NST Reactive:: Yes ROS Constitutional Constitutional: Denies fatigue, fever(s) or malaise Eyes Eyes: Denies change in vision ENT HEENT: Denies dizziness or headache(s) Cardiovascular Cardiovascular: Denies chest pain, dyspnea or lightheadedness Respiratory/Chest Respiratory/Chest: Denies cough or dyspnea Gastrointestinal Gastrointestinal: Denies change in bowel habits Genitourinary Genitourinary: Denies burning urination or genital lesions Integumentary Integumentary: Denies rash Neurologic Neurologic: Denies confusion, dizziness, headache(s), numbness or weakness Vital Signs Vital Signs Vital Signs: 11/20/24 09:23 11/20/24 09:23 11/20/24 09:23 Temperature Temperature Source Temporal Pulse Rate 83 Respiratory Rate Blood Pressure 144/88 H BP Systolic 144 BP Diastolic 88 Pulse Ox 11/20/24 09:23 11/20/24 09:23 11/20/24 09:23 Temperature 99.0 F Temperature Source Pulse Rate Respiratory Rate 16 Blood Pressure BP Systolic BP Diastolic Pulse Ox 98 11/20/24 10:10 11/20/24 10:10 11/20/24 10:25 Temperature Temperature Source Pulse Rate 81 Respiratory Rate Blood Pressure 152/87 H 154/81 H BP Systolic 152 154 BP Diastolic 87 81 Pulse Ox 11/20/24 10:25 11/20/24 10:25 11/20/24 10:40 Temperature Temperature Source Pulse Rate 81 Respiratory Rate 16 Blood Pressure 153/84 H BP Systolic 153 BP Diastolic 84 Pulse Ox 11/20/24 10:40 11/20/24 10:55 11/20/24 10:55 Temperature Temperature Source Pulse Rate 77 77 Respiratory Rate Blood Pressure 146/79 H BP Systolic 146 BP Diastolic 79 Pulse Ox 11/20/24 11:10 11/20/24 11:10 11/20/24 11:25 Temperature Temperature Source Pulse Rate 80 Respiratory Rate Blood Pressure 142/80 H 143/71 H BP Systolic 142 143 BP Diastolic 80 71 Pulse Ox 11/20/24 11:25 11/20/24 11:40 11/20/24 11:40 Temperature Temperature Source Pulse Rate 83 81 Respiratory Rate Blood Pressure 146/85 H BP Systolic 146 BP Diastolic 85 Pulse Ox 11/20/24 11:55 11/20/24 11:55 11/20/24 12:10 Temperature Temperature Source Pulse Rate 84 Respiratory Rate Blood Pressure 147/87 H 152/93 H BP Systolic 147 152 BP Diastolic 87 93 Pulse Ox 11/20/24 12:10 11/20/24 13:00 11/20/24 13:00 Temperature Temperature Source Pulse Rate 87 87 Respiratory Rate Blood Pressure BP Systolic BP Diastolic Pulse Ox 99 11/20/24 13:05 11/20/24 13:05 11/20/24 13:10 Temperature Temperature Source Pulse Rate 84 Respiratory Rate Blood Pressure 158/81 H BP Systolic 158 BP Diastolic 81 Pulse Ox 100 11/20/24 13:10 11/20/24 13:10 11/20/24 13:10 Temperature Temperature Source Pulse Rate 80 Respiratory Rate 18 Blood Pressure BP Systolic BP Diastolic Pulse Ox 99 11/20/24 13 (more content not included)... Normal [facility] H&P Exam - [employer] [facility] Medical Records Department [address] [place] [address] H P Exam - [employer] 11/20/24 0933 MR#: [id number] Acct: [id number] Name: SOHEILA POLK Rep #: [id number] : 1995 29 From: Gisell Hope MD PCP: [facility] Status:ADM IN Location: [id number] HPI - General General Date of Admission: 11/20/24 Date of Service: 11/20/24 Chief Complaint: Possible ROM HPI Narrative SOHEILA POLK, is a 29 F who presents with possible ROM and contractions. Not SROM. But 5 cm with mild range pressures. Admitted for labor Maternal Data Information Final RED: 11/26/24 Gestational age: 39+1 PFSH PFSH Medical History Diabetes Low iron Back pain Migraine headache Non-smoker Home Medications ???Medication ???Instructions ???Recorded ???Last Taken ???Type ferrous sulfate 325 mg (65 mg 325 mg PO MOWEFR 10/26/22 11/17/24 History iron) tablet (Iron (ferrous sulfate)) vits,calcium no.78-iron 1 tab PO DAILY 11/12/23 11/20/24 H istory fumarate-folic acid 29 mg-1 mg tablet (Prenatabs FA) aspirin 81 mg capsule 81 mg PO DAILY 11/20/24 Unknown Hi story Allergy/AdvReac Type Severity Reaction Status Date / Time No Known Allergies Allergy Verified 11/20/24 09:16 Surgical History Hx of tonsillectomy Social History Smoking Status: Never smoker History 1 Elective abortions Hx Para 0 Spontaneous abortions Hx # Term Pregnancies Ectopic pregnancies Hx # Pregnancies Multiple births # of living children NST FHR Rate Baby A Variability:: Moderate Decelerations:: None NST Reactive:: Yes Vital Signs Vital Signs Vital Signs: 11/20/24 09:23 11/20/24 09:23 Pulse Rate 83 Blood Pressure 144/88 H BP Systolic 144 BP Diastolic 88 Weight Weight: 106.7 kg Body Mass Index (BMI) 39.1 Labs Labs Labs: Blood Type A POSITIVE Antibody Screen NEGATIVE Hct 39.9 % (37-47) Hgb 13.8 g/dL (12.0-15.0) Syphilis Total Ab Nonreactive (Nonreactive) 11/20/242005 Cosigner Signature (if applicable): CC: Dr. Gisell Hope MD; LANE [facility] Signed Normal [facility] Hematocrit Auto (Bld) [Volum e fraction]Ordered By: Gisell Hope on 11-20-2024 Hematocrit (Bld) [Volume fraction] 39.9 % 37-47 [facility] Hemoglobin measurementOrdere d By: Gisell Hope on 11-20-2024 Hemoglobin (Bld) [Mass/Vol] 13.8 g/dL 12.0-15.0 [facility] Laboratory - Chemistry and C hemistry - challengeOrdered By: Gisell Hope on 11-20-2024 AST [Catalytic activity/Vol] 25 U/L <32 [facility] MCV (mean corpuscular volume ) determinationOrdered By: Gisell Hope on 11-20-2024 MCV (RBC) [Entitic vol] 87.9 fL 81-99 [facility] MR/OB.VAGDELIon 11-20-2024 MR/OB.VAGDELI [facility] Medical Records Department [address] [place] [address] OB Vaginal Delivery 11/20/241952 MR#: [id number] Acct: [id number] Name: SOHEILA POLK Rep #: [id number] : 1995 29 From: Gisell Hope MD PCP: L[facility] Status:ADM IN Location: [place]858-8 Assessment Plan (1) (spontaneous vaginal delivery): (2) Gestational hypertension: QUALIFIERS: Trimester: third trimester Qualified Code(s): O13.3 - Gestational [-induced] hypertension without significant proteinuria, third trimester (3) 39 weeks gestation of : Maternal Data Information Final RED: 11/26/24 Gestational age: 39+1 Vaginal Delivery Maternal Presentation Maternal Presentation: Active Labor Type of Induction: Amniotomy Medical Reason for Induction: Gestational Hypertension Vaginal Delivery Information Procedure Performed: Spontaneous Vaginal Delivery Surgeon/Practitione r: Gisell Hope Date of Procedure: 11/20/24 Pre-Procedure Diagnosis: Labor Post-Procedure Diagnosis: Type of anesthesia: Epidural Estimated Blood Loss: 150 cc Time of Delivery: 19:22 Findings Description of procedure: Progressed to complete with AROM only. Once complete pushed over and intact perineum. Delivered OA. The shoulders delivered easily followed but the rest of the body. The cried upon delivered and was placed on the maternal abdomen. The cord was clamped and cut at one minute. The placenta delivered spontaneously. A 1st degree laceration was repaired and a right labial laceration was repaired with 3-0 Vicryl. All sponge, instrument and needle counts were correct. Presentation: Vertex and CHELSEA Amniotic Membrane Rupture Type: Artificial Amniotic Fluid Description: Clear Placental Delivery Description: Spontaneous Placenta Disposition: [facility] Specimen collected: No Cord Vessel Description: 3 Vessels Cord Entanglement: None Infant A Gender: Male (1 minute): 9 (5 minute): 9 Delayed Cord Clamping: Yes Nipping Machine Operator heading and priming tool setter: No Post Vaginal Deli Medications given after delivery: IV Pitocin Episiotomy Description: None Laceration: Vaginal Extension/lac and 1st degree Complication Complications: No 11/20/242015 Cosigner Signature (if applicable): CC: Dr. Gisell Hope MD; L[facility] Signed Normal [facility] Mean corpuscular hemoglobin (MCH) determinationOrdered By: Gisell Hope on 11-20-2024 MCH (RBC) [Entitic mass] 30.4 pg 27.0-32.0 [facility] Mean corpuscular hemoglobin concentration (MCHC) determinationOrdered By: Gisell Hope on 11-20-2024 MCHC (RBC) [Mass/Vol] 34.6 g/dL 32-36 [facility] Mean platelet volume determi nationOrdered By: Gisell Hope on 11-20-2024 Platelet mean volume (Bld) [Entitic vol] 10.6 fL 6.2-12.0 [facility] Platelet countOrdered By: Elier Hope on 11-20-2024 Platelets (Bld) [#/Vol] 249 10*3/uL 150-450 [facility] Protein+Creatinine Ratio,Uri neon 11-20-2024 PROT:CRE RATIO 154 mg/g CRE Normal 0-200 [facility] Comment on above: Performed By: #### L 100.0500, L501.1400, L501.4405, L501.1105, L501.4100, L501.0900 #### [facility] [address] [place], [address] Protein (U) [Mass/Vol] 16.0 mg/dL High 0.0-12.[address] [facility] Comment on above: Performed By: #### L 100.0500, L501.1400, L501.4405, L501.1105, L501.4100, L501.0900 #### [facility] [address] [place], [address] UR CREAT 104.00 mg/dL Normal 28.00-217.00 [facility] Comment on above: Performed By: #### L 100.0500, L501.1400, L501.4405, L501.1105, L501.4100, L501.0900 #### [facility] [address] [place], [address] RBC Auto (Bld) [#/Vol]Ordere d By: Gisell Hope on 11-20-2024 RBC (Bld) [#/Vol] 4.54 10*6/uL 4.2-5.4 [facility] Random urine creatinine chris urement (mass/volume)Ordered By: Gisell Hope on 11-20-2024 Creatinine Unsp time (U) [Mass/Vol] 104.00 mg/dL 28.00-217.00 [facility] Serum Creatinine AND GFRon 0 11-20-2024 Creatinine [Mass/Vol] 0.49 mg/dL Low 0.70-1.20 [facility] Comment on above: Performed By: #### L 100.0500, L501.1400, L501.4405, L501.1105, L501.4100, L501.0900 #### [facility] [address] [place], [address] ECRCL 201.90 ml/min Normal 50-250 [facility] Comment on above: Performed By: #### L 100.0500, L501.1400, L501.4405, L501.1105, L501.4100, L501.0900 #### [facility] [address] [place], [address] GFR/1.73 sq M.predicted among non-blacks MDRD (S/P/Bld) [Vol rate/Area] 129 mL/min/{1.73_m2} Normal >60 [facility] Comment on above: Result Comment: mL/m in/1.73m2 CKD-EPI Creatinine Equation (2020) Performed By: #### L 100.0500, L501.1400, L501.4405, L501.1105, L501.4100, L501.0900 #### [facility] [address] [place], [place], [address] Serum creatinine measurement (mass/volume)Ordered By: Gisell Hope on 11-20-2024 Creatinine [Mass/Vol] 0.49 mg/dL Low 0.70-1.20 [facility] Serum or plasma alanine camarena otransferase (ALT) measurementOrdered By: Gisell Hope on 11-20-2024 ALT [Catalytic activity/Vol] 17 U/L <35 [facility] Serum or plasma uric acid me asurement (mass/volume)Ordered By: Gisell Hope on 11-20-2024 Urate [Mass/Vol] 4.6 mg/dL 2.6-6.0 [facility] Comment on above: The drugs N-Acetylcy steine and Metamizole may falsely depress this assay. Syphilis Antibodieson 2024 Syphilis Abs Non-Reactive Normal Nonreactive [facility] Comment on above: Performed By: #### L 509.8002 #### [facility] [address] [facility] [place], [address] Type AND Screenon 11-20-2024 ABO and Rh group Nom (Bld) Blood group A Rh(D) positive Normal [facility] Comment on above: Order Comment: PN Performed By: #### B TS #### [facility] [address] [place], [address] Uric Acidon 11-20-2024 URIC 4.6 mg/dL Normal 2.6-6.0 [facility] Comment on above: Result Comment: The drugs N-Acetylcysteine and Metamizole may falsely depress this assay. Performed By: #### L 100.0500, L501.1400, L501.4405, L501.1105, L501.4100, L501.0900 ####[facility] [address] [place], [address] Urine protein measurement (m ass/volume)Ordered By: Gisell Hope on 11-20-2024 Protein (U) [Mass/Vol] 16.0 mg/dL High 0.0-12.[address] [facility] Urine protein/creatinine mas s ratioOrdered By: Gisell Hope on 11-20-2024 Protein/Creatinine (U) [Mass ratio] 154 mg/g CRE 0-200 [facility] White blood cell (WBC) count Ordered By: Gisell Hope on 11-20-2024 WBC (Bld) [#/Vol] 10.7 10*3/uL 4.4-11.0 [facility] URINE OB DIP B/Oon 5 Glucose Ql (U) Negative Neg mg/dL [facility] Protein.monoclonal (U) [Mass/Vol] trace Neg mg/dL [facility] URINE OB DIP B/Oon 5 Glucose Ql (U) Negative Neg mg/dL [facility] Protein.monoclonal (U) [Mass/Vol] Negative Neg mg/dL [facility] Examination level ultrasound on 11-07-2024 [facility] Examination level ultrasound on 11-05-2024 Radiology Study observation (narrative) [facility] ROUTINE, GROUP B ST REPTOCOCCUS BY PCRon 11-05-2024 ROUTINE, GROUP B STREPTOCOCCUS BY PCR Not detected Normal [facility] Comment on above: Performed By: #### G BPCR ####[facility] LABCLIA [id number] [place] [address] [place] URINE OB DIP B/Oon 5 Glucose Ql (U) Negative Neg mg/dL [facility] Interpretation and review of laboratory results Normal [facility] Protein.monoclonal (U) [Mass/Vol] Negative Neg mg/dL [facility] URINE OB DIP B/Oon 5 Glucose Ql (U) Negative Neg mg/dL [facility] Interpretation and review of laboratory results Normal [facility] Protein.monoclonal (U) [Mass/Vol] Negative Neg mg/dL [facility] Examination level ultrasound on 10-09-2024 [facility] Examination level ultrasound on 10-08-2024 Radiology Study observation (narrative) [facility] CBC W Auto Differential pane l (Bld)on 09-03-2024 Basophils (Bld) [#/Vol] 10*3/uL Normal <0.11 [facility] Comment on above: Order Comment: Speci men Type: BLOOD SPECIMENOrdering Facility: [facility] Address: [address] [place] [address] Performed By: #### 5 7021-8 ####[facility] MILLTOWNCLIA [id number] [place] [address] [place] Basophils/100 WBC (Bld) 0.2 % Normal [facility] Comment on above: Order Comment: Speci men Type: BLOOD SPECIMENOrdering Facility: [facility] Address: [address] [place] [address] Performed By: #### 5 7021-8 ####[facility]ENTERLIA [id number] [place] [address] [place] Differential cell count method Nom (Bld) Auto Normal [facility] Comment on above: Order Comment: Speci men Type: BLOOD SPECIMENOrdering Facility: [facility] Address: [address] [place] [address] Performed By: #### 5 7021-8 ####[facility]ENTERLIA [id number] [place] [address] [place] Eosinophils (Bld) [#/Vol] 0.05 10*3/uL Normal <0.46 [facility] Comment on above: Order Comment: Speci men Type: BLOOD SPECIMENOrdering Facility: [facility] Address: [address] [place] [address] Performed By: #### 5 7021-8 ####[facility] MILLWNCLIA [id number] [place] [address] [place] Eosinophils/100 WBC (Bld) 0.4 % Normal [facility] Comment on above: Order Comment: Speci men Type: BLOOD SPECIMENOrdering Facility: [facility] Address: [address] [place] [address] Performed By: #### 5 7021-8 ####[facility] MAURIFedericaNCJORDAN [id number] [place] [address] [place] Erythrocyte distribution width (RBC) [Ratio] 13.7 % Normal 11.5-15.0 [facility] Comment on above: Order Comment: Speci men Type: BLOOD SPECIMENOrdering Facility: [facility] Address: [address] [place] [address] Performed By: #### 5 7021-8 ####[facility] HOSPITALNCLIA [id number] [place] [address] [place] Hematocrit (Bld) [Volume fraction] 35.3 % Low 36.0-46.0 [facility] Comment on above: Order Comment: Speci men Type: BLOOD SPECIMENOrdering Facility: [facility] Address: [address] [place] [address] Performed By: #### 5 7021-8 ####[facility] HOSPITALNCLIA [id number] [place] [address] [place] Hemoglobin (Bld) [Mass/Vol] 12.0 g/dL Normal 11.5-15.5 [facility] Comment on above: Order Comment: Speci men Type: BLOOD SPECIMENOrdering Facility: [facility] Address: [address] [place] [address] Performed By: #### 5 7021-8 ####[facility] HOSPITALNCLIA [id number] [place] [address] [place] Immature granulocytes (Bld) [#/Vol] 0.04 10*3/uL Normal <0.10 [facility] Comment on above: Order Comment: Speci men Type: BLOOD SPECIMENOrdering Facility: [facility] Address: [address] [place] [address] Performed By: #### 5 7021-8 ####[facility] HOSPITALNCLIA [id number] [place] [address] [place] [facility] Immature granulocytes/100 WBC (Bld) 0.4 % Normal [facility] Comment on above: Order Comment: Speci men Type: BLOOD SPECIMENOrdering Facility: [facility] Address: [address] [place] [address] Performed By: #### 5 7021-8 ####[facility] HOSPITALNCLIA [id number] [place] [address] [place] Lymphocytes (Bld) [#/Vol] 1.14 10*3/uL Normal 1.00-4.00 [facility] Comment on above: Order Comment: Speci men Type: BLOOD SPECIMENOrdering Facility: [facility] Address: [address] [place] [address] Performed By: #### 5 7021-8 ####[facility] HOSPITALNCLIA [id number] [place] [address] [place] Lymphocytes/100 WBC (Bld) 10.2 % Normal [facility] Comment on above: Order Comment: Speci men Type: BLOOD SPECIMENOrdering Facility: [facility] Address: [address] [place] [address] Performed By: #### 5 7021-8 ####[facility] HOSPITALNCLIA [id number] [place] [address] [place] MCH (RBC) [Entitic mass] 30.3 pg Normal 26.0-34.0 [facility] Comment on above: Order Comment: Speci men Type: BLOOD SPECIMENOrdering Facility: [facility] Address: [address] [place] [address] Performed By: #### 5 7021-8 ####[facility] COMMUN[facility] HOSPITALNCLI [id number] [place] [address] [place] MCHC (RBC) [Mass/Vol] 34.0 g/dL Normal 30.5-36.0 [facility] Comment on above: Order Comment: Speci men Type: BLOOD SPECIMENOrdering Facility: [facility] Address: [address] [place] [address] Performed By: #### 5 7021-8 ####[facility] [id number] [place] [address] [place] MCV (RBC) [Entitic vol] 89.1 fL Normal 80.0-100.0 C [facility] Comment on above: Order Comment: Speci men Type: BLOOD SPECIMENOrdering Facility: [facility] Address: [address] [place] [address] Performed By: #### 5 7021-8 ####[facility] [id number] [place] [address] [place] Monocytes (Bld) [#/Vol] 0.56 10*3/uL Normal <0.87 [facility] Comment on above: Order Comment: Speci men Type: BLOOD SPECIMENOrdering Facility: [facility] Address: [address] [place] [address] Performed By: #### 5 7021-8 ####[facility] CENTERARTIA [id number] [place] [address] [place] Monocytes/100 WBC (Bld) 5.0 % Normal C [facility] Comment on above: Order Comment: Speci men Type: BLOOD SPECIMENOrdering Facility: [facility] Address: [address] [place] [address] Performed By: #### 5 7021-8 ####[facility] CENTERLIA [id number] [place] [address] [place] Neutrophils (Bld) [#/Vol] 9.39 10*3/uL High 1.45-7.50 [facility] Comment on above: Order Comment: Speci men Type: BLOOD SPECIMENOrdering Facility: [facility] Address: [address] [place] [address] Performed By: #### 5 7021-8 ####[facility] [id number] [place] [address] [place] Neutrophils/100 WBC (Bld) 83.8 % Normal [facility] Comment on above: Order Comment: Speci men Type: BLOOD SPECIMENOrdering Facility: [facility] Address: [address] [place] [address] Performed By: #### 5 7021-8 ####[facility] [id number] [place] [address] [place] Nucleated RBC (Bld) [#/Vol] 10*3/uL Normal <0.01 [facility] Comment on above: Order Comment: Speci men Type: BLOOD SPECIMENOrdering Facility: [facility] Address: [address] [place] [address] Performed By: #### 5 7021-8 ####[facility] [id number] [place] [address] [place] Nucleated RBC/100 WBC (Bld) [Ratio] 0.0 /100 WBC Normal [facility] Comment on above: Order Comment: Speci men Type: BLOOD SPECIMENOrdering Facility: [facility] Address: [address] [place] [address] Performed By: #### 5 7021-8 ####[facility] [id number] [place] [address] [place] Platelet mean volume (Bld) [Entitic vol] 10.0 fL Normal 9.0-12.7 [facility] Comment on above: Order Comment: Speci men Type: BLOOD SPECIMENOrdering Facility: [facility] Address: [address] [id number] Performed By: #### 5 7021-8 ####[facility] MAURITYASKINNCLIA [id number] [place] [address] [place] Platelets (Bld) [#/Vol] 236 10*3/uL Normal 150-400 [facility] Comment on above: Order Comment: Speci men Type: BLOOD SPECIMENOrdering Facility: [facility] Address: [address] [place], [place] [address] Performed By: #### 5 7021-8 ####[facility] HOSPITALNCLIA [id number] [place] [address] [place] RBC (Bld) [#/Vol] 3.96 10*6/uL Normal 3.90-5.20 [facility] Comment on above: Order Comment: Speci men Type: BLOOD SPECIMENOrdering Facility: [facility] Address: [address] [place] [address] Performed By: #### 5 7021-8 ####[facility] HOSPITALNCA [id number] [place] [address] [place] WBC (Bld) [#/Vol] 11.20 10*3/uL High 3.70-11.00 [facility] Comment on above: Order Comment: Speci men Type: BLOOD SPECIMENOrdering Facility: [facility] Address: [address] [place], [place] [address] Performed By: #### 5 7021-8 ####[facility] HOSPITALNCLIA [id number] [place] [address] [place] GESTATIONAL GLUCOSE SCREEN, 1-HOUR, 50 GRAM, NON-FASTINGon 09-03-2024 Glucose [Mass/Vol] 122 mg/dL Normal 74-134 [facility] Comment on above: Order Comment: Speci men Type: BLOOD SPECIMENOrdering Facility: [facility] Address: [address] [place] [address] Result Comment: Luci gomesn Congress of Obstetricians and Gynecologists (Satnam/Michael) guidelines state a gestational diabetes mellitus positive screen is made, in women not previously diagnosed with overt diabetes, when the 1 hr plasma glucose level is equal to or above 140 mg/dL. [facility] Career Development Coordinator/Teacher and [facility] [place] recommends a 135 mg/dL cutoff. Performed By: #### G LTGST ####[facility] [id number] [place] [address] [place] Reagin and Treponema pallidu m IgG and IgM [Interp]on 09-03-2024 T. pallidum IgG+IgM IA Ql (S) Non-Reactive Normal Nonreactive [facility] Comment on above: Order Comment: Preciousi david Type: BLOOD SPECIMENOrdering Facility: [facility] Address: [address] [place] [address] Performed By: #### 7 3752-8 ####[facility] LABIA [id number] [address] [place] Reagin+T pallidum IgG+IgM Se rPl-Impon 09-03-2024 Reagin and Treponema pallidum IgG and IgM [Interp] Cannot exclude recent Treponemal infection if specimen collected within 7-10 days after appearance of suspect lesions or 2-3 weeks after an exposure. Clinical correlation is required. Normal [facility] Comment on above: Order Comment: Tam hernandez Type: BLOOD SPECIMENOrdering Facility: [facility] Address: [address] [place] [address] Performed By: #### 7 3752-8 ####[facility] LABIA [id number] [place] [id number] [place] CNPTita 08-04-2024 CNPN Telephone (OBGYWM) ---- SOHEILA POLK ([id number]) 1995 F Date Time Provider Department 08/04/24 CLINT VASQUES During your visit today, we recorded the following information about you: Halima Burt, NICANOR 08/04/2024 10:35 AM Signed Written order received from [employer] for breast pump. Placed in RR inbox [...] Status:Closed by AURY CASTILLO on 08/04/24 Normal [facility] .Auto Diffon 07-22-2024 Basophil, Absolute 0.0 10 3/mcL Normal 0.0-0.3 [facility] Comment on above: Performed By: #### C BC, A1C, ADIFF, FERR, ANEU #### [address] [address] Basophils/100 WBC (Bld) 0.2 % Normal 0.0-2.5 [facility] Comment on above: Performed By: #### C BC, A1C, ADIFF, FERR, ANEU #### [address] [address] Eosinophil, Absolute 0.1 10 3/mcL Normal 0.0-0.7 [facility] Comment on above: Performed By: #### C BC, A1C, ADIFF, FERR, ANEU #### [address] [address] Eosinophils/100 WBC (Bld) 1.1 % Normal 0.0-6.0 [facility] Comment on above: Performed By: #### C BC, A1C, ADIFF, FERR, ANEU #### [address] [address] Lymphocyte, Absolute 1.6 10 3/mcL Normal 0.9-4.3 [facility] Comment on above: Performed By: #### C BC, A1C, ADIFF, FERR, ANEU #### [address] [address] Lymphocytes/100 WBC (Bld) 13.3 % Low 20.0-40.0 [facility] Comment on above: Performed By: #### C BC, A1C, ADIFF, FERR, ANEU #### [address] [address] Monocyte, Absolute 0.6 10 3/mcL Normal 0.1-1.4 [facility] Comment on above: Performed By: #### C BC, A1C, ADIFF, FERR, ANEU #### [address] [address] Monocytes/100 WBC (Bld) 4.7 % Normal 2.0-13.0 [facility] Comment on above: Performed By: #### C BC, A1C, ADIFF, FERR, ANEU #### [address] [address] Neutrophils/100 WBC (Bld) 80.7 % High 50.0-75.0 [facility] Comment on above: Performed By: #### C BC, A1C, ADIFF, FERR, ANEU #### [place] [address] .NEUABSon 07-22-2024 Neutrophil, Absolute 9.5 10 3/mcL High 2.3-8.1 [facility] Comment on above: Performed By: #### C BC, A1C, ADIFF, FERR, ANEU #### [place] [id number] A1Con 07-22-2024 Glucose [Mass/Vol] 103 mg/dL Normal [facility] Comment on above: Result Comment: Amie mated Average Glucose calculated by equation ((28.7xA1C)-46.7) Estimated average glucose (eAG) is a calculated value from Hemoglobin A1C and is financial service representative of the average blood glucose level in the last 2-3 month period. Normal range: less than 114 mg/dL Performed By: #### C BC, A1C, ADIFF, FERR, ANEU #### [place] [address] HbA1c (Bld) [Mass fraction] 5.2 % Normal 4.3-6.4 [facility] Comment on above: Performed By: #### C BC, A1C, ADIFF, FERR, ANEU #### [place] [address] CBCon 07-22-2024 Erythrocyte distribution width (RBC) [Ratio] 13.2 % Normal 11.5-15.5 [facility] Comment on above: Performed By: #### C BC, A1C, ADIFF, FERR, ANEU #### [place] [address] Hematocrit (Bld) [Volume fraction] 38.7 % Normal 34.0-46.0 [facility] Comment on above: Performed By: #### C BC, A1C, ADIFF, FERR, ANEU #### [place] [address] Hgb 13.0 G/dL Normal 12.0-16.0 [facility] Comment on above: Performed By: #### C BC, A1C, ADIFF, FERR, ANEU #### [address] [address] MCH (RBC) [Entitic mass] 30.2 pg Normal 27.0-33.0 [facility] Comment on above: Performed By: #### C BC, A1C, ADIFF, FERR, ANEU #### [place] [address] MCHC 33.7 G/dL Normal 32.0-36.0 [facility] Comment on above: Performed By: #### C BC, A1C, ADIFF, FERR, ANEU #### [place] [address] MCV (RBC) [Entitic vol] 89.5 fL Normal 80.0-99.0 [facility] Comment on above: Performed By: #### C BC, A1C, ADIFF, FERR, ANEU #### [place] [address] Platelet 269 10 3/mcL Normal 150-450 [facility] Comment on above: Performed By: #### C BC, A1C, ADIFF, FERR, ANEU #### [place] [address] Platelet mean volume (Bld) [Entitic vol] 8.6 fL Normal 6.6-10.5 [facility] Comment on above: Performed By: #### C BC, A1C, ADIFF, FERR, ANEU #### [place] [address] RBC 4.32 10 6/mcL Normal 4.10-5.30 [facility] Comment on above: Performed By: #### C BC, A1C, ADIFF, FERR, ANEU #### [place] [id number] WBC 11.8 10 3/mcL High 4.5-10.8 [facility] Comment on above: Performed By: #### C BC, A1C, ADIFF, FERR, ANEU #### [address] [place] [address] Brigid 07-22-2024 Ferritin [Mass/Vol] 10.0 ng/mL Normal 8.0-252.0 LENI ESPINOSA [facility] Comment on above: Performed By: #### C BC, A1C, ADIFF, FERR, ANEU #### [place] [address] [address] LABORATORYOrdered By: SYSTEM SYSTEM on 07-22-2024 Basophils [...] calculated value from Hemoglobin A1C and is financial service representative of the average blood glucose level [...] 15 oz EFW by: Hadlock (HC-AC-FL) Extended Global Marketing Manager 6.6 mm CM 4.5 mm 29% Nicolaides [...] normal LVOT view: normal 3-vessel view: normal 5-gjnuoa-bxmbfwz view: normal Heart / Thorax Situs: situs [...] Read By: Arelis Kebede M.D. MATERNAL MEDICINE [facility] Radiology Study observation (narrative) [facility] CBC W Auto Differential pane l (Bld)on 05-20-2024 Basophils (Bld) [#/Vol] 10*3/uL Normal <0.11 [facility] Comment on above: Order Comment: Speci men Type: BLOOD SPECIMENOrdering Facility: [facility] Address: [address] [place] [address] Performed By: #### 5 7021-8 ####[facility] [id number] [place] [address] [place] Basophils/100 WBC (Bld) 0.2 % Normal C [facility] Comment on above: Order Comment: Speci men Type: BLOOD SPECIMENOrdering Facility: [facility] Address: [address] [place] [address] Performed By: #### 5 7021-8 ####[facility] [id number] [place] [address] [place] Differential cell count method Nom (Bld) Auto Normal [facility] Comment on above: Order Comment: Speci men Type: BLOOD SPECIMENOrdering Facility: [facility] Address: [address] [place] [address] Performed By: #### 5 7021-8 ####[facility] [id number] [place] [address] [place] Eosinophils (Bld) [#/Vol] 0.03 10*3/uL Normal <0.46 [facility] Comment on above: Order Comment: Speci men Type: BLOOD SPECIMENOrdering Facility: [facility] Address: [address] [place] [address] Performed By: #### 5 7021-8 ####[facility] [id number] [place] [address] [place] Eosinophils/100 WBC (Bld) 0.3 % Normal [facility] Comment on above: Order Comment: Speci men Type: BLOOD SPECIMENOrdering Facility: [facility] Address: [address] [place] [address] Performed By: #### 5 7021-8 ####[facility] [id number] [place] [address] [place] Hematocrit (Bld) [Volume fraction] 39.7 % Normal 36.0-46.0 [facility] Comment on above: Order Comment: Speci men Type: BLOOD SPECIMENOrdering Facility: [facility] Address: [address] [place] [address] Performed By: #### 5 7021-8 ####[facility] [id number] [place] [address] [place] Hemoglobin (Bld) [Mass/Vol] 13.9 g/dL Normal 11.5-15.5 [facility] Comment on above: Order Comment: Speci men Type: BLOOD SPECIMENOrdering Facility: [facility] Address: [address] [place], [place] [address] Performed By: #### 5 7021-8 ####[facility] MILLTOWNCLIA [id number] [place] [address] [place] Immature granulocytes (Bld) [#/Vol] 0.04 10*3/uL Normal <0.10 [facility] Comment on above: Order Comment: Speci men Type: BLOOD SPECIMENOrdering Facility: [facility] Address: [address] [place] [address] Performed By: #### 5 7021-8 ####[facility] PENSACOLAWNCLIA [id number] [place] [address] [place] Immature granulocytes/100 WBC (Bld) 0.4 % Normal [facility] Comment on above: Order Comment: Speci men Type: BLOOD SPECIMENOrdering Facility: [facility] Address: [address] [place] [address] Performed By: #### 5 7021-8 ####[facility]ENTERLIA [id number] [place] [address] [place] Lymphocytes (Bld) [#/Vol] 1.36 10*3/uL Normal 1.00-4.00 [facility] Comment on above: Order Comment: Speci men Type: BLOOD SPECIMENOrdering Facility: [facility] Address: [address] [place] [address] Performed By: #### 5 7021-8 ####[facility] MILLWNCLIA [id number] [place] [address] [place] Lymphocytes/100 WBC (Bld) 13.1 % Normal [facility] Comment on above: Order Comment: Speci men Type: BLOOD SPECIMENOrdering Facility: [facility] Address: [address] [place] [address] Performed By: #### 5 7021-8 ####[facility] HOSPITALNCLIA [id number] [place] [address] [place] MCH (RBC) [Entitic mass] 30.2 pg Normal 26.0-34.0 [facility] Comment on above: Order Comment: Speci men Type: BLOOD SPECIMENOrdering Facility: [facility] Address: [address] [place] [address] Performed By: #### 5 7021-8 ####[facility] COMM[facility] HOSPITALSAVITA [id number] [address] [place] MCHC (RBC) [Mass/Vol] 35.0 g/dL Normal 30.5-36.0 [facility] Comment on above: Order Comment: Speci men Type: BLOOD SPECIMENOrdering Facility: [facility] Address: [address] [place] [address] Performed By: #### 5 7021-8 ####[facility] HOSPITALSAVITA [id number] [address] [place] MCV (RBC) [Entitic vol] 86.1 fL Normal 80.0-100.0 C [facility] Comment on above: Order Comment: Speci men Type: BLOOD SPECIMENOrdering Facility: [facility] Address: [address] [place] [address] Performed By: #### 5 7021-8 ####[facility] HOS[facility]ITALSAVITA [id number] [place] [address] [place] Monocytes (Bld) [#/Vol] 0.52 10*3/uL Normal <0.87 [facility] Comment on above: Order Comment: Speci men Type: BLOOD SPECIMENOrdering Facility: [facility] Address: [address] [place] [address] Performed By: #### 5 7021-8 ####[facility] HOSPITALNCLIManuela [id number] [address] [place] Monocytes/100 WBC (Bld) 5.0 % Normal C [facility] Comment on above: Order Comment: Speci men Type: BLOOD SPECIMENOrdering Facility: [facility] Address: [address] [place] [address] Performed By: #### 5 7021-8 ####[facility] MAURITYASKINNCLIA [id number] [place] [address] [place] Neutrophils (Bld) [#/Vol] 8.45 10*3/uL High 1.45-7.50 [facility] Comment on above: Order Comment: Speci men Type: BLOOD SPECIMENOrdering Facility: [facility] Address: [address] [place] [address] Performed By: #### 5 7021-8 ####[facility]ITALA [id number] [place] [address] [place] Neutrophils/100 WBC (Bld) 81.0 % Normal [facility] Comment on above: Order Comment: Speci men Type: BLOOD SPECIMENOrdering Facility: [facility] Address: [address] [place] [address] Performed By: #### 5 7021-8 ####[facility] [id number] [place] [address] [place] Nucleated RBC (Bld) [#/Vol] 10*3/uL Normal <0.01 [facility] Comment on above: Order Comment: Speci men Type: BLOOD SPECIMENOrdering Facility: [facility] Address: [address] [place] [address] Performed By: #### 5 7021-8 ####[facility]ITALA [id number] [place] [address] [place] Nucleated RBC/100 WBC (Bld) [Ratio] 0.0 /100 WBC Normal [facility] Comment on above: Order Comment: Speci men Type: BLOOD SPECIMENOrdering Facility: [facility] Address: [address] [place] [address] Performed By: #### 5 7021-8 ####[facility] MAURIWNCLIA [id number] [place] [address] [place] Platelet mean volume (Bld) [Entitic vol] 9.6 fL Normal 9.0-12.7 [facility] Comment on above: Order Comment: Speci men Type: BLOOD SPECIMENOrdering Facility: [facility] Address: [address] [place], [place] [address] Performed By: #### 5 7021-8 ####[facility] HOSPITALNCLIA [id number] [place] [address] [place] Platelets (Bld) [#/Vol] 262 10*3/uL Normal 150-400 [facility] Comment on above: Order Comment: Speci men Type: BLOOD SPECIMENOrdering Facility: [facility] Address: [address] [place], [place] [address] Performed By: #### 5 7021-8 ####[facility] HOSPITALNCLIA [id number] [place] [address] [place] RBC (Bld) [#/Vol] 4.61 10*6/uL Normal 3.90-5.20 [facility] Comment on above: Order Comment: Speci men Type: BLOOD SPECIMENOrdering Facility: [facility] Address: [address] [place] [address] Performed By: #### 5 7021-8 ####[facility] HOSPITALNCLIA [id number] [place] [address] [place] WBC (Bld) [#/Vol] 10.42 10*3/uL Normal 3.70-11.00 [facility] Comment on above: Order Comment: Speci men Type: BLOOD SPECIMENOrdering Facility: [facility] Address: [address] [place] [address] Performed By: #### 5 7021-8 ####[facility] HOSPITALNCLIManuela [id number] [place] [address] [place] Examination level ultrasound on 05-20-2024 Indication First trimester anatomic survey. Maternal obesity, BMI >30 Impression REMOTE READ The patient is referred for a first trimester anatomy scan including nuchal translucency measurement as clinically indicated. - Single, live, intrauterine . - Vergas rump length measurement is consistent with the [...] view: normal 4-chamber view with color: normal 7-wlphyv-ykadiqv view: normal Abdominal cord insertion: normal Stomach: [...] Read By: Arelis Kebede M.D. MATERNAL MEDICINE [facility] Radiology Study observation (narrative) [facility] HBV surface Ag Ser Qlon 04-27 HBV surface Ag Ql (S) Negative Normal Negative [facility] Comment on above: Order Comment: Speci men Type: BLOOD SPECIMENOrdering Facility: [facility] Address: [address] [place] [address] Performed By: #### 3 1201-7, 10194-9, 5195-3 ####[facility] LABCLIA [id number] [place] [address] [place] HCV Ab Ser Qlon 05-20-2024 HCV Ab Ql (S) Negative Normal Negative [facility] Comment on above: Order Comment: Speci men Type: BLOOD SPECIMENOrdering Facility: [facility] Address: [address] [place] [address] Result Comment: The result suggests no evidence of active infection with Hepatitis C virus. Should recent infection be suspected, repeat testing may be considered 4-6 weeks after this draw. Performed By: #### 1 6128-1 ####[facility] LABCLIA [id number] [place] [address] [place] HGB ELECTROPHORESIS FOR EVAL (LAB ORDER)on 05-20-2024 Hemoglobin A (Bld) [Mass fraction] 97.2 % Normal 96.2-98.0 [facility] Comment on above: Order Comment: Speci men Type: BLOOD SPECIMENOrdering Facility: [facility] Address: [address] [place] [address] Performed By: #### L [id number], HGBELEV ####[facility] LABCLIA [id number] [place] [address] [place] Hemoglobin A2 (Bld) [Mass fraction] 2.8 % Normal 2.0-3.1 [facility] Comment on above: Order Comment: Speci men Type: BLOOD SPECIMENOrdering Facility: [facility] Address: [address] [place] [address] Performed By: #### L [id number], HGBELEV ####[facility] LABCLIA [id number] [place] [address] [place] Hemoglobin Unsp Elph (Bld) [Mass fraction] No abnormal hemoglobin identified. Normal No abnormal hemoglobin identified. [facility] Comment on above: Order Comment: Speci men Type: BLOOD SPECIMENOrdering Facility: [facility] Address: [address] [place] [address] Performed By: #### L [id number], HGBELEV ####[facility] DAYTONIA [id number] [place] [address] [place] HGB EVALUATION CASCADE INTER Jose 05-20-2024 Hemoglobin pattern (Bld) [Interp] Reviewed by Reji Juarez MD Normal [facility] Comment on above: Order Comment: Speci men Type: BLOOD SPECIMENOrdering Facility: [facility] Address: [address] [place] [address] Performed By: #### L [id number], HGBELEV ####[facility] DAYTONIA [id number] [place] [address] [place] INTERPRETATION (HGB EVAL) Normal [facility] Comment on above: Order Comment: Speci men Type: BLOOD SPECIMENOrdering Facility: [facility] Address: [address] [place] [address] Result Comment: Hemo globins were analyzed by capillary electrophoresis and CBC red cell parameters were reviewed. No abnormal hemoglobin is identified. There is a normal hemoglobin capillary electrophoresis pattern. Performed By: #### L [id number], HGBELEV ####[facility] LABCLIA [id number] [place] [address] [place] HIV 1+2 Ab IA Qlon 5 HIV 1 and 2 Ab IA.rapid Nom (S/P/Bld) Normal [facility] Comment on above: Order Comment: Speci men Type: BLOOD SPECIMENOrdering Facility: [facility] Address: [address] [place] [address] Result Comment: Test not indicated. Performed By: #### 3 1201-7, 39583-4, 5195-3 ####[facility] LABCLIA [id number] [address] STATES OF [facility] HIV 1+2 Ab+HIV1 p24 Ag IA Ql Non-Reactive Normal Nonreactive [facility] Comment on above: Order Comment: Speci men Type: BLOOD SPECIMENOrdering Facility: [facility] Address: [address] [place] [address] Performed By: #### 3 1201-7, 69009-6, 5195-3 ####[facility] LABIA [id number] [address] [place] HIV immunoassay testing algorithm interpretation (S/P/Bld) [Interp] Normal [facility] Comment on above: Order Comment: Speci men Type: BLOOD SPECIMENOrdering Facility: [facility] Address: [address] [place] [address] Result Comment: No e vidence of HIV-1 or HIV-2 infection. Should recent infection be suspected, repeat testing may be considered 2-3 weeks after this draw. [place] Rev. Code 3701.243(E): This information has been [...] or diagnoses. Performed By: #### 3 1201-7, 00793-4, 5195-3 ####[facility] LABCLIA [id number] [address] [place] HbA1c (Bld)on 05-20-2024 Average glucose Estimated from glycated hemoglobin (Bld) [Mass/Vol] 97 mg/dL Normal [facility] Comment on above: Order Comment: Tam hernandez Type: BLOOD SPECIMENOrdering Facility: [facility] Address: [address] [place] [address] Result Comment: eAG: (Estimated average glucose) is a calculated value from HgbA1c and is financial service representative of the average blood glucose level in the last 2-3 month period. Performed By: #### 5 5454-3 ####[facility] LABCLIA [id number] [address] HbA1c (Bld) [Mass fraction] 5.0 % Normal 4.3-5.6 [facility] Comment on above: Order Comment: Tam hernandez Type: BLOOD SPECIMENOrdering Facility: [facility] Address: [address] [place] [address] Result Comment: Amer [place] Diabetes Association guidelines indicate that patients with HgbA1c in the range 5.7-6.4% are at increased risk for development of diabetes, and intervention by lifestyle modification may be beneficial. HgbA1c greater or equal to 6.5% is considered diagnostic of diabetes. Performed By: #### 5 5454-3 ####[facility] LABIA [id number] [address] RBC PARAMETERS FOR HB IDon 0 05-20-2024 Erythrocyte distribution width (RBC) [Ratio] 12.7 % Normal 11.5-15.0 [facility] Comment on above: Order Comment: Tam hernandez Type: BLOOD SPECIMENOrdering Facility: [facility] Address: [address] [place] [address] Performed By: #### L [id number] ####[facility] LABCLIA [id number] [address] Performed By: #### 5 7021-8 ####[facility] [id number] [place] [address] [place] Hematocrit (Bld) [Volume fraction] 40.1 % Normal 36.0-46.0 [facility] Comment on above: Order Comment: Speci men Type: BLOOD SPECIMENOrdering Facility: [facility] Address: [address] [place] [address] Performed By: #### L [id number] ####[facility] LABIA [id number] [place] [address] [place] Hemoglobin (Bld) [Mass/Vol] 13.6 g/dL Normal 11.5-15.5 [facility] Comment on above: Order Comment: Speci men Type: BLOOD SPECIMENOrdering Facility: [facility] Address: [address] [place] [address] Performed By: #### L [id number] ####[facility] LABIA [id number] [place] [address] [place] MCH (RBC) [Entitic mass] 30.0 pg Normal 26.0-34.0 [facility] Comment on above: Order Comment: Speci men Type: BLOOD SPECIMENOrdering Facility: [facility] Address: [address] [place] [address] Performed By: #### L [id number] ####[facility] LABIA [id number] [place] [address] [place] MCHC (RBC) [Mass/Vol] 33.9 g/dL Normal 30.5-36.0 [facility] Comment on above: Order Comment: Speci men Type: BLOOD SPECIMENOrdering Facility: [facility] Address: [address] [place] [address] Performed By: #### L [id number] ####[facility] LABCLIA [id number] [place] [address] [place] MCV (RBC) [Entitic vol] 88.3 fL Normal 80.0-100.0 C [facility] Comment on above: Order Comment: Speci men Type: BLOOD SPECIMENOrdering Facility: [facility] Address: [address] [place] [address] Performed By: #### L [id number] ####[facility] LABCLIA [id number] [place] [address] [place] RBC (Bld) [#/Vol] 4.54 10*6/uL Normal 3.90-5.20 [facility] Comment on above: Order Comment: Speci men Type: BLOOD SPECIMENOrdering Facility: [facility] Address: [address] [place] [address] Performed By: #### L [id number] ####[facility] LABCLIA [id number] [address] RUBELLA IGG ANTIBODYon 05-20 RUBELLA IGG AB, QUAL Positive Normal Positive [facility] Comment on above: Order Comment: Speci [facility] Type: BLOOD SPECIMENOrdering Facility: [facility] Address: [address] [place] [address] Result Comment: The result suggests recent or past exposure to Rubella virus or history of Rubella vaccination. Positive result may also be seen due to presence of passively-transferred antibodies. Please correlate with patient's history. Performed By: #### R UBIGG ####[facility] LABCLIA [id number] [place] [address] [place] Reagin and Treponema pallidu m IgG and IgM [Interp]on 05-20-2024 T. pallidum IgG+IgM IA Ql (S) Non-Reactive Normal Nonreactive [facility] Comment on above: Order Comment: Speci [facility] Type: BLOOD SPECIMENOrdering Facility: [facility] Address: [address] [place] [address] Performed By: #### 3 1201-7, 64398-7, 5195-3 ####[facility] LABCLIA [id number] [id number] [address] [place] Reagin+T pallidum IgG+IgM Se rPl-Impon 05-20-2024 Reagin and Treponema pallidum IgG and IgM [Interp] Cannot exclude recent Treponemal infection if specimen collected within 7-10 days after appearance of suspect lesions or 2-3 weeks after an exposure. Clinical correlation is required. Normal [facility] Comment on above: Order Comment: Speci men Type: BLOOD SPECIMENOrdering Facility: [facility] Address: [address] [place] [address] Performed By: #### 3 1201-7, 83931-9, 5195-3 ####[facility] LABCLIA [id number] [address] [place] TYPE + SCREEN PRENATALon ABO A Normal [facility] Comment on above: Order Comment: Speci men Type: BLOOD SPECIMENOrdering Facility: [facility] Address: [address] [place] [address] Performed By: #### T SPN ####[facility] BLOOD BANKCLIA [id number] [place] [address] [place] Rh Nom (Bld) Positive Normal [facility] Comment on above: Order Comment: Speci men Type: BLOOD SPECIMENOrdering Facility: [facility] Address: [address] [place] [address] Performed By: #### T SPN ####[facility] BLOOD BANKCLIA [id number] [place] [address] [place] TYPE AND SCREEN EXPIRATION 05/23/2024 23:59 Normal [facility] Comment on above: Order Comment: Speci men Type: BLOOD SPECIMENOrdering Facility: [facility] Address: [address] [place] [address] Performed By: #### T SPN ####CC MAIN BLOOD BANKCLIA [id number] [place] [address] [place] Bacteria Ur Culton Bacteria identified Cx Nom (U) ORGANISM ID: 1 10,000 -<50,000 CFU/ml Normal urogenital everette Normal [facility] Comment on above: Performed By: #### 6 30-4 ####[facility] LABCLIA [id number] [address] [place] C. trachomatis+N. gonorrhoea e DNA CULLEN+probe Ql (Unsp spec)on 04-18-2024 C. trachomatis rRNA CULLEN+probe Ql (Unsp spec) Not detected Normal Not detected [facility] Comment on above: Order Comment: Speci men Type: SWABOrdering Facility: [facility] Address: [address] [place] [address] Performed By: #### 3 6902-5 ####[facility] [id number] [address] N. gonorrhoeae rRNA CULLEN+probe Ql (Unsp spec) Not detected Normal Not detected [facility] Comment on above: Order Comment: Speci men Type: SWABOrdering Facility: [facility] Address: [address] [place] [address] Performed By: #### 3 6902-5 ####[facility] LABIA [id number] [address] [place] POC SOIL SAMPLER ULTRASOUNDon 04-18-19 Indication Confirmation of intrauterine . [...] Read By: Melissa Andrea CNP MATERNAL MEDICINE [facility] Radiology Study observation (narrative) [facility] .Auto Diffon 01-15-2024 Basophil, Absolute 0.0 10 3/mcL Normal 0.0-0.2 [facility] Comment on above: Performed By: #### A SISSY, LIPID, ADIFF, TSH, GFR, CBC, CMP #### [address] [address] Basophils/100 WBC (Bld) 0.3 % Normal 0.0-2.5 [facility] Comment on above: Performed By: #### A SISSY, LIPID, ADIFF, TSH, GFR, CBC, CMP #### [address] [address] Eosinophil, Absolute 0.1 10 3/mcL Normal 0.0-0.7 [facility] Comment on above: Performed By: #### A SISSY, LIPID, ADIFF, TSH, GFR, CBC, CMP #### [address] [address] Eosinophils/100 WBC (Bld) 1.3 % Normal 0.0-7.0 [facility] Comment on above: Performed By: #### A SSISY, LIPID, ADIFF, TSH, GFR, CBC, CMP #### [address] [address] Lymphocyte, Absolute 2.0 10 3/mcL Normal 0.9-4.3 [facility] Comment on above: Performed By: #### A SISSY, LIPID, ADIFF, TSH, GFR, CBC, CMP #### [address] [address] Lymphocytes/100 WBC (Bld) 25.7 % Normal 20.0-40.0 [facility] Comment on above: Performed By: #### A SISSY, LIPID, ADIFF, TSH, GFR, CBC, CMP #### [address] [address] Monocyte, Absolute 0.5 10 3/mcL Normal 0.1-1.4 [facility] Comment on above: Performed By: #### A SISSY, LIPID, ADIFF, TSH, GFR, CBC, CMP #### [address] [address] Monocytes/100 WBC (Bld) 6.9 % Normal 2.0-13.0 [facility] Comment on above: Performed By: #### A SISSY, LIPID, ADIFF, TSH, GFR, CBC, CMP #### [address] [address] Neutrophils/100 WBC (Bld) 65.8 % Normal 50.0-75.0 [facility] Comment on above: Performed By: #### A SISSY, LIPID, ADIFF, TSH, GFR, CBC, CMP #### [address] [address] .GFRon 01-15-2024 GFR 94 ml/min/1.73sqm Normal [facility] Comment on above: Result Comment: GFR Population [...] C BC, A1C, ADIFF, FERR, ANEU #### [address] [address] GFR Non- 77 ml/min/1.73sqm Normal [facility] Comment on above: Result Comment: GFR Population [...] C BC, A1C, ADIFF, FERR, ANEU #### [address] [address] .NEUABSon 01-15-2024 Neutrophil, Absolute 5.2 10 3/mcL Normal 2.3-8.1 [facility] Comment on above: Performed By: #### A SISSY, LIPID, ADIFF, TSH, GFR, CBC, CMP #### [place] [id number] CBCon 01-15-2024 Erythrocyte distribution width (RBC) [Ratio] 12.5 % Normal 11.5-15.5 [facility] Comment on above: Performed By: #### A SISSY, LIPID, ADIFF, TSH, GFR, CBC, CMP #### [address] [address] Hematocrit (Bld) [Volume fraction] 44.8 % Normal 34.0-46.0 [facility] Comment on above: Performed By: #### A SISSY, LIPID, ADIFF, TSH, GFR, CBC, CMP #### [address] [address] Hgb 15.2 G/dL Normal 12.0-16.0 [facility] Comment on above: Performed By: #### A SISSY, LIPID, ADIFF, TSH, GFR, CBC, CMP #### [address] [address] MCH (RBC) [Entitic mass] 30.7 pg Normal 27.0-33.0 [facility] Comment on above: Performed By: #### A SISSY, LIPID, ADIFF, TSH, GFR, CBC, CMP #### [address] [address] MCHC 33.9 G/dL Normal 32.0-36.0 [facility] Comment on above: Performed By: #### A SISSY, LIPID, ADIFF, TSH, GFR, CBC, CMP #### [address] [address] MCV (RBC) [Entitic vol] 90.5 fL Normal 80.0-99.0 [facility] Comment on above: Performed By: #### A SISSY, LIPID, ADIFF, TSH, GFR, CBC, CMP #### [place] [address] Platelet 267 10 3/mcL Normal 150-450 [facility] Comment on above: Performed By: #### A SISSY, LIPID, ADIFF, TSH, GFR, CBC, CMP #### [address] [address] Platelet mean volume (Bld) [Entitic vol] 8.5 fL Normal 6.6-10.5 [facility] Comment on above: Performed By: #### A SISSY, LIPID, ADIFF, TSH, GFR, CBC, CMP #### [address] [address] RBC 4.95 10 6/mcL Normal 4.10-5.30 [facility] Comment on above: Performed By: #### A SISSY, LIPID, ADIFF, TSH, GFR, CBC, CMP #### [address] [address] WBC 8.0 10 3/mcL Normal 4.5-10.8 [facility] Comment on above: Performed By: #### A SISSY, LIPID, ADIFF, TSH, GFR, CBC, CMP #### [address] [address] CMPon 01-15-2024 Albumin Level 3.8 G/dL Normal 3.5-5.0 [facility] Comment on above: Performed By: #### A SISSY, LIPID, ADIFF, TSH, GFR, CBC, CMP #### [address] [address] Albumin/Globulin [Mass ratio] 1.2 {ratio} Normal 1.1-2.5 [facility] Comment on above: Performed By: #### A SISSY, LIPID, ADIFF, TSH, GFR, CBC, CMP #### [place] [id number] ALP [Catalytic activity/Vol] 84 U/L Normal 40-135 [facility] Comment on above: Performed By: #### A SISSY, LIPID, ADIFF, TSH, GFR, CBC, CMP #### [place] [id number] ALT [Catalytic activity/Vol] 25 U/L Normal 14-59 [facility] Comment on above: Performed By: #### A SISSY, LIPID, ADIFF, TSH, GFR, CBC, CMP #### [place] [id number] AST [Catalytic activity/Vol] 16 U/L Normal 10-40 [facility] Comment on above: Performed By: #### A SISSY, LIPID, ADIFF, TSH, GFR, CBC, CMP #### [address] [address] Bili Total 0.6 mg/dL Normal 0.2-1.0 [facility] Comment on above: Result Comment: Use of this assay is not recommended for patients undergoing treatment with eltrombopag due to the potential for falsely elevated results. Performed By: #### A SISSY, LIPID, ADIFF, TSH, GFR, CBC, CMP #### [address] [address] BUN/Creatinine Ratio 12 ratio Normal 7-27 [facility] Comment on above: Performed By: #### A SISSY, LIPID, ADIFF, TSH, GFR, CBC, CMP #### [place] [address] Calcium [Mass/Vol] 8.8 mg/dL Normal 8.4-10.2 [facility] Comment on above: Performed By: #### A SISSY, LIPID, ADIFF, TSH, GFR, CBC, CMP #### [place] [address] Chloride [Moles/Vol] 103 mmol/L Normal 98-107 [facility] Comment on above: Performed By: #### A SISSY, LIPID, ADIFF, TSH, GFR, CBC, CMP #### [place] [address] CO2 [Moles/Vol] 28 mmol/L Normal 22-29 [facility] Comment on above: Performed By: #### A SISSY, LIPID, ADIFF, TSH, GFR, CBC, CMP #### [place] [address] Creatinine [Mass/Vol] 0.86 mg/dL Normal 0.55-1.02 [facility] Comment on above: Result Comment: Test ing performed on Siemens Dimension EXL analyzer using a modified kinetic Sb technique. Performed By: #### A SISSY, LIPID, ADIFF, TSH, GFR, CBC, CMP #### [place] [address] Electrolyte Balance 8.0 mEq/L Normal 4.0-15.0 [facility] Comment on above: Performed By: #### A SISSY, LIPID, ADIFF, TSH, GFR, CBC, CMP #### [place] [address] Globulin 3.3 G/dL Normal [facility] Comment on above: Performed By: #### A SISSY, LIPID, ADIFF, TSH, GFR, CBC, CMP #### [place] [address] Glucose [Mass/Vol] 102 mg/dL Normal 70-105 [facility] Comment on above: Performed By: #### A SISSY, LIPID, ADIFF, TSH, GFR, CBC, CMP #### [address] [address] Potassium [Moles/Vol] 4.5 mmol/L Normal 3.5-5.1 [facility] Comment on above: Performed By: #### A SISSY, LIPID, ADIFF, TSH, GFR, CBC, CMP #### [address] [address] Sodium [Moles/Vol] 139 mmol/L Normal 136-145 [facility] Comment on above: Performed By: #### A SISSY, LIPID, ADIFF, TSH, GFR, CBC, CMP #### [address] [address] Total Protein 7.1 G/dL Normal 6.4-8.2 [facility] Comment on above: Performed By: #### A SISSY, LIPID, ADIFF, TSH, GFR, CBC, CMP #### [address] [address] Urea nitrogen [Mass/Vol] 10 mg/dL Normal 7-18 [facility] Comment on above: Performed By: #### A SISSY, LIPID, ADIFF, TSH, GFR, CBC, CMP #### [address] [address] LABORATORYOrdered By: SYSTEM SYSTEM on 01-15-2024 Albumin [...] 01-15-2024 Cholesterol [Mass/Vol] 169 mg/dL Normal 0-200 [facility] Comment on above: Result Comment: Chol esterol Reference Interval: Less than 200 Desirable 200-239 Borderline high risk 240 and above High risk Performed By: #### C BC, A1C, ADIFF, FERR, ANEU #### [place] [address] Cholesterol in HDL [Mass/Vol] 38 mg/dL Low 40-60 [facility] Comment on above: Performed By: #### C BC, A1C, ADIFF, FERR, ANEU #### [place] [address] Cholesterol in LDL [Mass/Vol] 111 mg/dL Normal 0-130 [facility] Comment on above: Performed By: #### C BC, A1C, ADIFF, FERR, ANEU #### [place] [address] Triglyceride [Mass/Vol] 101 mg/dL Normal 0-150 [facility] Comment on above: Result Comment: Trig lyceride Reference Interval: Less than 150 Normal 150-199 Borderline high risk 200-499 High risk 500 or higher Very high risk Performed By: #### C BC, A1C, ADIFF, FERR, ANEU #### [place] [id number] TSHon 01-15-2024 TSH Qn 1.80 m[IU]/L Normal 0.36-3.74 [facility] Comment on above: Performed By: #### A SISSY, LIPID, ADIFF, TSH, GFR, CBC, CMP #### [place] [phone] US Pelvison 10-23-2023 Indication Abnormal uterine bleeding, [...] Read By: Jud Santacruz M.D. MATERNAL MEDICINE [facility] Radiology Study observation (narrative) Michel galicia [facility] .Auto Diffon 07-25-2023 Basophil, Absolute 0.0 10 3/mcL Normal 0.0-0.2 [facility] ([place]) Comment on above: Performed By: #### A VESNA SHEEHAN, ADIFF, CBC #### [address] [address] Basophils/100 WBC (Bld) 0.4 % Normal 0.0-2.5 [facility] ([place]) Comment on above: Performed By: #### A SISSY FERR, ADIFF, CBC #### [address] [address] Eosinophil, Absolute 0.1 10 3/mcL Normal 0.0-0.4 [facility] ([place]) Comment on above: Performed By: #### A SISSY FERR, ADIFF, CBC #### [address] [address] Eosinophils/100 WBC (Bld) 1.1 % Normal 0.0-7.0 [facility] ([place]) Comment on above: Performed By: #### A SISSY FERR, ADIFF, CBC #### [address] [address] Lymphocyte, Absolute 1.6 10 3/mcL Normal 0.8-3.9 [facility] ([place]) Comment on above: Performed By: #### A SISSY FERR, ADIFF, CBC #### [address] [address] Lymphocytes/100 WBC (Bld) 21.6 % Normal 10.0-50.0 [facility] ([place]) Comment on above: Performed By: #### A SISSY FERR, ADIFF, CBC #### [address] [address] Monocyte, Absolute 0.6 10 3/mcL Normal 0.2-1.0 [facility] ([place]) Comment on above: Performed By: #### A SISSY, FERR, ADIFF, CBC #### [address] [address] Monocytes/100 WBC (Bld) 8.1 % Normal 1.7-13.0 [facility] ([place]) Comment on above: Performed By: #### A SISSY FERR, ADIFF, CBC #### [address] [address] Neutrophils/100 WBC (Bld) 68.8 % Normal 37.0-80.0 [facility] ([place]) Comment on above: Performed By: #### A VESNA SHEEHAN ADIFF, CBC #### [address] [address] .NEUABSon 07-25-2023 Neutrophil, Absolute 5.2 10 3/mcL Normal 2.9-6.2 [facility] ([place]) Comment on above: Performed By: #### A VESNA SHEEHAN ADIFF, CBC #### [place] [address] CBCon 07-25-2023 Erythrocyte distribution width (RBC) [Ratio] 13.0 % Normal 11.5-14.5 [facility] ([place]) Comment on above: Performed By: #### A VESNA SHEEHAN ADIFF, CBC #### [address] [address] Hematocrit (Bld) [Volume fraction] 41.6 % Normal 37.0-47.0 [facility] ([place]) Comment on above: Performed By: #### A VESNA SHEEHAN ADIFF, CBC #### [address] [address] Hgb 14.4 G/dL Normal 12.0-16.0 [facility] ([place]) Comment on above: Performed By: #### A VESNA SHEEHAN ADIFF, CBC #### [address] [address] MCH (RBC) [Entitic mass] 30.8 pg Normal 27.0-31.2 [facility] ([place]) Comment on above: Performed By: #### A VESNA SHEEHAN ADIFF, CBC #### [address] [address] MCHC 34.7 G/dL Normal 33.0-37.0 [facility] ([place]) Comment on above: Performed By: #### A VESNA SHEEHAN ADIFF, CBC #### [address] [address] MCV (RBC) [Entitic vol] 88.8 fL Normal 80.0-94.0 [facility] ([place]) Comment on above: Performed By: #### A VESNA SHEEHAN ADIFF, CBC #### [place] [address] Platelet 304 10 3/mcL Normal 130-400 [facility] ([place] Comment on above: Performed By: #### A VESNA SHEEHAN ADIFF, CBC #### [place] [address] Platelet mean volume (Bld) [Entitic vol] 8.4 fL Normal 7.4-10.4 [facility] ([place]) Comment on above: Performed By: #### A VESNA SHEEHAN ADIFF, CBC #### [place] [address] RBC 4.69 10 6/mcL Normal 4.20-5.40 [facility] ([place]) Comment on above: Performed By: #### A VESNA SHEEHAN ADIFF, CBC #### [place] [address] WBC 7.6 10 3/mcL Normal 4.6-10.8 [facility] ([place] Comment on above: Performed By: #### A VESNA SHEEHAN ADIFF, CBC #### [place] [id number] Brigid 07-25-2023 Ferritin [Mass/Vol] 30.0 ng/mL Normal 8.0-252.0 [facility] ([place]) Comment on above: Performed By: #### A VESNA SHEEHAN ADIFF, CBC #### [place] [id number] LABORATORYOrdered By: SYSTEM SYSTEM on 07-25-2023 Basophil, [...] Basophil, Absolute 0.0 10 3/mcL Normal 0.0-0.2 [facility] ([place]) Comment on above: Performed By: #### A SISSY FERR, ADIFF, CBC #### [address] [address] Basophils/100 WBC (Bld) 0.3 % Normal 0.0-2.5 [facility] ([place] Comment on above: Performed By: #### A SISSY FERR, ADIFF, CBC #### [address] [address] Eosinophil, Absolute 0.1 10 3/mcL Normal 0.0-0.4 [facility] ([place]) Comment on above: Performed By: #### A SISSY FERR, ADIFF, CBC #### [address] [address] Eosinophils/100 WBC (Bld) 1.5 % Normal 0.0-7.0 [facility] ([place] Comment on above: Performed By: #### A SISSY, FERR, ADIFF, CBC #### [address] [address] Lymphocyte, Absolute 1.7 10 3/mcL Normal 0.8-3.9 [facility] ([place]) Comment on above: Performed By: #### A SISSY, FERR, ADIFF, CBC #### [address] [address] Lymphocytes/100 WBC (Bld) 22.1 % Normal 10.0-50.0 [facility] ([place] Comment on above: Performed By: #### A SISSY, FERR, ADIFF, CBC #### [address] [address] Monocyte, Absolute 0.5 10 3/mcL Normal 0.2-1.0 [facility] ([place]) Comment on above: Performed By: #### A SISSY, FERR, ADIFF, CBC #### [address] [address] Monocytes/100 WBC (Bld) 6.9 % Normal 1.7-13.0 [facility] ([place]) Comment on above: Performed By: #### A VESNA SHEEHAN ADIFF, CBC #### [address] [address] Neutrophils/100 WBC (Bld) 69.2 % Normal 37.0-80.0 [facility] ([place] Comment on above: Performed By: #### A SISSYVESNA ADIFF, CBC #### [address] [address] .NEUABSon 01-17-2023 Neutrophil, Absolute 5.4 10 3/mcL Normal 2.9-6.2 [facility] ([place] Comment on above: Performed By: #### A VESNA SHEEHAN ADIFF, CBC #### [address] [address] CBCon 01-17-2023 Erythrocyte distribution width (RBC) [Ratio] 17.6 % High 11.5-14.5 [facility] ([place] Comment on above: Performed By: #### A SISSY FERR, ADIFF, CBC #### [address] [address] Hematocrit (Bld) [Volume fraction] 43.7 % Normal 37.0-47.0 [facility] ([place]) Comment on above: Performed By: #### A VESNA SHEEHAN ADIFF, CBC #### [address] [address] Hgb 14.0 G/dL Normal 12.0-16.0 [facility] ([place] Comment on above: Performed By: #### A SISSY FERR, ADIFF, CBC #### [address] [address] MCH (RBC) [Entitic mass] 26.5 pg Low 27.0-31.2 [facility] ([place]) Comment on above: Performed By: #### A SISSY FERR, ADIFF, CBC #### [address] [address] MCHC 32.0 G/dL Low 33.0-37.0 [facility] ([place]) Comment on above: Performed By: #### A VESNA SHEEHAN ADIFF, CBC #### [address] [address] MCV (RBC) [Entitic vol] 82.8 fL Normal 80.0-94.0 [facility] ([place]) Comment on above: Performed By: #### A VESNA SHEEHAN ADIFF, CBC #### [place] [id number] Platelet 319 10 3/mcL Normal 130-400 [facility] ([place] Comment on above: Performed By: #### A VESNA SHEEHAN ADIFF, CBC #### [place] [address] Platelet mean volume (Bld) [Entitic vol] 8.4 fL Normal 7.4-10.4 [facility] ([place]) Comment on above: Performed By: #### A VESNA SHEEHAN ADIFF, CBC #### [place] [address] RBC 5.27 10 6/mcL Normal 4.20-5.40 [facility] ([place]) Comment on above: Performed By: #### A VESNA SHEEHAN ADIFF, CBC #### [address] [address] WBC 7.8 10 3/mcL Normal 4.6-10.8 [facility] ([place]) Comment on above: Performed By: #### A VESNA SHEEHAN ADIFF, CBC #### [address] [address] FEon 01-17-2023 Iron [Mass/Vol] 95 ug/dL Normal 50-170 [facility] ([place]) Comment on above: Performed By: #### A VESNA SHEEHAN ADIFF, CBC #### [address] [address] Brigid 01-17-2023 Ferritin [Mass/Vol] 16.0 ng/mL Normal 8.0-252.0 [facility] ([place]) Comment on above: Performed By: #### A VESNA SHEEHAN ADSTONE, CBC #### [address] [place], [place] [address] Bacterial cerebrospinal flui d cultureOrdered By: Parker Andrade on 10-26-2022 Bacteria identified Cx Nom (CSF) No growth in 72 hours. [facility] Cerebrospinal fluid appearan ce descriptionOrdered By: Parker Andrade on 10-26-2022 Appearance (CSF) CLEAR Clear [facility] Cerebrospinal fluid cell cou ntOrdered By: Parker Andrade on 10-26-2022 Cell count panel (CSF) TNP [facility] Comment on above: Test not performed Cerebrospinal fluid color id entificationOrdered By: Parker Andrade on 10-26-2022 Color (CSF) COLORLESS Colorless [facility] Cerebrospinal fluid white bl ood cell countOrdered By: Parker Andrade on 10-26-2022 WBC (CSF) [#/Vol] 0 /mm-3 0-5 [facility] Gram stain for investigation of transfusion reactionOrdered By: Parker Andrade on 10-26-2022 Microscopic observation Gram stain Nom (Unsp spec) [facility] Laboratory - Specimen inform ationOrdered By: Parker Andrade on 10-26-2022 Tube number Nom (CSF) [ID] 3 [facility] No Panel InformationOrdered By: Parker Andrade on 10-26-2022 CSF RBC 0 /mm-3 None seen [facility] Review by pathologistOrdered By: Parker Andrade on 10-26-2022 Pathologist review Francis (Unsp spec) [Interp] Reviewed [facility] Comment on above: Previous reported re sult: May follow Edited by: RGOOD on 10/27/22:1209Negative for malignant cells.Rare lymphocytes and RBCs are noted.Piter Cortez M.D. 10/27/22 AMENDED REPORT 10/27/22 1209 PATH REV previously reported as: May follow .Auto DiffOrdered By: SYSTEM SYSTEM on 10-12-2022 Basophil, Absolute 0.0 103/mcL Normal 0.0-0.2 [facility] Comment on above: Performed By: #### A DIFF, CMP, CBC, ANEU, LIPID, TSH, GFR #### [address] [address] Basophils/100 WBC (Bld) 0.3 % Normal 0.0-2.5 [facility] Comment on above: Performed By: #### A DIFF, CMP, CBC, ANEU, LIPID, TSH, GFR #### [address] [address] Eosinophil, Absolute 0.0 103/mcL Normal 0.0-0.4 [facility] Comment on above: Performed By: #### A DIFF, CMP, CBC, ANEU, LIPID, TSH, GFR #### [address] [address] Eosinophils/100 WBC (Bld) 0.4 % Normal 0.0-7.0 [facility] Comment on above: Performed By: #### A DIFF, CMP, CBC, ANEU, LIPID, TSH, GFR #### [address] [address] Lymphocyte, Absolute 1.8 103/mcL Normal 0.8-3.9 [facility] Comment on above: Performed By: #### A DIFF, CMP, CBC, ANEU, LIPID, TSH, GFR #### [address] [address] Lymphocytes/100 WBC (Bld) 20.4 % Normal 10.0-50.0 [facility] Comment on above: Performed By: #### A DIFF, CMP, CBC, ANEU, LIPID, TSH, GFR #### [address] [address] Monocyte, Absolute 0.4 103/mcL Normal 0.2-1.0 [facility] Comment on above: Performed By: #### A DIFF, CMP, CBC, ANEU, LIPID, TSH, GFR #### [address] [address] Monocytes/100 WBC (Bld) 5.0 % Normal 1.7-13.0 [facility] Comment on above: Performed By: #### A DIFF, CMP, CBC, ANEU, LIPID, TSH, GFR #### [address] [address] Neutrophils/100 WBC (Bld) 73.9 % Normal 37.0-80.0 [facility] Comment on above: Performed By: #### A DIFF, CMP, CBC, ANEU, LIPID, TSH, GFR #### [address] [address] .GFRon 10-12-2022 GFR 89 ml/min/1.73sqm Normal [facility] ([place]) Comment on above: Result Comment: GFR Population [...] CMP, CBC, ANEU, LIPID, TSH, GFR #### [address] [address] GFR Non- 73 ml/min/1.73sqm Normal [facility] ([place]) Comment on above: Result Comment: GFR Population [...] CMP, CBC, ANEU, LIPID, TSH, GFR #### [place] [address] .NEUABSOrdered By: SYSTEM SY STEM on 10-12-2022 Neutrophil, Absolute 6.4 103/mcL High 2.9-6.2 [facility] Comment on above: Performed By: #### A DIFF, CMP, CBC, ANEU, LIPID, TSH, GFR #### [place] [address] CBCOrdered By: SYSTEM SYSTEM on 10-12-2022 Erythrocyte distribution width (RBC) [Ratio] 16.4 % High 11.5-14.5 [facility] Comment on above: Performed By: #### A DIFF, CMP, CBC, ANEU, LIPID, TSH, GFR #### [place] [address] Hematocrit (Bld) [Volume fraction] 37.1 % Normal 37.0-47.0 [facility] Comment on above: Performed By: #### A DIFF, CMP, CBC, ANEU, LIPID, TSH, GFR #### [place] [address] MCH (RBC) [Entitic mass] 23.8 pg Low 27.0-31.2 [facility] Comment on above: Performed By: #### A DIFF, CMP, CBC, ANEU, LIPID, TSH, GFR #### [place] [address] MCHC 32.4 G/dL Low 33.0-37.0 [facility] Comment on above: Performed By: #### A DIFF, CMP, CBC, ANEU, LIPID, TSH, GFR #### [place] [address] MCV (RBC) [Entitic vol] 73.6 fL Low 80.0-94.0 [facility] Comment on above: Performed By: #### A DIFF, CMP, CBC, ANEU, LIPID, TSH, GFR #### [place] [address] Platelet mean volume (Bld) [Entitic vol] 8.0 fL Normal 7.4-10.4 [facility] Comment on above: Performed By: #### A DIFF, CMP, CBC, ANEU, LIPID, TSH, GFR #### [address] [address] CBCon 10-12-2022 Hgb 12.0 G/dL Normal 12.0-16.0 [facility] ([place]) Comment on above: Performed By: #### A DIFF, CMP, CBC, ANEU, LIPID, TSH, GFR #### [address] [address] Platelet 355 10 3/mcL Normal 130-400 [facility] ([place]) Comment on above: Performed By: #### A DIFF, CMP, CBC, ANEU, LIPID, TSH, GFR #### [address] [address] RBC 5.04 10 6/mcL Normal 4.20-5.40 [facility] ([place]) Comment on above: Performed By: #### A DIFF, CMP, CBC, ANEU, LIPID, TSH, GFR #### [address] [address] WBC 8.6 10 3/mcL Normal 4.6-10.8 [facility] ([place]) Comment on above: Performed By: #### A DIFF, CMP, CBC, ANEU, LIPID, TSH, GFR #### [address] [address] CMPon 10-12-2022 Albumin Level 3.8 G/dL Normal 3.5-5.0 [facility] ([place]) Comment on above: Performed By: #### A DIFF, CMP, CBC, ANEU, LIPID, TSH, GFR #### [address] [address] ALT [Catalytic activity/Vol] 14 U/L Normal 14-59 [facility] ([place]) Comment on above: Performed By: #### A DIFF, CMP, CBC, ANEU, LIPID, TSH, GFR #### [address] [address] AST [Catalytic activity/Vol] 11 U/L Normal 10-40 [facility] ([place]) Comment on above: Performed By: #### A DIFF, CMP, CBC, ANEU, LIPID, TSH, GFR #### [address] [address] Bili Total 0.4 mg/dL Normal 0.2-1.0 [facility] ([place]) Comment on above: Result Comment: Use of this assay is not recommended for patients undergoing treatment with eltrombopag due to the potential for falsely elevated results. Performed By: #### A DIFF, CMP, CBC, ANEU, LIPID, TSH, GFR #### [address] [address] BUN/Creatinine Ratio 12 ratio Normal 7-27 [facility] ([place]) Comment on above: Performed By: #### A DIFF, CMP, CBC, ANEU, LIPID, TSH, GFR #### [address] [address] Total Protein 7.7 G/dL Normal 6.4-8.2 [facility] ([place]) Comment on above: Performed By: #### A DIFF, CMP, CBC, ANEU, LIPID, TSH, GFR #### [address] [address] CMPOrdered By: SYSTEM SYSTEM on 10-12-2022 Albumin/Globulin [Mass ratio] 1.0 {ratio} Low 1.1-2.5 AO ADM SS Comment on above: Performed By: #### A DIFF, CMP, CBC, ANEU, LIPID, TSH, GFR #### [address] [address] ALP [Catalytic activity/Vol] 81 U/L Normal 40-135 AO ADM SS Comment on above: Performed By: #### A DIFF, CMP, CBC, ANEU, LIPID, TSH, GFR #### [address] [address] Calcium [Mass/Vol] 9.1 mg/dL Normal 8.4-10.2 AO ADM SS Comment on above: Performed By: #### A DIFF, CMP, CBC, ANEU, LIPID, TSH, GFR #### [address] [address] Chloride [Moles/Vol] 103 mmol/L Normal 98-107 AO A DM SS Comment on above: Performed By: #### A DIFF, CMP, CBC, ANEU, LIPID, TSH, GFR #### [address] [address] CO2 [Moles/Vol] 26 mmol/L Normal 22-29 AO ADM SS Comment on above: Performed By: #### A DIFF, CMP, CBC, ANEU, LIPID, TSH, GFR #### [address] [address] Creatinine [Mass/Vol] 0.91 mg/dL Normal 0.55-1.02 AO ADM SS Comment on above: Performed By: #### A DIFF, CMP, CBC, ANEU, LIPID, TSH, GFR #### [place] [id number] Electrolyte Balance 11.0 mEq/L Normal 4.0-15.0 AO AD M SS Comment on above: Performed By: #### A DIFF, CMP, CBC, ANEU, LIPID, TSH, GFR #### [place] [id number] Globulin 3.9 G/dL Normal AO ADM SS Comment on above: Performed By: #### A DIFF, CMP, CBC, ANEU, LIPID, TSH, GFR #### [place] [id number] Glucose [Mass/Vol] 106 mg/dL High 70-105 AO ADM SS Comment on above: Performed By: #### A DIFF, CMP, CBC, ANEU, LIPID, TSH, GFR #### [place] [id number] Potassium [Moles/Vol] 4.2 mmol/L Normal 3.5-5.1 AO ADM SS Comment on above: Performed By: #### A DIFF, CMP, CBC, ANEU, LIPID, TSH, GFR #### [place] [id number] Sodium [Moles/Vol] 140 mmol/L Normal 136-145 AO ADM SS Comment on above: Performed By: #### A DIFF, CMP, CBC, ANEU, LIPID, TSH, GFR #### [place] [id number] Urea nitrogen [Mass/Vol] 11 mg/dL Normal 7-18 AO ADM SS Comment on above: Performed By: #### A DIFF, CMP, CBC, ANEU, LIPID, TSH, GFR #### [place] [address] FEOrdered By: SYSTEM SYSTEM on 10-12-2022 Iron [Mass/Vol] 21 ug/dL Low 50-170 AO ADM SS Comment on above: Performed By: #### A VESNA SHEEHAN ADIFF, CBC #### [place] [address] FERROrdered By: SYSTEM SYSTE M on 10-12-2022 Ferritin [Mass/Vol] 7.0 ng/mL Low 8.0-252.0 AO AD M SS Comment on above: Performed By: #### A VESNA SHEEHAN ADIFF, CBC #### [place] [address] LABORATORYOrdered By: SYSTEM SYSTEM on 10-12-2022 Albumin [...] A VESNA SHEEHAN ADIFF, CBC #### [place] [address] [address] Cholesterol in HDL [Mass/Vol] 33 mg/dL Low 40-60 AO ADM SS Comment on above: Performed By: #### A VESNA SHEEHAN ADIFF, CBC #### [place] [address] [address] Cholesterol in LDL [Mass/Vol] 112 mg/dL Normal 0-130 AO ADM SS Comment on above: Performed By: #### A VESNA SHEEHAN ADIFF, CBC #### [place] [address] [address] Triglyceride [Mass/Vol] 78 mg/dL Normal 0-150 A O ADM SS Comment on above: Interpretive Data: T riglyceride Reference Interval: Less than 150 Normal 150-199 Borderline high risk 200-499 High risk 500 or higher Very high risk Result Comment: Trig lyceride Reference Interval: Less than 150 Normal 150-199 Borderline high risk 200-499 High risk 500 or higher Very high risk Performed By: #### A VESNA SHEEHAN ADIFF, CBC #### [place] [address] [address] TSHOrdered By: SYSTEM SYSTEM on 10-12-2022 TSH Qn 1.88 m[IU]/L Normal 0.36-3.74 AO ADM SS Comment on above: Performed By: #### A DIFF, CMP, CBC, ANEU, LIPID, TSH, GFR #### [place] [address] [address] Vital Signs Date Time Vital Sign Value Performing Clinician Facility 11-28-2024 19:34-0400 Diastolic blood pressure 71 mm[Hg] [facility] 11-28-2024 19:34-0400 Heart rate 68 /min [facility] 11-28-2024 19:34-0400 Systolic blood pressure 133 mm[Hg] [facility] 11-28-2024 17:00-0400 Body weight 98.88 kg [facility] 11-28-2024 16:27-0400 Respiratory rate 18 /min [facility] 11-28-2024 16:27-0400 SaO2% (BldA) [Mass fraction] 98 % [facility] 11-28-2024 15:43-0400 Body height 165.1 cm [facility] 11-28-2024 15:43-0400 Body temperature 98.2 [degF] [facility] 11-28-2024 15:43-0400 Diastolic blood pressure 100 mm[Hg] [facility] 11-28-2024 15:43-0400 Systolic blood pressure 177 mm[Hg] [facility] 11-25-2024 14:44-0400 Body mass index (BMI) [Ratio] 36.44 kg/m2 Rony Tyler MD Work Phone: [facility] 11-25-2024 14:44-0400 Body weight 99.34 kg Rony Tyler MD Work Phone: [facility] 11-25-2024 14:44-0400 Diastolic blood pressure 88 mm[Hg] Rony Tyler MD Work Phone: [facility] 11-25-2024 14:44-0400 Systolic blood pressure 136 mm[Hg] Rony Tyler MD Work Phone: [facility] 11-22-2024 17:21-0400 Body temperature 9709 [degF] [facility] 11-22-2024 17:21-0400 Diastolic blood pressure 86 mm[Hg] [facility] 11-22-2024 17:21-0400 Heart rate 74 /min [facility] 11-22-2024 17:21-0400 Respiratory rate 16 /min [facility] 11-22-2024 17:21-0400 SaO2% (BldA) [Mass fraction] 99 % [facility] 11-22-2024 17:21-0400 Systolic blood pressure 126 mm[Hg] [facility] 11-20-2024 09:15-0400 Body height 165.1 cm [facility] 11-20-2024 09:15-0400 Body mass index (BMI) [Ratio] 39.1 kg/m2 [facility] 11-20-2024 09:15-0400 Body weight 106.7 kg [facility] 11-19-2024 14:19-0400 Body mass index (BMI) [Ratio] 39.11 kg/m2 Clint Vasques MD Work Phone: [facility] 11-19-2024 14:19-0400 Body weight 106.59 kg Clint Vasques MD Work Phone: [facility] 11-19-2024 14:19-0400 Diastolic blood pressure 90 mm[Hg] Clint Vasques MD Work Phone: [facility] Comment on above: 138/85: 139/85: 129/85: 125/87: 135/88 11-19-2024 14:19-0400 Systolic blood pressure 133 mm[Hg] Clint Vasques MD Work Phone: [facility] Comment on above: 138/85: 139/85: 129/85: 125/87: 135/88 11-14-2024 14:48-0400 Body mass index (BMI) [Ratio] 38.44 kg/m2 Denice Dash MD Work Phone: [facility] 11-14-2024 14:48-0400 Body weight 104.78 kg Denice Dash MD Work Phone: [facility] 11-14-2024 14:48-0400 Diastolic blood pressure 76 mm[Hg] Denice Dash MD Work Phone: [facility] 11-14-2024 14:48-0400 Systolic blood pressure 122 mm[Hg] Denice Dash MD Work Phone: [facility] 11-11-2024 14:31-0400 Body mass index (BMI) [Ratio] 39.27 kg/m2 Clint Vasques MD Work Phone: [facility] 11-11-2024 14:31-0400 Body weight 107.05 kg Clint Vasques MD Work Phone: [facility] 11-11-2024 14:31-0400 Diastolic blood pressure 85 mm[Hg] Clint Vasques MD Work Phone: [facility] 11-11-2024 14:31-0400 Systolic blood pressure 129 mm[Hg] Clint Vasques MD Work Phone: [facility] 11-05-2024 15:01-0400 Body mass index (BMI) [Ratio] 39.17 kg/m2 Clint Vasques MD Work Phone: [facility] 11-05-2024 15:01-0400 Body weight 106.78 kg Clint Vasques MD Work Phone: [facility] 11-05-2024 15:01-0400 Diastolic blood pressure 68 mm[Hg] Clint Vasques MD Work Phone: [facility] 11-05-2024 15:01-0400 Systolic blood pressure 124 mm[Hg] Clint Vasques MD Work Phone: [facility] 10-22-2024 14:30-0400 Body mass index (BMI) [Ratio] 38.64 kg/m2 Clint Vasques MD Work Phone: [facility] 10-22-2024 14:30-0400 Body weight 105.33 kg Clint Vasques MD Work Phone: [facility] 10-22-2024 14:30-0400 Diastolic blood pressure 83 mm[Hg] Clint Vasques MD Work Phone: [facility] 10-22-2024 14:30-0400 Systolic blood pressure 126 mm[Hg] Clint Vasques MD Work Phone: [facility] 10-08-2024 15:02-0400 Body mass index (BMI) [Ratio] 39.11 kg/m2 Benita Haury SYSTEMS ADMIN.COMPLIANCE PROFESSIONAL Work Phone: [facility] 10-08-2024 15:02-0400 Body weight 106.59 kg Benita Conn SYSTEMS ADMIN.COMPLIANCE PROFESSIONAL Work Phone: [facility] 10-08-2024 15:02-0400 Diastolic blood pressure 70 mm[Hg] Benita Puenteury SYSTEMS ADMIN.COMPLIANCE PROFESSIONAL Work Phone: [facility] 10-08-2024 15:02-0400 Systolic blood pressure 124 mm[Hg] Benita Puenteury SYSTEMS ADMIN.COMPLIANCE PROFESSIONAL Work Phone: [facility] 09-24-2024 16:01-0400 Body mass index (BMI) [Ratio] 38.77 kg/m2 Clint Vasques MD Work Phone: [facility] 09-24-2024 16:01-0400 Body weight 105.69 kg Clint Vasques MD Work Phone: [facility] 09-24-2024 16:01-0400 Diastolic blood pressure 74 mm[Hg] Clint Vasques MD Work Phone: [facility] 09-24-2024 16:01-0400 Systolic blood pressure 122 mm[Hg] Clint Vasques MD Work Phone: [facility] 09-03-2024 13:50-0400 Body mass index (BMI) [Ratio] 39.27 kg/m2 Gisell Hope MD Work Phone: [facility] 09-03-2024 13:50-0400 Body weight 107.05 kg Gisell Hope MD Work Phone: [facility] 09-03-2024 13:50-0400 Diastolic blood pressure 84 mm[Hg] Gisell Hope MD Work Phone: [facility] 09-03-2024 13:50-0400 Systolic blood pressure 132 mm[Hg] Gisell Hope MD Work Phone: [facility] 06-17-2024 15:33-0400 Body mass index (BMI) [Ratio] 38.31 kg/m2 Clint Vasques MD Work Phone: [facility] 06-17-2024 15:33-0400 Body weight 104.42 kg Clint Vasques MD Work Phone: [facility] 06-17-2024 15:33-0400 Diastolic blood pressure 84 mm[Hg] Clint Vasques MD Work Phone: [facility] 06-17-2024 15:33-0400 Systolic blood pressure 128 mm[Hg] Clint Vasques MD Work Phone: [facility] 05-20-2024 10:07-0500 Body mass index (BMI) [Ratio] 38.27 kg/m2 Nichole Cortes SYSTEMS ADMIN.CNM Work Phone: [facility] 05-20-2024 10:07-0500 Body weight 104.33 kg Nichole Cortes SYSTEMS ADMIN.CNM Work Phone: [facility] 05-20-2024 10:07-0500 Diastolic blood pressure 74 mm[Hg] Nichole Cortes SYSTEMS ADMIN.CNM Work Phone: [facility] 05-20-2024 10:07-0500 Systolic blood pressure 124 mm[Hg] Nichole Cortes SYSTEMS ADMIN.CNM Work Phone: [facility] 04-18-2024 08:19-0500 Body height 165.1 cm Melissa Staunton SYSTEMS ADMIN.COMPLIANCE PROFESSIONAL Work Phone: [facility] 04-18-2024 08:19-0500 Body mass index (BMI) [Ratio] 38.27 kg/m2 Melissa Zully SYSTEMS ADMIN.COMPLIANCE PROFESSIONAL Work Phone: [facility] 04-18-2024 08:19-0500 Body weight 104.33 kg Melissa Zully SYSTEMS ADMIN.COMPLIANCE PROFESSIONAL Work Phone: [facility] 04-18-2024 08:19-0500 Diastolic blood pressure 76 mm[Hg] Melissa Staunton SYSTEMS ADMIN.COMPLIANCE PROFESSIONAL Work Phone: [facility] 04-18-2024 08:19-0500 Systolic blood pressure 122 mm[Hg] Melissa Zully DARNELL Work Phone: [facility] 09-10-2023 09:47-0400 Body height 165.7 cm Clint Vasques MD Work Phone: [facility] 09-10-2023 09:47-0400 Body mass index (BMI) [Ratio] 35.83 kg/m2 Clint Vasques MD Work Phone: [facility] 09-10-2023 09:47-0400 Body weight 98.43 kg Clint Vasques MD Work Phone: [facility] 09-10-2023 09:47-0400 Diastolic blood pressure 82 mm[Hg] Clint Vasques MD Work Phone: [facility] 09-10-2023 09:47-0400 Systolic blood pressure 124 mm[Hg] Clint Vasques MD Work Phone: [facility] 10-30-2022 06:46-0400 Body height 165.1 cm [facility] 10-30-2022 06:46-0400 Body mass index (BMI) [Ratio] 38.2 kg/m2 [facility] 10-30-2022 06:46-0400 Body temperature 97.3 [degF] [facility] 10-30-2022 06:46-0400 Body weight 104.32 kg [facility] 10-30-2022 06:46-0400 Diastolic blood pressure 94 mm[Hg] [facility] 10-30-2022 06:46-0400 Heart rate 75 /min [facility] 10-30-2022 06:46-0400 Respiratory rate 14 /min [facility] 10-30-2022 06:46-0400 SaO2% (BldA) [Mass fraction] 98 % [facility] 10-30-2022 06:46-0400 Systolic blood pressure 145 mm[Hg] [facility] 10-29-2022 09:16-0400 Diastolic blood pressure 62 mm[Hg] [facility] 10-29-2022 09:16-0400 Heart rate 91 /min [facility] 10-29-2022 09:16-0400 Respiratory rate 14 /min [facility] 10-29-2022 09:16-0400 SaO2% (BldA) [Mass fraction] 99 % [facility] 10-29-2022 09:16-0400 Systolic blood pressure 106 mm[Hg] [facility] 10-29-2022 06:43-0400 Body mass index (BMI) [Ratio] 39.2 kg/m2 [facility] 10-29-2022 06:43-0400 Body temperature 97.1 [degF] [facility] 10-29-2022 06:43-0400 Body weight 107 kg [facility] 10-26-2022 13:40-0400 Diastolic blood pressure 84 mm[Hg] [facility] 10-26-2022 13:40-0400 Heart rate 64 /min [facility] 10-26-2022 13:40-0400 Respiratory rate 14 /min [facility] 10-26-2022 13:40-0400 SaO2% (BldA) [Mass fraction] 100 % [facility] 10-26-2022 13:40-0400 Systolic blood pressure 136 mm[Hg] [facility] 10-26-2022 11:33-0400 Body mass index (BMI) [Ratio] 38.2 kg/m2 [facility] 10-26-2022 11:33-0400 Body temperature 98.1 [degF] [facility] 10-26-2022 11:33-0400 Body weight 104.32 kg [facility] Encounters Encounter Date Encounter Type Care Provider Facility Start: 11-28-2024 End: 11-28-2024 ambulatory [facility] Start: 11-28-2024 End: 11-28-[address] Clint Vas[facility] Work Phone: Start: 11-28-2024 End: 11-28-2024 Emergency department patient visit [facility]Emergency Department Work Phone: Start: 11-25-2024 End: 11-25-2024 Patient encounter procedure Rony Tyler MD Work Phone: OB/Gynecology Comment on above: Routine f ollow-up (HCC) (Primary Dx) Start: 11-25-2024 End: 11-25-2024 ambulatory RONY TYLER Facility:[facility] Start: 11-20-2024 End: 11-21-2024 ambulatory Gisell Hope MD Work Phone: OB/Gynecology Comment on above: Ob Delivery Note Start: 11-20-2024 End: 11-22-2024 Evaluation and management of inpatient Dr. Gisell Hope MD -[facility] [place] Work Phone: Start: 11-19-2024 End: 11-19-2024 Patient encounter procedure Clint Vasques MD Work Phone: OB/Gynecology Comment on above: Supervision of high risk in third trimester (HCC) (Primary Dx); Obesity in (HCC); 39 weeks gestation of (HCC) Start: 11-19-2024 End: 11-19-2024 ambulatory CLINT VASQUES Facility:[facility] Start: 11-14-2024 End: 11-14-2024 Patient encounter procedure Denice Dash MD Work Phone: OB/Gynecology Comment on above: Supervision of high risk in third trimester (HCC) (Primary Dx); Obesity in ([facility]); IIH (idiopathic intracranial hypertension); Anemia during in third trimester ([facility]); 38 weeks gestation of (HCC) Start: 11-14-2024 End: 11-14-2024 ambulatory DENICE DASH Facility:[facility] Start: 11-13-2024 End: 11-13-2024 [facility] Start: 11-13-2024 End: 11-13-2024 [facility] Comment on above: Population Health [facility] (Ob/peds) Start: 11-11-2024 End: 11-11-2024 Patient encounter procedure Clint Vasques MD Work Phone: OB/Gynecology Comment on above: Supervision of high risk in third trimester (HCC) (Primary Dx); 37 weeks gestation of (HCC); Obesity in (HCC); IIH (idiopathic intracranial hypertension); Anemia during in third trimester (HCC) Start: 11-11-2024 End: 11-11-2024 ambulatory CLINT VASQUES Facility:[facility] Start: 11-06-2024 End: 11-07-2024 ambulatory Clint Vasques [...] (HCC) Start: 11-05-2024 End: 11-05-2024 ambulatory CLINT VASQUSE Facility:[facility] Start: 10-28-2024 End: 10-28-2024 ambulatory CLINT VASQUES Facility:[facility] Start: 10-22-2024 End: 10-22-2024 Patient encounter procedure Clint Vasques MD Work Phone: OB/Gynecology Comment on above: 35 weeks gestation o f (HCC) (Primary Dx); Supervision of high risk in third trimester (HCC); Obesity in (HCC); IIH (idiopathic intracranial hypertension) Start: 10-22-2024 End: 10-22-2024 ambulatory CLINT VASQUES Facility:[facility] Start: 10-08-2024 End: 10-08-2024 Patient encounter procedure Benita Conn APRN.CNP Work Phone: OB/Gynecology Comment on above: Supervision of high risk in third trimester (HCC) (Primary Dx); 33 weeks gestation of (HCC); Obesity in (HCC); IIH (idiopathic intracranial hypertension) Supervision of other high risk pregnancies, second trimester (HCC); Obesity in (HCC) Start: 10-08-2024 End: 10-08-2024 ambulatory CLINT VASQUES Facility:[facility] Start: 09-24-2024 End: 09-24-2024 Patient encounter procedure Clint Vasques MD Work Phone: OB/Gynecology Comment on above: Obesity in (HCC) (Primary Dx); Supervision of high risk in third trimester ([facility]); IIH (idiopathic intracranial hypertension); Anemia during in third trimester ([facility]) Start: 09-24-2024 End: 09-24-2024 ambulatory CLINT VASQUES Facility:[facility] Start: 09-08-2024 End: 11-08-2024 Follow-up encounter Clint Vasques MD Work Phone: OR Provider Adult Start: 09-03-2024 End: 09-03-2024 Patient encounter procedure Gisell Hope MD Work Phone: OB/Gynecology Comment on above: Obesity in (HCC) (Primary Dx); Supervision of high risk in third trimester ([facility]); 28 weeks gestation of ([facility]) Start: 09-03-2024 End: 09-03-2024 ambulatory GISELL HOPE Facility:[facility] Start: 08-13-2024 End: 08-13-2024 ambulatory CLINT VASQUES Facility:[facility] Start: 08-04-2024 End: 08-04-2024 Telephone encounter Clint Vasques MD Work Phone: OB/Gynecology Comment on above: breast pump Start: 07-25-2024 End: 07-25-2024 ambulatory Clnit Vasques MD Work Phone: OB/Gynecology Comment on above: Iron Start: 07-22-2024 End: 07-22-[address] [employer] SYSTEMS ADMIN-COMPLIANCE PROFESSIONAL Facility:[facility] Start: 07-22-2024 End: 07-22-[address] VEE APRN-COMPLIANCE PROFESSIONAL [facility] Start: 07-16-2024 End: 09-15-2024 Follow-up encounter Nichole Cortes APRN.CNM Work Phone: OB/Gynecology Start: 07-15-2024 End: 07-15-2024 Patient encounter procedure [employer] [facility] Comment on above: Encounter for anatomic survey (HCC) (Primary Dx); Obesity in (HCC); 20 weeks gestation of (HCC) Start: 07-15-2024 End: 07-15-2024 ambulatory NICHOLE CORTES Facility:[facility] Start: 06-17-2024 End: 06-17-2024 ambulatory CLINT VASQUES Facility:[facility] Start: 06-17-2024 End: 06-17-2024 Patient encounter procedure Clint Vasques MD Work Phone: OB/Gynecology Comment on above: 16 weeks gestation o f (Primary Dx); Supervision of high risk in second trimester; Obesity in Start: 05-20-2024 End: 05-20-2024 ambulatory MELISSA ZULLY Facility:[facility] Start: 05-20-2024 End: 05-20-2024 Patient encounter procedure [employer] [facility] Comment on above: Encounter for antena dwayne screening for malformation using ultrasound (Primary Dx); 12 weeks gestation of Supervision of high risk in second trimester (Primary Dx); Obesity in ; IIH (idiopathic intracranial hypertension) Start: 04-22-2024 End: 04-22-2024 ambulatory Melissa Staunton SYSTEMS ADMIN.COMPLIANCE PROFESSIONAL Work Phone: OB/Gynecology Comment on above: Asprin Start: 04-18-2024 End: 04-18-2024 ambulatory MELISSA ZULLY Facility:[facility] Start: 04-18-2024 End: 04-18-2024 Patient encounter procedure Melissa Zully SYSTEMS ADMIN.COMPLIANCE PROFESSIONAL Work Phone: OB/Gynecology Comment on above: with uncer tain dates, unspecified trimester (Primary Dx); 8 weeks gestation of ; Encounter for supervision of normal in multigravida; BMI 38.0-38.9,adult; IIH (idiopathic intracranial hypertension) Start: 01-15-2024 End: 01-15-[address] [employer] SYSTEM[employer] ADMIN-COMPLIANCE PROFESSIONAL Facility:[facility] Start: 01-15-2024 End: 01-15-[address] [employer] SYSTEMS ADMINAlissaCOMPLIANCE PROFESSIONAL [facility] Start: 11-27-2023 End: 11-27-2023 ambulatory Clint Vasques MD Work Phone: OB/Gynecology Comment on above: Pathology Start: 11-27-2023 End: 11-27-2023 E-mail encounter from caregiver Clint Vasques MD Work Phone: OB/Gynecology Start: 11-22-2023 End: 11-22-2023 ambulatory Clint Vasques MD Work Phone: OB/Gynecology Comment on above: Endometrial polyp (P rimary Dx); Abnormal uterine bleeding (AUB) Start: 11-22-2023 End: 11-22-2023 Patient encounter procedure Clint Vasques MD Work Phone: OB/Gynecology Start: 11-14-2023 End: 11-14-2023 ambulatory Clint Vasques [...] 10-23-2023 Patient encounter procedure [employer] OB/Gynecology Start: 10-17-2023 ambulatory Clint [...] encounter status Clint Vasques MD Work Phone: [facility] Start: 07-25-2023 End: 07-26-[address] [employer] ADMIN-COMPLIANCE PROFESSIONAL Facility:[facility] Start: 07-25-2023 End: 07-25-[address] [employer] ADMIN-COMPLIANCE PROFESSIONAL [facility] Start: 01-17-2023 End: 01-18-[address] [employer] ADMIN-COMPLIANCE PROFESSIONAL Facility:[facility] Start: 10-30-2022 End: 10-30-2022 Emergency department patient visit [facility] Work Phone: Start: 10-29-2022 End: 10-29-2022 Emergency department patient visit [facility]gency [facility] Work Phone: Start: 10-26-2022 Patient encounter procedure [facility]-Radiology, [facility] Work Phone: Start: 10-20-2022 End: 10-20-2022 ambulatory [facility] Work Phone: Start: 10-20-2022 End: 10-20-2022 Patient encounter procedure [facility]-MRI - [facility] Work Phone: Start: 10-12-2022 End: 10-13-[address] [employer] ADMIN-COMPLIANCE PROFESSIONAL Facility:[facility] Start: 10-12-2022 End: 10-12-[address] [employer] SYSTEMS ADMIN-COMPLIANCE PROFESSIONAL [facility] Start: 09-22-2016 Ambulatory GREGORY BARRERA Facility: [facility] Procedures Date Procedure Procedure Detail Performing Clinician Start: 11-28-[address] [facility] Start: 11-20-[address] [facility] Start: 11-20-2024 Serologic test for syphilis [facility] [facility] Start: 11-20-2024 Measurement of pH in vaginal fluid specimen using nitrazine yellow for detection of rupture of amniotic membrane [facility] Comment on above: Amniotic fluid not p resent indicates No Rupture of FetalMembranes at time of specimen collection. Start: 11-19-2024 Urnls dip stick/tabl et rgnt non-auto w/o micrscp Clint Vasques MD Work Phone: Start: 11-14-2024 Urnls dip stick/tabl et rgnt non-auto w/o micrscp Denice Dash MD Work Phone: Start: 11-05-2024 Urnls dip stick/tabl et rgnt non-auto w/o micrscp Clint Vasques MD Work Phone: Start: 11-05-2024 Us preg uterus after 1st trimest 1/ gestation Benita Conn SYSTEMS ADMIN.COMPLIANCE PROFESSIONAL Work Phone: Start: 10-22-2024 Urnls dip stick/tabl et rgnt non-auto w/o micrscp Clint Vasques MD Work Phone: Start: 10-08-2024 Us preg uterus after 1st trimest / gestation Clint Vasques MD Work Phone: Start: 07-15-2024 Us preg uterus after 1st trimest / gestation Nichole Cortes SYSTEMS ADMIN.CNM Work Phone: Start: 05-20-2024 Antibody screen NICHOLE CORTES Comment on above: Order Comment: Speci men Type: BLOOD SPECIMENOrdering Facility: [facility] Address: [address] [place] [address] [place] [address] Performed By: #### T SPN ####CC [facility] BLOOD BANKCLIA [id number] [facility] [address] [place] Start: 05-20-2024 Us preg uterus after 1st trimest 1 gestation Melissa Andrea APRN.COMPLIANCE PROFESSIONAL Work Phone: Start: 04-18-2024 Us uterus l imited fetuses Melissa Andrea SYSTEMS ADMIN.COMPLIANCE PROFESSIONAL Work Phone: Start: 10-25-[address] [facility] [facility] [employer] ADMIN-COMPLIANCE PROFESSIONAL Start: 10-23-2023 Us pelvic nonobstetr ic real-time image complete Clint Vasques MD Work Phone: Start: 10-26-2022 Bacterial culture Start: 10-26-2022 Investigation of tra nsfusion reaction Start: 10-26-2022 Diagnostic lumbar puncture Start: 10-20-2022 MRI of brain with contrast Start: 10-20-2022 MRI of head Structure of wisdom tooth (body structure) [facility] [employer] ADMIN-COMPLIANCE PROFESSIONAL Tonsillectomy LANE VEE AP RN-COMPLIANCE PROFESSIONAL Plan of Treatment Date Care Activity Detail Author Start: 09-09-2028 Screening for malign ant neoplasm of cervix Cervical Cancer Screening [facility] Start: 06-09-2027 Urine microalbumin profile DTaP,Tdap,Td Vaccine (8 - Td or Tdap) [facility] Start: 01-05-2025 End: 01-05-2025 Patient encounter procedure 01/05/2025 10:10 AM EDT Office Visit OB/Gynecology [address] [place] [address] Clint Vasques MD [address] [place], [place] [id number] Post 6 week OB/Gynecology Comment on above: Post 6 week Start: 12-01-2024 End: 12-01-2024 Patient encounter procedure 12/01/2024 10:50 AM EDT Office Visit OB/Gynecology [address] [place] [address] Clint Vasques MD [address] [place] [address] 1 week post OB/Gynecology Comment on above: 1 week post Start: 11-28-2024 Patient discharge [facility] Start: 11-24-2024 Influenza vaccination C [facility] Start: 11-22-2024 Patient discharge [facility] Start: 11-20-2024 Administration of medication [facility] Start: 11-20-2024 Application of ice collar, cap or bag [facility] Start: 11-20-2024 Catheterization of vein [facility] Start: 11-20-2024 Introduction of urin porfirio catheter [facility] Start: 11-20-2024 Measuring intake and output [facility] Start: 11-20-2024 Notification of physician [facility] Start: 11-20-2024 Procedure discontinued [facility] Start: 11-20-2024 Provision of activit y privileges [facility] Start: 11-20-2024 Vital signs measurements [facility] Start: 11-20-2024 End: 11-20-2024 [facility] Start: 11-20-2024 Documentation procedure [facility] Start: 11-20-2024 Admission procedure [facility] Start: 11-19-2024 End: 11-19-2024 Patient encounter procedure OB/Gynecology Comment on above: OB NST Start: 11-11-2024 End: 11-11-2024 Patient encounter procedure OB/Gynecology Comment on above: OB NST Start: 11-05-2024 End: 11-05-2024 Patient encounter procedure 11/05/2024 2:30 PM EDT Routine Office Visit OB/Gynecology [address] [place] [address] Clint Vasques MD [address] [place] [address] OB OB/Gynecology Comment on above: OB Start: [...] Obesity in (HCC) Expected: 10/08/2024, Expires: 10/08/2025 [facility] Comment on above: Expected: 10/08/2024 , Expires: 10/08/2025 Start: 09-24-2024 End: 09-24-2024 Patient encounter procedure 09/24/2024 3:50 PM EDT Routine Office Visit OB/Gynecology [address] [place] [address] Clint Vasques MD [address] [place] [address] Ob OB/Gynecology Comment on above: Ob Start: 09-09-2024 End: 09-09-2024 Patient encounter procedure 09/09/2024 9:00 AM EDT Office Visit OB/Gynecology [address] [place] [address] Clint Vasques MD [address] [place] [address] Annual OB/Gynecology Comment on above: Annual Start: 08-13-2024 End: 08-13-2024 Patient encounter procedure 08/13/2024 3:10 PM EDT Routine Office Visit OB/Gynecology [address] [place] [address] Clint Vasques MD [address] [place] [address] OB OB/Gynecology Comment on above: OB Start: 07-15-2024 End: 07-15-2024 Patient encounter procedure [facility] Comment on above: Anatomy/OB Start: 06-17-2024 End: 06-17-2024 Patient encounter procedure 06/17/2024 3:40 PM EDT Routine Office Visit OB/Gynecology [address] [place] [address] Clint Vasques MD [address] [place] [address] OB OB/Gynecology Comment on above: OB Start: 05-20-2024 End: 08-19-2024 HEMOGLOBIN EVALUATION CASCADE [facility] Comment on above: Expected: 05/20/2024 , Expires: 08/19/2024 Start: 05-20-2024 End: 05-20-2024 Patient encounter procedure [facility] Comment on above: Nuchal Nuchal / Est New OB Start: 04-18-2024 End: 07-18-2024 ANEMIA REFLEX PANEL ANEMIA REFLEX PANEL Lab Routine with uncertain dates, unspecified trimester 8 weeks gestation of Encounter for supervision of normal in multigravida Expected: 04/18/2024, Expires: 07/18/2024 [facility] Work Phone: Comment on above: Expected: 04/18/2024 , Expires: 07/18/2024 Start: 04-18-2024 End: 07-18-2024 Hemoglobin A1c in Blood HEMOGLOBIN A1C Lab Routine with uncertain dates, unspecified trimester 8 weeks gestation of Encounter for supervision of normal in multigravida Expected: 04/18/2024, Expires: 07/18/2024 [facility] Comment on above: Expected: 04/18/2024 , Expires: 07/18/2024 Start: 04-18-2024 End: 07-18-2024 Hepatitis B virus surface Ag [Presence] in Serum HEPATITIS B SURFACE ANTIGEN Lab Routine with uncertain dates, unspecified trimester 8 weeks gestation of Encounter for supervision of normal in multigravida Expected: 04/18/2024, Expires: 07/18/2024 [facility] Comment on above: Expected: 04/18/2024 , Expires: 07/18/2024 Start: 04-18-2024 End: 07-18-2024 Hepatitis C virus Ab [Presence] in Serum HEPATITIS C ANTIBODY IA WITH CONFIRMATION Lab Routine with uncertain dates, unspecified trimester Encounter for supervision of normal in multigravida Expected: 04/18/2024, Expires: 07/18/2024 [facility] Comment on above: Expected: 04/18/2024 , Expires: 07/18/2024 Start: 04-18-2024 End: 07-18-2024 HIV 1+2 Ab [Presence] in Serum or Plasma by Immunoassay HIV 1/2 COMBO WITH REFLEX TO DIFFERENTIATION Lab Routine with uncertain dates, unspecified trimester 8 weeks gestation of Encounter for supervision of normal in multigravida Expected: 04/18/2024, Expires: 07/18/2024 [facility] Comment on above: Expected: 04/18/2024 , Expires: 07/18/2024 Start: 04-18-2024 End: 04-18-2025 OBSTETRIC ULTRASOUND WHI OBSTETRIC ULTRASOUND [facility] Anc Imaging Routine with uncertain dates, unspecified trimester 8 weeks gestation of Encounter for supervision of normal in multigravida Expected: 04/18/2024, Expires: 04/18/2025 [facility] Comment on above: Expected: 04/18/2024 , Expires: 04/18/2025 Start: 04-18-2024 End: 07-18-2024 RUBELLA IGG ANTIBODY RUBELLA IGG ANTIBODY Lab Routine with uncertain dates, unspecified trimester 8 weeks gestation of Encounter for supervision of normal in multigravida Expected: 04/18/2024, Expires: 07/18/2024 [facility] Comment on above: Expected: 04/18/2024 , Expires: 07/18/2024 Start: 04-18-2024 End: 07-18-2024 SYPHILIS TREPONEMAL W/REFLEX SYPHILIS TREPONEMAL W/REFLEX Lab Routine with uncertain dates, unspecified trimester 8 weeks gestation of Encounter for supervision of normal in multigravida Expected: 04/18/2024, Expires: 07/18/2024 [facility] Comment on above: Expected: 04/18/2024 , Expires: 07/18/2024 Start: 04-18-2024 End: 07-18-2024 TYPE + SCREEN TYPE + SCREEN Blood Bank Routine 8 weeks gestation of Expected: 04/18/2024, Expires: 07/18/2024 [facility] Comment on above: Expected: 04/18/2024 , Expires: 07/18/2024 Start: 11-25-2023 Covid-19 Vaccine () Covid-19 Vaccine () [facility] Start: 11-25-2023 Covid-19 Vaccine () Covid-19 Vaccine () [facility] Start: 11-25-2023 Influenza vaccination C [facility] Start: 11-14-2023 End: 11-14-2023 ambulatory 11/14/2023 1:00 PM EDT [facility] OB/Gynecology [address] [place], [place] [id number] Clint Vasques MD [address] [place], [place] [id number] Pre op for 11/22/23 OB/Gynecology Comment on above: Pre op for 11/22/23 Start: 10-17-2023 End: 10-16-2024 US Pelvis PELVIC US WHI Anc Imaging Routine Abnormal uterine bleeding (AUB) Expected: 10/17/2023, Expires: 10/16/2024 [facility] Work Phone: Comment on above: Expected: 10/17/2023 , Expires: 10/16/2024 Start: 09-10-2023 End: 12-10-2023 CARRIER SCREEN, STANDARD CARRIER SCREEN, STANDARD Lab Routine Encounter for preconception consultation Expected: 09/10/2023, Expires: 12/10/2023 [facility] Comment on above: Expected: 09/10/2023 , Expires: 12/10/2023 Start: 09-10-2023 End: 12-10-2023 RUBELLA IGG ANTIBODY RUBELLA IGG ANTIBODY Lab Routine Encounter for preconception consultation Expected: 09/10/2023, Expires: 12/10/2023 [facility] Work Phone: Comment on above: Expected: 09/10/2023 , Expires: 12/10/2023 Start: 03-26-2023 Behavioral Health Screening Behavioral Health Screening [facility] Start: 11-24-2022 Covid-19 Vaccine () Covid-19 Vaccine () [facility] Start: 2020 HPV Vaccine (1 - 3-d ose SCDM series) HPV Vaccine (1 - 3-dose SCDM series) [facility] Start: 2014 Screening for malign ant neoplasm of cervix Cervical Cancer Screening [facility] Start: 2011 Anxiety Screening Anxiety Screening [facility] Start: 2011 Depression Screening Depression Scre ening [facility] Start: 2011 Hepatitis C screening Hepatitis C Sc reening [facility] Start: 2011 HIV screening HIV Screening [facility] Bacteria identified in Urine by Culture BACTERIAL CULTURE, URINE Microbiology Routine with uncertain dates, unspecified trimester 8 weeks gestation of Encounter for supervision of normal in multigravida 04/18/2024 9:38 AM [facility] Chlamydia trachomatis+Neisseria gonorrhoeae DNA [Presence] in Unspecified specimen by CULLEN with probe detection GONORRHEA/CHLAMYDIA NAAT Lab Routine with uncertain dates, unspecified trimester 8 weeks gestation of Encounter for supervision of normal in multigravida 04/18/2024 9:38 AM [facility] nonstress test NON-S TRESS TEST Procedures Routine Obesity in (HCC) Ordered: 10/08/2024 [facility] Work Phone: Comment on above: Ordered: 10/08/2024 OBSTETRIC ULTRASOUND [facility]I OBSTETR IC ULTRASOUND [facility] Anc Imaging Routine Obesity in 1 Occurrences starting 05/20/2024 [facility] Work Phone: Comment on above: 1 Occurrences starti ng 05/20/2024 PAP TEST PAP TEST Lab Rou alvarado Encounter for gynecological examination (general) (routine) without abnormal findings Screening for cervical cancer Encounter for screening for human papillomavirus (HPV) 09/10/2023 10:36 AM EDT [facility] Patient Education [facility] Work Phone: Patient referral [facility] Work Phone: ROUTINE, GR OUP B STREPTOCOCCUS BY PCR ROUTINE, GROUP B STREPTOCOCCUS BY PCR Microbiology Routine 37 weeks gestation of ([facility]) Supervision of high risk in third trimester ([facility]) 11/05/2024 3:23 PM EDT [facility] Work Phone: URINE OB DIP B/O URINE OB DIP B/ O Lab Routine 37 weeks gestation of ([facility]) Supervision of high risk in third trimester ([facility]) Obesity in ([facility]) IIH (idiopathic intracranial hypertension) Anemia during in third trimester ([facility]) Ordered: 11/11/2024 [facility] Work Phone: Comment on above: Ordered: 11/11/2024 Immunizations Immunization Date Immunization Notes Care Provider Sary bullock 06-08-2017 tetanus toxoid, redu becky diphtheria toxoid, and acellular pertussis vaccine, adsorbed LANE [facility] SYSTEM[employer] ADMIN-COMPLIANCE PROFESSIONAL [facility] 01-05-2006 meningococcal polysaccharide (groups A, C, Y and W-135) diphtheria toxoid conjugate vaccine (MCV4P) [facility] [employer] ADMIN-COMPLIANCE PROFESSIONAL [facility] 01-05-2006 tetanus toxoid, redu becky diphtheria toxoid, and acellular pertussis vaccine, adsorbed [facility] [employer] ADMIN-COMPLIANCE PROFESSIONAL [facility] 07-13-1998 diphtheria, tetanus toxoids and acellular pertussis vaccine, unspecified formulation Clint Vasques MD Work Phone: [facility] 07-13-1998 measles, mumps and rubella virus vaccine Clint Vasques MD Work Phone: [facility] 07-13-1998 measles/mumps/rubell a virus vaccine [facility] [employer] ADMIN-COMPLIANCE PROFESSIONAL [facility] 07-13-1998 poliovirus vaccine, unspecified formulation Clint Vasques MD Work Phone: [facility] 06-15-1994 diphtheria, tetanus toxoids and acellular pertussis vaccine, unspecified formulation Clint Vasques MD Work Phone: [facility] 06-15-1994 haemophilus influenz ae type b vaccine, conjugate unspecified formulation Clint Vasques MD Work Phone: [facility] 04-06-1994 measles, mumps and rubella virus vaccine Clint Vasques MD Work Phone: [facility] 04-06-1994 measles/mumps/rubell a virus vaccine [facility] 1993 hepatitis B pediatri c vaccine [facility] 1993 hepatitis B vaccine, pediatric or pediatric/adolescent dosage Clint Vasques MD Work Phone: [facility] 1993 diphtheria, tetanus toxoids and acellular pertussis vaccine, unspecified formulation Clint Vasques MD Work Phone: [facility] 1993 haemophilus influenz ae type b vaccine, conjugate unspecified formulation Clint Vasques MD Work Phone: [facility] 1993 poliovirus vaccine, unspecified formulation Clint Vasques MD Work Phone: [facility] 1993 diphtheria, tetanus toxoids and acellular pertussis vaccine, unspecified formulation Clint Vasques MD Work Phone: [facility] 1993 haemophilus influenz ae type b vaccine, conjugate unspecified formulation Clint Vasques MD Work Phone: [facility] 1993 poliovirus vaccine, unspecified formulation Clint Vasques MD Work Phone: [facility] 1993 hepatitis B pediatri c vaccine [facility] [employer] ADMIN-COMPLIANCE PROFESSIONAL [facility] 1993 hepatitis B vaccine, pediatric or pediatric/adolescent dosage Clint Vasques MD Work Phone: [facility] 1993 diphtheria, tetanus toxoids and acellular pertussis vaccine, unspecified formulation Clint Vasques MD Work Phone: [facility] 1993 haemophilus influenz ae type b vaccine, conjugate unspecified formulation Clint Vasques MD Work Phone: [facility] 1993 hepatitis B pediatri c vaccine [facility] [employer] ADMIN-COMPLIANCE PROFESSIONAL [facility] 1993 hepatitis B vaccine, pediatric or pediatric/adolescent dosage Clint Vasques MD Work Phone: [facility] 1993 poliovirus vaccine, unspecified formulation Clint Vasques MD Work Phone: [facility] Payers Date Payer Category Payer Self-pay 2023 Private Health Insurance [id number] 2022 Private Health Insurance [id number] 2016 Unknown [id number] 1993 Unknown [id number] 1993 Unknown [id number] 1993 Unknown [id number] 1993 Unknown [id number] 1993 Unknown [id number] Unknown [id number] Unknown [id number] Social History Date Type Detail Facility Start: 10-11-2022 End: 11-20-2024 Tobacco smoking status Never smoked tobacco (finding) [facility] Start: 1995 Sex Assigned At Female A [facility] Start: 10-30-2022 [facility] ever smoked [facility] Start: 09-10-2023 Tobacco use and exposure Smokeless tobacco non-user [facility] Start: 09-10-2023 End: 11-27-2023 Alcohol intake Current drinker of alcohol (finding) [facility] Start: 09-10-2023 End: 11-25-2024 History of Social function [facility] Start: 09-10-2023 End: 11-25-2024 Tobacco use panel [facility] Start: 02-11-2021 National Score (1-100), lower number is lower risk 48 [facility] Start: 09-10-2023 Alcohol Comment [facility] Start: 1995 Sex Assigned At Not on file [facility] Start: 04-18-2024 End: 11-25-2024 Alcoholic beverage intake Ex-drinker (finding) [facility] Start: 04-14-2024 Education 13 [facility] Start: 03-05-2024 [facility] Start: 04-14-2024 Gender identity Identifies as female gender (finding) [facility] Sexual Orientation [place] [facility] Start: 09-18-2018 Sex Female (finding) [facility] NEGATED: Highlighted row [facility] Goals Date Patient Goal Desired Activity /State Personal health goal Mental Status Date Assessment Result Facility 11-22-2024 Cognitive function Appropriate [place] Work Phone: 10-30-2022 Cognitive function Level Of Cons ciousness Awake;Alert;Appropriate;Follow s Commands [facility] Work Phone: 10-29-2022 Cognitive function Level Of Cons ciousness Awake;Alert;Appropriate [facility] Work Phone: 10-26-2022 Cognitive function Awake;Alert;Appropriat e [facility] Work Phone: Clinical Notes 09-10-2023 to 11-25-2024 Rony Tyler MD - 11/25/2024 2:42 PM EDT Note Date & Type Note Facility 11-25-2024 Note HNO ID: [id number] Author: RONY TYLER MD Service: ? Author Type: Physician Type: Progress Notes Filed: 11/25/2024 14:56 Note Text: EARLY VISIT Soheila Polk is a 29 year old here for 1 week visit. Delivery Summary: 11/20/24 Winston Yeung ROS: General: Denies any fever or chills Hypertension Screening: Headache? No. Visual Changes? No Epigastric Pain? No Increased Swelling? No Taking any BP medications at home? No If applicable, monitoring BP at home? (If Yes, include results) NA Mood: normal Depression: denies symptoms of depression. OB Depression and Anxiety Screening- This Encounter Feeling down, depressed, or hopeless: Not at all Little interest or pleasure in doing things: Not at all Feeling nervous, anxious, or on edge Not at all Not being able to stop or control worrying Not at all Anxiety Pre-Screening Total (If >/= 3 additional questions will be reviewed) 0 Feeding: Breast feeding problems: None Bladder: No dysuria, gross hematuria, urinary frequency, urinary urgency, or incontinence Bowel symptoms: Negative for abdominal discomfort, blood in stools or black stools and change in bowel habits Abdomen: N/A Bleeding: light flow Bottom and Perineum: No issues Sleep: no sleep concerns, feels rested [place] since delivery: Not resumed Emotional support: Yes Exercise: N/A Other issues: None SENSITIVE EXAM: Sensitive exam not performed. PHYSICAL EXAMINATION: BP 136/88 Wt 99.3 kg (219 lb) LMP 02/20/2024 Yes BMI 36.44 kg/m? General: pleasant,female in no apparent distress, AANDO x 3. Skin warm and intact. Breast: Deferred Abdomen: Deferred /Incision: N/A Pelvic: Deferred Bimanual: Deferred ASSESSMENT AND PLAN: 29 year old status post with normal course. Contraception plan: undecided . Reinforced 6-week pelvic rest. Encouraged condom usage should patient deviate. Education: resources provided - see MA/RN note Patient will monitor BP at home AND call with concerns Follow up: Return to Clinic for 6 week visit and as needed Rony Tyler MD [facility] 11-25-2024 History of Present illness Narrative EARLY VISIT Soheila Polk is a 29 year old here for 1 week visit. Delivery Summary: 11/20/24 Winston Yeung ROS: General: Denies any fever or chills Hypertension Screening: Headache? No. Visual Changes? No Epigastric Pain? No Increased Swelling? No Taking any BP medications at home? No If applicable, monitoring BP at home? (If Yes, include results) NA Mood: normal Depression: denies symptoms of depression. OB Depression and Anxiety Screening- This Encounter Feeling down, depressed, or hopeless: Not at all Little interest or pleasure in doing things: Not at all Feeling nervous, anxious, or on edge Not at all Not being able to stop or control worrying Not at all Anxiety Pre-Screening Total (If >/= 3 additional questions will be reviewed) 0 Feeding: Breast feeding problems: None Bladder: No dysuria, gross hematuria, urinary frequency, urinary urgency, or incontinence Bowel symptoms: Negative for abdominal discomfort, blood in stools or black stools and change in bowel habits Abdomen: N/A Bleeding: light flow Bottom and Perineum: No issues Sleep: no sleep concerns, feels rested [place] since delivery: Not resumed Emotional support: Yes Exercise: N/A Other issues: None SENSITIVE EXAM: Sensitive exam not performed. PHYSICAL EXAMINATION: BP 136/88 Wt 99.3 kg (219 lb) LMP 02/20/2024 Yes BMI 36.44 kg/m General: pleasant,female in no apparent distress, A&O x 3. Skin warm and intact. Breast: Deferred Abdomen: Deferred /Incision: N/A Pelvic: Deferred Bimanual: Deferred ASSESSMENT AND PLAN: 29 year old status post with normal course. Contraception plan: undecided . Reinforced 6-week pelvic rest. Encouraged condom usage should patient deviate. Education: resources provided - see MA/RN note Patient will monitor BP at home & call with concerns Follow up: Return to Clinic for 6 week visit and as needed Rony Tyler MD documented in this encounter [facility] 11-22-2024 Discharge summary Note Date/Time November 22, 2024 12:52pm [facility] Medical Records Department [address] [place] [address] Discharge Summary 11/22/24 1248 MR#: [id number] Acct: [id number] Name: SOHEILA POLK Rep #[id number] : 1995 29 From: Nichole BASURTO PCP: [facility] Status:ADM IN Location: [id number] Providers Date of Admission: 11/20/24 Primary Care Physician: LANE [facility] Reason For Visit: VAGINAL DELIVERY Diagnosis Discharge Diagnosis (1) (spontaneous vaginal delivery): Status: Acute Code(s): O80 - Encounter for full-term uncomplicated delivery (2) Gestational hypertension: Status: Acute Code(s): O13.9 - Gestational [-induced] hypertension without significant proteinuria, unspecified trimester Qualifiers: Trimester: third trimester Qualified Code(s): O13.3 - Gestational [-induced] hypertension without significant proteinuria, third trimester Plan 1) Routine care, PPD #2 2) Vitals signs stable 3) Pain controlled 4) , services PRN 5) D/C home, follow up next week for BP check. Reviewed signs and symptoms 6) Follow up in 2 weeks and 6 weeks Medications at Discharge Home Medications vits,calcium no.78-iron fumarate-folic acid 29 mg-1 mg tablet (Prenatabs FA) 1 tab PO DAILY 11/12/23 acetaminophen 500 mg tablet 1,000 mg (2 x 500 mg) PO Q6H PRN PRN Pain 1-10 Or Fever #0 tabs 11/22/24 ibuprofen 600 mg tablet 600 mg PO Q6H PRN PRN Pain Score 1-10 #0 tabs 11/22/24 Hospital Course Summary of Care Provided Minutes Spent on Discharge: 15 Physical Exam Const alert and oriented x3 General Appearance: cooperative Orientation / Consciousness: awake, oriented to person, oriented to place and oriented to time Exam Limitations: no limitations HEENT normocephalic Head and Scalp: normal to inspection, normocephalic and atraumatic Face and Sinus: normal facial exam Eyes General Eye: normal appearance of both eyes Neck full ROM Chest Chest: symmetrical chest wall rise Resp normal respiratory effort and normal air movement Auscultation: clear to auscultation bilaterally Cardio regular rate, regular rhythm, S1 normal heart sound, S2 normal heart sound, no murmurs, no rub, no gallops and no clicks GI normal to inspection, nondistended, normoactive bowel sounds and non-tender appearance of the vagina normal Bladder / Kidney Exam: no CVA tenderness Back/Spine normal ROM Extremity normal to inspection and full ROM Skin no rashes or lesions noted Neuro oriented x3, CN's II-XII intact bilaterally and moves all extremities Sensorium / Orientation: awake, alert and oriented to person Motor Exam: clonus absent Deep Tendon Reflexes: Rt Patellar (L4): 2+ and Lt Patellar (L4): 2+ Weight / BMI Weight Weight: 235 lb 3.732 oz Body Mass Index (BMI) 39.1 ABG / Lab / Microbiology Data 11/20/24 10:40 11/20/24 10:40 D/C Instructions DC O2, CPAP, BIPAP Needs Home O2 Discharge instructions: No Meaningful Use Info Meaningful Use Meaningful Use Diagnoses (Choose all that apply): None applicable Discharge Plan Admission Admit Date/Time: 11/20/24 11:33 Primary Reason for Your Visit: Vaginal Delivery Attending Provider: Gisell Hope Primary Care Provider: LANE YOU Discharge Orders/Prescriptions Prescriptions: New acetaminophen 500 mg Tablet 1,000 mg PO Q6H PRN PRN (Reason: Pain 1-10 Or Fever) Qty: 0 0RF ibuprofen 600 mg Tablet 600 mg PO Q6H PRN PRN (Reason: Pain Score 1-10) Qty: 0 0RF Continued Prenatabs FA 29-1 mg tablet 1 tab PO DAILY Discontinued ferrous sulfate [Iron (ferrous sulfate)] 325 mg (65 mg iron) tablet 325 mg PO MOWEFR aspirin 81 mg capsule 81 mg PO DAILY Referrals / Follow Up: [facility] [Other] Disposition Disposition (needs filled in before D/C Order can be placed): Home, Self Care 11/22/24 1252 <Electronically signed by Nichole Cortes CNM> Cosigner Signature (if applicable): CC: DILLON Cortes; [facility] YOU~ Signed [facility] Work Phone: 1(131) 967-643808-30-2025 Progress note Author Nichole Cortes [facility] Note Date/Time November 22, 2024 12 :48pm [facility] Medical Records Department [address] [place] [address] Progress Note - OBGYN 11/22/24 1137 MR#: [id number] Acct: [id number] Name: SOHEILA POLK Rep #:[id number] : 1995 29 From: Nichole BASURTO PCP: L[facility] Status:ADM IN [id number] Subjective Subjective Doing well per patient and nursing staff. Ambulating and taking PO without difficulty. Voiding and passing flatus. Pain controlled. , services for assistance. Denies headache, visual changes, chest pain, shortness of breath, leg pain or increased bleeding. Lochia normal. Objective Data Objective Data Vital Signs: Vital Signs Temp Pulse Resp BP Pulse Ox O2 Del Method 97.3 F L 73 16 122/78 H 99 Room Air 11/22/24 08:21 11/22/24 08:21 11/22/24 08:21 11/22/24 08:30 11/22/24 08:21 11/22/24 08:21 Oxygen Delivery Method Room Air Weight: 235 lb 3.732 oz Body Mass Index (BMI) 39.1 Intake & Output: Intake and Output for Last 24 Hours 11/20/24 11/21/24 11/22/24 23:59 23:59 23:59 Intake Total 3193.66 / 3193.66 Output Total 600 / 600 850 / 850 Balance 2593.66 / 2593.66 -850 / -850 Lab / Micro Data 11/20/24 10:40 11/20/24 10:40 ROS Constitutional Constitutional: Reports systems reviewed and no addt'l complaints, except as documented; Denies headache(s) Eyes Eyes: Denies acute decrease in peripheral vision, blurry vision or change in vision ENT HEENT: Reports systems reviewed and no addt'l complaints, except as documented Cardiovascular Cardiovascular: Denies chest pain or dizziness Respiratory/Chest Respiratory/Chest: Denies cough, dyspnea, dyspnea on exertion, shortness of breath at rest or shortness of breath with exertion Gastrointestinal Gastrointestinal: Denies abdominal pain, diarrhea, nausea or vomiting Genitourinary Genitourinary: Denies abdominal discomfort Musculoskeletal Musculoskeletal: Denies limited range of motion Integumentary Integumentary: Reports systems reviewed and no addt'l complaints, except as documented Neurologic Neurologic: Reports systems reviewed and no addt'l complaints, except as documented Psychiatric Psychiatric: Reports systems reviewed and no addt'l complaints, except as documented Endocrine Endocrinology: Reports systems reviewed and no addt'l complaints, except as documented Hematologic/Lymphatic Hematologic/Lymphatic: Reports systems reviewed and no addt'l complaints, exceptas documented Allergic/Immunologic Allergic/Immunologic: Reports systems reviewed and no addt'l complaints, except as documented Physical Exam Const alert and oriented x3 General Appearance: cooperative Orientation / Consciousness: awake, oriented to person, oriented to place and oriented to time Exam Limitations: no limitations HEENT normocephalic Head and Scalp: normal to inspection, normocephalic and atraumatic Face and Sinus: normal facial exam Eyes General Eye: normal appearance of both eyes Neck full ROM Chest Chest: symmetrical chest wall rise Resp normal respiratory effort and normal air movement Auscultation: clear to auscultation bilaterally Cardio regular rate, regular rhythm, S1 normal heart sound, S2 normal heart sound, no murmurs, no rub, no gallops and no clicks GI normal to inspection, nondistended, normoactive bowel sounds and non-tender GI Narrative: Fundus firm 2 below U appearance of the vagina normal Narrative: Normal lochia rubra Bladder / Kidney Exam: no CVA tenderness Back/Spine normal ROM Extremity normal to inspection and full ROM Skin no rashes or lesions noted Neuro oriented x3, CN's II-XII intact bilaterally and moves all extremities Sensorium / Orientation: awake, alert and oriented to person Motor Exam: clonus absent Deep Tendon Reflexes: Rt Patellar (L4): 2+ and Lt Patellar (L4): 2+ Assessment & Plan (1) (spontaneous vaginal delivery): (2) Gestational hypertension: QUALIFIERS: Trimester: third trimester Qualified Code(s): O13.3 -Gestational [-induced] hypertension without significant proteinuria, third trimester PLAN: Plan 1) Routine care, PPD #2 2) Vitals signs stable 3) Pain controlled 4) , services PRN 5) D/C home, follow up next week for BP check. Reviewed signs and symptoms 6) Follow up in 2 weeks and 6 weeks 11/22/24 1248 <Electronically signed by Nichole Cortes CNM> Cosigner Signature (if applicable): CC: ~ Signed [facility] Work Phone: 1(460) 334-470508-30-2025 Discharge summary [facility] Medical Records Department [address] [place], [place] [address] [place] [address] Discharge Summary 11/22/24 1248 MR#: [id number] Acct: [id number] Name: SOHEILA POLK Rep #:[id number] : 1995 29 From: Nichole BASURTO PCP: [facility] Status:ADM IN Location: [id number] Providers Date of Admission: 11/20/24 Primary Care Physician: LANE YOU Reason For Visit: VAGINAL DELIVERY Diagnosis Discharge Diagnosis (1) (spontaneous vaginal delivery): Status: Acute Code(s): O80 - Encounter for full-term uncomplicated delivery (2) Gestational hypertension: Status: Acute Code(s): O13.9 - Gestational [-induced] hypertension without significant proteinuria, unspecified trimester Qualifiers: Trimester: third trimester Qualified Code(s): O13.3 - Gestational [- induced] hypertension without significant proteinuria, third trimester Plan 1) Routine care, PPD #2 2) Vitals signs stable 3) Pain controlled 4) , services PRN 5) D/C home, follow up next week for BP check. Reviewed signs and symptoms 6) Follow up in 2 weeks and 6 weeks Medications at Discharge Home Medications vits,calcium no.78-iron fumarate-folic acid 29 mg-1 mg tablet (Prenatabs FA) 1 tab PO DAILY 11/12/23 acetaminophen 500 mg tablet 1,000 mg (2 x 500 mg) PO Q6H PRN PRN Pain 1-10 Or Fever #0 tabs 11/22/24 ibuprofen 600 mg tablet 600 mg PO Q6H PRN PRN Pain Score 1-10 #0 tabs 11/22/24 Hospital Course Summary of Care Provided Minutes Spent on Discharge: 15 Physical Exam Const alert and oriented x3 General Appearance: cooperative Orientation / Consciousness: awake, oriented to person, oriented to place and oriented to time Exam Limitations: no limitations HEENT normocephalic Head and Scalp: normal to inspection, normocephalic and atraumatic Face and Sinus: normal facial exam Eyes General Eye: normal appearance of both eyes Neck full ROM Chest Chest: symmetrical chest wall rise Resp normal respiratory effort and normal air movement Auscultation: clear to auscultation bilaterally Cardio regular rate, regular rhythm, S1 normal heart sound, S2 normal heart sound, no murmurs, no rub, no gallops and no clicks GI normal to inspection, nondistended, normoactive bowel sounds and non-tender appearance of the vagina normal Bladder / Kidney Exam: no CVA tenderness Back/Spine normal ROM Extremity normal to inspection and full ROM Skin no rashes or lesions noted Neuro oriented x3, CN's II-XII intact bilaterally and moves all extremities Sensorium / Orientation: awake, alert and oriented to person Motor Exam: clonus absent Deep Tendon Reflexes: Rt Patellar (L4): 2+ and Lt Patellar (L4): 2+ Weight / BMI Weight Weight: 235 lb 3.732 oz Body Mass Index (BMI) 39.1 ABG / Lab / Microbiology Data 11/20/24 10:40 11/20/24 10:40 D/C Instructions DC O2, CPAP, BIPAP Needs Home O2 Discharge instructions: No Meaningful Use Info Meaningful Use Meaningful Use Diagnoses (Choose all that apply): None applicable Discharge Plan Admission Admit Date/Time: 11/20/24 11:33 Primary Reason for Your Visit: Vaginal Delivery Attending Provider: Gisell Hope Primary Care Provider: LANE YOU Discharge Orders/Prescriptions Prescriptions: New acetaminophen 500 mg Tablet 1,000 mg PO Q6H PRN PRN (Reason: Pain 1-10 Or Fever) Qty: 0 0RF ibuprofen 600 mg Tablet 600 mg PO Q6H PRN PRN (Reason: Pain Score 1-10) Qty: 0 0RF Continued Prenatabs FA 29-1 mg tablet 1 tab PO DAILY Discontinued ferrous sulfate [Iron (ferrous sulfate)] 325 mg (65 mg iron) tablet 325 mg PO MOWEFR aspirin 81 mg capsule 81 mg PO DAILY Referrals / Follow Up: [facility] [Other] Disposition Disposition (needs filled in before D/C Order can be placed): Home, Self Care 11/22/24 1252 Cosigner Signature (if applicable): CC: DILLON Cortes; LANE YOU~ Signed [facility]08-30-2025 [facility] Medical Records Department [address] [place] [address] Discharge Summary 11/22/24 1248 MR#: [id number] Acct: [id number] Name: SOHEILA POLK Rep #: [id number] : 1995 29 From: Nichole Cortes CNM PCP: [facility] Status:ADM IN Location: [place] [id number] Providers Date of Admission: 11/20/24 Primary Care Physician: LANE YOU Reason For Visit: VAGINAL DELIVERY Diagnosis Discharge Diagnosis (1) (spontaneous vaginal delivery): Status: Acute Code(s): O80 - Encounter for full-term uncomplicated delivery (2) Gestational hypertension: Status: Acute Code(s): O13.9 - Gestational [-induced] hypertension without significant proteinuria, unspecified trimester Qualifiers: Trimester: third trimester Qualified Code(s): O13.3 - Gestational [-induced] hypertension without significant proteinuria, third trimester Plan 1) Routine care, PPD #2 2) Vitals signs stable 3) Pain controlled 4) , services PRN 5) D/C home, follow up next week for BP check. Reviewed signs and symptoms 6) Follow up in 2 weeks and 6 weeks Medications at Discharge Home Medications vits,calcium no.78-iron fumarate-folic acid 29 mg-1 mg tablet (Prenatabs FA) 1 tab PO DAILY 11/12/23 acetaminophen 500 mg tablet 1,000 mg (2 x 500 mg) PO Q6H PRN PRN Pain 1-10 Or Fever #0 tabs 11/22/24 ibuprofen 600 mg tablet 600 mg PO Q6H PRN PRN Pain Score 1-10 #0 tabs 11/22/24 Hospital Course Summary of Care Provided Minutes Spent on Discharge: 15 Physical Exam Const alert and oriented x3 General Appearance: cooperative Orientation / Consciousness: awake, oriented to person, oriented to place and oriented to time Exam Limitations: no limitations HEENT normocephalic Head and Scalp: normal to inspection, normocephalic and atraumatic Face and Sinus: normal facial exam Eyes General Eye: normal appearance of both eyes Neck full ROM Chest Chest: symmetrical chest wall rise Resp normal respiratory effort and normal air movement Auscultation: clear to auscultation bilaterally Cardio regular rate, regular rhythm, S1 normal heart sound, S2 normal heart sound, no murmurs, no rub, no gallops and no clicks GI normal to inspection, nondistended, normoactive bowel sounds and non-tender appearance of the vagina normal Bladder / Kidney Exam: no CVA tenderness Back/Spine normal ROM Extremity normal to inspection and full ROM Skin no rashes or lesions noted Neuro oriented x3, CN's II-XII intact bilaterally and moves all extremities Sensorium / Orientation: awake, alert and oriented to person Motor Exam: clonus absent Deep Tendon Reflexes: Rt Patellar (L4): 2+ and Lt Patellar (L4): 2+ Weight / BMI Weight Weight: 235 lb 3.732 oz Body Mass Index (BMI) 39.1 ABG / Lab / Microbiology Data 11/20/24 10:40 11/20/24 10:40 D/C Instructions DC O2, CPAP, BIPAP Needs Home O2 Discharge instructions: No Meaningful Use Info Meaningful Use Meaningful Use Diagnoses (Choose all that apply): None applicable Discharge Plan Admission Admit Date/Time: 11/20/24 11:33 Primary Reason for Your Visit: Vaginal Delivery Attending Provider: Gisell Hope Primary Care Provider: LANE YOU Discharge Orders/Prescriptions Prescriptions: New acetaminophen 500 mg Tablet 1,000 mg PO Q6H PRN PRN (Reason: Pain 1-10 Or Fever) Qty: 0 0RF ibuprofen 600 mg Tablet 600 mg PO Q6H PRN PRN (Reason: Pain Score 1-10) Qty: 0 0RF Continued Prenatabs FA 29-1 mg tablet 1 tab PO DAILY Discontinued ferrous sulfate [Iron (ferrous sulfate)] 325 mg (65 mg iron) tablet 325 mg PO MOWEFR aspirin 81 mg capsule 81 mg PO DAILY Referrals / Follow Up: [facility] [Other] Disposition Disposition (needs filled in before D/C Order can be placed): Home, Self Care 11/22/24 1252 Cosigner Signature (if applicable): CC: DILLON Cortes; [facility] Progress note [facility] Medical Records Department [address] [place] [address] Progress Note - OBGYN 11/22/24 1137 MR#: [id number] Acct: [id number] Name: SOHEILA POLK Rep #:[id number] : 1995 29 From: Nichole BASURTO PCP: [facility] Status:ADM IN Location: [id number] Subjective Subjective Doing well per patient and nursing staff. Ambulating and taking PO without difficulty. Voiding and passing flatus. Pain controlled. , services for assistance. Denies headache, visual changes, chest pain, shortness of breath, leg pain or increased bleeding. Lochia normal. Objective Data Objective Data Vital Signs: Vital Signs Temp Pulse Resp BP Pulse Ox O2 Del Method 97.3 F L 73 16 122/78 H 99 Room Air 11/22/24 08:21 11/22/24 08:21 11/22/24 08:21 11/22/24 08:30 11/22/24 08:21 11/22/24 08:21 Oxygen Delivery Method Room Air Weight: 235 lb 3.732 oz Body Mass Index (BMI) 39.1 Intake & Output: Intake and Output for Last 24 Hours 11/20/24 11/21/24 11/22/24 23:59 23:59 23:59 Intake Total 3193.66 / 3193.66 Output Total 600 / 600 850 / 850 Balance 2593.66 / 2593.66 -850 / -850 Lab / Micro Data 11/20/24 10:40 11/20/24 10:40 ROS Constitutional Constitutional: Reports systems reviewed and no addt'l complaints, except as documented; Denies headache(s) Eyes Eyes: Denies acute decrease in peripheral vision, blurry vision or change in vision ENT HEENT: Reports systems reviewed and no addt'l complaints, except as documented Cardiovascular Cardiovascular: Denies chest pain or dizziness Respiratory/Chest Respiratory/Chest: Denies cough, dyspnea, dyspnea on exertion, shortness of breath at rest or shortness of breath with exertion Gastrointestinal Gastrointestinal: Denies abdominal pain, diarrhea, nausea or vomiting Genitourinary Genitourinary: Denies abdominal discomfort Musculoskeletal Musculoskeletal: Denies limited range of motion Integumentary Integumentary: Reports systems reviewed and no addt'l complaints, except as documented Neurologic Neurologic: Reports systems reviewed and no addt'l complaints, except as documented Psychiatric Psychiatric: Reports systems reviewed and no addt'l complaints, except as documented Endocrine Endocrinology: Reports systems reviewed and no addt'l complaints, except as documented Hematologic/Lymphatic Hematologic/Lymphatic: Reports systems reviewed and no addt'l complaints, exceptas documented Allergic/Immunologic Allergic/Immunologic: Reports systems reviewed and no addt'l complaints, except as documented Physical Exam Const alert and oriented x3 General Appearance: cooperative Orientation / Consciousness: awake, oriented to person, oriented to place and oriented to time Exam Limitations: no limitations HEENT normocephalic Head and Scalp: normal to inspection, normocephalic and atraumatic Face and Sinus: normal facial exam Eyes General Eye: normal appearance of both eyes Neck full ROM Chest Chest: symmetrical chest wall rise Resp normal respiratory effort and normal air movement Auscultation: clear to auscultation bilaterally Cardio regular rate, regular rhythm, S1 normal heart sound, S2 normal heart sound, no murmurs, no rub, no gallops and no clicks GI normal to inspection, nondistended, normoactive bowel sounds and non-tender GI Narrative: Fundus firm 2 below U appearance of the vagina normal Narrative: Normal lochia rubra Bladder / Kidney Exam: no CVA tenderness Back/Spine normal ROM Extremity normal to inspection and full ROM Skin no rashes or lesions noted Neuro oriented x3, CN's II-XII intact bilaterally and moves all extremities Sensorium / Orientation: awake, alert and oriented to person Motor Exam: clonus absent Deep Tendon Reflexes: Rt Patellar (L4): 2+ and Lt Patellar (L4): 2+ Assessment & Plan (1) (spontaneous vaginal delivery): (2) Gestational hypertension: QUALIFIERS: Trimester: third trimester Qualified Code(s): O13.3 -Gestational [-induced] hypertension without significant proteinuria, third trimester PLAN: Plan 1) Routine care, PPD #2 2) Vitals signs stable 3) Pain controlled 4) , services PRN 5) D/C home, follow up next week for BP check. Reviewed signs and symptoms 6) Follow up in 2 weeks and 6 weeks 11/22/24 1248 Cosigner Signature (if applicable): CC: ~ Signed [facility]08-29-2025 NoteHNO ID: [id number] Author: GISELL BUSTILLO RN Service: ? Author Type: Registered Nurse Type: Progress Notes Filed: 11/21/2024 09:04 Note Text: Patient delivered via at [facility] on 11/20/24 per Gisell Hope MD . See OB Outcome note. [facility] History of Present illness Narrative* Gisell Bustillo RN - 11/21/2024 9:00 AM EDT Patient delivered via at [facility] on 11/20/24 per Gisell Hope MD . See OB Outcome note. NICANOR Montgomery [facility] Progress note Author Gisell Hope [facility] Note Date/Time November 21, 2024 6: 57am [facility] Medical Records Department [address] [place] [id number] Progress Note - OBGYN 11/21/24 0655 MR#: [id number] Acct: [id number] Name: SOHEILA POLK Rep #:[id number] : 1995 29 From: Gisell Hope MD PCP: L[facility] Status:ADM IN Location: GF059-5 Subjective Subjective Doing well. Mild lochia. Breast feeding. Epidural wore off slowly has not been out bed yet. No voiding yet. Straight cath x 1 Objective Data Objective Data Vital Signs: Vital Signs Temp Pulse Resp BP Pulse Ox O2 Del Method 97.3 F L 80 16 111/59 L 98 Room Air 11/20/24 23:11 11/20/24 23:11 11/20/24 23:11 11/20/24 23:11 11/20/24 23:11 11/20/24 23:11 Oxygen Delivery Method Room Air Weight: 106.7 kg Body Mass Index (BMI) 39.1 Intake & Output: Intake and Output for Last 24 Hours 11/19/24 11/20/24 11/21/24 23:59 23:59 23:59 Intake Total 3193.66 / 3193.66 Output Total 600 / 600 Balance 2593.66 / 2593.66 Lab / Micro Data 11/20/24 10:40 11/20/24 10:40 Labs: Laboratory Results - last 24 hr 11/20/24 09:15: Vag Amniotic Fld Detect Negative 11/20/24 10:40: WBC 10.7, RBC 4.54, Hgb 13.8, Hct 39.9, MCV 87.9, MCH 30.4, MCHC34.6, RDW Std Deviation 43.9, RDW Coeff of Tamara 13.6, Plt Count 249, MPV 10.6, Creatinine 0.49 L, Estim Creat Clear Calc 201.90, Est GFR (MDRD) Non-Af 129, UricAcid 4.6, AST 25, ALT 17, U Random Total Protein 16.0 H, Urine Creatinine 104.00, Protein/Creatinin Ratio 154, Syphilis Total Ab Nonreactive, Blood Type APOSITIVE, Antibody Screen NEGATIVE ROS Constitutional Constitutional: Denies headache(s) Cardiovascular Cardiovascular: Denies chest pain or dyspnea Gastrointestinal Gastrointestinal: Denies nausea or vomiting Genitourinary Genitourinary: Denies dysuria Physical Exam Const alert, oriented x3 and no apparent distress General Appearance: cooperative and comfortable Eyes PERRL and EOMs intact bilaterally Resp normal respiratory effort GI soft to palpation and non-tender Uterus Palpation: uterus fundus firm ( below umbilicus) Extremity normal to inspection and full ROM Neuro oriented x3 and CN's II-XII intact bilaterally Psych mental status grossly normal Assessment & Plan (1) (spontaneous vaginal delivery): (2) Gestational hypertension: QUALIFIERS: Trimester: third trimester Qualified Code(s): O13.3 -Gestational [-induced] hypertension without significant proteinuria, third trimester PLAN: BP normal since delivery PLAN: Plan Ambulate this am Continued lacatation help 11/21/24 0657 <Electronically signed by Gisell Hope MD> Cosigner Signature (if applicable): CC: ~ Signed [facility] Work Phone: 1(343) 474-972708-29-2025 Progress note [facility] Medical Records Department [address] [place] [address] Progress Note - OBGYN 11/21/24 0655 MR#: [id number] Acct: [id number] Name: SOHEILA POLK Rep #:[id number] : 1995 29 From: Gisell Hope MD PCP: [facility] Status:ADM IN Location: [id number] Subjective Subjective Doing well. Mild lochia. Breast feeding. Epidural wore off slowly has not been out bed yet. No voiding yet. Straight cath x 1 Objective Data Objective Data Vital Signs: Vital Signs Temp Pulse Resp BP Pulse Ox O2 Del Method 97.3 F L 80 16 111/59 L 98 Room Air 11/20/24 23:11 11/20/24 23:11 11/20/24 23:11 11/20/24 23:11 11/20/24 23:11 11/20/24 23:11 Oxygen Delivery Method Room Air Weight: 106.7 kg Body Mass Index (BMI) 39.1 Intake & Output: Intake and Output for Last 24 Hours 11/19/24 11/20/24 11/21/24 23:59 23:59 23:59 Intake Total 3193.66 / 3193.66 Output Total 600 / 600 Balance 2593.66 / 2593.66 Lab / Micro Data 11/20/24 10:40 11/20/24 10:40 Labs: Laboratory Results - last 24 hr 11/20/24 09:15: Vag Amniotic Fld Detect Negative 11/20/24 10:40: WBC 10.7, RBC 4.54, Hgb 13.8, Hct 39.9, MCV 87.9, MCH 30.4, MCHC34.6, RDW Std Deviation 43.9, RDW Coeff of Tamara 13.6, Plt Count 249, MPV 10.6, Creatinine 0.49 L, Estim Creat Clear Ivyj720.90, Est GFR (MDRD) Non-Af 129, UricAcid 4.6, AST 25, ALT 17, U Random Total Protein 16.0 H, Urine Creatinine 104.00, Protein/Creatinin Ratio 154, Syphilis Total Ab Nonreactive, Blood Type APOSITIVE, Antibody Screen NEGATIVE ROS Constitutional Constitutional: Denies headache(s) Cardiovascular Cardiovascular: Denies chest pain or dyspnea Gastrointestinal Gastrointestinal: Denies nausea or vomiting Genitourinary Genitourinary: Denies dysuria Physical Exam Const alert, oriented x3 and no apparent distress General Appearance: cooperative and comfortable Eyes PERRL and EOMs intact bilaterally Resp normal respiratory effort GI soft to palpation and non-tender Uterus Palpation: uterus fundus firm ( below umbilicus) Extremity normal to inspection and full ROM Neuro oriented x3 and CN's II-XII intact bilaterally Psych mental status grossly normal Assessment & Plan (1) (spontaneous vaginal delivery): (2) Gestational hypertension: QUALIFIERS: Trimester: third trimester Qualified Code(s): O13.3 -Gestational [-induced] hypertension without significant proteinuria, third trimester PLAN: BP normal since delivery PLAN: Plan Ambulate this am Continued lacatation help 11/21/24 0657 Cosigner Signature (if applicable): CC: ~ Signed [facility]08-28-2025 History and physical note Author Gisell Hope [facility] Note Date/Time November 20, 2024 8: 10pm [facility] Medical Records Department [address] [place] [address] H&P Exam - SPACE STUDIES FACULTY MEMBER 11/20/242006 MR#: [id number] Acct: [id number] Name: SOHEILA POLK Rep #:[id number] : 1995 29 From: Gisell Hope MD PCP: [facility]ANE [facility] Status:ADM IN Location: [id number] HPI - General General Date of Admission: 11/20/24 Date of Service: 11/20/24 Chief Complaint: Possible ROM HPI Narrative SOHEILA POLK, is a 29 F who presents possible ROM and contractions. 5 cm. Mildrange BP. Admit for labor Maternal Data Information Final RED: 11/26/24 Gestational age: 39+1 PFSH PFSH Medical History Diabetes Low iron Back pain Migraine headache Non-smoker Home Medications ?Medication ?Instructions ?Recorded ?Last Taken ?Type ferrous sulfate 325 mg (65 mg 325 mg PO MOWEFR 3 11/17/24 History iron) tablet (Iron (ferrous sulfate)) vits,calcium no.78-iron 1 tab PO DAILY 11/20/24 History fumarate-folic acid 29 mg-1 mg tablet (Prenatabs FA) aspirin 81 mg capsule 81 mg PO DAILY 11/20/24 Unkn own History Allergy/AdvReac Type Severity Reaction Status Date / Time No Known Allergies Allergy Verified 11/20/24 09:16 Surgical History Hx of tonsillectomy Social History Smoking Status: Never smoker History 1 Elective abortions Hx Para 0 Spontaneous abortions Hx # Term Pregnancies Ectopic pregnancies Hx # Pregnancies Multiple births # of living children NST FHR Rate Baby A Variability:: Moderate Accelerations:: 15 x 15 Decelerations:: None NST Reactive:: Yes ROS Constitutional Constitutional: Denies fatigue, fever(s) or malaise Eyes Eyes: Denies change in vision ENT HEENT: Denies dizziness or headache(s) Cardiovascular Cardiovascular: Denies chest pain, dyspnea or lightheadedness Respiratory/Chest Respiratory/Chest: Denies cough or dyspnea Gastrointestinal Gastrointestinal: Denies change in bowel habits Genitourinary Genitourinary: Denies burning urination or genital lesions Integumentary Integumentary: Denies rash Neurologic Neurologic: Denies confusion, dizziness, headache(s), numbness or weakness Vital Signs Vital Signs Vital Signs: 11/20/24 09:23 11/20/24 09:23 11/20/24 09:23 Temperature Temperature Source Temporal Pulse Rate 83 Respiratory Rate Blood Pressure 144/88 H BP Systolic 144 BP Diastolic 88 Pulse Ox 11/20/24 09:23 11/20/24 09:23 11/20/24 09:23 Temperature 99.0 F Temperature Source Pulse Rate Respiratory Rate 16 Blood Pressure BP Systolic BP Diastolic Pulse Ox 98 11/20/24 10:10 11/20/24 10:10 11/20/24 10:25 Temperature Temperature Source Pulse Rate 81 Respiratory Rate Blood Pressure 152/87 H 154/81 H BP Systolic 152 154 BP Diastolic 87 81 Pulse Ox 11/20/24 10:25 11/20/24 10:25 11/20/24 10:40 Temperature Temperature Source Pulse Rate 81 Respiratory Rate 16 Blood Pressure 153/84 H BP Systolic 153 BP Diastolic 84 Pulse Ox 11/20/24 10:40 11/20/24 10:55 11/20/24 10:55 Temperature Temperature Source Pulse Rate 77 77 Respiratory Rate Blood Pressure 146/79 H BP Systolic 146 BP Diastolic 79 Pulse Ox 11/20/24 11:10 11/20/24 11:10 11/20/24 11:25 Temperature Temperature Source Pulse Rate 80 Respiratory Rate Blood Pressure 142/80 H 143/71 H BP Systolic 142 143 BP Diastolic 80 71 Pulse Ox 11/20/24 11:25 11/20/24 11:40 11/20/24 11:40 Temperature Temperature Source Pulse Rate 83 81 Respiratory Rate Blood Pressure 146/85 H BP Systolic 146 BP Diastolic 85 Pulse Ox 11/20/24 11:55 11/20/24 11:55 11/20/24 12:10 Temperature Temperature Source Pulse Rate 84 Respiratory Rate Blood Pressure 147/87 H 152/93 H BP Systolic 147 152 BP Diastolic 87 93 Pulse Ox 11/20/24 12:10 11/20/24 13:00 11/20/24 13:00 Temperature Temperature Source Pulse Rate 87 87 Respiratory Rate Blood Pressure BP Systolic BP Diastolic Pulse Ox 99 11/20/24 13:05 11/20/24 13:05 11/20/24 13:10 Temperature Temperature Source Pulse Rate 84 Respiratory Rate Blood Pressure 158/81 H BP Systolic 158 BP Diastolic 81 Pulse Ox 100 11/20/24 13:10 11/20/24 13:10 11/20/24 13:10 Temperature Temperature Source Pulse Rate 80 Respiratory Rate 18 Blood Pressure BP Systolic BP Diastolic Pulse Ox 99 11/20/24 13:15 11/20/24 13:15 11/20/24 13:17 Temperature Temperature Source Pulse Rate 88 Respiratory Rate Blood Pressure 144/82 H BP Systolic 144 BP Diastolic 82 Pulse Ox 99 11/20/24 13:17 11/20/24 13:17 11/20/24 13:17 Temperature Temperature Source Pulse Rate 80 Respiratory Rate 16 Blood Pressure BP Systolic BP Diastolic Pulse Ox 100 11/20/24 13:20 11/20/24 13:20 11/20/24 13:20 Temperature Temperature Source Pulse Rate 83 82 Respiratory Rate Blood Pressure 145/79 H BP Systolic 145 BP Diastolic 79 Pulse Ox 11/20/24 13:20 11/20/24 13:20 11/20/24 13:20 Temperature Temperature Source Pulse Rate Respiratory Rate 17 Blood Pressure BP Systolic BP Diastolic Pulse Ox 100 99 11/20/24 13:25 11/20/24 13:25 11/20/24 13:25 Temperature Temperature Source Pulse Rate 77 83 Respiratory Rate Blood Pressure 144/79 H BP Systolic 144 BP Diastolic 79 Pulse Ox 11/20/24 13:25 11/20/24 13:25 11/20/24 13:30 Temperature Temperature Source Pulse Rate Respiratory Rate 16 Blood Pressure 144/80 H BP Systolic 144 BP Diastolic 80 Pulse Ox 100 11/20/24 13:30 11/20/24 13:30 11/20/24 13:30 Temperature Temperature Source Pulse Rate 78 81 Respiratory Rate Blood Pressure BP Systolic BP Diastolic Pulse Ox 100 11/20/24 13:31 11/20/24 13:31 11/20/24 13:31 Temperature 98.8 F Temperature Source Temporal Pulse Rate Respiratory Rate 16 Blood Pressure BP Systolic BP Diastolic Pulse Ox 11/20/24 13:35 11/20/24 13:35 11/20/24 13:37 Temperature Temperature Source Pulse Rate 83 Respiratory Rate Blood Pressure 150/116 H BP Systolic 150 BP Diastolic 116 Pulse Ox 99 11/20/24 13:37 11/20/24 13:37 11/20/24 13:38 Temperature Temperature Source Pulse Rate 82 Respiratory Rate 16 Blood Pressure 151/83 H BP Systolic 151 BP Diastolic 83 Pulse Ox 11/20/24 13:38 11/20/24 13:38 11/20/24 13:38 Temperature Temperature Source Pulse Rate 73 Respiratory Rate 17 Blood Pressure BP Systolic BP Diastolic Pulse Ox 99 11/20/24 13:40 11/20/24 13:40 11/20/24 13:40 Temperature Temperature Source Pulse Rate 77 Respiratory Rate Blood Pressure 142/75 H BP Systolic 142 BP Diastolic 75 Pulse Ox 100 11/20/24 13:45 11/20/24 13:45 11/20/24 13:45 Temperature Temperature Source Pulse Rate 79 79 Respiratory Rate Blood Pressure 141/74 H BP Systolic 141 BP Diastolic 74 Pulse Ox 11/20/24 13:45 11/20/24 13:50 11/20/24 13:50 Temperature Temperature Source Pulse Rate 84 Respiratory Rate Blood Pressure BP Systolic BP Diastolic Pulse Ox 100 100 11/20/24 13:55 11/20/24 13:55 11/20/24 14:00 Temperature Temperature Source Pulse Rate 80 82 Respiratory Rate Blood Pressure BP Systolic BP Diastolic Pulse Ox 100 11/20/24 14:00 11/20/24 14:05 11/20/24 14:05 Temperature Temperature Source Pulse Rate 81 Respiratory Rate Blood Pressure BP Systolic BP Diastolic Pulse Ox 98 99 11/20/24 14:10 11/20/24 14:10 11/20/24 14:11 Temperature Temperature Source Pulse Rate 85 93 Respiratory Rate Blood Pressure BP Systolic BP Diastolic Pulse Ox 99 11/20/24 14:11 11/20/24 14:15 11/20/24 14:15 Temperature Temperature Source Pulse Rate 80 Respiratory Rate Blood Pressure BP Systolic BP Diastolic Pulse Ox 92 99 11/20/24 14:17 11/20/24 14:17 11/20/24 14:17 Temperature Temperature Source Pulse Rate 84 Respiratory Rate 16 Blood Pressure 148/81 H BP Systolic 148 BP Diastolic 81 Pulse Ox 11/20/24 14:20 11/20/24 14:20 11/20/24 14:25 Temperature Temperature Source Pulse Rate 85 84 Respiratory Rate Blood Pressure BP Systolic BP Diastolic Pulse Ox 98 11/20/24 14:25 11/20/24 14:30 11/20/24 14:30 Temperature Temperature Source Pulse Rate 83 Respiratory Rate Blood Pressure BP Systolic BP Diastolic Pulse Ox 99 100 11/20/24 14:42 11/20/24 14:42 11/20/24 14:42 Temperature 98.8 F Temperature Source Temporal Pulse Rate Respiratory Rate 16 Blood Pressure BP Systolic BP Diastolic Pulse Ox 11/20/24 14:48 11/20/24 14:48 11/20/24 14:49 Temperature Temperature Source Pulse Rate 77 Respiratory Rate Blood Pressure 141/75 H BP Systolic 141 BP Diastolic 75 Pulse Ox 97 11/20/24 14:49 11/20/24 14:53 11/20/24 14:53 Temperature Temperature Source Pulse Rate 68 73 Respiratory Rate Blood Pressure BP Systolic BP Diastolic Pulse Ox 99 11/20/24 14:55 11/20/24 14:55 11/20/24 14:55 Temperature Temperature Source Pulse Rate 68 Respiratory Rate 18 Blood Pressure 145/81 H BP Systolic 145 BP Diastolic 81 Pulse Ox 11/20/24 14:55 11/20/24 14:58 11/20/24 14:58 Temperature Temperature Source Pulse Rate 92 Respiratory Rate Blood Pressure BP Systolic BP Diastolic Pulse Ox 99 100 11/20/24 15:00 11/20/24 15:00 11/20/24 15:03 Temperature Temperature Source Pulse Rate 70 76 Respiratory Rate Blood Pressure 156/84 H BP Systolic 156 BP Diastolic 84 Pulse Ox 11/20/24 15:03 11/20/24 15:05 11/20/24 15:05 Temperature Temperature Source Pulse Rate 77 Respiratory Rate Blood Pressure 155/74 H BP Systolic 155 BP Diastolic 74 Pulse Ox 99 11/20/24 15:13 11/20/24 15:13 11/20/24 15:16 Temperature Temperature Source Pulse Rate 77 Respiratory Rate Blood Pressure 145/85 H BP Systolic 145 BP Diastolic 85 Pulse Ox 99 11/20/24 15:16 11/20/24 15:18 11/20/24 15:18 Temperature Temperature Source Pulse Rate 72 74 Respiratory Rate Blood Pressure BP Systolic BP Diastolic Pulse Ox 100 11/20/24 15:20 11/20/24 15:20 11/20/24 15:23 Temperature Temperature Source Pulse Rate 73 87 Respiratory Rate Blood Pressure 156/85 H BP Systolic 156 BP Diastolic 85 Pulse Ox 11/20/24 15:23 11/20/24 15:25 11/20/24 15:25 Temperature Temperature Source Pulse Rate 81 Respiratory Rate Blood Pressure 166/86 H BP Systolic 166 BP Diastolic 86 Pulse Ox 100 11/20/24 15:28 11/20/24 15:28 11/20/24 15:33 Temperature Temperature Source Pulse Rate 77 85 Respiratory Rate Blood Pressure BP Systolic BP Diastolic Pulse Ox 100 11/20/24 15:33 11/20/24 15:38 11/20/24 15:38 Temperature Temperature Source Pulse Rate 79 Respiratory Rate Blood Pressure BP Systolic BP Diastolic Pulse Ox 100 92 11/20/24 15:43 11/20/24 15:43 11/20/24 15:45 Temperature Temperature Source Pulse Rate 75 Respiratory Rate Blood Pressure 163/86 H BP Systolic 163 BP Diastolic 86 Pulse Ox 99 11/20/24 15:45 11/20/24 15:48 11/20/24 15:48 Temperature Temperature Source Pulse Rate 75 78 Respiratory Rate Blood Pressure BP Systolic BP Diastolic Pulse Ox 99 11/20/24 15:50 11/20/24 15:50 11/20/24 15:50 Temperature Temperature Source Pulse Rate 74 Respiratory Rate 16 Blood Pressure 139/82 H BP Systolic 139 BP Diastolic 82 Pulse Ox 11/20/24 15:53 11/20/24 15:53 11/20/24 15:53 Temperature Temperature Source Pulse Rate 85 86 Respiratory Rate Blood Pressure BP Systolic BP Diastolic Pulse Ox 89 11/20/24 15:53 11/20/24 15:55 11/20/24 15:55 Temperature Temperature Source Pulse Rate 90 Respiratory Rate Blood Pressure 139/74 H BP Systolic 139 BP Diastolic 74 Pulse Ox 99 11/20/24 15:55 11/20/24 15:58 11/20/24 15:58 Temperature Temperature Source Pulse Rate 84 Respiratory Rate 16 Blood Pressure BP Systolic BP Diastolic Pulse Ox 100 11/20/24 16:00 11/20/24 16:00 11/20/24 16:00 Temperature Temperature Source Pulse Rate 85 Respiratory Rate 16 Blood Pressure 133/72 H BP Systolic 133 BP Diastolic 72 Pulse Ox 11/20/24 16:03 11/20/24 16:03 11/20/24 16:05 Temperature Temperature Source Pulse Rate 90 Respiratory Rate Blood Pressure 128/66 H BP Systolic 128 BP Diastolic 66 Pulse Ox 100 11/20/24 16:05 11/20/24 16:05 11/20/24 16:08 Temperature Temperature Source Pulse Rate 88 80 Respiratory Rate 16 Blood Pressure BP Systolic BP Diastolic Pulse Ox 11/20/24 16:08 11/20/24 16:11 11/20/24 16:11 Temperature Temperature Source Pulse Rate 84 Respiratory Rate Blood Pressure 141/71 H BP Systolic 141 BP Diastolic 71 Pulse Ox 100 11/20/24 16:11 11/20/24 16:13 11/20/24 16:13 Temperature Temperature Source Pulse Rate 83 Respiratory Rate Blood Pressure BP Systolic BP Diastolic Pulse Ox 93 99 11/20/24 16:16 11/20/24 16:16 11/20/24 16:18 Temperature Temperature Source Pulse Rate 83 84 Respiratory Rate Blood Pressure 143/83 H BP Systolic 143 BP Diastolic 83 Pulse Ox 11/20/24 16:18 11/20/24 16:20 11/20/24 16:20 Temperature Temperature Source Pulse Rate 79 Respiratory Rate Blood Pressure 139/68 H BP Systolic 139 BP Diastolic 68 Pulse Ox 99 11/20/24 16:58 11/20/24 16:58 11/20/24 16:59 Temperature Temperature Source Pulse Rate 86 Respiratory Rate Blood Pressure 142/66 H BP Systolic 142 BP Diastolic 66 Pulse Ox 98 08/28/25 16:59 11/20/24 17:20 11/20/24 17:20 Temperature Temperature Source Temporal Pulse Rate 81 Respiratory Rate 16 Blood Pressure BP Systolic BP Diastolic Pulse Ox 11/20/24 17:20 11/20/24 17:58 11/20/24 17:58 Temperature 98.8 F Temperature Source Temporal Pulse Rate Respiratory Rate 16 Blood Pressure BP Systolic BP Diastolic Pulse Ox 11/20/24 17:58 11/20/24 17:59 11/20/24 17:59 Temperature 99.5 F H Temperature Source Pulse Rate 65 Respiratory Rate Blood Pressure 135/59 H BP Systolic 135 BP Diastolic 59 Pulse Ox 11/20/24 19:03 11/20/24 19:03 11/20/24 19:04 Temperature Temperature Source Pulse Rate 75 Respiratory Rate Blood Pressure 127/59 H BP Systolic 127 BP Diastolic 59 Pulse Ox 99 11/20/24 19:04 11/20/24 19:37 11/20/24 19:37 Temperature Temperature Source Pulse Rate 73 76 Respiratory Rate Blood Pressure 122/56 H BP Systolic 122 BP Diastolic 56 Pulse Ox 11/20/24 19:37 11/20/24 19:37 11/20/24 19:37 Temperature Temperature Source Temporal Pulse Rate Respiratory Rate 16 Blood Pressure BP Systolic BP Diastolic Pulse Ox 99 11/20/24 19:37 11/20/24 19:57 11/20/24 19:57 Temperature 99.3 F H Temperature Source Pulse Rate 73 Respiratory Rate Blood Pressure 118/75 BP Systolic 118 BP Diastolic 75 Pulse Ox Weight Weight: 106.7 kg Body Mass Index (BMI) 39.1 Physical Exam Const alert and no apparent distress General Appearance: cooperative HEENT normocephalic Resp normal respiratory effort Cardio regular rate GI soft to palpation GI Narrative: gravid, nontender, appropriate for gestational age Extremity no calf tenderness General Extremity: edema Skin no wounds Rashes: No rashes noted Psych activity/motor behavior normal Labs Labs Labs: Blood Type A POSITIVE Antibody Screen NEGATIVE Hct 39.9 % (37-47) Hgb 13.8 g/dL (12.0-15.0) Syphilis Total Ab Nonreactive (Nonreactive) Assessment & Plan (1) 39 weeks gestation of : (2) Gestational hypertension: QUALIFIERS: Trimester: third trimester Qualified Code(s): O13.3 -Gestational [-induced] hypertension without significant proteinuria, third trimester (3) Active labor: PLAN: Plan Admit for labor and GHTN Epidural prn 11/20/242009 <Electronically signed by Gisell Hope MD> Cosigner Signature (if applicable): CC: Dr. Gisell Hope MD; LANE YOU~ Signed [facility] Work Phone: 1(926) 381-430308-28-2025 History and physical note Author Gisell Hope [facility] Note Date/Time November 20, 2024 8: 06pm [facility] Medical Records Department [address] [place] [address] H&P Exam - SPACE STUDIES FACULTY MEMBER 11/20/24 0933 MR#: [id number] Acct: [id number] Name: SOHEILA POLK Rep #:[id number] : 1995 29 From: Gisell Hope MD PCP: LANE [facility] Status:ADM IN Location: [id number] HPI - General General Date of Admission: 11/20/24 Date of Service: 11/20/24 Chief Complaint: Possible ROM HPI Narrative SOHEILA POLK, is a 29 F who presents with possible ROM and contractions. Not SROM. But 5 cm with mild range pressures. Admitted for labor Maternal Data Information Final RED: 11/26/24 Gestational age: 39+1 PFSH PFSH Medical History Diabetes Low iron Back pain Migraine headache Non-smoker Home Medications ?Medication ?Instructions ?Recorded ?Last Taken ?Type ferrous sulfate 325 mg (65 mg 325 mg PO MOWEFR 3 11/17/24 History iron) tablet (Iron (ferrous sulfate)) vits,calcium no.78-iron 1 tab PO DAILY 11/20/24 History fumarate-folic acid 29 mg-1 mg tablet (Prenatabs FA) aspirin 81 mg capsule 81 mg PO DAILY 11/20/24 Unkn own History Allergy/AdvReac Type Severity Reaction Status Date / Time No Known Allergies Allergy Verified 11/20/24 09:16 Surgical History Hx of tonsillectomy Social History Smoking Status: Never smoker History 1 Elective abortions Hx Para 0 Spontaneous abortions Hx # Term Pregnancies Ectopic pregnancies Hx # Pregnancies Multiple births # of living children NST FHR Rate Baby A Variability:: Moderate Decelerations:: None NST Reactive:: Yes Vital Signs Vital Signs Vital Signs: 11/20/24 09:23 11/20/24 09:23 Pulse Rate 83 Blood Pressure 144/88 H BP Systolic 144 BP Diastolic 88 Weight Weight: 106.7 kg Body Mass Index (BMI) 39.1 Labs Labs Labs: Blood Type A POSITIVE Antibody Screen NEGATIVE Hct 39.9 % (37-47) Hgb 13.8 g/dL (12.0-15.0) Syphilis Total Ab Nonreactive (Nonreactive) 11/20/242005 <Electronically signed by Gisell Hope MD> Cosigner Signature (if applicable): CC: Dr. Gisell Hope MD; LNAE YOU~ Signed [facility] Work Phone: [phone]) 847-793808-28-2025 Procedure note [facility] Medical Records Department [address] [place] [address] OB Vaginal Delivery 11/20/241952 MR#: [id number] Acct: [id number] Name: SOHEILA POLK Rep #:[id number] : 1995 29 From: Gisell Hope MD PCP: LANE [facility] Status:ADM IN Location: [address] Assessment & Plan (1) (spontaneous vaginal delivery): (2) Gestational hypertension: QUALIFIERS: Trimester: third trimester Qualified Code(s): O13.3 -Gestational [-induced] hypertension without significant proteinuria, third trimester (3) 39 weeks gestation of : Maternal Data Information Final RED: 11/26/24 Gestational age: 39+1 Vaginal Delivery Maternal Presentation Maternal Presentation: Active Labor Type of Induction: Amniotomy Medical Reason for Induction: Gestational Hypertension Vaginal Delivery Information Procedure Performed: Spontaneous Vaginal Delivery Surgeon/Practitioner: Gisell Hope Date of Procedure: 11/20/24 Pre-Procedure Diagnosis: Labor Post-Procedure Diagnosis: Type of anesthesia: Epidural Estimated Blood Loss: 150 cc Time of Delivery: 19:22 Findings Description of procedure: Progressed to complete with AROM only. Once complete pushed over and intact perineum. Delivered OA.The shoulders delivered easily followed but the rest of the body. The cried upon delivered and was placed on the maternal abdomen. The cord was clamped and cut at one minute. The placenta delivered spontaneously. A 1st degree laceration was repaired and a right labial laceration was repairedwith 3-0 Vicryl. All sponge, instrument and needle counts were correct. 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 5 cm. Mildrange BP. Admit forlabor Maternal Data Information Final RED: 11/26/24 Gestational age: 39+1 PFSH PFSH Medical History Diabetes Low iron Back pain Migraine headache Non-smoker Home Medications ?Medication ?Instructions ?Recorded ?Last Taken ?Type ferrous sulfate 325 mg (65 mg 325 mg PO MOWEFR 3 11/17/24 History iron) tablet (Iron (ferrous sulfate)) vits,calcium no.78-iron 1 tab PO DAILY 11/20/24 History fumarate-folic acid 29 mg-1 mg tablet (Prenatabs FA) aspirin 81 mg capsule 81 mg PO DAILY 11/20/24 Unkn own History Allergy/AdvReac Type Severity Reaction Status Date / Time No Known Allergies Allergy Verified 11/20/24 09:16 Surgical History Hx of tonsillectomy Social History Smoking Status: Never smoker History 1 Elective abortions Hx Para 0 Spontaneous abortions Hx # Term Pregnancies Ectopic pregnancies Hx # Pregnancies Multiple births # of living children NST FHR Rate Baby A Variability:: Moderate Accelerations:: 15 x 15 Decelerations:: None NST Reactive:: Yes ROS Constitutional Constitutional: Denies fatigue, fever(s) or malaise Eyes Eyes: Denies change in vision ENT HEENT: Denies dizziness or headache(s) Cardiovascular Cardiovascular: Denies chest pain, dyspnea or lightheadedness Respiratory/Chest Respiratory/Chest: Denies cough or dyspnea Gastrointestinal Gastrointestinal: Denies change in bowel habits Genitourinary Genitourinary: Denies burning urination or genital lesions Integumentary Integumentary: Denies rash Neurologic Neurologic: Denies confusion, dizziness, headache(s), numbness or weakness Vital Signs Vital Signs Vital Signs: 11/20/24 09:23 11/20/24 09:23 11/20/24 09:23 Temperature Temperature Source Temporal Pulse Rate 83 Respiratory Rate Blood Pressure 144/88 H BP Systolic 144 BP Diastolic 88 Pulse Ox 11/20/24 09:23 11/20/24 09:23 11/20/24 09:23 Temperature 99.0 F Temperature Source Pulse Rate Respiratory Rate 16 Blood Pressure BP Systolic BP Diastolic Pulse Ox 98 11/20/24 10:10 11/20/24 10:10 11/20/24 10:25 Temperature Temperature Source Pulse Rate 81 Respiratory Rate Blood Pressure 152/87 H 154/81 H BP Systolic 152 154 BP Diastolic 87 81 Pulse Ox 11/20/24 10:25 11/20/24 10:25 11/20/24 10:40 Temperature Temperature Source Pulse Rate 81 Respiratory Rate 16 Blood Pressure 153/84 H BP Systolic 153 BP Diastolic 84 Pulse Ox 11/20/24 10:40 11/20/24 10:55 11/20/24 10:55 Temperature Temperature Source Pulse Rate 77 77 Respiratory Rate Blood Pressure 146/79 H BP Systolic 146 BP Diastolic 79 Pulse Ox 11/20/24 11:10 11/20/24 11:10 11/20/24 11:25 Temperature Temperature Source Pulse Rate 80 Respiratory Rate Blood Pressure 142/80 H 143/71 H BP Systolic 142 143 BP Diastolic 80 71 Pulse Ox 11/20/24 11:25 11/20/24 11:40 11/20/24 11:40 Temperature Temperature Source Pulse Rate 83 81 Respiratory Rate Blood Pressure 146/85 H BP Systolic 146 BP Diastolic 85 Pulse Ox 11/20/24 11:55 11/20/24 11:55 11/20/24 12:10 Temperature Temperature Source Pulse Rate 84 Respiratory Rate Blood Pressure 147/87 H 152/93 H BP Systolic 147 152 BP Diastolic 87 93 Pulse Ox 11/20/24 12:10 11/20/24 13:00 11/20/24 13:00 Temperature Temperature Source Pulse Rate 87 87 Respiratory Rate Blood Pressure BP Systolic BP Diastolic Pulse Ox 99 11/20/24 13:05 11/20/24 13:05 11/20/24 13:10 Temperature Temperature Source Pulse Rate 84 Respiratory Rate Blood Pressure 158/81 H BP Systolic 158 BP Diastolic 81 Pulse Ox 100 11/20/24 13:10 11/20/24 13:10 11/20/24 13:10 Temperature Temperature Source Pulse Rate 80 Respiratory Rate 18 Blood Pressure BP Systolic BP Diastolic Pulse Ox 99 11/20/24 13:15 11/20/24 13:15 11/20/24 13:17 Temperature Temperature Source Pulse Rate 88 Respiratory Rate Blood Pressure 144/82 H BP Systolic 144 BP Diastolic 82 Pulse Ox 99 11/20/24 13:17 11/20/24 13:17 11/20/24 13:17 Temperature Temperature Source Pulse Rate 80 Respiratory Rate 16 Blood Pressure BP Systolic BP Diastolic Pulse Ox 100 11/20/24 13:20 11/20/24 13:20 11/20/24 13:20 Temperature Temperature Source Pulse Rate 83 82 Respiratory Rate Blood Pressure 145/79 H BP Systolic 145 BP Diastolic 79 Pulse Ox 11/20/24 13:20 11/20/24 13:20 11/20/24 13:20 Temperature Temperature Source Pulse Rate Respiratory Rate 17 Blood Pressure BP Systolic BP Diastolic Pulse Ox 100 99 11/20/24 13:25 11/20/24 13:25 11/20/24 13:25 Temperature Temperature Source Pulse Rate 77 83 Respiratory Rate Blood Pressure 144/79 H BP Systolic 144 BP Diastolic 79 Pulse Ox 11/20/24 13:25 11/20/24 13:25 11/20/24 13:30 Temperature Temperature Source Pulse Rate Respiratory Rate 16 Blood Pressure 144/80 H BP Systolic 144 BP Diastolic 80 Pulse Ox 100 11/20/24 13:30 11/20/24 13:30 11/20/24 13:30 Temperature Temperature Source Pulse Rate 78 81 Respiratory Rate Blood Pressure BP Systolic BP Diastolic Pulse Ox 100 11/20/24 13:31 11/20/24 13:31 11/20/24 13:31 Temperature 98.8 F Temperature Source Temporal Pulse Rate Respiratory Rate 16 Blood Pressure BP Systolic BP Diastolic Pulse Ox 11/20/24 13:35 11/20/24 13:35 11/20/24 13:37 Temperature Temperature Source Pulse Rate 83 Respiratory Rate Blood Pressure 150/116 H BP Systolic 150 BP Diastolic 116 Pulse Ox 99 11/20/24 13:37 11/20/24 13:37 11/20/24 13:38 Temperature Temperature Source Pulse Rate 82 Respiratory Rate 16 Blood Pressure 151/83 H BP Systolic 151 BP Diastolic 83 Pulse Ox 11/20/24 13:38 11/20/24 13:38 11/20/24 13:38 Temperature Temperature Source Pulse Rate 73 Respiratory Rate 17 Blood Pressure BP Systolic BP Diastolic Pulse Ox 99 11/20/24 13:40 11/20/24 13:40 11/20/24 13:40 Temperature Temperature Source Pulse Rate 77 Respiratory Rate Blood Pressure 142/75 H BP Systolic 142 BP Diastolic 75 Pulse Ox 100 11/20/24 13:45 11/20/24 13:45 11/20/24 13:45 Temperature Temperature Source Pulse Rate 79 79 Respiratory Rate Blood Pressure 141/74 H BP Systolic 141 BP Diastolic 74 Pulse Ox 11/20/24 13:45 11/20/24 13:50 11/20/24 13:50 Temperature Temperature Source Pulse Rate 84 Respiratory Rate Blood Pressure BP Systolic BP Diastolic Pulse Ox 100 100 11/20/24 13:55 11/20/24 13:55 11/20/24 14:00 Temperature Temperature Source Pulse Rate 80 82 Respiratory Rate Blood Pressure BP Systolic BP Diastolic Pulse Ox 100 11/20/24 14:00 11/20/24 14:05 11/20/24 14:05 Temperature Temperature Source Pulse Rate 81 Respiratory Rate Blood Pressure BP Systolic BP Diastolic Pulse Ox 98 99 11/20/24 14:10 11/20/24 14:10 11/20/24 14:11 Temperature Temperature Source Pulse Rate 85 93 Respiratory Rate Blood Pressure BP Systolic BP Diastolic Pulse Ox 99 11/20/24 14:11 11/20/24 14:15 11/20/24 14:15 Temperature Temperature Source Pulse Rate 80 Respiratory Rate Blood Pressure BP Systolic BP Diastolic Pulse Ox 92 99 11/20/24 14:17 11/20/24 14:17 11/20/24 14:17 Temperature Temperature Source Pulse Rate 84 Respiratory Rate 16 Blood Pressure 148/81 H BP Systolic 148 BP Diastolic 81 Pulse Ox 11/20/24 14:20 11/20/24 14:20 11/20/24 14:25 Temperature Temperature Source Pulse Rate 85 84 Respiratory Rate Blood Pressure BP Systolic BP Diastolic Pulse Ox 98 11/20/24 14:25 11/20/24 14:30 11/20/24 14:30 Temperature Temperature Source Pulse Rate 83 Respiratory Rate Blood Pressure BP Systolic BP Diastolic Pulse Ox 99 100 11/20/24 14:42 11/20/24 14:42 11/20/24 14:42 Temperature 98.8 F Temperature Source Temporal Pulse Rate Respiratory Rate 16 Blood Pressure BP Systolic BP Diastolic Pulse Ox 11/20/24 14:48 11/20/24 14:48 11/20/24 14:49 Temperature Temperature Source Pulse Rate 77 Respiratory Rate Blood Pressure 141/75 H BP Systolic 141 BP Diastolic 75 Pulse Ox 97 11/20/24 14:49 11/20/24 14:53 11/20/24 14:53 Temperature Temperature Source Pulse Rate 68 73 Respiratory Rate Blood Pressure BP Systolic BP Diastolic Pulse Ox 99 11/20/24 14:55 11/20/24 14:55 11/20/24 14:55 Temperature Temperature Source Pulse Rate 68 Respiratory Rate 18 Blood Pressure 145/81 H BP Systolic 145 BP Diastolic 81 Pulse Ox 11/20/24 14:55 11/20/24 14:58 11/20/24 14:58 Temperature Temperature Source Pulse Rate 92 Respiratory Rate Blood Pressure BP Systolic BP Diastolic Pulse Ox 99 100 11/20/24 15:00 11/20/24 15:00 11/20/24 15:03 Temperature Temperature Source Pulse Rate 70 76 Respiratory Rate Blood Pressure 156/84 H BP Systolic 156 BP Diastolic 84 Pulse Ox 11/20/24 15:03 11/20/24 15:05 11/20/24 15:05 Temperature Temperature Source Pulse Rate 77 Respiratory Rate Blood Pressure 155/74 H BP Systolic 155 BP Diastolic 74 Pulse Ox 99 11/20/24 15:13 11/20/24 15:13 11/20/24 15:16 Temperature Temperature Source Pulse Rate 77 Respiratory Rate Blood Pressure 145/85 H BP Systolic 145 BP Diastolic 85 Pulse Ox 99 11/20/24 15:16 11/20/24 15:18 11/20/24 15:18 Temperature Temperature Source Pulse Rate 72 74 Respiratory Rate Blood Pressure BP Systolic BP Diastolic Pulse Ox 100 11/20/24 15:20 11/20/24 15:20 11/20/24 15:23 Temperature Temperature Source Pulse Rate 73 87 Respiratory Rate Blood Pressure 156/85 H BP Systolic 156 BP Diastolic 85 Pulse Ox 11/20/24 15:23 11/20/24 15:25 11/20/24 15:25 Temperature Temperature Source Pulse Rate 81 Respiratory Rate Blood Pressure 166/86 H BP Systolic 166 BP Diastolic 86 Pulse Ox 100 11/20/24 15:28 11/20/24 15:28 11/20/24 15:33 Temperature Temperature Source Pulse Rate 77 85 Respiratory Rate Blood Pressure BP Systolic BP Diastolic Pulse Ox 100 11/20/24 15:33 11/20/24 15:38 11/20/24 15:38 Temperature Temperature Source Pulse Rate 79 Respiratory Rate Blood Pressure BP Systolic BP Diastolic Pulse Ox 100 92 11/20/24 15:43 11/20/24 15:43 11/20/24 15:45 Temperature Temperature Source Pulse Rate 75 Respiratory Rate Blood Pressure 163/86 H BP Systolic 163 BP Diastolic 86 Pulse Ox 99 11/20/24 15:45 11/20/24 15:48 11/20/24 15:48 Temperature Temperature Source Pulse Rate 75 78 Respiratory Rate Blood Pressure BP Systolic BP Diastolic Pulse Ox 99 11/20/24 15:50 11/20/24 15:50 11/20/24 15:50 Temperature Temperature Source Pulse Rate 74 Respiratory Rate 16 Blood Pressure 139/82 H BP Systolic 139 BP Diastolic 82 Pulse Ox 11/20/24 15:53 11/20/24 15:53 11/20/24 15:53 Temperature Temperature Source Pulse Rate 85 86 Respiratory Rate Blood Pressure BP Systolic BP Diastolic Pulse Ox 89 11/20/24 15:53 11/20/24 15:55 11/20/24 15:55 Temperature Temperature Source Pulse Rate 90 Respiratory Rate Blood Pressure 139/74 H BP Systolic 139 BP Diastolic 74 Pulse Ox 99 11/20/24 15:55 11/20/24 15:58 11/20/24 15:58 Temperature Temperature Source Pulse Rate 84 Respiratory Rate 16 Blood Pressure BP Systolic BP Diastolic Pulse Ox 100 11/20/24 16:00 11/20/24 16:00 11/20/24 16:00 Temperature Temperature Source Pulse Rate 85 Respiratory Rate 16 Blood Pressure 133/72 H BP Systolic 133 BP Diastolic 72 Pulse Ox 11/20/24 16:03 11/20/24 16:03 11/20/24 16:05 Temperature Temperature Source Pulse Rate 90 Respiratory Rate Blood Pressure 128/66 H BP Systolic 128 BP Diastolic 66 Pulse Ox 100 11/20/24 16:05 11/20/24 16:05 11/20/24 16:08 Temperature Temperature Source Pulse Rate 88 80 Respiratory Rate 16 Blood Pressure BP Systolic BP Diastolic Pulse Ox 11/20/24 16:08 11/20/24 16:11 11/20/24 16:11 Temperature Temperature Source Pulse Rate 84 Respiratory Rate Blood Pressure 141/71 H BP Systolic 141 BP Diastolic 71 Pulse Ox 100 11/20/24 16:11 11/20/24 16:13 11/20/24 16:13 Temperature Temperature Source Pulse Rate 83 Respiratory Rate Blood Pressure BP Systolic BP Diastolic Pulse Ox 93 99 11/20/24 16:16 11/20/24 16:16 11/20/24 16:18 Temperature Temperature Source Pulse Rate 83 84 Respiratory Rate Blood Pressure 143/83 H BP Systolic 143 BP Diastolic 83 Pulse Ox 11/20/24 16:18 11/20/24 16:20 11/20/24 16:20 Temperature Temperature Source Pulse Rate 79 Respiratory Rate Blood Pressure 139/68 H BP Systolic 139 BP Diastolic 68 Pulse Ox 99 11/20/24 16:58 11/20/24 16:58 11/20/24 16:59 Temperature Temperature Source Pulse Rate 86 Respiratory Rate Blood Pressure 142/66 H BP Systolic 142 BP Diastolic 66 Pulse Ox 98 11/20/24 16:59 11/20/24 17:20 11/20/24 17:20 Temperature Temperature Source Temporal Pulse Rate 81 Respiratory Rate 16 Blood Pressure BP Systolic BP Diastolic Pulse Ox 11/20/24 17:20 11/20/24 17:58 11/20/24 17:58 Temperature 98.8 F Temperature Source Temporal Pulse Rate Respiratory Rate 16 Blood Pressure BP Systolic BP Diastolic Pulse Ox 11/20/24 17:58 11/20/24 17:59 11/20/24 17:59 Temperature 99.5 F H Temperature Source Pulse Rate 65 Respiratory Rate Blood Pressure 135/59 H BP Systolic 135 BP Diastolic 59 Pulse Ox 11/20/24 19:03 11/20/24 19:03 11/20/24 19:04 Temperature Temperature Source Pulse Rate 75 Respiratory Rate Blood Pressure 127/59 H BP Systolic 127 BP Diastolic 59 Pulse Ox 99 11/20/24 19:04 11/20/24 19:37 11/20/24 19:37 Temperature Temperature Source Pulse Rate 73 76 Respiratory Rate Blood Pressure 122/56 H BP Systolic 122 BP Diastolic 56 Pulse Ox 11/20/24 19:37 11/20/24 19:37 11/20/24 19:37 Temperature Temperature Source Temporal Pulse Rate Respiratory Rate 16 Blood Pressure BP Systolic BP Diastolic Pulse Ox 99 11/20/24 19:37 11/20/24 19:57 11/20/24 19:57 Temperature 99.3 F H Temperature Source Pulse Rate 73 Respiratory Rate Blood Pressure 118/75 BP Systolic 118 BP Diastolic 75 Pulse Ox Weight Weight: 106.7 kg Body Mass Index (BMI) 39.1 Physical Exam Const alert and no apparent distress General Appearance: cooperative HEENT normocephalic Resp normal respiratory effort Cardio regular rate GI soft to palpation GI Narrative: gravid, nontender, appropriate for gestational age Extremity no calf tenderness General Extremity: edema Skin no wounds Rashes: No rashes noted Psych activity/motor behavior normal Labs Labs Labs: Blood Type A POSITIVE Antibody Screen NEGATIVE Hct 39.9 % (37-47) Hgb 13.8 g/dL (12.0-15.0) Syphilis Total Ab Nonreactive (Nonreactive) Assessment & Plan (1) 39 weeks gestation of : (2) Gestational hypertension: QUALIFIERS: Trimester: third trimester Qualified Code(s): O13.3 -Gestational [-induced] hypertension without significant proteinuria, third trimester (3) Active labor: PLAN: Plan Admit for labor and GHTN Epidural prn 11/20/242009 Cosigner Signature (if applicable): CC: Dr. 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 Not SROM. But 5 cm with mild range pressures. Admitted for labor Maternal Data Information Final RED: 11/26/24 Gestational age: 39+1 PFSH PFSH Medical History Diabetes Low iron Back pain Migraine headache Non-smoker Home Medications ?Medication ?Instructions ?Recorded ?Last Taken ?Type ferrous sulfate 325 mg (65 mg 325 mg PO MOWEFR 3 11/17/24 History iron) tablet (Iron (ferrous sulfate)) vits,calcium no.78-iron 1 tab PO DAILY 11/20/24 History fumarate-folic acid 29 mg-1 mg tablet (Prenatabs FA) aspirin 81 mg capsule 81 mg PO DAILY 11/20/24 Unkn own History Allergy/AdvReac Type Severity Reaction Status Date / Time No Known Allergies Allergy Verified 11/20/24 09:16 Surgical History Hx of tonsillectomy Social History Smoking Status: Never smoker History 1 Elective abortions Hx Para 0 Spontaneous abortions Hx # Term Pregnancies Ectopic pregnancies Hx # Pregnancies Multiple births # of living children NST FHR Rate Baby A Variability:: Moderate Decelerations:: None NST Reactive:: Yes Vital Signs Vital Signs Vital Signs: 11/20/24 09:23 11/20/24 09:23 Pulse Rate 83 Blood Pressure 144/88 H BP Systolic 144 BP Diastolic 88 Weight Weight: 106.7 kg Body Mass Index (BMI) 39.1 Labs Labs Labs: Blood Type A POSITIVE Antibody Screen NEGATIVE Hct 39.9 % (37-47) Hgb 13.8 g/dL (12.0-15.0) Syphilis Total Ab Nonreactive (Nonreactive) 11/20/242005 Cosigner Signature (if applicable): CC: Dr. Gisell Hope MD; [facility]~ Signed [facility]08-28-2025 Evaluation note* Diagnosis Onset Date Resolution Status Admit Date 39 weeks gestation of acut e November 20, 2024 11:33am Active labor acute November 20, 2024 11:33am Gestational hypertension acute November 20, 2024 11:33am (spontaneous vaginal delivery) acute November 20 11:33am [facility] Work Phone: 1(533) 538-355408-28-2025 NoteHNO ID: [id number] Author: MEENA HENDRICKS MA Service: ? Author Type: [employer] Business Segment Leader Type: Progress Notes Filed: 11/20/2024 08:52 Note Text: POPULATION HEALTH NAVIGATION OUTREACH Action/FYI Shipping Specialist updated per response. Reason for Outreach Medicaid OB/Peds Care Gaps due: N/A Patient Contacted: Spoke to patient/parent/or legal guardian Patient identified by name and : Yes Medicaid OB/Peds actions taken: /Shipping Specialist added Navigation Signature: Meena Ayala MA November 20, 2024 8:52 [facility]08-27-2025 NoteHNO ID: [id number] Author: CLINT VASQUES MD Service: ? Author Type: Physician Type: Progress Notes Filed: 11/19/2024 15:14 Note Text: NST SUMMARY PROVIDER ASSESSMENT AND INTERPRETATION Soheila Polk is a 29 year old female, , who is at 39w0d with an RED of 11/26/2024, by Last Menstrual Period dating method. Indications for NST: Obesity Baseline: 140 Variability: Moderate Accelerations: Present 15 X 15 Decelerations: None Contractions: TOCO: None Interpretation: Reactive SIGNATURE: Clint Vasques [facility]08-27-2025 History of Present illness Narrative* Clint Vasques MD - 11/19/2024 2:35 PM EDT NST SUMMARY PROVIDER ASSESSMENT AND INTERPRETATION Soheila Polk is a 29 year old female, , who is at 39w0d with an RED of 11/26/2024, by LastMenstrual Period dating method. Indications for NST: Obesity Baseline: 140 Variability: Moderate Accelerations: Present 15 X 15 Decelerations: None Contractions: TOCO: None Interpretation: Reactive SIGNATURE: Clint Vasques MD [facility] Progress note* Quick Notes - Clint Vasques MD - 11/19/2024 2:34 PM EDT RR- VB No. LOF No. CTXS few, irreg. Movement: present. Other c/o: denies PUENTE or visual changes Medication list reviewed. SENSITIVE EXAM: Sensitive exam not performed. Physical Exam See Flow Sheet Abd: soft, nontender, gravid Ext: edema: Trace, symetrical: Yes, DTRS: 2+, clonus: Absent A/P 39w0d Estimated Date of Delivery: 11/26/24 ASSESSMENT/PLAN: 1. Supervision of high risk in third trimester ([facility]) - ICD9: V23.9, ICD10: O09.93 (primary diagnosis) - URINE OB DIP B/O 2. Obesity in ([facility]) - ICD9: 649.10, ICD10: O99.210 nsttoday recommend induction at 39 weeks, scheduled 11/21 kick counts - URINE OB DIP B/O 3. 39 weeks gestation of ([facility]) - ICD9: V22.2, ICD10: Z3A.39 call/return for signs/symptoms of preeclampsia - URINE OB DIP B/O Clint Vasques MD [facility]08-27-2025 Miscellaneous Notes* Quick Notes - Clint Vasques MD - 11/19/2024 2:34 PM EDT RR- VB No. LOF No. CTXS few, irreg. Movement: present. Other c/o: denies PUENTE or visual changes Medication list reviewed. SENSITIVE EXAM: Sensitive exam not performed. Physical Exam See Flow Sheet Abd: soft, nontender, gravid Ext: edema: Trace, symetrical: Yes, DTRS: 2+, clonus: Absent A/P 39w0d Estimated Date of Delivery: 11/26/24 ASSESSMENT/PLAN: 1. Supervision of high risk in third trimester ([facility]) - ICD9: V23.9, ICD10: O09.93 (primary diagnosis) - URINE OB DIP B/O 2. Obesity in ([facility]) - ICD9: 649.10, ICD10: O99.210 justusttodaalona recommend induction at 39 weeks, scheduled 11/21 kick counts - URINE OB DIP B/O 3. 39 weeks gestation of ([facility]) - ICD9: V22.2, ICD10: Z3A.39 call/return for signs/symptoms of preeclampsia - URINE OB DIP B/O Clint Vasques MD [facility]08-[facility] Instructions* Patient Instructions* Daphne Angel MA - 11/19/2024 2:18 PM EDT SEQUENTIAL SCREENINGS [facility] offers sequential screenings for women who are interested in screenings for chromosomal abnormalities and certain defects during a . The sequential screen combinesultrasound and blood tests to determine the risk [...] this testing. It will require an appointment withour blend technician. This is not an ultrasound performed [...] the above symptoms, contact our office at [phone] and ask to speak with anurse. After hours, you can call doctors registry at [phone] OR call [facility] at [phone] ask to have the doctor armature connector paged. If you consider this an emergency, dial 6-5-7 or go to your nearest emergency department. NEED HELP? Are you dealing with a violent or abusive relationship? Are you a victim of rape or sexual assult? Call [facility] ([place]) 24 hour Crisis Hotline: 158.727.4916 or 297-777-2990. MANUAL Your Guide to a Healthy manual is now on-line. Visit [email or web address] to download your free copy documented [facility]08-[facility]-2025 NoteHNO ID: [id number] Author: DENICE SALES MD Service: ? Author [...] was discussed with the patient or authorized financial service representative. The patient or authorized financial service representative has agreed to proceed with the sensitive examination. @ 38.2 weeks Assessment AND Plan Supervision of high risk in third trimester (HCC) Orders: URINE OB DIP B/O Obesity in (HCC) Orders: URINE OB DIP B/O IIH (idiopathic intracranial hypertension) Orders: URINE OB DIP B/O Anemia during in third trimester (HCC) Orders: URINE OB DIP B/O 38 weeks gestation of (HCC) Kick counts and labor reviewed Membranes swept per patient request RTO one week Orders: URINE OB DIP B/O [facility] History of Present illness Narrative* Denice Sales MD - 11/14/2024 2:58 PM EDT DM-Pt doing well. Denies vaginal Bleeding, Leaking fluid, or regular Contractions. Pt reports good movement Physical Exam: Gen: female in no apparent distress Abd: soft, Gravid. Non tender to palpation. See flow sheet Participation of a fellow, resident, medical student, or advanced practice provider student in performing the sensitive examination was discussed with the patient or authorized financial service representative. The patient or authorized financial service representative has agreed to proceed with the sensitive examination. @ 38.2 weeks Assessment & Plan Supervision of high risk in third trimester (HCC) Orders: URINE OB DIP B/O Obesity in (HCC) Orders: URINE OB DIP B/O IIH (idiopathic intracranial hypertension) Orders: URINE OB DIP B/O Anemia during in third trimester (HCC) Orders: URINE OB DIP B/O 38 weeks gestation of (HCC) Kick counts and labor reviewed Membranes swept per patient request RTO one week Orders: URINE OB DIP B/O Denice Bethea MD [facility]25 Instructions* Patient Instructions* Daphne Angel MA - 11/14/2024 2:42 PM EDT SEQUENTIAL SCREENINGS [facility] offers sequential screenings for women who are interested in screenings for chromosomal abnormalities and certain defects during a . The sequential screen combinesultrasound and blood tests to determine the risk [...] this testing. It will require an appointment withour blend technician. This is not an ultrasound performed [...] the above symptoms, contact our office at [phone] and ask to speak with anurse. After hours, you can call doctors registry at [phone] OR call [facility] at [phone] ask to have the doctor armature connector paged. If you consider this an emergency, dial 9-1-0 or go to your nearest emergency department. NEED HELP? Are you dealing with a violent or abusive relationship? Are you a victim of rape or sexual assult? Call [facility] ([place]) 24 hour Crisis Hotline: 961.623.1255 or 584-706-2108. MANUAL Your Guide to a Healthy manual is now on-line. Visit [email or web address] to download your free copy documented [facility] this encounterF[facility]08-[facility]-2025 NoteHNO ID: [id number] Author: MEENA HENDRICKS MA Service: ? Author Type: [employer] Business Segment Leader Type: Progress Notes Filed: 11/14/2024 08:43 Note Text: POPULATION HEALTH NAVIGATION OUTREACH Action/FYI Called and spoke with pt and states she will outreach back via . Reason for Outreach Medicaid OB/Peds Care Gaps due: N/A Patient Contacted: Spoke to patient/parent/or legal guardian Patient identified by name and : No Navigation Signature: Meena Ayala MA November 14, 2024 8:42 [facility]08-21-2025 NoteHNO ID: [id number] Author: MEENA HENDRICKS MA Service: ? 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 MC message sent. 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 MC message sent. 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 MC message sent. Reason for Outreach Medicaid [...] Ayala MA November 14, 2024 8:42 AM Meena Hendricks MA 11/20/2024 8:52 AM Signed POPULATION HEALTH NAVIGATION OUTREACH Action/FYI Shipping Specialist updated per response. Reason for Outreach Medicaid OB/Peds Care Gaps due: N/A Patient Contacted: Spoke to patient/parent/or legal guardian Patient identified by name and : Yes Medicaid OB/Peds actions taken: /Shipping Specialist added Navigation Signature: Meena Ayala MA November 20, 2024 8:52 AM Allergies As of Date: 11/13/2024 (No Known Allergies) Date Reviewed: 11/11/2024 Reviewed by: Clint Vasques MD - Fully Assessed Reason for Visit: Population Health Navigation Outreach [[id number]] Cmt: Ob/peds Prescriptions as of 11/20/2024 - aspirin, enteric coated (ECOTRIN LOW STRENGTH) [...] trim*11/07/2024 Encounter Status:Closed by MEENA HENDRICKS on 11/13/24[facility] 11-11-2024 Progress note* Quick Notes - Clint Vasques MD - 11/11/2024 3:22 PM EDT RR- VB No. LOF No. CTXS No. Movement: present. Other c/o: No. Denies PUENTE or visual changes Medication list reviewed. SENSITIVE EXAM: The sensitive examination was discussed with the Patient or Patient's Authorized Bi Technical Lead. As applicable, any other physician, advance practice provider, medical student, or other health professional student that will be observing or involved in the sensitive examination for educational or training purposes was discussed with the Patient or Authorized Bi Technical Lead. The Patient or Authorized Bi Technical Lead has agreed to proceed with the sensitive examination. (Sensitive examination includes inspection and/or palpation of the breasts, pelvis, prostate and anorectal regions). Physical Exam See Flow Sheet Abd: soft, nontender, gravid Ext: edema: 1+ , 2+ Dtrs, no clonus A/P 37w6d Estimated Date of Delivery: 11/26/24 ASSESSMENT/PLAN: 1. Supervision of high risk in third trimester ([facility]) - ICD9: V23.9, ICD10: O09.93 (primary diagnosis) - URINE OB DIP B/O 2. 37 weeks gestation of ([facility]) - ICD9: V22.2, ICD10: Z3A.37 - URINE OB DIP B/O 3. Obesity in ([facility]) - ICD9: 649.10, ICD10: O99.210 NST today r/b/a to induction at 39 weeks reviewed, desires to proceed. Membrane sweep after verbal consent today - URINE OB DIP B/O 4. IIH (idiopathic intracranial hypertension) - ICD9: 348.2, ICD10: G93.2 - URINE OB DIP B/O 5. Anemia during in third trimester ([facility]) - ICD9: 648.23, ICD10: O99.013 cont. PNV and fe - URINE OB DIP B/O Clint Vasques MD [facility]08-19-2025 Miscellaneous Notes* Quick Notes - Clint Vasques MD - 11/11/2024 3:22 PM EDT RR- VB No. LOF No. CTXS No. Movement: present. Other c/o: No. Denies PUENTE or visual changes Medication list reviewed. SENSITIVE EXAM: The sensitive examination was discussed with the Patient or Patient's Authorized Bi Technical Lead. As applicable, any other physician, advance practice provider, medical student, or other health professional student that will be observing or involved in the sensitive examination for educational or training purposes was discussed with the Patient or Authorized Bi Technical Lead. The Patient or Authorized Bi Technical Lead has agreed to proceed with the sensitive examination. (Sensitive examination includes inspection and/or palpation of the breasts, pelvis, prostate and anorectal regions). Physical Exam See Flow Sheet Abd: soft, nontender, gravid Ext: edema: 1+ , 2+ Dtrs, no clonus A/P 37w6d Estimated Date of Delivery: 11/26/24 ASSESSMENT/PLAN: 1. Supervision of high risk in third trimester ([facility]) - ICD9: V23.9, ICD10: O09.93 (primary diagnosis) - URINE OB DIP B/O 2. 37 weeks gestation of ([facility]) - ICD9: V22.2, ICD10: Z3A.37 - URINE OB DIP B/O 3. Obesity in ([facility]) - ICD9: 649.10, ICD10: O99.210 NST today r/b/a to induction at 39 weeks reviewed, desires to proceed. Membrane sweep after verbal consent today - URINE OB DIP B/O 4. IIH (idiopathic intracranial hypertension) - ICD9: 348.2, ICD10: G93.2 - URINE OB DIP B/O 5. Anemia during in third trimester ([facility]) - ICD9: 648.23, ICD10: O99.013 cont. PNV and fe - URINE OB DIP B/O Clint Vasques MD [facility]25 NoteHNO ID: [id number] Author: CLINT VASQUES MD Service: ? Author [...] TOCO: None Interpretation: Reactive SIGNATURE: Clint Vasques [facility]08-19-2025 History of Present illness Narrative* Clint Vasques MD - 11/11/2024 3:21 PM EDT NST SUMMARY PROVIDER ASSESSMENT AND INTERPRETATION Soheila Polk is a 29 year old female, , who is at 37w6d with an RED of 11/26/2024, by LastMenstrual Period dating method. Indications for NST: Obesity Baseline: 140 Variability: Moderate Accelerations: Present 15 X 15 Decelerations: None Contractions: TOCO: None Interpretation: Reactive SIGNATURE: Clint Vasques MD documented in this encounterFlower Hospital08-19-2025 Instructions* Patient Instructions* Meera Linton MA - 11/11/2024 2:33 PM EDT SEQUENTIAL SCREENINGS [facility] offers sequential screenings for women who are interested in screenings for chromosomal abnormalities and certain defects during a . The sequential screen combinesultrasound and blood tests to determine the risk [...] this testing. It will require an appointment withour blend technician. This is not an ultrasound performed [...] the above symptoms, contact our office at [phone] and ask to speak with anurse. After hours, you can call doctors registry at [phone] OR call [facility] at [phone] ask to have the doctor armature connector paged. If you consider this an emergency, dial 11-24-7 or go to your nearest emergency department. NEED HELP? Are you dealing with a violent or abusive relationship? Are you a victim of rape or sexual assult? Call [facility] ([place]) 24 hour Crisis Hotline: 156.105.7853 or 902-795-9809. MANUAL Your Guide to a Healthy manual is now on-line. Visit [email or web address] to download your free copy documented in this encounterFlower Hospital08-15-2025 Note Indication Evaluation of growth, Evaluation of [...] 14 oz EFW by: Hadlock (HC-AC-FL) Extended Global Marketing Manager 6.3 mm Extremities / Bony Struc [place] [...] Larson RDMS, RVT Read By: Alejandra Ballesteros M.D.MATERNAL [id number] Progress note* Quick Notes - Clint Vasques MD - 11/05/2024 3:13 PM EDT RR- VB No. LOF No. CTXS No. Movement: present. Other c/o: denies PUENTE or visual changes Medication list reviewed. SENSITIVE EXAM: The sensitive examination was discussed with the Patient or Patient's Authorized Bi Technical Lead. As applicable, any other physician, advance practice provider, medical student, or other health professional student that will be observing or involved in the sensitive examination for educational or training purposes was discussed with the Patient or Authorized Bi Technical Lead. The Patient or Authorized Bi Technical Lead has agreed to proceed with the sensitive examination. (Sensitive examination includes inspection and/or palpation of the breasts, pelvis, prostate and anorectal regions). Physical Exam See Flow Sheet Abd: soft, nontender, gravid Ext: edema: Trace A/P 37w0d Estimated Date of Delivery: 11/26/24 ASSESSMENT/PLAN: 1. 37 weeks gestation of ([facility]) - ICD9: V22.2, ICD10: Z3A.37 (primary diagnosis) - URINE OB DIP B/O - ROUTINE, GROUP B STREPTOCOCCUS BY PCR 2. Supervision of high risk in third trimester ([facility]) - ICD9: V23.9, ICD10: O09.93 d/w her and partner r/b/a to induction at 39 + weeks and she would like to consider. Schedule next week. - URINE OB DIP B/O - ROUTINE, GROUP B STREPTOCOCCUS BY PCR Clint Vasques MD [facility]08-13-2025 Miscellaneous Notes* Quick Notes - Clint Vasques MD - 11/05/2024 3:13 PM EDT RR- VB No. LOF No. CTXS No. Movement: present. Other c/o: denies PUENTE or visual changes Medication list reviewed. SENSITIVE EXAM: The sensitive examination was discussed with the Patient or Patient's Authorized Bi Technical Lead. As applicable, any other physician, advance practice provider, medical student, or other health professional student that will be observing or involved in the sensitive examination for educational or training purposes was discussed with the Patient or Authorized Bi Technical Lead. The Patient or Authorized Bi Technical Lead has agreed to proceed with the sensitive examination. (Sensitive examination includes inspection and/or palpation of the breasts, pelvis, prostate and anorectal regions). Physical Exam See Flow Sheet Abd: soft, nontender, gravid Ext: edema: Trace A/P 37w0d Estimated Date of Delivery: 11/26/24 ASSESSMENT/PLAN: 1. 37 weeks gestation of ([facility]) - ICD9: V22.2, ICD10: Z3A.37 (primary diagnosis) - URINE OB DIP B/O - ROUTINE, GROUP B STREPTOCOCCUS BY PCR 2. Supervision of high risk in third trimester ([facility]) - ICD9: V23.9, ICD10: O09.93 d/w her and partner r/b/a to induction at 39 + weeks and she would like to consider. Schedule next week. - URINE OB DIP B/O - ROUTINE, GROUP B STREPTOCOCCUS BY PCR Clint Vasques MD documented in this encounterFlower Hospital08-13-2025 Instructions* Patient Instructions* Junie Kowalski LPN - 11/05/2024 2:55 PM EDT SEQUENTIAL SCREENINGS The [facility] offers sequential screenings for women who are interested in screenings for chromosomal abnormalities and certain defects during a . The sequential screen combinesultrasound and blood tests to determine the risk [...] this testing. It will require an appointment withour blend technician. This is not an ultrasound performed [...] the above symptoms, contact our office at [phone] and ask to speak with anurse. After hours, you can call doctors registry at [phone] OR call [facility] at [phone] ask to have the doctor armature connector paged. If you consider this an emergency, dial 5--4 or go to your nearest emergency department. NEED HELP? Are you dealing with a violent or abusive relationship? Are you a victim of rape or sexual assult? Call [facility] ([place]) 24 hour Crisis Hotline: 580.420.4861 or 061-128-6302. MANUAL Your Guide to a Healthy manual is now on-line. Visit [email or web address] to download your free copy documented in this encounterFlower Hospital08-05-2025 NoteHNO ID: [id number] Author: CLINT VASQUES MD Service: ? Author [...] TOCO: Irregular Interpretation: Reactive SIGNATURE: Clint Vasques [facility]07-30-2025 NoteHNO ID: [id number] Author: CLINT VASQUES MD Service: ? Author [...] TOCO: None Interpretation: Reactive SIGNATURE: Clint Vasques [facility]07-30-2025 Progress note* Quick Notes - Clint Vasques MD - 10/22/2024 3:00 PM EDT RR- VB No. LOF No. CTXS No. Movement: present. Other c/o: No. Medication list reviewed. SENSITIVE EXAM: Sensitive exam not performed. Physical Exam See Flow Sheet Abd: soft, nontender, gravid Ext: edema: Trace A/P 35w0d Estimated Date of Delivery: 11/26/24 Assessment & Plan 35 weeks gestation of ([facility]) Orders: URINE OB DIP B/O Supervision of high risk in third trimester ([facility]) Orders: URINE OB DIP B/O Obesity in ([facility]) Orders: URINE OB DIP B/O IIH (idiopathic intracranial hypertension) Orders: URINE OB DIP B/O NST reactive today kick counts f/u in 1 week or prn Clint Vasques M.D. [facility]07-30-2025 History of Present illness Narrative* Clint Vasques MD - 10/22/2024 3:00 PM EDT NST SUMMARY PROVIDER ASSESSMENT AND INTERPRETATION Soheila Polk is a 29 year old female, , who is at 35w0d with an RED of 11/26/2024, by LastMenstrual Period dating method. Indications for NST: Obesity Baseline: 130 Variability: Moderate Accelerations: Present 15 X 15 Decelerations: None Contractions: TOCO: None Interpretation: Reactive SIGNATURE: Clint Vasques MD documented in this encounterFlower Hospital07-30-2025 Miscellaneous Notes* Quick Notes - Clint Vasques MD - 10/22/2024 3:00 PM EDT RR- VB No. LOF No. CTXS No. Movement: present. Other c/o: No. Medication list reviewed. SENSITIVE EXAM: Sensitive exam not performed. Physical Exam See Flow Sheet Abd: soft, nontender, gravid Ext: edema: Trace A/P 35w0d Estimated Date of Delivery: 11/26/24 Assessment & Plan 35 weeks gestation of ([facility]) Orders: URINE OB DIP B/O Supervision of high risk in third trimester ([facility]) Orders: URINE OB DIP B/O Obesity in ([facility]) Orders: URINE OB DIP B/O IIH (idiopathic intracranial hypertension) Orders: URINE OB DIP B/O NST reactive today kick counts f/u in 1 week or prn Clint Vasques M.D. documented in this encounterFlower Hospital07-30-2025 Instructions* Patient Instructions* Meena Willson MA - 10/22/2024 2:30 PM EDT SEQUENTIAL SCREENINGS [facility] offers sequential screenings for women who are interested in screenings for chromosomal abnormalities and certain defects during a . The sequential screen combinesultrasound and blood tests to determine the risk [...] this testing. It will require an appointment withour blend technician. This is not an ultrasound performed [...] the above symptoms, contact our office at [phone] and ask to speak with anurse. After hours, you can call doctors registry at [phone] OR call [facility] at [phone] ask to have the doctor armature connector paged. If you consider this an emergency, dial 9--3 or go to your nearest emergency department. NEED HELP? Are you dealing with a violent or abusive relationship? Are you a victim of rape or sexual assult? Call [facility] ([place]) 24 hour Crisis Hotline: 146.814.5459 or 061-150-2720. MANUAL Your Guide to a Healthy manual is now on-line. Visit [email or web address] to download your free copy documented in this encounterFlower Hospital07-17-2025 Note Indication Evaluation of growth Maternal obesity, [...] 6 oz EFW by: Hadlock (HC-AC-FL) Extended Global Marketing Manager 5.2 mm Extremities / Bony Struc [place] [...] Larson RDMS, RVT Read By: Patience Nelson M.D.MATERNAL [id number] NoteHNO ID: [id number] Author: BENITA CONN APRN.CINDY Service: ? Author Type: Nurse Practitioner Type: [...] Supervision of high risk in third trimester ([facility]) - ICD9: V23.9, ICD10: O09.93 (primary diagnosis) - Continue PNV and LDA 2. 33 weeks gestation of ([facility]) - ICD9: V22.2, ICD10: Z3A.33 - Planning to breastfeed and has pump 3. Obesity in ([facility]) - ICD9: 649.10, ICD10: O99.210 - Growth today, report pending. Plan for q 4 weeks. -Pre BMI 38 - Weekly NSTs at 36 weeks. 4. IIH (idiopathic intracranial hypertension) - ICD9: 348.2, ICD10: G93.2 - Denies headaches or pain, not on any meds - Following with Dr. Castanon out of [facility] PTL precautions and kick counts reviewed. RTO in 2 weeks or sooner as needed. Benita Conn APRN.[facility]-16[facility] History of Present illness Narrative* Benita Conn APRN.COMPLIANCE PROFESSIONAL - 10/08/2024 3:05 PM EDT EH - S: Soheila is a 29 year old female who presents at 33w0d for a routine visit. Feeling movement. Denies headache, visual changes, chest pain, shortness of breath, vaginal bleeding, leakage of fluid, or dysuria. Feeling well, no complaints. O: See flow sheet Gen: No apparent distress Abd: Gravid, nontender 5 lb TWG ASSESSMENT/PLAN: 1. Supervision of high risk in third trimester ([facility]) - ICD9: V23.9, ICD10: O09.93 (primary diagnosis) - Continue PNV and LDA 2. 33 weeks gestation of (HCC) - ICD9: V22.2, ICD10: Z3A.33 - Planning to breastfeed and has pump 3. Obesity in (HCC) - ICD9: 649.10, ICD10: O99.210 - Growth today, report pending. Plan for q 4 weeks. -Pre BMI 38 - Weekly NSTs at 36 weeks. 4. IIH (idiopathic intracranial hypertension) - ICD9: 348.2, ICD10: G93.2 - Denies headaches or pain, not on any meds - Following with Dr. Castanon out of [facility] PTL precautions and kick counts reviewed. RTO in 2 weeks or sooner as needed. Benita Conn APRN.COMPLIANCE PROFESSIONAL documented in this encounterFlower Hospital07-16-2025 Instructions* Patient Instructions* Tala Mendoza MA - 10/08/2024 2:58 PM EDT SEQUENTIAL SCREENINGS [facility] offers sequential screenings for women who are interested in screenings for chromosomal abnormalities and certain defects during a . The sequential screen combinesultrasound and blood tests to determine the risk [...] this testing. It will require an appointment withour blend technician. This is not an ultrasound performed [...] the above symptoms, contact our office at [phone] and ask to speak with anurse. After hours, you can call doctors registry at [phone] OR call [facility] at [phone] ask to have the doctor armature connector paged. If you consider this an emergency, dial 6--8 or go to your nearest emergency department. NEED HELP? Are you dealing with a violent or abusive relationship? Are you a victim of rape or sexual assult? Call [facility] ([place]) 24 hour Crisis Hotline: 386.769.3342 or 048-368-6183. MANUAL Your Guide to a Healthy manual is now on-line. Visit [email or web address] to download your free copy documented in this encounterFlower Hospital07-02-2025 Progress note* Quick Notes - Clint Vasques MD - 09/24/2024 4:25 PM EDT S: Soheila denies LOF, contractions or vaginal bleeding O: 31w0d, see flow sheet +FM SENSITIVE EXAM: Sensitive exam not performed. A/P: Assessment & Plan Obesity in (HCC) -next US on 10/08/24 -BMI 38 Supervision of high risk in third trimester ([facility]) IIH (idiopathic intracranial hypertension) -no headaches for the past several months -no meds Anemia during in third trimester ([facility]) -Resolved, last Hgb 12.0 (09/03/24) Jennifer Tay, [...] Clint Vasques Date: 09/24/2024 Time: 4:44 PM [facility]07-02-2025 Miscellaneous Notes* Quick Notes - Clint Vasques MD - 09/24/2024 4:25 PM EDT S: Soheila denies LOF, contractions or vaginal bleeding O: 31w0d, see flow sheet +FM SENSITIVE EXAM: Sensitive exam not performed. A/P: Assessment & Plan Obesity in (HCC) -next US on 10/08/24 -BMI 38 Supervision of high risk in third trimester ([facility]) IIH (idiopathic intracranial hypertension) -no headaches for the past several months -no meds Anemia during in third trimester ([facility]) -Resolved, last Hgb 12.0 (09/03/24) Jennifer Tay, [...] 09/24/2024 Time: 4:44 PM documented in this encounterFlower Hospital07-02-2025 Instructions* Patient Instructions* Meera Linton MA - 09/24/2024 4:01 PM EDT SEQUENTIAL SCREENINGS [facility] offers sequential screenings for women who are interested in screenings for chromosomal abnormalities and certain defects during a . The sequential screen combinesultrasound and blood tests to determine the risk [...] this testing. It will require an appointment withour blend technician. This is not an ultrasound performed [...] the above symptoms, contact our office at [phone] and ask to speak with anurse. After hours, you can call doctors registry at [phone] OR call [facility] at [phone] ask to have the doctor armature connector paged. If you consider this an emergency, dial 9- or go to your nearest emergency department. NEED HELP? Are you dealing with a violent or abusive relationship? Are you a victim of rape or sexual assult? Call [facility] ([place]) 24 hour Crisis Hotline: 842.375.5989 or 976-017-9766. MANUAL Your Guide to a Healthy manual is now on-line. Visit [email or web address] to download your free copy documented in this encounterFlower Hospital06-11-2025 Progress note* Quick Notes - Gisell Hope MD - 09/03/2024 2:00 PM EDT S: Soheila Polk is a 29 year old female who presents at 11/26/2024, by Last Menstrual Period for a routine visit. Denies headache, visual changes, chest pain, shortness of breath, vaginal bleeding,leakage of fluid, or dysuria. Feeling well, no complaints. Good movement, No contractions O: See flow sheet Gen: No apparent distress Abd: Gravid, nontender GCT today TDAP declined LARC declined plan reviewed ASSESSMENT/PLAN: 1. Obesity in (HCC) - ICD9: 649.10, ICD10: O99.210 (primary diagnosis) Growth q 4 weeks 2. Supervision of high risk in third trimester ([facility]CC) - ICD9: V23.9, ICD10: O09.93 3. 28 weeks gestation of (HCC) - ICD9: V22.2, ICD10: Z3A.28 PTL precautions Gisell Hope MD [facility]06-11-2025 Miscellaneous Notes* Quick Notes - Gisell Hope MD - 09/03/2024 2:00 PM EDT S: Soheila Polk is a 29 year old female who presents at 11/26/2024, by Last Menstrual Period for a routine visit. Denies headache, visual changes, chest pain, shortness of breath, vaginal bleeding,leakage of fluid, or dysuria. Feeling well, no complaints. Good movement, No contractions O: See flow sheet Gen: No apparent distress Abd: Gravid, nontender GCT today TDAP declined LARC declined plan reviewed ASSESSMENT/PLAN: 1. Obesity in ([facility]) - ICD9: 649.10, ICD10: O99.210 (primary diagnosis) Growth q 4 weeks 2. Supervision of high risk in third trimester ([facility]) - ICD9: V23.9, ICD10: O09.93 3. 28 weeks gestation of ([facility]) - ICD9: V22.2, ICD10: Z3A.28 PTL precautions Gisell Hope MD documented in this encounterFlower Hospital06-11-2025 Instructions* Patient Instructions* Brandon Aguirre MA - 09/03/2024 1:37 PM EDT SEQUENTIAL SCREENINGS [facility] offers sequential screenings for women who are interested in screenings for chromosomal abnormalities and certain defects during a . The sequential screen combinesultrasound and blood tests to determine the risk [...] this testing. It will require an appointment withour blend technician. This is not an ultrasound performed [...] the above symptoms, contact our office at [phone] and ask to speak with anurse. After hours, you can call doctors registry at [phone] OR call [facility] at [phone] ask to have the doctor armature connector paged. If you consider this an emergency, dial 9-1-6 or go to your nearest emergency department. NEED HELP? Are you dealing with a violent or abusive relationship? Are you a victim of rape or sexual assult? Call [facility] ([place]) 24 hour Crisis Hotline: 827.829.3412 or 176-145-9980. MANUAL Your Guide to a Healthy manual is now on-line. Visit [email or web address] to download your free copy documented in this encounterFlower Hospital05-12-2025 Telephone encounter Note * Telephone Encounter - Aury Castillo RN - 08/04/2024 3:26 PM EDT Order signed and faxed. Aury Castillo RN [facility]05-12-2025 Miscellaneous Notes* Telephone Encounter - Aury Castillo RN - 08/04/2024 3:26 PM EDT Order signed and faxed. Aury Castillo RN * Telephone Encounter - Halima Burt RN - 08/04/2024 10:34 AM EDT Written order received from [employer] for breast pump. Placed in RR inbox for signature. Halima Burt RN documented in this encounterFlower Hospital05-12-2025 Telephone encounter Note * Telephone Encounter - Halima Burt RN - 08/04/2024 10:34 AM EDT Written order received from [employer] for breast pump. Placed in RR inbox for signature. Halima Burt RN [facility]05-02-2025 Telephone encounter Note* Telephone Encounter - Gisell Bustillo RN - 07/25/2024 8:56 AM EDT 22w2d Next OB visit on 08/13 Hemoglobin (g/dL) Date Value 05/20/2024 13.9 [facility]05-02-2025 Miscellaneous Notes* Telephone Encounter - Gisell Bustillo RN - 07/25/2024 8:56 AM EDT 22w2d Next OB visit on 08/13 Hemoglobin (g/dL) Date Value 05/20/2024 13.9 documented in this encounterFlower Hospital04-22-2025 NoteHNO ID: [id number] Author: NICHOLE CORTES APRN.CNM Service: ? Author Type: Char Filter Operator Helper Type: Progress Notes Filed: 07/18/2024 12:10 Note [...] doctor for management, next appointment 09/17. -Consulted [facility], no consultation or evaluation needed. 3. 20 weeks gestation of 4. Obesity in -Pregravid BMI 38 -Growth US every 4wk at 32 wk -NST weekly at 36wk PTL precautions reviewed and when to call RTO in 4 weeks Nichole Cortes APRN.[facility]03-25-2025 Progress note* Quick Notes - Clint Vasques MD - 06/17/2024 3:56 PM EDT RR- VB No. LOF No. CTXS No. [...] scan and ob visit Clint Vasques M.D. [facility]03-25-2025 Miscellaneous Notes* Quick Notes - Clint Vasques MD - 06/17/2024 3:56 PM EDT RR- VB No. LOF No. CTXS No. [...] visit Clint Vasques M.D. documented in this encounterFlower Hospital03-25-2025 Instructions* Patient Instructions* Meena Willson MA - 06/17/2024 3:32 PM EDT SEQUENTIAL SCREENINGS [facility] offers sequential screenings for women who are interested in screenings for chromosomal abnormalities and certain defects during a . The sequential screen combinesultrasound and blood tests to determine the risk [...] this testing. It will require an appointment withour blend technician. This is not an ultrasound performed [...] the above symptoms, contact our office at [phone] and ask to speak with anurse. After hours, you can call doctors registry at [phone] OR call [facility] at [phone] ask to have the doctor armature connector paged. If you consider this an emergency, dial 9-1- or go to your nearest emergency department. NEED HELP? Are you dealing with a violent or abusive relationship? Are you a victim of rape or sexual assult? Call [facility] 24 hour Crisis Hotline: 314.656.2392 or 898-458-4396. MANUAL Your Guide to a Healthy manual is now on-line. Visit [email or web address] to download your free copy documented in this [facility] Progress note* Quick Notes - Nichole Cortes APRN.CNM - 05/20/2024 10:10 AM EST ESTELA-S: Soheila Polk is a 29 year old female who presents at 12w6d with RED:11/26/2024, by Last Menstrual Period for a routine visit. Denies headache, visual changes, chest pain, shortness of breath,vaginal bleeding, leakage of fluid, or dysuria. Feeling [...] RTO in 4 weeks Nichole Cortes APRN.CNM [facility]02-[facility] Miscellaneous Notes* Quick Notes - Nichole Cortes APRN.CNM - 05/20/2024 10:10 AM EST ESTELA-S: Soheila Polk is a 29 year old female who presents at 12w6d with RED:11/26/2024, by Last Menstrual Period for a routine visit. Denies headache, visual changes, chest pain, shortness of breath,vaginal bleeding, leakage of fluid, or dysuria. Feeling [...] weeks Nichole Cortes APRN.CNM documented in this encounterFlower Hospital02-25-2025 Instructions* Patient Instructions* Tala Mendoza MA - 05/20/2024 9:53 AM EST SEQUENTIAL SCREENINGS [facility] offers sequential screenings for women who are interested in screenings for chromosomal abnormalities and certain defects during a . The sequential screen combinesultrasound and blood tests to determine the risk [...] this testing. It will require an appointment withour blend technician. This is not an ultrasound performed [...] the above symptoms, contact our office at [phone] and ask to speak with anurse. After hours, you can call doctors registry at [phone] OR call [facility] at [phone] ask to have the doctor armature connector paged. If you consider this an emergency, dial 9-1-6 or go to your nearest emergency department. NEED HELP? Are you dealing with a violent or abusive relationship? Are you a victim of rape or sexual assult? Call [facility] ([place]) 24 hour Crisis Hotline: 696.979.5238 or 069-258-2688. MANUAL Your Guide to a Healthy manual is now on-line. Visit [email or web address] to download your free copy documented in this encounterFlower Hospital01-20-2025 NoteHNO ID: [id number] Author: MELISSA ANDREA APRN.COMPLIANCE PROFESSIONAL Service: ? Author Type: Nurse Practitioner Type: Progress Notes Filed: 04/18/2024 10:06 Note Text: Patient declined accountant tax. INITIAL OB ASSESSMENT HPI: Soheila is a [...] 2 resecte HYSTEROSCOPY, DIAGNOSTIC (SEPARATE 11/22/2023 Hysteroscopy DANDC, Polyp resection at [facility]-Dr. Vasques SPINAL TAP PROCEDURE 10/2022 TONSILLECTOMY [...] was discussed with the (more content not included)...[facility]01-20-2025 History of Present illness Narrative* Melissa Andrea APRN.CINDY - 04/14/2024 3:24 PM EST Patient declined accountant tax. INITIAL OB ASSESSMENT HPI: Soheila is a [...] (SEPARATE 11/22/2023 Hysteroscopy D&C, Polyp resection at [facility]-Dr. Vasques SPINAL TAP PROCEDURE 10/2022 TONSILLECTOMY [...] discussed with the Patient or Patient's Authorized Bi Technical Lead. As applicable, any other physician, advance practice provider, medical student, or other health professional student that will be observing or involved in the sensitive examination for educational or training purposes was discussed with the Patient or Authorized Bi Technical Lead. The Patient or Authorized Bi Technical Lead has agreed to proceed with the sensitive [...] +cardiac activity, CRL consistent with LMP. Melissa Andrea, SYSTEMS ADMIN.COMPLIANCE PROFESSIONAL ASSESSMENT: 29 year old at 8w2d wks gestational age PLAN: 1) Patient oriented to practice. Patient given new OB orientation folder. Discussed nutrition, folic acid supplementation, dietary guidelines, exercise, smoking, alcohol, caffeine, and drug use. Discussed gestational weight gain guidelines. Discussed routine OB labs including STD/HIV. Discussed how to access Your guide to a health and the Technical Communication Teacher. Reviewed midwifery and equipment operator/laborer services that are available. 2) Screening: Hemoglobin [...] aneuploidy screening was provided. The patient chooses toproceed with First trimester early anatomy ultrasound (12-13w6d) [...] 4 weeks or sooner prn. Melissa Andrea APRN.CINDY documented in this encounterFlower Hospital01-20-2025 Instructions* Patient Instructions* Junie Kowalski LPN - 04/14/2024 3:24 PM EST Please select the following link to access the [facility] Your Guide to a Healthy . [email or web address] Please select the following link to access the [facility] Your Guide to a Healthy . [email or web address] documented in this encounterFlower Hospital08-29-2024 History of Present illness Narrative* Clint Vasques MD - 11/22/2023 1:27 PM EDT Patient underwent hysteroscopy D&C for polyp resection on 11/22/2023 at [facility] without complication. She did have 2 small polyps in the uterus. Pathology is pending. Patient tolerated the procedure well. Clint Vasques MD documented in this encounterFlower Hospital08-21-2024 History and physical note * Clint Vasques MD - 11/14/2023 1:11 PM EDT Pre-Op History and Physical HPI: The patient [...] history, medications and allergies Clint Vasques M.D. [facility]08-21-[facility] History and physical note* Clint Vasques MD - 11/14/2023 1:11 PM EDT Pre-Op History and Physical HPI: The patient [...] allergies Clint Vasques M.D. documented in this encounterFlower Hospital08-21-2024 History of Present illness Narrative* Clint Vasques MD - 11/14/2023 1:02 PM EDT VIRTUAL VISIT PROGRESS NOTE This is a virtual visit using S[employer] Video Visit. It required patient- provider interaction for the medical decision making as documented below. I have communicated my name and active licensure. The patient's identity and physical location wereverified at the time of this visit. Either the patient or their legal financial service representative has been informed of the risks and benefits of -- and alternatives to -- treatment through a remote evaluation andconsents to proceed with the evaluation remotely. Soheila [...] which included preparing to see the patient, olby-lm-[id number] patient care, completing clinical documentation, and communicating results to the patient/family/caregiver Clint Vasques MD documented in this encounterFlower Hospital08-06-2024 Telephone encounter Note * Telephone Encounter - Gisell Bustillo RN - 10/30/2023 11:24 AM EDT Patient called the office. She was scheduled with JG instead of RR and it needed to be a virtual visit. Rescheduled. Gisell Bustillo RN [facility]-06-[facility] Miscellaneous Notes* Telephone Encounter - Gisell Bustillo RN - 10/30/2023 11:24 AM EDT Patient called the office. She was scheduled with JG instead of RR and it needed to be a virtual visit. Rescheduled. Gisell Bustillo RN * Telephone Encounter - Halima Burt RN - 10/30/2023 10:35 AM EDT Left message for patient to call office. Halima Burt RN * Telephone Encounter - Halima Burt RN - 10/29/2023 8:32 AM EDT Left message for patient to call office. Halima Burt RN * Telephone Encounter - Clint Vasques MD - 10/27/2023 3:09 PM EDT yes * Telephone Encounter - Nisa Renee LPN - 10/25/2023 4:25 PM EDT Patient asking if she can schedule a virtual pre-op appointment? Last office appointment was 09/10/2023, Surgery is scheduled 11/22/2023 at [place]. * Telephone Encounter - Halima Burt RN - 10/24/2023 12:12 PM EDT Surgery sheet placed in Surgery schedulers mailbox. Halima Burt RN * Telephone Encounter - Clint Vasques MD - 10/24/2023 12:06 PM EDT noted. Sheet filled out. Clint Vasques MD * Telephone Encounter - Halima Burt RN - 10/24/2023 11:26 AM EDT Pt notified. States she would like to do the consult and pre-op appt together. States she is on vacation next week and will return on 11/05/23. Advised Pt that our surgery attendant will be in contactwith her regarding time and day of her pre-op appt as well as surgery date. Surgery sheet given to RR to sign. Halima Burt RN * Telephone Encounter - Halima Burt RN - 10/24/2023 11:26 AM EDT ----- Message from Clint Vasques MD sent at 10/24/2023 10:41 AM EDT ----- See if wants to have consult before preop or can do consult/preop together. Clint Vasques MD documented in this encounterFlower Hospital08-06-2024 Telephone encounter Note * Telephone Encounter - Halima Burt RN - 10/30/2023 10:35 AM EDT Left message for patient to call office. Halima Burt RN [facility]08-05-2024 Telephone encounter Note* Telephone Encounter - Halima Burt RN - 10/29/2023 8:32 AM EDT Left message for patient to call office. Halima Burt RN [facility]08-03-2024 Telephone encounter Note* Telephone Encounter - Clint Vasques MD - 10/27/2023 3:09 PM EDT yes [facility] Work Phone: [phone]) 302-204708-01-2024 Telephone encounter Note* Telephone Encounter - Nisa Renee LPN - 10/25/2023 4:25 PM EDT Patient asking if she can schedule a virtual pre-op appointment? Last office appointment was 09/10/2023, Surgery is scheduled 11/22/2023 at [place]. [facility] Telephone encounter Note* Telephone Encounter - Halima Burt RN - 10/24/2023 12:12 PM EDT Surgery sheet placed in Surgery schedulers mailbox. Halima Burt RN [facility] Telephone encounter Note* Telephone Encounter - Clint Vasques MD - 10/24/2023 12:06 PM EDT noted. Sheet filled out. Clint Vasques MD [facility] Telephone encounter Note* Telephone Encounter - Halima Burt RN - 10/24/2023 11:26 AM EDT Pt notified. States she would like to do the consult and pre-op appt together. States she is on vacation next week and will return on 11/05/23. Advised Pt that our surgery attendant will be in contactwith her regarding time and day of her pre-op appt as well as surgery date. Surgery sheet given to RR to sign. Halima Burt RN [facility] Telephone encounter Note* Telephone Encounter - Halima Burt RN - 10/24/2023 11:26 AM EDT ----- Message from Clint Vasques MD sent at 10/24/2023 10:41 AM EDT ----- See if wants to have consult before preop or can do consult/preop together. Clint Vasques MD [facility]07-30-[facility] History of Present illness Narrative* Jud Santacruz MD - 10/23/2023 9:04 PM EDT The patient presents for requested ultrasound. Full report available in the Imaging tab in Epic. Jud Santacruz MD documented in this encounterFlower Hospital07-24-2024 Telephone encounter Note * Telephone Encounter - Clint Vasques MD - 10/17/2023 7:16 PM EDT schedule US and f/u after w/ me or another provider. Clint Vasques MD [facility]07-24-2024 Miscellaneous Notes* Telephone Encounter - Clint Vasques MD - 10/17/2023 7:16 PM EDT schedule US and f/u after w/ me or another provider. Clint Vasques MD * Telephone Encounter - Gisell Bustillo RN - 10/17/2023 3:51 PM EDT Patient seen 09/10/23 for annual documented in this encounterFlower Hospital07-24-2024 Telephone encounter Note * Telephone Encounter - Gisell Bustillo RN - 10/17/2023 3:51 PM EDT Patient seen 09/10/23 for annual [facility] History of Present illness Narrative* Clint Vasques MD - 09/10/2023 9:32 AM EDT Soheila is a 28 year old who [...] L0 SAB0 IAB0 Ectopic0 Multiple0 Live Births0 Refractory Products Supervisor History LMP: 09/01/2023, Having periods Age at Menarche: Age at First : Age at Menopause: Refractory Products Supervisor History Comments: Sexual Activity: Yes; Male Contraception: [...] external genitalia normal, normal Bartholin's glands, urethra, [place]'s glands, no vulvar lesions, no cervical lesions, [...] plan Clint Vasques MD documented in this encounterFlower HospitalDisprem[facility] summary Author Fausto Alfaro [facility] October 30, 2022 8:34am Note Date/Time October 30, 2022 8:3 4am [facility] Medical Records Department [address] [place] [address] Emergency Department Summary 10/30/22 MR#: [id number] Acct: [id number] Name: SOHEILA JUAN Rep #:[id number] : [...] normal. She was prescribed Diamox by her computer systems manager howeverhas not started taking it. She was seen yesterday in the ED over the weekend. She is given migraine cocktail. She was given prescription for Fioricet. She took it yesterday 5 PM had transient relief. She returns for persistent symptoms. This was her first lumbar puncture. Denies fevers. Denies photophobia or phonophobia. PFSH PFS Home Medications ferrous sulfate 325 mg (65 mg iron) tablet (Iron (ferrous sulfate)) 325 mg PO QODAY 10/26/22 [History Last Taken Unknown] beeaatlmnh-thokraoxizxmp-nfnaqvhv 50 mg-300 mg-40 mg capsule (Fioricet) 1 [...] Dr. Maria This note was generated with [employer] dictation software. It may contain incorrectwords, spelling, and punctuation that were not noted in checking the note beforesigning. Discharge Plan Triage Chief Complaint: Headache ED Provider: Fausto Alfaro Dx/Rx/DC Orders Clinical Impression: Headache, post-lumbar puncture Instructions: ED Headache After Spinal Tap ... Prescriptions: No Action ferrous sulfate [Iron (ferrous sulfate)] 325 mg (65 mg iron) tablet 325 mg PO QODAY atvkjzmhgc-ktrapipagkibk-hjbs [Fioricet] 50-300-40 mg capsule 1 cap PO Q8H PRN (Reason: pain) Qty: 12 0RF ondansetron 4 mg tablet,disintegrating 4 mg PO Q8H PRN PRN (Reason: Nausea) Qty: 10 0RF Primary Care Provider: Gregory Barrera Referrals: Vera Maria MD [Med Staff - Active Staff] - As soon as possible Gregory Barrera DO [Primary Care Provider] - Activity Restrictions/Additional Instructions: Discussed with Dr. Maria, go to his office 9 AM for planned blood patch in the office. Disposition Disposition: Home, Self Care What to do if you have Problems For any increased pain, shortness of breath, bleeding, nausea or vomiting, chestpain, or any unexpected problems, contact your Primary Care Provider. Call [facility] ([phone]) or report to the closest Emergency Room. Call 911 if necessary. 10/30/22 [id number] <Electronically signed by Fausto Egan> Cosigner Signature (if applicable): CC: Dr. Gregory Barrera DO ~ Signed [facility] Work Phone: Evaluation + Plan note No data available for this section [facility] Evaluation + Plan note Future Appointments Appointment Date:07/27/2023 07:00:00 AM Scheduled Provider:LANE VEE Location:[facility] Appointment Type:PC OV [facility] Evaluation + Plan note Future Appointments Appointment Date:01/25/2024 07:00:00 AM Scheduled Provider:LANE VEE Location:[facility] Appointment Type:PC Wellness Annual Future Scheduled Tests Laboratory* Complete Blood Count 11/06/23 * Lipid Profile 11/06/23 * Complete Metabolic Panel 11/06/23 [facility] Evaluation + Plan note Future Appointments Appointment Date:07/25/2024 07:00:00 AM Scheduled Provider:LANE VEE Location:[facility] Appointment Type:PC OV Future Scheduled Tests Laboratory* Complete Blood Count 11/06/23 * Lipid Profile 11/06/23 * Complete Metabolic Panel 11/06/23 [facility] evaluation noteNo assessment information available [facility] Work Phone: evaluation note* Diagnosis Encounter for gynecological examination (general) [...] counseling and advice documented in this encounter [facility] note* Diagnosis Abnormal uterine bleeding (AUB)- Primary documented in this encounter [facility] note* Diagnosis Abnormal uterine bleeding (AUB)- Primary Abnormal endometrial ultrasound Nonspecific (abnormal) findings on radiological and other examination of genitourinary organs Endometrial polyp Polyp of corpus uteri documented in this encounter [facility]* Diagnosis Abnormal uterine bleeding (AUB)- Primary Endometrial polyp Polyp of corpus uteri [facility] encounter [facility]* Diagnosis Endometrial polyp- Primary Polyp of corpus uteri Abnormal uterine bleeding (AUB) documented in this encounter [facility]* Diagnosis with uncertain dates, unspecified trimester- Primary 8 weeks gestation of state, incidental Encounter for supervision of normal in multigravida BMI 38.0-38.9,adult Body Mass Index 38.0-38.9, adult IIH (idiopathic intracranial hypertension) Benign intracranial hypertension documented in this encounter [facility]* Diagnosis Encounter for screening for malformation using ultrasound- Primary 12 weeks gestation of state, incidental documented in this encounter [facility]* Diagnosis Supervision of high risk in second trimester- Primary Unspecified high-risk Obesity in Obesity complicating , childbirth, or the puerperium, unspecified as to episode of care or not applicable IIH (idiopathic intracranial hypertension) Benign intracranial hypertension documented in this encounter [facility] note* Diagnosis 16 weeks gestation of - Primary state, incidental Supervision of high risk in second trimester Unspecified high-risk Obesity in Obesity complicating , childbirth, or the puerperium, unspecified as to episode of care or not applicable documented in this encounter [facility] note* Diagnosis Encounter for anatomic survey (HCC)- Primary Encounter for anatomic survey Obesity in (HCC) Obesity complicating , childbirth, or the puerperium, unspecified as to episode of care or not applicable 20 weeks gestation of (HCC) state, incidental documented in this encounter [facility] note* Diagnosis Screening for diabetes mellitus- [...] (HCC) state, incidental documented in this encounter [facility] note* Diagnosis Screening for diabetes mellitus- [...] hypertension Anemia during in third trimester (HCC) * Assessment & Plan Note - Clint Vasques MD - 09/24/2024 4:30 PM EDT Associated Problem(s): Obesity in (HCC) -next US on 10/08/24 -BMI 38 * Assessment & Plan Note - Clint Vasques MD - 09/24/2024 4:30 PM EDT Associated Problem(s): IIH (idiopathic intracranial hypertension) -no headaches for the past several months -no meds documented in this encounter [facility] note* Diagnosis Screening for diabetes mellitus- [...] Supervision of high risk in third trimester ([facility]) Unspecified high-risk IIH (idiopathic intracranial hypertension) Benign intracranial hypertension Anemia during in third trimester ([facility]) Supervision of high risk in third trimester ([facility])- Primary Unspecified high-risk 33 weeks gestation of ([facility]) state, incidental Obesity in ([facility]) Obesity complicating , childbirth, or the puerperium, unspecified as to episode of care or not applicable IIH (idiopathic intracranial hypertension) Benign intracranial hypertension documented in this encounter [facility] note* Diagnosis Screening for diabetes mellitus- Primary Supervision of other high risk pregnancies, second trimester ([facility]) Obesity in ([facility]) Obesity complicating , childbirth, or the puerperium, unspecified as to episode of care or not applicable 25 weeks gestation of ([facility]) state, incidental Obesity in ([facility])- Primary Obesity complicating , childbirth, or the puerperium, unspecified as to episode of care or not applicable Supervision of high risk in third trimester ([facility]) Unspecified high-risk IIH (idiopathic intracranial hypertension) Benign intracranial hypertension Anemia during in third trimester ([facility]) Supervision of other high risk pregnancies, second trimester ([facility]) Obesity in ([facility]) Obesity complicating , childbirth, or the puerperium, unspecified as to episode of care or not applicable documented in this encounter [facility] note* Diagnosis Screening for diabetes mellitus- Primary Supervision of other high risk pregnancies, second trimester ([facility]) Obesity in ([facility]) Obesity complicating , childbirth, or the puerperium, unspecified as to episode of care or not applicable 25 weeks gestation of ([facility]) state, incidental Obesity in ([facility])- Primary Obesity complicating , childbirth, or the puerperium, unspecified as to episode of care or not applicable Supervision of high risk in third trimester ([facility]) Unspecified high-risk IIH (idiopathic intracranial hypertension) Benign intracranial hypertension Anemia during in third trimester ([facility]) 35 weeks gestation of ([facility])- Primary state, incidental Supervision of high risk in third trimester ([facility]) Unspecified high-risk Obesity in ([facility]) Obesity complicating , childbirth, or the puerperium, [...] OB DIP B/O documented [facility] this encounter [facility]* Diagnosis Screening for diabetes mellitus- [...] Supervision of high risk in third trimester ([facility]) Unspecified high-risk Obesity in (HCC) Obesity complicating , childbirth, or the puerperium, unspecified as to episode of care or not applicable IIH (idiopathic intracranial hypertension) Benign intracranial hypertension 37 weeks gestation of ([facility])- Primary state, incidental Supervision of high risk in third trimester ([facility]) Unspecified high-risk documented in this encounter [facility] note* Diagnosis Screening for diabetes mellitus- Primary Supervision of other high risk pregnancies, second trimester ([facility]) Obesity in (HCC) Obesity complicating , childbirth, or the puerperium, unspecified as to episode of care or not applicable 25 weeks gestation of ([facility]) state, incidental Obesity in ([facility])- Primary Obesity complicating , childbirth, or the puerperium, unspecified as to episode of care or not applicable Supervision of high risk in third trimester ([facility]) Unspecified high-risk IIH (idiopathic intracranial hypertension) Benign intracranial hypertension Anemia during in third trimester ([facility]) 35 weeks gestation of ([facility])- Primary state, incidental Supervision of high risk in third trimester ([facility]) Unspecified high-risk Obesity in ([facility]) Obesity complicating , childbirth, or the puerperium, unspecified as to episode of care or not applicable IIH (idiopathic intracranial hypertension) Benign intracranial hypertension 35 weeks gestation of ([facility])- Primary state, incidental Supervision of high risk in third trimester ([facility]) Unspecified high-risk Obesity in ([facility]) Obesity complicating , childbirth, or the puerperium, unspecified as to episode of care or not applicable IIH (idiopathic intracranial hypertension) Benign intracranial hypertension macrosomia during in third trimester, single or unspecified fetus ([facility] [facility] Primary Supervision of high risk in third trimester ([facility]) Unspecified high-risk 37 weeks gestation of ([facility]) state, incidental Obesity in ([facility]) Obesity complicating , childbirth, or the puerperium, unspecified as to episode of care or not applicable documented in this encounter [facility] note* Diagnosis Screening for diabetes mellitus- Primary Supervision of other high risk pregnancies, second trimester ([facility]) Obesity in (HCC) Obesity complicating , childbirth, or the puerperium, unspecified as to episode of care or not applicable 25 weeks gestation of ([facility]) state, incidental Obesity in ([facility])- Primary Obesity complicating , childbirth, or the puerperium, unspecified as to episode of care or not applicable Supervision of high risk in third trimester ([facility]) Unspecified high-risk IIH (idiopathic intracranial hypertension) Benign intracranial hypertension Anemia during in third trimester ([facility]) 35 weeks gestation of ([facility])- Primary state, incidental Supervision of high risk in third trimester ([facility]) Unspecified high-risk Obesity in ([facility]) Obesity complicating , childbirth, or the puerperium, unspecified as to episode of care or not applicable IIH (idiopathic intracranial hypertension) Benign intracranial hypertension 35 weeks gestation of ([facility])- Primary state, incidental Supervision of high risk in third trimester ([facility]) Unspecified high-risk Obesity in ([facility]) Obesity complicating , childbirth, or the puerperium, unspecified as to episode of care or not applicable IIH (idiopathic intracranial hypertension) Benign intracranial hypertension Supervision of high risk in third trimester ([facility])- Primary Unspecified high-risk 37 weeks gestation of ([facility]) state, incidental Obesity in ([facility]) Obesity complicating , childbirth, or the puerperium, unspecified as to episode of care or not applicable IIH (idiopathic intracranial hypertension) Benign intracranial hypertension Anemia during in third trimester ([facility]) documented in this encounter [facility] note* Diagnosis Screening for diabetes mellitus- Primary Supervision of other high risk pregnancies, second trimester ([facility]) Obesity in ([facility]) Obesity complicating , childbirth, or the puerperium, unspecified as to episode of care or not applicable 25 weeks gestation of ([facility]) state, incidental Obesity in ([facility])- Primary Obesity complicating , childbirth, or the puerperium, unspecified as to episode of care or not applicable Supervision of high risk in third trimester ([facility]) Unspecified high-risk IIH (idiopathic intracranial hypertension) Benign intracranial hypertension Anemia during in third trimester ([facility]) 35 weeks gestation of ([facility])- Primary state, incidental Supervision of high risk in third trimester ([facility]) Unspecified high-risk Obesity in (HCC) Obesity complicating [...] 38 weeks gestation of (HCC) state, incidental * Assessment & Plan Note [...] [facility] DIP B[facility] Screening for diabetes mellitus- Primary Supervision of other high risk pregnancies, second trimester (HCC) Obesity in (HCC) Obesity complicating , childbirth, or the puerperium, unspecified as to episode of care or not applicable 25 weeks gestation of ([facility]) state, incidental Obesity in (HCC)- Primary Obesity complicating , childbirth, or the puerperium, unspecified as to episode of care or not applicable Supervision of high risk in third trimester ([facility]) Unspecified high-risk IIH (idiopathic intracranial hypertension) Benign intracranial hypertension Anemia during in third trimester (HCC) 35 weeks gestation of ([facility])- Primary state, incidental Supervision of high risk in third trimester ([facility]) Unspecified high-risk Obesity in ([facility]) Obesity complicating , childbirth, or the puerperium, unspecified as to episode of care or not applicable IIH (idiopathic intracranial hypertension) Benign intracranial hypertension 35 weeks gestation of ([facility])- Primary state, incidental Supervision of high risk in third trimester ([facility]) Unspecified high-risk Obesity in ([facility]) Obesity complicating , childbirth, or the puerperium, unspecified as to episode of care or not applicable IIH (idiopathic intracranial hypertension) Benign intracranial hypertension Supervision of high risk in third trimester ([facility])- Primary Unspecified high-risk Obesity in ([facility]) Obesity complicating , childbirth, or the puerperium, unspecified as to episode of care or not applicable IIH (idiopathic intracranial hypertension) Benign intracranial hypertension Anemia during in third trimester ([facility]) 38 weeks gestation of ([facility]) state, incidental Supervision of high risk in third trimester ([facility])- Primary Unspecified high-risk Obesity in ([facility]) Obesity complicating , childbirth, or the puerperium, unspecified as to episode of care or not applicable 39 weeks gestation of ([facility]) state, incidental [facility] Diagnosis Obesity in ([facility])- Primary Obesity complicating , childbirth, or the puerperium, unspecified as to episode of care or not applicable Supervision of high risk in third trimester ([facility]) Unspecified high-risk IIH (idiopathic intracranial hypertension) Benign intracranial hypertension Anemia during in third trimester ([facility]) 35 weeks gestation of (HCC)- Primary state, [...] 38 weeks gestation of (HCC) state, incidental Routine follow-up ([facility])- Primary Routine follow-up [facility] No data available for this section [facility] Hospital Discharge instructions Additional Instructions Discussed with Dr. Maria, go to his office 9 AM for planned blood patch in the office.[facility] Work Phone: Hospital Discharge instructionsAdditional Instructions check blood pressures daily and make follow up [facility] Work Phone: Progress note No data available for this section [facility] Reason for referral (narrative)* Diagnostic Procedure Only (Routine) - New Request Specialty Diagnoses / Procedures Referred By Contarleen t Referred To Contact [facility] Diagnoses Abnormal uterine bleeding (AUB) Procedures PELVIC US WHI US PELVIC NONOBSTETRIC REAL-TIME IMAGE COMPLETE Clint Vasques MD [address] [place] [address] [facility] [address] [place] [id number] Referral ID Status Reason Start Date Expiration Date Visits Requested Visits Authorized [id number] New Request Auto-Generat ed Referral 10/17/2023 10/16/2024 1 1 [facility] for referral (narrative)* Diagnostic Procedure Only (Routine) - Authorized Specialty Diagnoses / Procedures Referred By Contac t Referred To Contact [facility] Diagnoses with uncertain dates, unspecified trimester 8 weeks gestation of Encounter for supervision of normal in multigravida Procedures OBSTETRIC ULTRASOUND WHI US PREG UTERUS AFTER 1ST TRIMEST GESTATION Melissa Andrea APRN.CNP [address] [place] [address] [facility] [place] [address] Referral ID Status Reason Start Date Expiration Date Visits Requested Visits Authorized [id number] Authorized Auto-Generat ed Referral 04/18/2024 04/18/2025 1 1 [facility] for referral (narrative)No reason for referral information availableWOhioHealth [facility] Work Phone: Reason for visit Narrative* Diagnostic Procedure Only (Routine) - Closed Specialty Diagnoses / Procedures Referred By Contac t Referred To Contact [facility] Diagnoses Abnormal uterine bleeding (AUB) Procedures PELVIC US WHI US PELVIC NONOBSTETRIC REAL-TIME IMAGE COMPLETE Clint Vasques MD [address] [place] [address] [facility] [place] [address] Referral ID Status Reason Start Date Expiration Date V isits Requested Visits Authorized [id number] Closed Auto-Generate d Referral 10/17/2023 10/16/2024 1 1 [facility] Summary Purpose Family History No Family History Records Found No data available for this section No data available for this section No Family History Records Found No data available for this section No Family History Records Found No data available for this section No Family History Records FoundNo Family History Records Found Advance Directives Advance Directive Response Recorded Date/ Time Living Will No October 30, 2022 6:50am Power of Entertainment Usher No October 30 6:50am Advance Directive Response Recorded Date/ Time Do you have a Healthcare Power of Entertainment Usher? No November 20, 2024 9:32am Chief Complaint and Reason for Visit Chief Complaint HEADACHES VISION LOS S BILAT Chief Complaint HEADACHES VISION LOS S BILAT PAPILLEDEMA headache SPINAL HEADACHE Chief Complaint Admit Date VAGINAL DELIVERY November 20, 2024 11 :33am Reason for Visit Admit Date 39 weeks gestation of October 252024 11:33am Active labor November 20, 2024 11 :33am Gestational hypertension November 20 11:33am (spontaneous vaginal delivery) Augus t 2024 11:33am Chief Complaint Admit Date VAGINAL DELIVERY November 20, 2024 11 :33am HTN November 28, 2024 3:42pm BLOOD PRESSURE [facility] 3:[facility] Reason for Referral Specialty Diagnoses / Procedures Referred By Ronen t Referred To Contact Diagnoses IIH (idiopathic intracranial hypertension) Class 2 severe obesity due to excess calories with serious comorbidity and body mass index (BMI) of 35.0 to 35.9 in adult (HCC) Procedures CONSULT TO [facility]NA[facility] PROGRAM OFFICE/OUTPATIENT [facility] 60 MINUTES Clint Vasques MD [facility] [place] [address] Referral ID Status Reason Start Date Expiration Date Visits Requested Visits Authorized [id number] Authorized PCP Requested Referral Auto-Generate d Referral 09/10/2023 09/09/2024 1 1 Additional Source Comments INFORMATION SOURCE (unrecogn ized section and content) DATE CREATED AUTHOR 09/19/2017 [facility] DATE CREATED AUTHOR AUTHOR'S ORGANIZ ATION 07/26/2023 [facility] ([place]) DATE CREATED AUTHOR AUTHOR'S ORGANIZ ATION 07/24/2024 [facility] DATE CREATED AUTHOR AUTHOR'S ORGANIZ ATION 11/23/2024 [facility] DATE CREATED AUTHOR AUTHOR'S ORGANIZ ATION 11/26/2024 [facility] Patient Care team informatio n (unrecognized [...] Armen Vargas , DO Emergency Provider Active Team Status: Active Member Role/Relationship Status Dates LANE YOU Primary Care Provider Active Team Status: Inactive Member Role/Relationship Status Dates KENYATTA SHERMAN Primary Care Provider Active Start: November 20, 2024 End: November 22, 2024 Dr. Gisell Hope MD Admit Provider Active S tart: November 20, 2024 End: November 22, 2024 Dr. Gisell Hope MD Attending Provider Active Start: November 20, 2024 End: November 22, 2024 Dr. Gisell Hope MD Referring Provider Active Start: November 20, 2024 End: November 22, 2024 Team Status: Active Member Role/Relationship Status Dates Dr. Clint Vasques MD Primary Care Provider Active Team Status: Inactive Member Role/Relationship Status Dates Dr. Clint Vasques MD Primary Care Provider Active Start: November 28, 2024 End: November 28, 2024 Ed Physician Provider Emergency Provider Active Start: November 28, 2024 End: November 28, 2024 Team Status: Active Member Role/Relationship Status Dates Dr. Clint Vasques MD Primary Care Provider Active Start: November 28, 2024 Dr. Clint Vasques MD Attending Provider Active Start: November 28, 2024 Dr. Clint Vasques MD Referring Provider Active Start: November 28, 2024 Team Status: Inactive Member Role/Relationship Status Dates Dr. Clint Vasques MD Primary Care Provider Active Start: November 28, 2024 End: November 28, 2024 Dr. Clint Vasques MD Attending Provider Active Start: November 28, 2024 End: November 28, 2024 Dr. Clint Vasques MD Referring Provider Active Start: November 28, 2024 End: November 28, 2024 Goals (unrecognized section and content) Goals may be documented in a n alternate section Source Comments (unrecognize d section and content) In the event this informatio n is protected by the Federal Confidentiality of Alcohol and Drug Abuse Patient Records regulations: The Federal rules restrict any use of the information to criminally investigate or prosecute any alcohol or drug abuse patient.[facility] the event this information is protected by the Federal Confidentiality of Alcohol and Drug Abuse Patient Records regulations: The Federal rules restrict any use of the information to criminally investigate or prosecute any alcohol or drug abuse patient.[facility] Hospital[facility] the event this information is protected by the Federal Confidentiality of Alcohol and Drug Abuse Patient Records regulations: The Federal rules restrict any use of the information to criminally investigate or prosecute any alcohol or drug abuse patient.[facility] Hospital[facility] the event this information is protected by the Federal Confidentiality of Alcohol and Drug Abuse Patient Records regulations: The Federal rules restrict any use of the information to criminally investigate or prosecute any alcohol or drug abuse patient.[facility] the event this information is protected by the Federal Confidentiality of Alcohol and Drug Abuse Patient Records regulations: The Federal rules restrict any use of the information to criminally investigate or prosecute any alcohol or drug abuse patient.[facility] Hospital[facility] the event this information is protected by the Federal Confidentiality of Alcohol and Drug Abuse Patient Records regulations: The Federal rules restrict any use of the information to criminally investigate or prosecute any alcohol or drug abuse patient.[facility] Hospital[facility] the event this information is protected by the Federal Confidentiality of Alcohol and Drug Abuse Patient Records regulations: The Federal rules restrict any use of the information to criminally investigate or prosecute any alcohol or drug abuse patient.[facility] Hospital[facility] the event this information is protected by the Federal Confidentiality of Alcohol and Drug Abuse Patient Records regulations: The Federal rules restrict any use of the information to criminally investigate or prosecute any alcohol or drug abuse patient.[facility] Hospital[facility] the event this information is protected by the Federal Confidentiality of Alcohol and Drug Abuse Patient Records regulations: The Federal rules restrict any use of the information to criminally investigate or prosecute any alcohol or drug abuse patient.[facility] HospitalIn the event this information is protected by the Federal Confidentiality of Alcohol and Drug Abuse Patient Records regulations: The Federal rules restrict any use of the information to criminally investigate or prosecute any alcohol or drug abuse patient.[facility] Hospital[facility] the event this information is protected by the Federal Confidentiality of Alcohol and Drug Abuse Patient Records regulations: The Federal rules restrict any use of the information to criminally investigate or prosecute any alcohol or drug abuse patient.[facility] HospitalIn the event this information is protected by the Federal Confidentiality of Alcohol and Drug Abuse Patient Records regulations: The Federal rules restrict any use of the information to criminally investigate or prosecute any alcohol or drug abuse patient.[facility] HospitalIn the event this information is protected by the Federal Confidentiality of Alcohol and Drug Abuse Patient Records regulations: The Federal rules restrict any use of the information to criminally investigate or prosecute any alcohol or drug abuse patient.[facility] HospitalIn the event this information is protected by the Federal Confidentiality of Alcohol and Drug Abuse Patient Records regulations: The Federal rules restrict any use of the information to criminally investigate or prosecute any alcohol or drug abuse patient.[facility] HospitalIn the event this information is protected by the Federal Confidentiality of Alcohol and Drug Abuse Patient Records regulations: The Federal rules restrict any use of the information to criminally investigate or prosecute any alcohol or drug abuse patient.[facility] HospitalIn the event this information is protected by the Federal Confidentiality of Alcohol and Drug Abuse Patient Records regulations: The Federal rules restrict any use of the information to criminally investigate or prosecute any alcohol or drug abuse patient.[facility] HospitalIn the event this information is protected by the Federal Confidentiality of Alcohol and Drug Abuse Patient Records regulations: The Federal rules restrict any use of the information to criminally investigate or prosecute any alcohol or drug abuse patient.[facility] HospitalIn the event this information is protected by the Federal Confidentiality of Alcohol and Drug Abuse Patient Records regulations: The Federal rules restrict any use of the information to criminally investigate or prosecute any alcohol or drug abuse patient.[facility] HospitalIn the event this information is protected by the Federal Confidentiality of Alcohol and Drug Abuse Patient Records regulations: The Federal rules restrict any use of the information to criminally investigate or prosecute any alcohol or drug abuse patient.[facility] HospitalIn the event this information is protected by the Federal Confidentiality of Alcohol and Drug Abuse Patient Records regulations: The Federal rules restrict any use of the information to criminally investigate or prosecute any alcohol or drug abuse patient.[facility] HospitalIn the event this information is protected by the Federal Confidentiality of Alcohol and Drug Abuse Patient Records regulations: The Federal rules restrict any use of the information to criminally investigate or prosecute any alcohol or drug abuse patient.[facility] HospitalIn the event this information is protected by the Federal Confidentiality of Alcohol and Drug Abuse Patient Records regulations: The Federal rules restrict any use of the information to criminally investigate or prosecute any alcohol or drug abuse patient.[facility] HospitalIn the event this information is protected by the Federal Confidentiality of Alcohol and Drug Abuse Patient Records regulations: The Federal rules restrict any use of the information to criminally investigate or prosecute any alcohol or drug abuse patient.[facility] HospitalIn the event this information is protected by the Federal Confidentiality of Alcohol and Drug Abuse Patient Records regulations: The Federal rules restrict any use of the information to criminally investigate or prosecute any alcohol or drug abuse patient.[facility] HospitalIn the event this information is protected by the Federal Confidentiality of Alcohol and Drug Abuse Patient Records regulations: The Federal rules restrict any use of the information to criminally investigate or prosecute any alcohol or drug abuse patient.[facility] HospitalIn the event this information is protected by the Federal Confidentiality of Alcohol and Drug Abuse Patient Records regulations: The Federal rules restrict any use of the information to criminally investigate or prosecute any alcohol or drug abuse patient.[facility] HospitalIn the event this information is protected by the Federal Confidentiality of Alcohol and Drug Abuse Patient Records regulations: The Federal rules restrict any use of the information to criminally investigate or prosecute any alcohol or drug abuse patient.[facility] HospitalIn the event this information is protected by the Federal Confidentiality of Alcohol and Drug Abuse Patient Records regulations: The Federal rules restrict any use of the information to criminally investigate or prosecute any alcohol or drug abuse patient.[facility] HospitalIn the event this information is protected by the Federal Confidentiality of Alcohol and Drug Abuse Patient Records regulations: The Federal rules restrict any use of the information to criminally investigate or prosecute any alcohol or drug abuse patient.[facility] HospitalIn the event this information is protected by the Federal Confidentiality of Alcohol and Drug Abuse Patient Records regulations: The Federal rules restrict any use of the information to criminally investigate or prosecute any alcohol or drug abuse patient.[facility] HospitalIn the event this information is protected by the Federal Confidentiality of Alcohol and Drug Abuse Patient Records regulations: The Federal rules restrict any use of the information to criminally investigate or prosecute any alcohol or drug abuse patient.[facility] HospitalIn the event this information is protected by the Federal Confidentiality of Alcohol and Drug Abuse Patient Records regulations: The Federal rules restrict any use of the information to criminally investigate or prosecute any alcohol or drug abuse patient.[facility] Reason for Visit (unrecogniz ed section and content) Reason Comments Yearly Exam Reason Comments Appointment Reason Comments Menstrual Problem Reason Comments Initial OB Visit Reason Comments US Specialty Diagnoses / Procedures Referred By Contac t Referred To Contact [facility] Diagnoses with uncertain dates, unspecified trimester 8 weeks gestation of Encounter for supervision of normal in multigravida Procedures OBSTETRIC ULTRASOUND WHI US PREG UTERUS AFTER 1ST TRIMEST GESTATION Melissa Andrea APRN.COMPLIANCE PROFESSIONAL [address] [place] [address] Phone: tel: fax: [facility] [address] [place] [id number] Referral ID Status Reason Start Date Expiration Date V isits Requested Visits Authorized [id number] Closed Auto-Generate d Referral 04/18/2024 04/18/2025 1 1 Reason Onset Date Comments Care 05/20/2024 Reason Onset Date Comments Care 06/17/2024 Specialty Diagnoses / Procedures Referred By Contac t Referred To Contact [facility] Diagnoses Obesity in (HCC) Procedures OBSTETRIC ULTRASOUND WHI US PREG UTERUS AFTER 1ST TRIMEST GESTATION Nichole Cortes APRN.CNM [address] [place] [address] Phone: tel: fax: [address] [phone] Referral ID Status Reason Start Date Expiration Date V isits Requested Visits Authorized [id number] Closed Auto-Generate d Referral 05/20/2024 05/20/2025 2 1 Reason Comments breast pump Reason Onset Date Comments Care 09/03/2024 Reason Onset Date Comments Care 09/24/2024 Reason Onset Date Comments Care 10/08/2024 Specialty Diagnoses / Procedures Referred By Contac t Referred To Contact [facility] Diagnoses Supervision of other high risk pregnancies, second trimester (HCC) Obesity in (HCC) Procedures OBSTETRIC ULTRASOUND WHI US PREG UTERUS AFTER 1ST TRIMEST GESTATION Clint Vasques MD [address] [place] [address] Phone: tel: fax: [address] [phone] Referral ID Status Reason Start Date Expiration Date V isits Requested Visits Authorized [id number] Closed Auto-Generate d Referral 08/13/2024 08/13/2025 1 1 Reason Onset Date Comments Care 10/22/2024 Reason Onset Date Comments Care 11/05/2024 Specialty Diagnoses / Procedures Referred By Contac t Referred To Contact [facility] Diagnoses Supervision of high risk in third trimester (HCC) 33 weeks gestation of (HCC) Obesity in (HCC) Procedures OBSTETRIC ULTRASOUND WHI US PREG UTERUS AFTER 1ST TRIMEST GESTATION Benita Conn, [email or web address] [address] [place] [address] Phone: tel: fax: [address] [phone] Referral ID Status Reason Start Date Expiration Date V isits Requested Visits Authorized [id number] Closed Auto-Generate d Referral 10/08/2024 10/08/2025 1 1 Reason Onset Date Comments Care 11/11/2024 Reason Onset Date Comments Population Health Navigation Outreach 11/13/2024 Ob/peds Reason Onset Date Comments Care 11/14/2024 Reason Onset Date Comments Care 11/19/2024 Reason Comments Ob Delivery Note Reason Comments Care FOR RECORDS PERTAINING TO PATIENTS WHO ARE [...] BE BASED ON THE PRIMARY CLINICAL RECORDS. [facility]. provides no warranty or guarantee of the accuracy or completeness of information in this document.
== END 2024-11-28 19:45 | disposition home or self-care (01) ==
LOC: WPOUT 16:03 → WP 16:04
PROVIDERS: Obstetrics & Gynecology; PCP Obstetrics & Gynecology; Referring Provider Obstetrics & Gynecology; Visit Provider Obstetrics & Gynecology
DX: O13.3 Gestational [pregnancy-induced] hypertension without significant proteinuria, third trimester (principal); Z3A.00 Weeks of gestation of pregnancy not specified
CPT/HCPCS: 36415; 82565; 82570; 84156; 84450; 84460; 84550; 85027; 99221; G0378